=== PATIENT | female | born 1960 | race Caucasian/White ===

== ENCOUNTER 2024-01-05 14:04 | Emergency (ER) | payer MEDICARE, SELFPAY | END 2024-01-05 14:42 | disposition left against medical advice (07) | LOC: ER 14:24 | PROVIDERS: Emergency Provider Emergency Medicine | DX: Z53.21 Procedure and treatment not carried out due to patient leaving prior to being seen by health care provider (principal) ==

== ENCOUNTER 2025-01-01 08:44 | Emergency (ER) | payer OTHER, MEDICARE, SELFPAY ==
--- OUTSIDE RECORDS SUMMARY | 2024-10-29 05:29 | XMS_ITS | Continuity of Care Document ---
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 Name Role Phone Felicia Valladares PhD Unavailable Unavailab le Procedures Procedure Date PSYTX PT&/FAMILY 60 MINUTES PSYTX PT&/FAMILY 60 MINUTES PSYTX PT&/FAMILY 60 MINUTES PSYTX PT&/FAMILY 60 MINUTES PSYTX PT&/FAMILY 60 MINUTES PSYTX PT&/FAMILY 60 MINUTES PSYTX PT&/FAMILY 60 MINUTES PSYTX PT&/FAMILY 60 MINUTES PSYTX PT&/FAMILY 60 MINUTES PSYTX PT&/FAMILY 60 MINUTES PSYCH DIAGNOSTIC EVALUATION Advance Directives Directive Yes / No Effective Date File Name No Information Encounters Encounter Description Practice Location Reason(s) For Visit Diagnoses Date Provider Providers Copied on Encounter PSYTX PT&/FAMILY 60 MINUTES [facility], [place], [address] [place] [address], [id number], [place] tel:[phone] [facility] Adjustment disorder with mixed anxiety and depressed mood Blaine Duarte. [address] [place] [address], [id number], . tel:[phone] PSYTX PT&/FAMILY 60 MINUTES [facility], [place], [address] [place] [address], [id number], [place] tel:[phone] [facility] Adjustment disorder with mixed anxiety and depressed moodBody mass index [BMI]30.0-30.9, adult 5 Blaine Duarte. [address] [place], [address], . tel:[phone] PSYTX PT&/FAMILY 60 MINUTES [facility] [place], [address] [place], [place], [id number], [place] tel:[phone] [facility] Adjustment disorder with mixed anxiety and depressed moodBody mass index [BMI]30.0-30.9, adult 5 Blaine Duarte. [address] [place], [address], [place]. tel:[phone] PSYTX PT&/FAMILY 60 MINUTES [facility] [place], [address] [place], [place], [id number], [place] tel:[phone] [facility] Adjustment disorder with mixed anxiety and depressed moodBody mass index [BMI]30.0-30.9, adult 5 Blaine Duarte. [address] [place], [address], [place]. tel:[phone] PSYTX PT&/FAMILY 60 MINUTES [facility] [place] [place], [address] [place], [place], [id number], [place] tel:[phone] [facility] Adjustment disorder with mixed anxiety and depressed moodBody mass index [BMI]30.0-30.9, adult 5 Blaine Duarte. [address] [place], [address], [place]. tel:[phone] PSYTX PT&/FAMILY 60 MINUTES [facility] [place] [place], [address] [place], [place], [id number], [place] tel:[phone] [facility] Adjustment disorder with mixed anxiety and depressed moodBody mass index [BMI]30.0-30.9, adult 5 Blaine Duarte. [address] [place], [address], [place]. tel:[phone] PSYTX PT&/FAMILY 60 MINUTES [facility] [place] [place], [address] [place] [address], [id number], [place] tel:[phone] [facility] Adjustment disorder with mixed anxiety and depressed moodBody mass index [BMI]30.0-30.9, adult May-0 9-202 5 Blaine Duarte. [address] [place] [address], [address], [place]. tel:[phone] PSYTX PT&/FAMILY 60 MINUTES [facility] [place] [place], [address] [place] [address], [id number], [place] tel:[phone] [facility] Adjustment disorder with mixed anxiety and depressed moodBody mass index [BMI]30.0-30.9, adult May-0 2-202 5 Blaine Duarte. [address] [place] [address], [address], [place]. tel:[phone] PSYTX PT&/FAMILY 60 MINUTES [facility] [place] [place], [address] [place] [address], [id number], [place] tel:[phone] [facility] Adjustment disorder with mixed anxiety and depressed moodBody mass index [BMI]30.0-30.9, adult Apr-2 3-202 5 Blaine Duarte. [address] [place] [address], [address], [place]. tel:[phone] PSYTX PT&/FAMILY 60 MINUTES [facility] [place] [place], [address] [place] [address], [id number], [place] tel:[phone] [facility] Adjustment disorder with mixed anxiety and depressed moodBody mass index [BMI]30.0-30.9, adult Apr-1 6-202 5 Blaine Duarte. [address] [place] [address], [address], [place]. tel:[phone] PSYCH DIAGNOSTIC EVALUATION [facility] [place] [place], [address] [place] [address], [id number], [place] tel:[phone] [facility] Body mass index [BMI]30.0-30.9, adultAdjustment disorder with mixed anxiety and depressed mood Apr-0 3-202 5 Blaine Duarte. [address] [place] [address], [address], [place]. tel:[phone] Family History Family Member Type Diagnosis Age At Onset No Information Payers Payer name Insurance type Covered republican ID Ashley meléndez(sIngrid Mejia Medicare Adv MB [id number] Social History Type Description Quantity Date Captured Comments Sex Female Smoking Status No Information Chief Complaint And Reason For Visit No Information Reason For Referral Reason For Referral No Information Plan Of Treatment Date Type Action Status Goal FIT-DNA. Due on due Goal Colonoscopy. Due on due Goal Mammogram. Due on due Goal FIT. Due on due Goal PRAPARE ASSESSMENT. Due on A due Goal Influenza vaccine. Due on due Goal Tdap. Due on due Goal Unhealthy drug use screening . Due on due Goal FOBT. Due on due Goal Lipid panel. Due on due Goal Hepatitis C screening. Due o n due Goal Zoster vaccine (). Due on due Goal CT-Colonography. Due on due Goal Depression screening. Due on due Goal Tdap Vaccine. Due on 2024 due Goal FIT. Due on due Goal Influenza vaccine. Due on due Goal Lipid panel. Due on due Goal Tdap. Due on due Goal FIT-DNA. Due on due Goal Depression screening. Due on due Goal Hepatitis C screening. Due o n due Goal CT-Colonography. Due on due Goal Unhealthy drug use screening . Due on due Goal Colonoscopy. Due on due Goal Tdap Vaccine. Due on 2024 due Goal Mammogram. Due on due Goal FOBT. Due on due Goal Zoster vaccine (). Due on due Goal PRAPARE ASSESSMENT. Due on due Goal Hep A. Due on du e Goal Hepatitis C screening. Due o n due Goal Tdap. Due on due Goal FIT. Due on due Goal Tdap Vaccine. Due on 2024 due Goal FIT-DNA. Due on due Goal Zoster vaccine (). Due on due Goal FOBT. Due on due Goal Depression screening. Due on due Goal Influenza vaccine. Due on due Goal Mammogram. Due on due Goal Lipid panel. Due on due Goal Colonoscopy. Due on due Goal Unhealthy drug use screening . Due on due Goal CT-Colonography. Due on due Goal PRAPARE ASSESSMENT. Due on due Goal Influenza vaccine. Due on Ju due Goal Hepatitis C screening. Due o n due Goal Depression screening. Due on due Goal Lipid panel. Due on due Goal FIT-DNA. Due on due Goal PRAPARE ASSESSMENT. Due on due Goal Colonoscopy. Due on due Goal FIT. Due on due Goal Unhealthy drug use screening . Due on due Goal CT-Colonography. Due on due Goal Zoster vaccine (1st). Due on due Goal FOBT. Due on due Goal Tdap Vaccine. Due on 2024 due Goal Mammogram. Due on due Goal Tdap. Due on due Goal Tdap. Due on due Goal PRAPARE ASSESSMENT. Due on due Goal Depression screening. Due on due Goal FOBT. Due on due Goal Lipid panel. Due on due Goal Tdap Vaccine. Due on 2024 due Goal FIT. Due on due Goal Mammogram. Due on due Goal Zoster vaccine (1st). Due on due Goal Hepatitis C screening. Due o n due Goal CT-Colonography. Due on due Goal FIT-DNA. Due on due Goal Colonoscopy. Due on due Goal Influenza vaccine. Due on due Goal Unhealthy drug use screening . Due on due Goal FIT-DNA. Due on due Goal Lipid panel. Due on due Goal FOBT. Due on due Goal Unhealthy drug use screening . Due on due Goal Hepatitis C screening. Due o n due Goal CT-Colonography. Due on due Goal Colonoscopy. Due on due Goal Tdap Vaccine. Due on 2024 due Goal Depression screening. Due on due Goal FIT. Due on due Goal Influenza vaccine. Due on due Goal PRAPARE ASSESSMENT. Due on due Goal Mammogram. Due on due Goal Zoster vaccine (). Due on due Goal Tdap. Due on due Goal Zoster vaccine (). Due on due Goal Hep A. Due on du e Goal Tdap. Due on due Goal Lipid panel. Due on due Goal FIT. Due on due Goal Hepatitis C screening. Due o n due Goal Influenza vaccine. Due on Ma due Goal FOBT. Due on due Goal Tdap Vaccine. Due on 2024 due Goal Mammogram. Due on due Goal Colonoscopy. Due on due Goal PRAPARE ASSESSMENT. Due on due Goal Depression screening. Due on due Goal FIT-DNA. Due on due Goal Unhealthy drug use screening . Due on due Goal CT-Colonography. Due on due Goal Colonoscopy. Due on due Goal PRAPARE ASSESSMENT. Due on due Goal Zoster vaccine (). Due on due Goal FIT. Due on due Goal Hep A. Due on du e Goal Tdap. Due on due Goal CT-Colonography. Due on due Goal Tdap Vaccine. Due on 2024 due Goal Lipid panel. Due on due Goal Depression screening. Due on due Goal FOBT. Due on due Goal Influenza vaccine. Due on due Goal Unhealthy drug use screening . Due on due Goal Mammogram. Due on due Goal Hepatitis C screening. Due o n due Goal FIT-DNA. Due on due Goal Zoster vaccine (1st). Due on due Goal Hepatitis C screening. Due o n due Goal FIT-DNA. Due on due Goal Mammogram. Due on due Goal Hep A. Due on du e Goal FIT. Due on due Goal Colonoscopy. Due on due Goal CT-Colonography. Due on due Goal Unhealthy drug use screening . Due on due Goal FOBT. Due on due Goal PRAPARE ASSESSMENT. Due on A due Goal Lipid panel. Due on due Goal Tdap Vaccine. Due on 2024 due Goal Depression screening. Due on due Goal Influenza vaccine. Due on Ap due Goal Tdap. Due on due Goal Lipid panel. Due on due Goal Mammogram. Due on due Goal Hep A. Due on du e Goal Depression screening. Due on due Goal Colonoscopy. Due on due Goal Hepatitis C screening. Due o n due Goal FIT. Due on due Goal Tdap. Due on due Goal FIT-DNA. Due on due Goal Tdap Vaccine. Due on 2024 due Goal Influenza vaccine. Due on Ap due Goal Unhealthy drug use screening . Due on due Goal CT-Colonography. Due on due Goal FOBT. Due on due Goal PRAPARE ASSESSMENT. Due on A due Goal Zoster vaccine (). Due on due Goal Hepatitis C screening. Due o n due Goal Mammogram. Due on due Goal Depression screening. Due on due Goal Tdap Vaccine. Due on 2024 due Goal FIT. Due on due Goal PRAPARE ASSESSMENT. Due on A due Goal Hep A. Due on du e Goal CT-Colonography. Due on due Goal Tdap. Due on due Goal Unhealthy drug use screening . Due on due Goal Lipid panel. Due on due Goal Influenza vaccine. Due on Ap due Goal FIT-DNA. Due on due Goal FOBT. Due on due Goal Colonoscopy. Due on due Goal Zoster vaccine (1st). Due on due History Of Present Illness Encounter Date Complaint History Of Prese nt Illness No Information Functional Status Date Functional Assessmen t No Information Instructions Date Instruction Additional Infor neftali Food education, guid ance, and counseling Related to Body mass index [BMI] 30.0-30.9, adult Giving encouragement to exercise Related to Body mass index [BMI] 30.0-30.9, adult Assessments Type Assessment Date assessment Adjustment disorder with mixed a nxiety and depressed mood impression Rumination, low mood , interpersonal conflict, low communication of needs, and poor sleep hygiene after losing and father Patient Care Teams Name Effective Dates (start - stop) Status Members No Information
[2025-01-01 08:50] VITALS: BP 121/82; PULSE 84; TEMP 36.6; O2SAT 97; BMI 30.6
--- OUTSIDE RECORDS SUMMARY | 2025-01-01 09:08 | XMS_ITS | Clinical Summary ---
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 Name Role Phone Unavailable Primary Care Provider Unavailabl e Social History Tobacco UseTypesPacks/DayYears UsedDateSmoking Tobacco: Never Assessed CommentsUnknownSex and Gender InformationValueDate RecordedSex Assigned at Not on fileLegal BcaSqyosr62/15/2023 6:47 PM EDTGender IdentityNot on fileSexual OrientationNot on file Last Filed Vital Signs Vital SignReadingTime TakenCommentsBlood [id number]/8010 12:00 PM EDT Pulse--Temperature--Respiratory Rate--Oxygen Saturation--Inhaled Oxygen Concentration--Febzqb48.3 kg (210 lb)01/02/2022 12:00 PM JGABkyuch771.6 cm (5' 4 )01/02/2022 12:00 PM EDTBody Mass Index36.0501/02/2022 12:00 PM EDT Plan of Treatment Not on file Insurance * Guarantor: Bri Garcia AAccount TypeRelation to PatientDate of BirthPhone Billing AddressPersonal/[id number] [address] [place] [address]
--- OUTSIDE RECORDS SUMMARY | 2025-01-01 09:12 | XMS_ITS | CCD ---
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 Role Phone Jeremiah Lazo Unavailable Pranav Guadalupe Unavailable Mandeep Mcintosh Unavailable NONE, XXXX Primary Care Physician Unavailab MD Juan Diego Boland H Attending Provider Unavailable DO Jeremiah Lazo Primary Care Provider [phone] DO Jeremiah Lazo Referring Provider Self, Referral Attending Provider Unavailable DO Jeremiah Lazo Attending Provider [phone] DO Jeremiah Lazo Primary Care Provider DR JEREMIAH LAZO Primary Care Unavailable BRAXTON OSORIO Admitting Unavailable DR YOON HOYT V Consulting Unavailable BRAXTON OSORIO Attending Unavailable BRAXTON OSORIO Consulting Unavailable PATTIE HULL Attending Unavailable PATTIE HULL Consulting Unavailable PATTIE HULL Admitting Unavailable DR JEREMIAH LAZO Primary Care Unavailable YOON MUSTAFA Consulting Unavailable Jeremiah Lazo DO Primary Care Provider [phone] Merline Smith Unavailable MD Juan Diego Jalloh Attending Provider Unavailable DO Jeremiah Lazo Primary Care Provider DO Jeremiah Lazo Attending Provider MD Mandeep Mcintosh Attending Provider [phone] Jeremiah Lazo DO Primary Care Provider DO Jeremiah Lazo Primary Care Provider DO Jeremiah Lazo Referring Provider [phone] Self, Referral Attending Provider Unavailable Kuns DO, Jeremiah P Primary Care Provider [phone] Huongs, DO Jeremiah Primary Care Provider [phone] DO Jeremiah Lazo Attending Provider MD Pranav Guadalupe Attending Provider Yassine DO, Jeremiah P Primary Care Provider Juan Diego Jalloh MD Attending Provider Unavailable Yassine DOJeremiah Primary Care Provider [phone] Yassine HOROWITZ, Jeremiah Attending Provider [phone] Pranav Guadalupe MD Attending Provider Yassine HOROWITZ, Jeremiah Primary Care Provider Yassine HOROWITZ, Jeremiah Attending Provider Pranav Guadalupe MD Attending Provider Juan Diego Jalloh MD Attending Provider Unavailable Yassine HOROWITZ, Jeremiah Primary Care Provider [phone] Yassine HOROWITZ, Jeremiah Attending Provider Bijal Del Toro Attending Unavailable Bijal Del Toro Attending Unavailable Bijal Del Toro Attending Unavailable Diego Nance Admitting Unavaila ble HUONGS, JEREMIAH Primary Care Unavailable Diego Nance Attending Unavaila Marcell Chow Attending Unavailable Marcell Scott Admitting Unavailable KUNS, JEREMIAH Primary Care Unavailable Remy Rios Attending Unavailable Remy Rios Admitting Unavailable KUNS, JEREMIAH Primary Care Unavailable Rosie Enciso Y Attending Unavailable Rosie Enciso Admitting Unavailable KUNS, JEREMIAH Primary Care Unavailable MARCELL SCOTT II Referring Unavailabl e HUONGS, JEREMIAH P Primary Care Unavailable ALFRED GUERRERO Referring Unavailable HUONGS, JEREMIAH P Primary Care Unavailable MARCELL SCOTT II Admitting UnavailMARCELL Peterson II Attending Unavailabl e HUONGS, JEREMIAH P Primary Care Unavailable Blaine Wang, Felicia Unavailable Unavailab le Yassine DOJeremiah Primary Care Provider Jeremiah Lazo DO Attending Provider [phone] Gio Renee DO Attending Provider [phone] Kuns, Jeremiah Admitting Unavailable Kuns, Jeremiah Primary Care Unavailable Kuns, Jeremiah Attending Unavailable Kuns, Jeremiah Admitting Unavailable Kuns, Jeremiah Attending Unavailable Kuns, Jeremiah Primary Care Unavailable Kuns, Jeremiah Attending Unavailable Kuns, Jeremiah Admitting Unavailable Kuns, Jeremiah Primary Care Unavailable Olexa, Pranav Admitting Unavailable Olexa, Pranav Attending Unavailable Kuns, Jeremiah Primary Care Unavailable Kuns, Jeremiah Admitting Unavailable Kuns, Jeremiah Primary Care Unavailable Kuns, Jeremiah Attending Unavailable Kuns, Jeremiah Admitting Unavailable Kuns, Jeremiah Primary Care Unavailable Kuns, Jeremiah Attending Unavailable Kuns, Jeremiah Admitting Unavailable Kuns, Jeremiah Primary Care Unavailable Kuns, Jeremiah Attending Unavailable Olexa, Pranav Admitting Unavailable Olexa, Pranav Attending Unavailable Kuns, Jeremiah Primary Care Unavailable Kuns, Jeremiah Admitting Unavailable Kuns, Jeremiah Primary Care Unavailable Kuns, Jeremiah Attending Unavailable Kuns, Jeremiah Admitting Unavailable Kuns, Jeremiah Primary Care Unavailable Kuns, Jeremiah Attending Unavailable Blaine PhDFelicia Attending Unavailab le Kuns DO, Jeremiah P Primary Care Unavailable Felicia Valladares PhD Unavailable Unavailab le Kuns DO, Jeremiah Primary Care Provider Kuns DO, Jeremiah Attending Provider MARCELL SCOTT Referring Unavailable KUNS, JEREMIAH P Primary Care Unavailable MARCELL SCOTT Attending Unavailable KUNS, JEREMIAH P Primary Care Unavailable KUNS, JEREMIAH P Primary Care Unavailable MARCELL SCOTT Attending Unavailable MARCELL SCOTT Referring Unavailable BERENGER, ROX G Admitting Unavailable KUNS, JEREMIAH P Primary Care Unavailable BERENGER, ROX G Referring Unavailable BERENGER, ROX G Attending Unavailable KUNS, JEREMIAH P Primary Care Unavailable ALFRED GUERRERO Attending Unavailable MARCELL SCOTT Attending Unavailable KUNS, JEREMIAH P Primary Care Unavailable MARCELL SCOTT Referring Unavailable KUNS, JEREMIAH P Primary Care Unavailable CAIT CHEN Referring Unavailable MARCELL SCOTT Referring Unavailable KUNS, JEREMIAH P Primary Care Unavailable ABRAHAM SAINI Attending Unavailable KUNS, JEREMIAH P Primary Care Unavailable PATIENCE ANGELES Attending Unavailable SELF Referring Unavailable KUNS, JEREMIAH P Primary Care Unavailable KOLCZUN, MARCELL C Attending Unavailable KOLLEVIUN, MARCELL C Referring Unavailable KUNS, JEREMIAH P Primary Care Unavailable KOLCZUN, MARCELL C Referring Unavailable KOLCZUN, MARCELL C Attending Unavailable KOLCZUN, MARCELL C Referring Unavailable KUNS, JEREMIAH P Primary Care Unavailable KUNS, JEREMIAH P Primary Care Unavailable BERENGERROX G Attending Unavailable KUNS, JEREMIAH P Primary Care Unavailable BERENGER, ROX G Referring Unavailable KUNS, JEREMIAH P Primary Care Unavailable BERENGER, ROX G Referring Unavailable KUNS, JEREMIAH P Primary Care Unavailable KOLCZUN, MARCELL C Referring Unavailable KOLCZUN, MARCELL C Referring Unavailable KUNS, JEREMIAH P Primary Care Unavailable KOLCZUN, MARCELL C Referring Unavailable KUNS, JEREMIAH P Primary Care Unavailable JEANETTE COURTNEY Attending Unavailable SELF Referring Unavailable KUNS, JEREMIAH P Primary Care Unavailable KUNS, JEREMIAH P Primary Care Unavailable KOLCZUN, MARCELL C Referring Unavailable KOLCZUN, MARCELL C Attending Unavailable KUNS, JEREMIAH P Primary Care Unavailable KOLCZUN, MARCELL C Attending Unavailable Allergies Allergy ClassificationReported Allergen(s)Allergy TypeDate of OnsetReaction(s) Facility (20 sources)cefdinirDrug Qusvkga42-24-2432fqwujwkl ( c-diff)[facility] (20 sources)Ciprofloxacin; Translations: [ciprofloxacin]Drug Nxzugnj95-36-4711 [facility] (20 sources)Sulfacetamide / SulfurDrug AllergyBritninowwayne, deyaniraingNort Dealentra Other (20 sources)Cephalosporins (Antibiotic); Translations: [Cephalosporins] Propensity to adverse csgegtyxr94-24-9612[facility] ([facility] sources)Sulfonamides (Antibiotic); Translations: [SULFA (SULFONAMIDE ANTIBIOTICS)]Allergy to -76-6754WsuswflGxxollbeaMarietta [facility] (1 source)CiprofloxacinDrug AllergyThe [facility] (1 source)Sulfonamides (Antibiotic)Drug allergy (disorder)67-20-7766Drn [facility] Repository (2 sources)SulfacetamideDrug Ihewxps27-38-0711covxmihXkrfuvsozJ.W. [facility] (2 sources)SulfurDrug Tilkahm06-59-8936rzvglumCpkmujimsJ.W. [facility] (1 source)Sulfonamides (Antibiotic); Translations: [sulfa drugs]Propensity to adverse reactions (disorder)[facility] (1 source)sulfa drug; Translations: [sulfa drug]Propensity to adverse reactions to drug (disorder)[facility] Repository (1 source)cefdinirDrug Olojuzl89-95-5192MljvzigsxHolzer Hospital Repository (1 source)CiprofloxacinDrug Qglovbg88-53-2198DwkdhpieiHolzer Hospital Repository Medications Current Medications MedicationDrug Class(es)DatesSig (Normalized)Sig (Original)0.25 MG, 0.5 MG Dose 3 ML semaglutide 0.68 MG/ML Pen Injector [Ozempic] (20 sources)Start: 59-22-4754vyxciu 0.5 mg by subcutaneous injection every week Ozempic (0.25 or 0.5 MG/DOSE) 2 MG/3ML 0.5 mg Subcutaneous weekly Mar, ActiveStart: 55-32-8223oispet 0.5 mg by subcutaneous injection every weekOzempic (0.25 or 0.5 MG/DOSE) 2 MG/3ML 0.5 mg Subcutaneous weekly for 90 days Mar, ActiveStart: 70-59-4490Yxpypxn (0.25 or 0.5 MG/DOSE) 2 MG/3ML 0.25mg Subcutaneous weekly 1 pen Mar, Activeacetaminophen 500 mg oral tablet (20 sources)Start: 77-88-7676rxgt 2 tablets by mouth every eight hours as needed acetaminophen (TYLENOL EXTRA STRENGTH) 500 mg tablet Take 2 tablets by mouth every 8 hours as needed for pain. 04/29/2024 ActiveStart: 05-16-2017 End: 47-07-7177yksv 2 tablets by mouth every four to six hours as needed for painAcetaminophen (Tylenol) 325 mg Tablet Discontinued 650 MG PO EVERY 4-6 HOURS as needed for Pain May 16, 2017 12:00am May 19, 2018 1:04pm cholecalciferol 0.05 mg oral capsule (20 sources)Vitamin DStart: 65-02-3346hvbk 1 capsule by mouth once daily in the eveningCholecalciferol (Vitamin D3) (Vitamin D3) 2,000 unit Capsule Active 2000 UNITS PO Every evening May 16, 2017 12:00am Complies with drug therapytake 1 tablet by mouth once dailycholecalciferol (VITAMIN D3) 50 mcg (2,000 unit) tablet Take 2,000 Units by mouth once daily. Activetake 1 tablet by mouth every twenty-four hoursVitamin D3 125 MCG (5000 UT) 1 capsule Orally Once a day Active Comment on above:Take 2,000 Units by mouth once daily.docusate sodium 100 mg oral capsule (20 sources)take 2 capsules by mouth once daily at bedtimedocusate sodium (COLACE) 100 mg capsule Take 200 mg by mouth daily at bedtime. ActiveComment on above:Take 200 mg by mouth daily at bedtime.esomeprazole 40 mg delayed release oral capsule (20 sources)Proton Pump InhibitorStart: 05-03-2023 End: 01-21-9604xiur 1 capsule by mouth once dailyEsomeprazole Magnesium (Nexium) 40 mg capsule,delayed release(DR/EC) Active 40 MG PO Daily 2024 2:37pm 1 capsule Orally Once a day Complies with drug therapyStart: 04-09-2023 End: 27-98-4911umwe 1 capsule by mouth once dailyesomeprazole (NEXIUM) 20 mg capsule Take 1 capsule by mouth once daily. 04/09/2023 04/29/2024 Discontinued (Duplicate Entry)Comment on above:Take 1 capsule by mouth once daily.ferrous sulfate 325 mg oral tablet (20 sources)Start: 03-14-2490dhoy 1 tablet by mouth once dailyFerrous Sulfate 325 mg (65 mg iron) tablet Active 1 TAB PO Daily May 03, 2023 1:00am FreeTextSi tablet Orally Once a day; Note: Source Status: Taking; Provider: Lucie Minart: 72-62-9488qsnz 1 tablet by mouth once dailyFerrous Sulfate 325 mg (65 mg iron) tablet Active 1 TAB PO Daily May 03, 2023 12:00am FreeTextSi tablet Orally Once a day; Note: Source Status: Taking; Provider: Lucie Minart: 70-53-0229cecg 1 tablet by mouth once dailyFerrous Sulfate Active 1 TAB PO Daily May 03, 2023 1:00am FreeTextSi tablet Orally Once a day; Note: Source Status: Taking; Provider: Lucie Minart: 09-08-2019 End: 96-28-3695zfck 1 tablet by mouth once dailyFerrous Sulfate 325 mg (65 mg iron) tablet Active 1 TAB PO Daily May 03, 2023 1:00am FreeTextSi tablet Orally Once a day; Note: Source Status: Taking; Provider: Lucie Pope Complies with drugtherapyStart: 14-09-1458gkhv 1 tablet by mouth every twenty-four hours Ferrous Sulfate 325 (65 Fe) MG 1 tablet Orally Once a day Sep, Active Start: 91-99-5439znej 1 tablet by mouth once dailyStart: 56-76-0736opal 1 tablet by mouth once dailyFerrous Sulfate 325 (65 Fe) MG 1 tablet Orally Once a day Sep, ActiveComment on above:Take 1 tablet by mouth daily with breakfast.12 hr guaiFENesin 600 mg extended release oral tablet (6 sources)Start: 06-09-2024 End: 54-27-0414cxou 2 tablets by mouth twice daily as neededguaiFENesin (MUCINEX) 600 mg 12 hr tablet Take 2 tablets by mouth two times a day as needed for cold/allergy symptoms. 120 tablet 2 06/09/2024 09/07/2024 ActiveoxyCODONE hydrochloride 5 mg oral tablet (2 sources)Opioid AgonistStart: 05-20-2024 End: 24-17-7652mwuh 1 tablet by mouth every four to six hours as neededoxyCODONE IR (ROXICODONE) 5 mg immediate release tablet Indications: Acute post-operative pain Take1-2 tablets by mouth every 4-6 hours as needed for post-operative pain. 42 tablet 05/20/2024 11:49 AM EDT 05/20/2024 05/27/2024 Activeozempic (0.25 or 0.5 mg/dose) 2 mg/3ml solution pen-injector (3 sources)Start: 15-53-0023byiuhb 0.5 mg by subcutaneous injection every week Ozempic (0.25 or 0.5 MG/DOSE) 2 MG/3ML 0.5 mg Subcutaneous weekly Mar, Activerivaroxaban 10 mg oral tablet (20 sources)Factor Xa InhibitorStart: 05-05-2024 End: 43-21-1405idko 1 tablet by mouth once dailyrivaroxaban (XARELTO) 10 mg tablet Take 1 tablet by mouth once daily for 21 days. 21 tablet 05/20/2024 06/10/2024 ActiveStart: 04-29-2023 End: 17-82-7137caoc 1 tablet by mouth once dailyRivaroxaban (Xarelto) 10 mg tablet Discontinued 10 MG PO Daily May 07, 2023 1:00am October 14, 2023 12:57pmComment on above:Take 1 tablet by mouth once daily for 28 days. Semaglutide (20 sources)Start: 92-81-2275Lybcrjsgkqc (Ozempic) 0.25 mg or 0.5 mg (2 mg/3 mL) pen injector Active 0.5 MG SUBCUT every week July 30, 2024 1:33pm Complies with drug therapyStart: 02-12-1133Ypeai: 69-25-7010Atozmtqlcds (Ozempic) 0.25 mg or 0.5 mg (2 mg/3 mL) pen injector Active 0.5 MG SUBCUT every week July 30, 2024 1:33pmStart: 10-14-2023 End: 19-49-7180Xutspklbpaj (Ozempic) 0.25 mg or 0.5 mg (2 mg/3 mL) pen injector Discontinued 1 MG SUBCUT every week October 14, 2023 12:57pm July 30, 2024 1:33pmStart: 25-03-9682Tgzeesahrdo (Ozempic) 0.25 mg or 0.5 mg (2 mg/3 mL) pen injector Active 1 MG SUBCUT every week October 14, 2023 11:57amStart: 01-89-6331Tybcdctobjn (Ozempic) 0.25 mg or 0.5 mg (2 mg/3 mL) pen injector Active 1 MG SUBCUT every week October 14, 2023 12:57pmStart: 05-03-2023 End: 81-42-0305vrwqzz 0.5 mg by subcutaneous injection every weekSemaglutide (Ozempic) 0.25 mg or 0.5 mg (2 mg/3 mL) pen injector Discontinued 0.5 MG SUBCUT every week May 03, 2023 12:00am October 14, 2023 11:59am FreeTextSi.5 mg Subcutaneous weekly; Note:Source Status: Continue; Provider: Yassine Daniels PStart: 05-03-2023 End: 28-16-1651adbkyk 0.5 mg by subcutaneous injection every weekSemaglutide (Ozempic) 0.25 mg or 0.5 mg (2 mg/3 mL) pen injector Discontinued 0.5 MG SUBCUT every week May 03, 2023 1:00am October 14, 2023 12:59pm FreeTextSi.5 mg Subcutaneous weekly; Note: Source Status: Continue; Provider: Yassine Daniels PStart: 36-42-2831jxfgpp 0.5 mg by subcutaneous injection every weekSemaglutide (Ozempic) 0.25 mg or 0.5 mg (2 mg/3 mL) pen injector Active 0.5 MG SUBCUT every week May 03, 2023 1:00am FreeTextSi.5 mg Subcutaneous weekly; Note: Source Status: Continue; Provider: Yassine Daniels Psemaglutide (OZEMPIC) 0.25 mg or 0.5 mg (2 mg/3 mL) pen (20 sources)Start: 63-94-5256agqhrc 0.5 mg by subcutaneous injection every week semaglutide (OZEMPIC) 0.25 mg or 0.5 mg (2 mg/3 mL) pen Inject 0.5 mg subcutaneously one time a week. On mondays04/29/2024 ActiveStart: 12-24-2022 End: 47-17-8433qwxrzw 0.5 mg by subcutaneous injection every weeksemaglutide (OZEMPIC) 0.25 mg or 0.5 mg (2 mg/3 mL) pen Inject 0.5 mg subcutaneously one time a week. 12/24/2022 04/29/2024 Discontinued (Adjust Sig - Block E-Cancel) Start: 14-45-5551zkybzp 0.5 mg by subcutaneous injection every weeksemaglutide (OZEMPIC) 0.25 mg or 0.5 mg (2 mg/3 mL) pen Inject 0.5 mg subcutaneously one time a week. 12/24/2022 ActiveStart: 36-72-1425twymsi 0.5 mg by subcutaneous injection every weeksemaglutide (OZEMPIC) 0.25 mg or 0.5 mg (2 mg/3 mL) pen Inject 0.5 mg subcutaneously one time a week. 0 12/24/2022 ActiveComment on above:Inject 0.5 mg subcutaneously one time a week.tiZANidine 4 mg oral tablet (20 sources)Central alpha-2 Adrenergic AgonistStart: 51-30-8402uhdy 1 tablet by mouth every eight hours as neededtiZANidine (ZANAFLEX) 4 mg tablet Take 1 tablet by mouth every 8 hours as needed. 04/29/2024 ActiveStart: 05-03-2023 End: 80-18-6077ppjt 1 tablet by mouth three times daily as neededTizanidine (Zanaflex) 4 mg tablet Discontinued 4 MG PO Three times daily October 14, 2023 1:42pm October 29, 2023 2:02pm FreeTextSi tablet as needed Orally Three times a day; Note: Source Status: Taking; Refills: 1; Qty: 90 Tablet; Provider: Yassine Jacobs 1 tablet by mouth every eight hoursZanaflex 4 MG 1 tablet as needed Orally Three times a day for 30 days ActiveVitamin D3 (12 sources)Vitamin D3 ActiveVitamin D3 125 MCG (5000 UT) (20 sources)take 1 capsule by mouth once dailyVitamin D3 125 MCG (5000 UT) 1 capsule Orally Once a day Active Completed/Discontinued Medications MedicationDrug Class(es)DatesSig (Normalized)Sig (Original)acetaminophen 300 mg / butalbital 50 mg / caffeine 40 mg oral capsule (18 sources)Barbiturate, Central Nervous System Stimulant, MethylxanthineStart: 01-15-2024 End: 36-10-3128wjhk 1 capsule by mouth three times daily as needed for pain Ljorothjfc-Vkedqimmunocn-Jasm (Fioricet) 50-300-40 mg capsule Discontinued 1 CAP PO Three times daily as needed for pain 31 12January 15, 2024 12:14pm July 30, 2024 12:53pmacetaminophen 325 mg / oxyCODONE hydrochloride 5 mg oral tablet (12 sources)Opioid AgonistStart: 12-09-2023 End: 89-94-4527trwc 1 tablet by mouth every six hours as needed for pain Oxycodone-Acetaminophen (Percocet) 5-325 mg tablet Discontinued 1 TAB PO Every 6 hours as needed for pain December 09, 2023 July 30, 2024 12:54pm amoxicillin 875 mg oral tablet (20 sources)Penicillin-class AntibacterialStart: 05-07-2023 End: 51-81-1845omew 1 tablet by mouth every twelve hoursAmoxicillin 875 mg tablet Discontinued 875 MG PO Every 12 hours May 07, 2023 1:00am October 14, 2023 12:54pmamoxicillin 875 mg / clavulanate 125 mg oral tablet (10 sources)Penicillin-class AntibacterialStart: 10-22-2024 End: 94-98-3820txlz 1 tablet by mouth twice dailyAmoxicillin-Pot Clavulanate 875-125 mg tablet Discontinued 1 TAB PO .Twice a day 14 October 22, 2024 12:00am December 01, 2024 12:19pmStart: 06-01-2024 End: 73-35-5991mvdj 1 tablet by mouth twice dailyAmoxicillin-Pot Clavulanate 875-125 mg tablet Discontinued 1 TAB PO Twice daily 20 June 01, 2024 12:00am July 30, 2024 12:52pmStart: 05-01-2023 End: 47-48-0042gihg 1 tablet by mouth twice dailyamoxicillin-clavulanate potassium (AUGMENTIN) 875-125 mg per tablet Take 1 tablet by mouth two times a day for 14 days. 28 tablet 0 05/01/2023 05/15/2023 ActiveComment on above:Take 1 tablet by mouth two times a day for 14 days.atorvastatin 40 mg oral tablet (20 sources)HMG-CoA Reductase InhibitorStart: 01-01-2008 End: 56-03-7913iuwk 1 tablet by mouth once daily at bedtimeAtorvastatin 40 mg tablet Discontinued 40 MG PO Daily at bedtime May 16, 2017 12:00am October 02, 2023 8:09amComment on above:Take one(1) tablet daily.azithromycin 250 mg oral tablet (20 sources)Macrolide AntimicrobialStart: 10-15-2024 End: 05-71-5920Oueneyalidsz (Zithromax Z-Ravindra) 250 mg tablet Discontinued 0 PO .COMPLEX October 15, 2024 12:00amS2024 12:19pm For 250 mg dose pack: take 500 mg today (day 1), then 250 mg for 4 days (days 2-5) POStart: 03-06-2024 End: 82-73-2287Klukmnfympje (Zithromax Z-Ravindra) 250 mg tablet Discontinued 0 PO .COMPLEX March 06, 2024 1:00am March 30, 2024 9:42am For 250 mg dose pack: take 500 mg today (day 1), then 250 mg for 4 days (days 2-5) POStart: 06-07-2023 End: 22-66-5584Ngjzletkejij (Zithromax Z-Ravindra) 250 mg tablet Discontinued 0 PO .COMPLEX July 01, 2023 12:00am October 14, 2023 12:54pm For 250 mg dose pack: take 500 mg today (day 1), then 250 mg for 4 days (days 2-5) POStart: 96-58-7979Cpghawdml Z-Ravindra 250 MG as directed Orally as directed Mar, ActiveStart: 54-43-1868Xuejsecrn Z-Ravindra 250 MG as directed Orally Nov, ActiveStart: 52-51-1211Zprmxtqtz Z-Ravindra 250 MG 2 tablets on the first day, then 1 tablet daily for 4 days Orally Once a dayfor 5 day(s) Aug, ActiveStart: 92-69-9815Rjgfxozmn Z-Ravindra 250 MG as directed Orally May, ActiveStart: 22-96-6439Geyhmodyg Z-Ravindra 250 MG as directed Orally Oct, ActiveStart: 00-36-5253Mebfr: 25-89-2857Gawkckguu Z-Ravindra 250 MG 2 tablet on the first day, then 1 tablet daily for 4 days Orally Once a day for 5 day(s) Dec, Activebenzonatate 200 mg oral capsule (8 sources)Non-narcotic AntitussiveStart: 10-22-2024 End: 94-44-7353tzhv 1 capsule by mouth three times daily as needed for cough Benzonatate 200 mg capsule Discontinued 200 MG PO Three times daily as needed for cough 30 October 22, 2024 12:00am December 01, 2024 12:19pmStart: 53-29-6996lqux 1 capsule by mouth every eight hoursBenzonatate 200 MG 1 capsule Orally Three times a day for 30 day(s) May, Activebumetanide 1 mg oral tablet (20 sources)Loop DiureticStart: 04-21-2002 End: 81-49-0008vbal 1 tablet by mouth once daily as needed for edemaBumetanide 1 mg tablet Discontinued 1 MG PO Daily as needed for Edema October 22, 2023 5:43pm June 12, 2024 2:39pmComment on above:one po prnTake 1 mg by mouth once daily as needed.12 hr buPROPion hydrochloride 150 mg extended release oral tablet (20 sources)AminoketoneStart: 10-29-2023 End: 65-11-0933Pilntpoap Hcl 150 mg tablet sustained-release 12 hr Discontinued 0 PO Twice daily December 12:10pm June 12, 2024 2:39pm 300mg in am, 150 in pm orally twice daily;Start: 11-08-2010 End: 16-54-3972sjxs 1 tablet by mouth twice dailyBupropion Hcl 150 mg Tablet Extended Release 12 Hr Discontinued 150 MG PO Twice daily May 16, 2017 12:00am October 29, 2023 2:02pmStart: 11-08-2010 End: 49-78-2964ijxx 1 tablet by mouth twice dailybuPROPion SR (WELLBUTRIN SR) 150 mg ORAL 12 hr tablet Indications: Multiple sclerosis (HCC) , Systemic lupus erythematosus (HCC) , Abnormality of gait , Depression , Fatigue Take 1 tablet by mouth twice daily. 180 tablet 3 11/08/2010 05/01/2023 DiscontinuedbuPROPion SR (WELLBUTRIN SR) 150 mg 12 hr tablet Take by mouth. Take 300mg every morning, and 150mgevery evening Activetake 2 tablets by mouth in the morning, then take 1 tablet by mouth twice daily in the eveningbuPROPion HCl ER (SR) 150 MG 2 TABLETS IN AM, 1TABLET IN PM Orally TWICE A DAY for 90 days Activetake 2 tablets by mouth in the morning, then take 1 tablet by mouth in the eveningbuPROPion HCl ER (SR) 150 MG 2 TABLETS IN AM, 1TABLET IN PM Orally as directed for 90 day(s) ActiveComment on above:Take 1 tablet by mouth twice daily.Take by mouth. Take 300mg every morning, and 150mg every eveningcyclobenzaprine hydrochloride 5 mg oral tablet (20 sources)Muscle RelaxantStart: 02-14-2019 End: 56-98-1672wekk 1 tablet by mouth three times daily as needed for muscle spasmsCyclobenzaprine 5 mg tablet Discontinued 5 MG PO Three times daily as needed for muscle spasm February 14, 2019 1:00am February 14, 2019 4:40pm dexlansoprazole 60 mg delayed release oral capsule (20 sources)Proton Pump InhibitorStart: 05-16-2017 End: 79-65-3424taax 1 capsule by mouth once dailyDexlansoprazole 60 mg capsule,biphase delayed releas Discontinued 60 MG PO Daily May 16, 2017 12 :00am December 29, 2019 9:37amescitalopram 10 mg oral tablet (20 sources)Serotonin Reuptake InhibitorStart: 11-11-2017 End: 74-85-3559iqev 1 tablet by mouth once dailyEscitalopram Oxalate 10 mg tablet Discontinued 10 MG PO Daily May 03, 2023 1:00am July 01, 2023 1:06pm FreeTextSi tablet Orally Once a day; Note: Source Status: Taking; Refills: 1; Qty: 90 Tablet; Provider: Yassine Daniels PStart: 05-16-2017 End: 36-09-8043Ekxlbiaqnsfc Oxalate 20 mg tablet Discontinued 30 MG PO Daily May 16, 2017 12:00am October 12:54pmStart: 05-16-2017 End: 15-21-1100fbyr 30 mg by mouth once dailyEscitalopram Oxalate Discontinued 30 MG PO Daily May 16, 2017 12:00am October 14, 2023 12:54pmStart: 04-05-2017 End: 11-73-4704ngqk 1 tablet by mouth every twenty-four hoursLexapro 20 MG 1 tablet Orally Once a day Nov, ActiveComment on above:Take 10 mg by mouth once daily.Take 1 tablet by mouth once daily.fluticasone propionate 0.05 mg/actuat metered dose nasal spray (20 sources)CorticosteroidStart: 05-03-2023 End: 21-32-0271srze 1 spray(s) nasal route once dailyFluticasone Propionate 50 mcg/actuation spray,suspension Discontinued 1 SPRAY INTRANASAL Daily May 03, 2023 1:00am October 14, 2023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 sources)Postmenopausal state; Translations: [Asymptomatic menopausal state] 82-14-9194NlslzyvtEvpcfozu codes; unclassified (3 sources)Pain; Translations: [Pain, unspecified]52-86-1448GnrhtpasRooupggzi and history of mental health and substance abuse codes (1 source)Personal history of nicotine dependence; Translations: [PERSONAL HISTORY OF NICOTINE DEPEND]Onset: 09-99-3969TmnxaqmtHjurkrojjsc; intervertebral disc disorders; other back problems (17 sources)Lumbar spondylosis; Translations: [Spondylosis without myelopathy or radiculopathy, lumbar region]Onset: 117187-06-6665SgdnhxgHhvhpkagjrr; intervertebral disc disorders; other back problems (20 sources)Neck pain; Translations: [Cervicalgia]Onset: 008085-96-3557 EpisodicSystemic lupus erythematosus and connective tissue disorders (20 sources)SLE glomerulonephritis syndrome; Translations: [Glomerular disease in systemic lupus erythematosus]Onset: 03-04-1989 Resolved: 49-15-2402VhuiomuJppevpl disorders (20 sources)Hypothyroidism; Translations: [Hypothyroidism, unspecified]Onset: 06-83-3311IxmncstKzvyfygsaatt (20 sources)Total Knee Replacement Care CompanionOnset: Unclassified (1 source)Cough, unspecified; Translations: [Cough, unspecified]Onset: 11-21-7834Niakymlsikan (1 source)Adjacent segment disease of lumbar spine with history of fusion procedure; Translations: [Adjacent segment disease of lumbar spine with history of fusion procedure]Onset: 15-30-5387Uiwsffxoyezm (1 source)Established PatientOnset: 59-73-6273Ihrcckr tract infections (20 sources)Urinary tract infectious disease; Translations: [Urinary tract infection, site not specified]Onset: 586410-97-3807SrqybfihJknfh infection (20 sources)Herpes simplex; Translations: [Herpesviral infection, unspecified] 91-18-2821Svrndlnu Past or Other Problems Problem ClassificationProblemDateDocumented DateEpisodic/ChronicAbdominal hernia (20 sources)Hiatal hernia; Translations: [Diaphragmatic hernia without obstruction or gangrene]Onset: 718630-36-5029OxjltacnLfmwpzwgj infection; unspecified site (2 sources)Methicillin resistant Staphylococcus aureus infection; Translations: [Methicillin resistant Staphylococcus aureus infection, unspecified site]Onset: 077581-31-2468KpzuhdwoAzebdjiawlpdy symptoms and ill-defined conditions (20 sources)Dysuria; Translations: [Dysuria]Onset: 48-89-8448ScixouvpFyvps acquired deformities (20 sources)Other specified acquired deformities of unspecified lower leg; Translations: [Other acquired deformities of ankle and foot]Onset: 04-11-2009 65-34-3606TvkxqtlkRwclo acquired deformities (20 sources)Deformity of lower limb; Translations: [Other specified acquired deformities of unspecified lower leg]Onset: 410923-49-4242BkfwedeuRkjji connective tissue disease (20 sources)Pain in left foot; Translations: [Pain in left foot]Onset: 034773-72-3858EofoqfokUmbxl connective tissue disease (20 sources)Mass of soft tissue; Translations: [Other specified soft tissue disorders]Onset: 981853-52-9670MyrjvbguNttvg connective tissue disease (20 sources)Plantar fasciitis of left foot; Translations: [Plantar fascial fibromatosis]Onset: 940513-43-6606OmqadjcuVrphv connective tissue disease (20 sources)Calcaneal spur; Translations: [Calcaneal spur, unspecified foot] Onset: 837979-19-7761UzaeiqmeBrtqg nervous system disorders (20 sources)Abnormal gait; Translations: [Unspecified abnormalities of gait and mobility]Onset: 068423-17-2293LurlcincXvptw nervous system disorders (1 source)Other acute postprocedural pain; Translations: [Acute post-operative pain]Onset: 45-85-1038DadyepdjQlksf non-traumatic joint disorders (1 source)Pain in unspecified wrist; Translations: [Wrist pain M25.539]Onset: 12-19-2020 Resolved: 80-81-4379JppuoxzeQfvdg non-traumatic joint disorders (1 source)Pain in left knee; Translations: [Pain in left knee M25.562]Onset: 12-29-2020 Resolved: 01-27-4014OecogedvGgnflgqki; thrombophlebitis and thromboembolism (20 sources)Personal history of other venous thrombosis and embolism; Translations: [H/O: Deep vein thrombosis]Onset: 626761-84-6340Jtkcblzv Pulmonary heart disease (20 sources)H/O: pulmonary embolus; Translations: [Personal history of pulmonary embolism]Onset: 079156-77-1621ZqbkzzxiEjccezwt codes; unclassified (13 sources)Asymptomatic menopausal state; Translations: [Asymptomatic postmenopausal status (age-related) (natural)]Onset: EpisodicResidual codes; unclassified (2 sources)Pain, unspecified; Translations: [Pain]Onset: 52-94-0084Ykhtpoan Unclassified (1 source)Lumbar pain M54.50Unclassified (1 source)Cough R05.9Viral infection (20 sources)COVID-19; Translations: [COVID-19] Results Test NameValueInterpretationReference RangeFacilityCNPNon [id number] Telephone (PAINLN) NEGRO GARCIA ([id number]) 1960 F Date Time Provider Department 12/29/24 ROX JOYCE During your visit today, we recorded the following information about you: Jimena Lozano LPN 12/29/2024 11:40 AM Signed DATE OF SERVICE: 12/25/24 PATIENT'S PHONE NUMBERS: [phone] (home) PROVIDER: Dr. Joyce PROCEDURE: Elective Pain Management Procedure Right L3-L4 Transforaminal Epidural Steroid injection Spoke directly with patient/caregiver Patient states that they are 80% better. Current pain is 2/10 Patient stated she is able to stand for longer periods, walk longer distances, and getting up from a sitting position is easier. Follow up appt scheduled. Allergies As of Date: 12/29/2024 Noted Allergy Reaction CEPHALOSPORINS 04/06/2016 8 - GI Upset Comments: c-diff when taking CIPROFLOXACIN 04/05/2017 4 - Hives SULFA (SULFONAMIDE ANTIBIOTICS) 2006 9 - Itching Date Reviewed: 12/25/2024 Reviewed by: Sally Foley RN - Fully Assessed Reason for Visit: Pain Procedure Response AND follow up [Other] Cmt: Right L3-L4 Transforaminal Epidural Steroid injection Prescriptions as of 12/29/2024 - ferrous sulfate 325 mg (65 mg iron) tablet Take 1 tablet by mouth daily at bedtime. - acetaminophen (TYLENOL EXTRA STRENGTH) 500 mg tablet Take 2 tablets by mouth every 8 hours as needed for pain. - semaglutide (OZEMPIC) 0.25 mg or 0.5 mg (2 mg/3 mL) pen Inject 0.5 mg subcutaneously one time a week. On mondays - tiZANidine (ZANAFLEX) 4 mg tablet Take 1 tablet by mouth every 8 hours as needed. - esomeprazole (NEXIUM) 40 mg capsule Take 40 mg by mouth once daily. - buPROPion SR (WELLBUTRIN SR) 150 mg 12 hr tablet Take by mouth. Take 300mg every morning, and 150mg every evening - bumetanide (BUMEX) 1 mg tablet Take 1 mg by mouth once daily as needed. - docusate sodium (COLACE) 100 mg capsule Take 200 mg by mouth daily at bedtime. - LORazepam (ATIVAN) 0.5 mg Take 0.5 mg by mouth every 6 hours as needed (anxiety). - levothyroxine (SYNTHROID) 50 mcg tablet Take 50 mcg by mouth once daily. Take On an Empty Stomach - oxybutynin (DITROPAN) 5 mg tablet Take 5 mg by mouth once daily. - escitalopram oxalate (LEXAPRO) 10 mg tablet Take 10 mg by mouth once daily. - cholecalciferol (VITAMIN D3) 50 mcg (2,000 unit) tablet Take 2,000 Units by mouth once daily. - atorvastatin calcium(LIPITOR 40 MG TAB) Take one(1) tablet daily. Problem List As Of Date 12/29/2024 Noted Resolved Multiple sclerosis (HCC) [G35.D] 03/04/1988 Class: Chronic Systemic lupus erythematosus (HCC) [M32.9] 03/04/1989 Class: Chronic Abnormality of Gait [R26.9] 04/11/2009 Other Acquired Deformity of Ankle and Foot [M21*04/11/2009 Pain in left foot [M79.672] 05/10/2016 Gastrocnemius equinus [M62.469] 05/10/2016 Acquired hallux valgus of left foot [M20.12] 05/10/2016 Soft tissue mass [M79.89] 05/10/2016 Plantar fasciitis of left foot [M72.2] 05/10/2016 Heel spur [M77.30] 05/10/2016 Mixed hyperlipidemia [E78.2] 07/10/2016 Gastroesophageal reflux disease without esophag*07/10/2016 Depression [F32.A] 07/10/2016 Class 1 obesity with serious comorbidity and [place]*12/25/2022 History of pulmonary embolus (PE) [Z86.711] 04/09/2023 Clotting disorder (HCC) [D68.9] 04/09/2023 Hypertension [I10] 04/09/2023 Hiatal hernia [K44.9] 04/09/2023 OAB (overactive bladder) [N32.81] 04/09/2023 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] 04/30/2023 History of DVT (deep vein thrombosis) [Z86.718] 05/22/2023 Hypothyroidism [E03.9] 04/29/2024 Primary osteoarthritis of right knee [M17.11] 04/29/2024 Anxiety [F41.9] 05/19/2024 Right lumbar radiculopathy [M54.16] 12/22/2024 Spinal stenosis of lumbar region with neurogeni*12/25/2024 Radicular pain of right lower extremity [M54.10]12/25/2024 History of lumbar fusion [Z98.1] 12/25/2024 Adjacent segment disease of lumbar spine with h*12/25/2024 Postlaminectomy syndrome, not elsewhere classif*12/25/2024 Encounter Status:Closed by JIMENA LOZANO on 12/29/24NoSelect [facility] PHYSICALon [id number] PHYSICALHNO ID: [id number] Author: KIERAN LEON DO Service: Pain Management Author Type: Fellow Type: H&P Filed: 12/25/2024 10:15 Note Text: UPDATED HISTORY AND PHYSICAL EXAMINATION SERVICE DATE: 12/25/2024 SERVICE TIME: 1015 AM PHYSICAL EXAM MUST BE COMPLETED ON ADMISSION The History and Physical (completed in the past 30 days) has been reviewed and the patient has been examined. The contents accurately reflect the patient's condition with the following additions or revisions since the HANDP was completed. Examination indicates no changes. The conditions listed in the H and P are all present on admission and the plan of care will be determined post operatively. This HANDP can be found in the attached. SIGNATURE: Kieran Leon DO PATIENT NAME: Negro Garcia DATE: December 25, 2024 TIME: 10:15 AMNormalACMC Healthcare [facility] PHYSICALHNO ID: [id number] Author: NELA COLE APRN.FOUNTAIN VENDING MECHANIC Service: Family Practice Author Type: Nurse Practitioner Type: H&P Filed: 12/25/2024 09:27 Note Text: PROCEDURAL SEDATION HISTORY AND PHYSICAL EXAM SERVICE DATE: 12/25/2024 SERVICE TIME: 9:26 AM Subjective HPI: This is a 64 year old female who presents with back pain PAST ANESTHESIA HISTORY: No history of adverse event PAST MEDICAL HISTORY Diagnosis Date Carpal tunnel syndrome Depression DVT (deep venous thrombosis) (HCC) After surgeries Hiatal hernia Hypertension Multiple sclerosis (HCC) Primary open-angle glaucoma, bilateral, mild stage Pulmonary embolism (HCC) 1989 PAST SURGICAL HISTORY Procedure Laterality Date ARTHROSCOPY KNEE DIAGNOSTIC W/WO SYNOVIAL BX SPX Right Arthroscopy, knee BACK SURGERY HX x2 BUNIONECTOMY, LAPIDUS-TYPE CARPAL TUNNEL Left PAST SURGICAL HISTORY OF Vein stripping PAST SURGICAL HISTORY OF Heel Spurs TONSILLECTOMY PRIMARY/SECONDARY Tonsillectomy Prior to Admission medications as of 11/12/24 0929 Medication Sig Last Dose Taking ferrous sulfate 325 mg (65 mg iron) tablet Take 1 tablet by mouth daily at bedtime. acetaminophen (TYLENOL EXTRA STRENGTH) 500 mg tablet Take 2 tablets by mouth every 8 hours as needed for pain. semaglutide (OZEMPIC) 0.25 mg or 0.5 mg (2 mg/3 mL) pen Inject 0.5 mg subcutaneously one time a week. On mondays tiZANidine (ZANAFLEX) 4 mg tablet Take 1 tablet by mouth every 8 hours as needed. esomeprazole (NEXIUM) 40 mg capsule Take 40 mg by mouth once daily. buPROPion SR (WELLBUTRIN SR) 150 mg 12 hr tablet Take by mouth. Take 300mg every morning, and 150mg every evening bumetanide (BUMEX) 1 mg tablet Take 1 mg by mouth once daily as needed. docusate sodium (COLACE) 100 mg capsule Take 200 mg by mouth daily at bedtime. LORazepam (ATIVAN) 0.5 mg Take 0.5 mg by mouth every 6 hours as needed (anxiety). levothyroxine (SYNTHROID) 50 mcg tablet Take 50 mcg by mouth once daily. Take On an Empty Stomach oxybutynin (DITROPAN) 5 mg tablet Take 5 mg by mouth once daily. escitalopram oxalate (LEXAPRO) 10 mg tablet Take 10 mg by mouth once daily. cholecalciferol (VITAMIN D3) 50 mcg (2,000 unit) tablet Take 2,000 Units by mouth once daily. atorvastatin calcium(LIPITOR 40 MG TAB) Take one(1) tablet daily. ALLERGIES Allergen Reactions Cephalosporins GI Upset c-diff when taking Ciprofloxacin Hives Sulfa (Sulfonamide * Itching Objective PHYSICAL EXAM: The remainder of the physical exam is noncontributory. GENERAL: Alert, no distress, cooperative AIRWAY: Mouth opening greater than 3 fingerbreadths: Yes Neck Full Range of Motion: Yes LUNGS: Lungs clear to auscultation CARDIAC: Regular rhythm,Regular rate ASA Class: ASA Class: Patient with severe systemic disease Assessment AND Plan Spinal stenosis of lumbar region with neurogenic claudication Present on Admission: Status not on file Assessment: LUMBAR TRANSFORAMINAL (TFESI OR TFLESI) (RIGHT) L 3-4 Radicular pain of right lower extremity Present on Admission: Status not on file Assessment: LUMBAR TRANSFORAMINAL (TFESI OR TFLESI) (RIGHT) L 3-4 History of lumbar fusion Present on Admission: Status not on file Assessment: LUMBAR TRANSFORAMINAL (TFESI OR TFLESI) (RIGHT) L 3-4 Adjacent segment disease of lumbar spine with history of fusion procedure Present on Admission: Status not on file Assessment: LUMBAR TRANSFORAMINAL (TFESI OR TFLESI) (RIGHT) L 3-4 Postlaminectomy syndrome, not elsewhere classified Present on Admission: Status not on file Assessment: LUMBAR TRANSFORAMINAL (TFESI OR TFLESI) (RIGHT) L 3-4 Exogenous Class 1 Obesity Medication and Non-Pharmacologic VTE Prophylaxis/Anticoagulants VTE Prophylaxis: NA Provisional Diagnosis/Treatment Plan: LUMBAR TRANSFORAMINAL (TFESI OR TFLESI) (RIGHT) L 3-4 SIGNATURE: Nela Cole APRN.CNP PATIENT NAME: Negro Garcia DATE: December 25, 2024 TIME: 9:26 AMNormalLima Memorial HospitalOPERATIVE NOon [id number] NOHNO ID: [id number] Author: ROX JOYCE MD Service: Pain Management Author Type: Physician Type: Operative Report Filed: 12/25/2024 10:53 Note Text: Patient Name Medical Record # Negro Garcia [id number] Date of : 1960 Admit Date: December 25, 2024 Sex / Age: female/64 year old Discharge Date: December 25, 2024 Attending Physician: Rox Joyce MD Date: December 25, 2024 Service: OPERATIVE REPORT LOG ID: [id number] Surgery/Procedure Date: 12/25/2024 Incision/Procedure Start Time: 10:28 AM Incision Close/Procedure End Time: 10:50 AM Surgeon(s)/Proceduralist(s) and Pipe Crew Foreman(s): Surgeons and Role: * Rox Joyce MD - Primary * Kieran Leon DO - Fellow No Additional Staff PREOPERATIVE DIAGNOSIS: Right Lumbosacral Radiculopathy and Spinal Stenosis - Lumbar with Neurogenic Claudication POSTOPERATIVE DIAGNOSIS: Same MRI 2024: T12 -- L1: Patent canal and foramina. L1 -- 2: Disc bulge. Patent canal and foramina. L2 -- 3: Satisfactory decompression. Patent canal. Foramina encroachment without narrowing. L3 -- 4: Right eccentric disc bulge and central annular tear and small protrusion. Facet and ligamentum flavum hypertrophy. Moderate canal narrowing. Severe right and moderate left foramina narrowing. L4 -- 5: Disc/joint degeneration. Patent canal. Mild to moderate right and moderate to severe left foramina narrowing. L5 -- S1: Satisfactory decompression with patent canal. Moderate left greater than right foramina narrowing. NAME OF OPERATION: Right L3-L4 Transforaminal Epidural Steroid injection # 1 under fluoroscopic guidance. SURGEON: Rox Joyce MD PEST MANAGEMENT SUPERVISOR: Bret Leon MD ANESTHESIA: Moderate sedation and local anesthesia using: Versed 1 mg IV Normal airway, chest excursion and heart rate. Airway reassessed immediately prior to medication administration, and IV sedation was administered incrementally to allow the patient to remain comfortable and conversant throughout the procedure. SEDATION START TIME: 10:27 AM SEDATION END TIME: 10:52 AM INFORMED CONSENT: Risks, benefits and alternatives were discussed with the patient in detail. She verbalized understanding and agreed to proceed. PROCEDURE: The patient was brought to fluoroscopy OR suite. Intravenous access was obtained prior to the procedure. The patient positioned prone on the fluoroscopy table. Continuous hemodynamic monitoring was initiated including blood pressure, EKG and pulse oximetry. Intravenous sedation was administered incrementally to allow the patient to remain comfortable and conversant throughout the procedure. The area of the lumbar spine was prepped well with povidone-iodine x 3 and draped into a sterile field. Skin anesthesia was achieved using total of 3 cc of lidocaine 1 % over receptive injection site. An oblique fluoroscopic view was obtained, with the superior articular process of the inferior vertebral body aligned with the pedicle on the right side. The tip of a 22 gauge 5 inches Quinke needle was or needles were advanced toward the 6 o?clock position of theright L3-L4 pedicle under intermittent fluoroscopic guidance (osteophytes prevented adequate access to NF - reposition entering along SAP of L4). Confirmation of proper needle position was made with AP and Oblique fluoroscopic views. Negative aspiration for blood or CSF was confirmed on the right side. 2 mL of Omnipaque contrast was injected to confirm spread on the right side. Fluoroscopic imaging revealed a clear outline of the spinal nerve with proximal spread of agent with poor uptake through the neural foramen into the anterior epidural space and there was absence of vascular uptake on the right side. A total of 2 cc of lidocaine 1% mixed with 10 mg of Dexamethasone was injected at this level, for a total of 10 mg of Dexamethasone. needle was then removed and bleeding was nil. Sterile dressing was applied and the patient was brought to the Recovery Room in stable condition. Complications: None. Estimated Blood Loss: None. Drains: None. Implantable Device: None. Specimen: None. I, Rox Joyce MD was present during the entire procedure, assisted as needed, patient tolerated well and no apparent complications, plan as outlined. ASSESSMENT AND PLAN: Negro Garcia is status post right L3-L4 Transforaminal epidural steroid injection. She did very well without any apparent complications. She is to return to clinic in 8 weeks for follow up. Postoperative instructions were given. She voiced understanding. She was taken to the recovery room in stable condition. Rox Joyce MD Pain Management December 25, 2024NoSelect [facility] [id number] HEALTHHNO ID: [id number] Author: JOSHUA HORAN RT(R) Service: Radiology Author Type: Technologist Type: Allied Health Filed: 12/10/2024 15:22 Note Text: Radiology Service Progress Note PATIENT NAME: Negro Garcia DATE OF SERVICE: December 10, 2024 TIME: 3:22 PM PATIENT IDENTITY VERIFICATION COMPLETED USING TWO (2) IDENTIFIERS: Name and Date of confirmed by patient verbally and Name and Date of confirmed by identification band. FALL SCREENING: Has the patient had 2 falls in the last year or 1 fall with injury or currently using an Ambulatory Assistive Device (Walker, Cane, Wheelchair, Crutches, etc.)? No PATIENT GENDER DATA: Assigned female at . status: : No status: NO. PATIENT RELEVANT IMPLANT DATA REVIEWED: Yes PATIENT PRESENTS WITH AN IMPLANTABLE OR ATTACHED LIEUTENANT FIRE FIGHTER: No RADIOLOGY DEPARTMENT: MR; Exam(s) Completed: Spine: Lumbar spine. Anesthesia: No. Aromatherapy Administered: No PERIPHERAL IV DATA: Not applicable SIGNED BY: RT Karma(R) December 10, 2024 3:22 PMNormalMercy Health Perrysburg HospitalI LUMBAR SPINE WO IVCON on [id number] LUMBAR SPINE WO IVCON* * *Final Report* * * DATE OF EXAM: Dec 10 2024 3:33PM LNM 0303 - MRI LUMBAR SPINE WO IVCON / PROCEDURE REASON: multiple diagnoses * * * * Physician Interpretation * * * * COMPARISON: None. 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 TECHNIQUE: MRI of lumbar spine without contrast. MQ: [id number] RESULT: MRI OF LUMBAR SPINE: Acute abnormality: None. Mild levoscoliosis without vertebral anomalies. Osteopenic patchy marrow signal. Exaggeration of normal lumbar lordosis with grade 1 degenerative retrolisthesis of L1 on L2 and L2 on L3 and L3 on L4 and L4 on L5 and minimal anterior listhesis of L5 on S1. Surgical decompression of L5 and L2 with hardware stabilization through pedicles screws of L2-L3 and L5-S1. Hardware cannot be evaluated on MRI and plain radiograph or CT would be of value if clinically indicated. Osteopenic patchy marrow signal. Decreased disc height/signal with posterior bulges and joint degeneration indicating spondylosis. Canal and foraminal disease is detailed level by level below. Normal alignment, vertebral height, soft tissues, central canal, thecal sac, spinal cord signal/caliber and cauda equina region. No fracture/dislocation. T12 -- L1: Patent canal and foramina. L1 -- 2: Disc bulge. Patent canal and foramina. L2 -- 3: Satisfactory decompression. Patent canal. Foramina encroachment without narrowing. L3 -- 4: Right eccentric disc bulge and central annular tear and small protrusion. Facet and ligamentum flavum hypertrophy. Moderate canal narrowing. Severe right and moderate left foramina narrowing. L4 -- 5: Disc/joint degeneration. Patent canal. Mild to moderate right and moderate to severe left foramina narrowing. L5 -- S1: Satisfactory decompression with patent canal. Moderate left greater than right foramina narrowing. IMPRESSION: 1. Uncomplicated decompression and hardware stabilization changes. 2. Spondylotic moderate canal narrowing at L3-4. 3. L3 through S1 foraminal disease detailed level by level. COUNTING REFERENCE: Inferior lumbar disc taken as L5-S1. Structural anomalies: None. Automatic Grinding Machine Operator: [facility] Transcribe Date/Time: Dec 10 2024 3:39P Dictated by : KIMMY GUERRA MD This examination was interpreted and the report reviewed and electronically signed by: KIMMY GUERRA MD on Dec 10 2024 3:42PM EST [id number] Medical Center [id number] Office Visit (PAINLN) RADHANEGRO Metcalf ([id number]) 1960 F Date Time Provider Department 11/12/24 9:00 AM ROX JOYCE PAINLN During your visit today, we recorded the following information about you: Pulse Weight Height 74/minute 83 kg 1.626 m Rox Joyce MD 11/17/2024 3:34 PM Signed SUBJECTIVE: Mrs. Garcia a 64 year old female referred by Dr. Scott, Marcell Li MD presents with the complaint of lower lumbar pain. The patient is a 64-year-old female with MS and prior lumbar spinal fusions, presenting for evaluation of progressive low back pain radiating to the left buttock and leg, exacerbated by standing and walking. Patient reports the date of onset of symptoms as several years and describes the location of the pain as lower lumbar . The pain is chronic, aching, shooting, throbbing, and radaiting, and rated as 4 on a scale of 1-10, with radiation. PAIN RATIO: (back:leg): Back > Leg Patient reports that LBP is increased by ADL's and relieved by Unknown. Ambulation distance (before needing to sit): 1 block Standing time (before needing to sit): 1/2 hour OTHER BACK PAIN SYMPTOMS: NIGHT PAIN: No PARESTHESIA: No POOR SLEEP: No BOWEL/BLADDER INCONTINENCE OR RETENTION: No ACTIVITY LIMITATIONS: ADLs HPI: Chronic Low Back Pain: - Onset approximately 5 years ago. - Pain localized to the lower back, with intermittent radiation to the buttocks and leg. - Aggravated by standing and walking; worsens with prolonged ambulation. - Pain can begin immediately upon standing and persists even when sitting. - Ileana reports relief when leaning forward or holding onto something, such as a shopping cart. - Describes having poor posture and a hunch when walking. - Denies known trauma or injury. - Ileana has not pursued physical therapy for back pain. - Recent hip x-rays by Dr. Palmer reportedly normal. Spinal Surgeries: - Two spinal fusions performed at [facility]. - First fusion in 2000, second fusion performed after 2000. - Post-surgical improvement noted, but Ileana believes she may have exacerbated the condition by overexertion. - Wore a brace after each surgery. MS: - Diagnosed approximately 36 years ago. - Managed at [facility]; reports stability over the past few years. - Chronic issues with left leg, including foot drop, since diagnosis. - No brace worn for foot drop. - Recent MRI of the neck in 2022. - Multiple MRIs of the brain for MS management. Surgical History: - Bladder stimulator placed in 2002. - Throat surgery in [address] Alfred Arias for removal of an enlarging mass. Social History: - Former smoker, quit years ago. - Denies history of diabetes or cancer. - Weight reported as stable. PREVIOUS TREATMENTS LASTING SIX WEEKS IN THE LAST SIX MONTHS Active conservative therapy lasting 6 weeks in the last six months (see below) 1. Physical therapy: No 2. Home exercise program after PT: No 3. Occupational therapy: No 4. A physician supervised home exercise program (HEP): No 5. Neonatal Critical Care Nurse: No Passive conservative therapy lasting 6 weeks in the last six months (see below) 1. Medical devises: No 2. Acupuncture: No 3. Tens unit: No 4. Prescription pain medication: NO 5. 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, [employer] HISTORY OF TRAUMA/OVERUSE OF AREA: No REVIEW OF SYSTEMS: GENERAL: Negative for malaise, significant weight loss and fever HEENT: Negative for frequent or significant headaches NECK: Negative for lumps, goiter, pain and significant neck swelling RESPIRATORY: Negative for cough, hemoptysis, wheezing, COPD, dyspnea or shortness of breath CARDIOVASCULAR: Negative for chest pain, leg swelling, hypertension, CHF or palpitations GI: No nausea, vomiting, or diarrhea : No history of dysuria, frequency or incontinence NISSAN SALES CONSULTANT: Negative for abnormal vaginal bleeding, abnormal vaginal discharge. . MUSCULOSKELETAL: See HPI SKIN: Negative for lesions, rash, and itching PSYCH: Negative for sleep disturbance, mood disorder and recent psychosocial stressors. HEMATOLOGY/LYMPHOLOGY Negative for prolonged bleeding, bruising easily or swollen nodes ENDOCRINE: Negative for cold or heat intolerance, polyuria, polydipsia and goiter PAST MEDICAL HISTORY Diagnosis Date Carpal tunnel syndrome Depression DVT (deep venous thrombosis) (HCC) After surgeries Hiatal hernia Hypertension Multiple sclerosis (HCC) Primary open-angle glaucoma, bilateral, mild stage Pulmonary embolism (HCC) 1989 PAST MEDICAL HISTORY Diagnosis Date Carpal tunnel syndrome Depression DVT (deep venous thrombosis) (HCC) After surgeries Hiatal hernia Hypertension Multiple sclerosis (HCC) Primary open-angle glaucoma, bilateral, mild stage Pulmonary embolism (HCC) 1989 PAST SURGICAL HISTORY Procedure Laterality Da (more content not included)...NormalLima [facility] HospitalXR LUMBAR 3V AP/LAT/L5-S1on [id number] LUMBAR 3V AP/LAT/L5-S1* * *Final Report* * * DATE OF EXAM: Nov 12 2024 9:29AM LNX 5228 - XR LUMBAR 3V AP/LAT/L5-S1 / PROCEDURE REASON: Spondylosis of lumbar region without myelopathy or radiculopathy * * * * Physician Interpretation * * * * Lumbar spine radiographs HISTORY: Spondylosis. Low back pain TECHNIQUE: 3 views of the lumbar spine COMPARISON: None available FINDINGS: Mild curvature of the thoracolumbar spine convex towards the left. No acute fracture. Posterior fusion surgery at L5-S1 with pedicle screws and fixation rods and disc spacer. Moderate L4-5 disc space narrowing posteriorly and mild endplate osteophytes. Facet arthrosis. Moderate L3-4 disc space narrowing with mild endplate osteophytes and retrolisthesis. Facet arthrosis. Fusion surgery at L2-3 with bilateral SCREWS and fixation rods. Posterior elements effusion. Moderate disc space narrowing and partial bone fusion and slight retrolisthesis. Moderate T12-L1 and L1-2 disc space narrowing and endplate osteophytes. Mild L1-2 retrolisthesis. IMPRESSION: 1. Fusion surgery at L2-3 and L5-S1 2. Disc degeneration with mild lumbar spondylosis, facet arthrosis and retrolisthesis at L3-4 3. Disc degeneration and lumbar spondylosis with mild retrolisthesis at L1-2 Automatic Grinding Machine Operator: ARELIS Transcribe Date/Time: Nov 12 2024 11:46A Dictated by : NOAM RIOS MD This examination was interpreted and the report reviewed and electronically signed by: NOAM RIOS MD on Nov 12 2024 11:48AM EST [id number] TriPoint Medical Center Lumbar spine 3 Viewson [id number]: 1. Fusion surgery at L2-3 and L5-S1 2. Disc degeneration with mild lumbar spondylosis, facet arthrosis and retrolisthesis at L3-4 3. Disc degeneration and lumbar spondylosis with mild retrolisthesis at L1-2 Automatic Grinding Machine Operator: ARELIS Transcribe Date/Time: Nov 12 2024 11:46A Dictated by : NOAM RIOS MD This examination was interpreted and the report reviewed and electronically signed by: NOAM RIOS MD on Nov 12 2024 11:48AM EST DIVISION OF RADIOLOGY* * *Final Report* * * DATE OF EXAM: Nov 12 2024 9:29AM LNX 5228 - XR LUMBAR 3V AP/LAT/L5-S1 / PROCEDURE REASON: Spondylosis of lumbar region without myelopathy or radiculopathy * * * * Physician Interpretation * * * * Lumbar spine radiographs HISTORY: Spondylosis. Low back pain TECHNIQUE: 3 views of the lumbar spine COMPARISON: None available FINDINGS: Mild curvature of the thoracolumbar spine convex towards the left. No acute fracture. Posterior fusion surgery at L5-S1 with pedicle screws and fixation rods and disc spacer. Moderate L4-5 disc space narrowing posteriorly and mild endplate osteophytes. Facet arthrosis. Moderate L3-4 disc space narrowing with mild endplate osteophytes and retrolisthesis. Facet arthrosis. Fusion surgery at L2-3 with bilateral SCREWS and fixation rods. Posterior elements effusion. Moderate disc space narrowing and partial bone fusion and slight retrolisthesis. Moderate T12-L1 and L1-2 disc space narrowing and endplate osteophytes. Mild L1-2 retrolisthesis. DIVISION OF RADIOLOGYProvider, [facility] [place] - 11/12/2024 * * *Final Report* * * DATE OF EXAM: Nov 12 2024 9:29AM LNX 5228 - XR LUMBAR 3V AP/LAT/L5-S1 / PROCEDURE REASON: Spondylosis of lumbar region without myelopathy or radiculopathy * * * * Physician Interpretation * * * * Lumbar spine radiographs HISTORY: Spondylosis. Low back pain TECHNIQUE: 3 views of the lumbar spine COMPARISON: None available FINDINGS: Mild curvature of the thoracolumbar spine convex towards the left. No acute fracture. Posterior fusion surgery at L5-S1 with pedicle screws and fixation rods and disc spacer. Moderate L4-5 disc space narrowing posteriorly and mild endplate osteophytes. Facet arthrosis. Moderate L3-4 disc space narrowing with mild endplate osteophytes and retrolisthesis. Facet arthrosis. Fusion surgery at L2-3 with bilateral SCREWS and fixation rods. Posterior elements effusion. Moderate disc space narrowing and partial bone fusion and slight retrolisthesis. Moderate T12-L1 and L1-2 disc space narrowing and endplate osteophytes. Mild L1-2 retrolisthesis. IMPRESSION IMPRESSION: 1. Fusion surgery at L2-3 and L5-S1 2. Disc degeneration with mild lumbar spondylosis, facet arthrosis and retrolisthesis at L3-4 3. Disc degeneration and lumbar spondylosis with mild retrolisthesis at L1-2 Automatic Grinding Machine Operator: ARELIS Transcribe Date/Time: Nov 12 2024 11:46A Dictated by : NOAM RIOS MD This examination was interpreted and the report reviewed and electronically signed by: NOAM RIOS MD on Nov 12 2024 11:48AM EST [facility] WestRadiology Study observation (narrative)[facility] WestXR Lumbar spine 3 ViewsOrdered By: Ccf Provider on [id number] ClinicInfluenza virus B Ag [Presence] in Upper respiratory specimen by Rapid immunoassayOrdered By: Gio Renee on [id number] Ag IA.rapid Ql (Nph)NegativeHolzer HospitalNo Panel InformationOrdered By: Gio Renee on 72-53-0173Rwnxtrruy Type A (Rapid)NegativeHolzer HospitalPOC SARS CoV-2 AntigenNegativeHolzer HospitalRSV (POC)Holzer HospitalX-ray reportOrdered By: Refugio Cevallos on [id number] reportKETTERING [facility] Main [place] [address] [place] [address] XRay Report Signed Patient: Negro Garcia MR#: [id number] : 1960 Acct:[id number] Age/Sex: 64 / F ADM Date: 5 Loc: XDSHC Room: Type: [facility] Attending Dr: Jeremiah Lazo DO Copies to: Jeremiah Lazo DO~ Ordering Provider: Jeremiah Lazo DO Date of Service: 10/22/24 XR/XR chest 2V*: R05.9 - Cough, unspecified PA AND LATERAL CHEST: CLINICAL HISTORY: Cough, chest discomfort COMPARISON: 04/20/2014 FINDINGS: Unremarkable cardiac mediastinal. Lungs clear. No effusion or pneumothorax. Hiatal hernia identified. Postsurgical changes lumbar spine partially visualized. XR/XR chest 2V* IMPRESSION: NO ACUTE CARDIOPULMONARY ABNORMALITY. Impression dictated by: Refugio Cevallos M.D. 10/22/2024 1:55 PM Dictation Location: [place] [address] Transcribed By: CIRO 10/22/24 [facility] Dictated By: Refugio Cevallos MD 10/22/24 135 Signed By: 10/22/24 [facility]5 [facility] Work Phone: XR chest 2V*on [id number] chest 2V*[facility] Main [place] [address] [place] [address] XRay Report Signed Patient: Negro Garcia MR#: [id number] : 1960 Acct:[id number] Age/Sex: 64 / F ADM Date: 10/22/24 Loc: [facility] Room: Type: [facility] Attending Dr: Jeremiah Lazo DO Copies to: Jeremiah Lazo DO Ordering Provider: Jeremiah Lazo DO Date of Service: 10/22/24 XR/XR chest 2V*: R05.9 - Cough, unspecified PA AND LATERAL CHEST: CLINICAL HISTORY: Cough, chest discomfort COMPARISON: 04/20/2014 FINDINGS: Unremarkable cardiac mediastinal. Lungs clear. No effusion or pneumothorax. Hiatal hernia identified. Postsurgical changes lumbar spine partially visualized. XR/XR chest 2V* IMPRESSION: NO ACUTE CARDIOPULMONARY ABNORMALITY. Impression dictated by: Refugio Cevallos M.D. 10/22/2024 1:55 PM Dictation Location: [place] [address] Transcribed By: [facility] 10/22/24 135 Dictated By: Refugio Cevallos MD 10/22/24 1355 Signed By: 10/22/[address] [place] [address] Physician GroupCNOVon [id number] Visit (MELANY) NEGRO GARCIA ([id number]) 1960 F Date Time Provider Department 09/22/24 10:30 AM MARCELL SCOTT During your visit today, we recorded the following information about you: Marcell Scott MD 09/22/2024 11:35 AM Signed see dictated note Marcell Scott II, MD Allergies As of Date: 09/22/2024 Noted Allergy Reaction CEPHALOSPORINS 04/06/2016 8 - GI Upset Comments: c-diff when taking CIPROFLOXACIN 04/05/2017 4 - Hives SULFA (SULFONAMIDE ANTIBIOTICS) 2006 9 - Itching Date Reviewed: 09/22/2024 Reviewed by: Monika Hansen MA - Fully Assessed Reason for Visit: Established Patient [175] Follow Up [171] Primary Visit Diagnosis:Status post total right knee replacement [Z96.651] Other Visit Diagnosis:Chronic bilateral low back pain with right-sided sciatica [G89.29, M54.41] Prescriptions as of 09/22/2024 - ferrous sulfate 325 mg (65 mg iron) tablet Take 1 tablet by mouth daily at bedtime. - acetaminophen (TYLENOL EXTRA STRENGTH) 500 mg tablet Take 2 tablets by mouth every 8 hours as needed for pain. - semaglutide (OZEMPIC) 0.25 mg or 0.5 mg (2 mg/3 mL) pen Inject 0.5 mg subcutaneously one time a week. On mondays - tiZANidine (ZANAFLEX) 4 mg tablet Take 1 tablet by mouth every 8 hours as needed. - esomeprazole (NEXIUM) 40 mg capsule Take 40 mg by mouth once daily. - buPROPion SR (WELLBUTRIN SR) 150 mg 12 hr tablet Take by mouth. Take 300mg every morning, and 150mg every evening - bumetanide (BUMEX) 1 mg tablet Take 1 mg by mouth once daily as needed. - docusate sodium (COLACE) 100 mg capsule Take 200 mg by mouth daily at bedtime. - LORazepam (ATIVAN) 0.5 mg Take 0.5 mg by mouth every 6 hours as needed (anxiety). - levothyroxine (SYNTHROID) 50 mcg tablet Take 50 mcg by mouth once daily. Take On an Empty Stomach - oxybutynin (DITROPAN) 5 mg tablet Take 5 mg by mouth once daily. - escitalopram oxalate (LEXAPRO) 10 mg tablet Take 10 mg by mouth once daily. - cholecalciferol (VITAMIN D3) 50 mcg (2,000 unit) tablet Take 2,000 Units by mouth once daily. - atorvastatin calcium(LIPITOR 40 MG TAB) Take one(1) tablet daily. Problem List As Of Date 09/22/2024 Noted Resolved Multiple sclerosis (HCC) [G35] 03/04/1988 Class: Chronic Systemic lupus erythematosus (HCC) [M32.9] 03/04/1989 Class: Chronic Abnormality of Gait [R26.9] 04/11/2009 Other Acquired Deformity of Ankle and Foot [M21*04/11/2009 Pain in left foot [M79.672] 05/10/2016 Gastrocnemius equinus [M62.469] 05/10/2016 Acquired hallux valgus of left foot [M20.12] 05/10/2016 Soft tissue mass [M79.89] 05/10/2016 Plantar fasciitis of left foot [M72.2] 05/10/2016 Heel spur [M77.30] 05/10/2016 Mixed hyperlipidemia [E78.2] 07/10/2016 Gastroesophageal reflux disease without esophag*07/10/2016 Depression [F32.A] 07/10/2016 Class 1 obesity with serious comorbidity and [place]*12/25/2022 History of pulmonary embolus (PE) [Z86.711] 04/09/2023 Clotting disorder (HCC) [D68.9] 04/09/2023 Hypertension [I10] 04/09/2023 Hiatal hernia [K44.9] 04/09/2023 OAB (overactive bladder) [N32.81] 04/09/2023 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 CLINICAL INFORMATION: Dysphagia. The patient had surgery and since then she feels like things get stuck. Patient also has hiatal hernia and is significant reflux. COMPARISON: None available at the time of dictation. TECHNIQUE: A biphasic examination of the esophagus was performed utilizing effervescent granules (E-Z-Gas II - 4 grams), high density barium (120cc Maxibar 210% w/v), and low density barium (355cc E-Z-Paque, 60% w/v). A 700 mg barium sulfate tablet (E-Z-Disk) was administered. RESULT: There is a large hiatal hernia with herniation of stomach fundus into the lower chest. No mass, ring, stricture, or esophagitis. Gastroesophageal reflux was elicited with patient motion, Valsalva, and water siphon. Esophageal motility was normal. The 13 mm barium tablet passed easily through the esophagus without causing symptoms. Total Fluoroscopy Time = 1.10 minutes IMPRESSION: LARGE HIATAL HERNIA WITH HERNIATION OF STOMACH FUNDUS INTO THE LOWER CHEST AND GASTROESOPHAGEAL REFLUX. Automatic Grinding Machine Operator: ARELIS Transcribe Date/Time: Sep 14 2024 6:46A Dictated by : MADELIN FARFAN MD This examination was interpreted and the report reviewed and electronically signed by: MADELIN FARFAN MD on Sep 14 2024 6:51AM EST [id number] Specialty HospitalXR HIP 3V PELV+ AP/LAT RTon 09-10-2024 XR HIP 3V PELV+ AP/LAT RT* * *Final Report* * * DATE OF EXAM: Sep 10 2024 9:20AM VHX 5352 - XR HIP 3V PELV+ AP/LAT RT / PROCEDURE REASON: Pain * * * * Physician Interpretation * * * * EXAMINATION / TECHNIQUE: XR HIP 3V PELV+ AP/LAT RT PATIENT/TECHNOLOGIST PROVIDED HISTORY: chronic pain that goes down her leg CLINICAL INFORMATION ( PROVIDED BY ORDERING CLINICIAN) : Pain COMPARISON: None RESULT: No acute fractures or dislocations. Osteophytes on the greater trochanter. Mild osteoarthritic changes of the right hip. Left hip is unremarkable. Postsurgical changes in the visualized lumbosacral spine. IMPRESSION: Mild osteoarthritis right hip. Automatic Grinding Machine Operator: ARELIS Transcribe Date/Time: Sep 10 2024 10:51A Dictated by : SABINA ANGELES MD This examination was interpreted and the report reviewed and electronically signed by: FABIO LEWIS MD on Sep 10 2024 12:22PM EST [id number] Specialty HospitalXR Pelvis and Hip - right AP and Lateral [facility] [id number]: Mild osteoarthritis right hip. Automatic Grinding Machine Operator: ARELIS Transcribe Date/Time: Sep 10 2024 10:51A Dictated by : SABINA ANGELES MD This examination was interpreted and the report reviewed and electronically signed by: FABIO LEWIS MD on Sep 10 2024 12:22PM EST [facility]* * *Final Report* * * DATE OF EXAM: Sep 10 2024 9:20AM VHX 5352 - XR HIP 3V PELV+ AP/LAT RT / PROCEDURE REASON: Pain * * * * Physician Interpretation * * * * EXAMINATION / TECHNIQUE: XR HIP 3V PELV+ AP/LAT RT PATIENT/TECHNOLOGIST PROVIDED HISTORY: chronic pain that goes down her leg CLINICAL INFORMATION ( PROVIDED BY ORDERING CLINICIAN) : Pain COMPARISON: None RESULT: No acute fractures or dislocations. Osteophytes on the greater trochanter. Mild osteoarthritic changes of the right hip. Left hip is unremarkable. Postsurgical changes in the visualized lumbosacral spine. [place] RADIOLOGYProvider, [facility] [place] - 09/10/2024 * * *Final Report* * * DATE OF EXAM: Sep 10 2024 9:20AM VHX 5352 - XR HIP 3V PELV+ AP/LAT RT / PROCEDURE REASON: Pain * * * * Physician Interpretation * * * * EXAMINATION / TECHNIQUE: XR HIP 3V PELV+ AP/LAT RT PATIENT/TECHNOLOGIST PROVIDED HISTORY: chronic pain that goes down her leg CLINICAL INFORMATION ( PROVIDED BY ORDERING CLINICIAN) : Pain COMPARISON: None RESULT: No acute fractures or dislocations. Osteophytes on the greater trochanter. Mild osteoarthritic changes of the right hip. Left hip is unremarkable. Postsurgical changes in the visualized lumbosacral spine. IMPRESSION IMPRESSION: Mild osteoarthritis right hip. Automatic Grinding Machine Operator: ARELIS Transcribe Date/Time: Sep 10 2024 10:51A Dictated by : SABINA ANGELES MD This examination was interpreted and the report reviewed and electronically signed by: FABIO LEWIS MD on Sep 10 2024 12:22PM [facility] HospitalRadiology Study observation (narrative)[facility]XR Pelvis and Hip - right AP and Lateral frogOrdered By: Ccf Provider on 09-10-2024 [facility] - WestCNOVon [id number] Visit (LOORRM) NEGRO GARCIA ([id number]) 1960 F Date Time Provider Department 09/08/24 10:45 AM MARCELL SCOTT During your visit today, we recorded the following information about you: Marcell Scott MD 09/08/2024 12:23 PM Signed see dictated note Marcell Scott II, MD Referring Provider: MARCELL SCOTT [[id number]] Allergies As of Date: 09/08/2024 Noted Allergy Reaction CEPHALOSPORINS 04/06/2016 8 - GI Upset Comments: c-diff when taking CIPROFLOXACIN 04/05/2017 4 - Hives SULFA (SULFONAMIDE ANTIBIOTICS) 2006 9 - Itching Date Reviewed: 07/01/2024 Reviewed by: Vonnie Chavez OA - Fully Assessed Reason for Visit: Established Patient [175] Follow Up [171] Primary Visit Diagnosis:Status post total right knee replacement [Z96.651] Prescriptions as of 09/08/2024 - ferrous sulfate 325 mg (65 mg iron) tablet Take 1 tablet by mouth daily at bedtime. - acetaminophen (TYLENOL EXTRA STRENGTH) 500 mg tablet Take 2 tablets by mouth every 8 hours as needed for pain. - semaglutide (OZEMPIC) 0.25 mg or 0.5 mg (2 mg/3 mL) pen Inject 0.5 mg subcutaneously one time a week. On mondays - tiZANidine (ZANAFLEX) 4 mg tablet Take 1 tablet by mouth every 8 hours as needed. - esomeprazole (NEXIUM) 40 mg capsule Take 40 mg by mouth once daily. - buPROPion SR (WELLBUTRIN SR) 150 mg 12 hr tablet Take by mouth. Take 300mg every morning, and 150mg every evening - bumetanide (BUMEX) 1 mg tablet Take 1 mg by mouth once daily as needed. - docusate sodium (COLACE) 100 mg capsule Take 200 mg by mouth daily at bedtime. - LORazepam (ATIVAN) 0.5 mg Take 0.5 mg by mouth every 6 hours as needed (anxiety). - levothyroxine (SYNTHROID) 50 mcg tablet Take 50 mcg by mouth once daily. Take On an Empty Stomach - oxybutynin (DITROPAN) 5 mg tablet Take 5 mg by mouth once daily. - escitalopram oxalate (LEXAPRO) 10 mg tablet Take 10 mg by mouth once daily. - cholecalciferol (VITAMIN D3) 50 mcg (2,000 unit) tablet Take 2,000 Units by mouth once daily. - atorvastatin calcium(LIPITOR 40 MG TAB) Take one(1) tablet daily. Problem List As Of Date 09/08/2024 Noted Resolved Multiple sclerosis (HCC) [G35] 03/04/1988 Class: Chronic Systemic lupus erythematosus (HCC) [M32.9] 03/04/1989 Class: Chronic Abnormality of Gait [R26.9] 04/11/2009 Other Acquired Deformity of Ankle and Foot [M21*04/11/2009 Pain in left foot [M79.672] 05/10/2016 Gastrocnemius equinus [M62.469] 05/10/2016 Acquired hallux valgus of left foot [M20.12] 05/10/2016 Soft tissue mass [M79.89] 05/10/2016 Plantar fasciitis of left foot [M72.2] 05/10/2016 Heel spur [M77.30] 05/10/2016 Mixed hyperlipidemia [E78.2] 07/10/2016 Gastroesophageal reflux disease without esophag*07/10/2016 Depression [F32.A] 07/10/2016 Class 1 obesity with serious comorbidity and [place]*12/25/2022 History of pulmonary embolus (PE) [Z86.711] 04/09/2023 Clotting disorder (HCC) [D68.9] 04/09/2023 Hypertension [I10] 04/09/2023 Hiatal hernia [K44.9] 04/09/2023 OAB (overactive bladder) [N32.81] 04/09/2023 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 Encounter Status:Closed by MARCELL SCOTT II on 09/08/24[facility] Medical CenterThyrotropin [Units/volume] in Serum or PlasmaOrdered By: Jeremiah Lazo on 86-76-8852JLC QnThyrotropin [Units/volume] in Serum or Plasma0.45-5.33[facility] HospitalTS Qn1.48 m[IU]/LNormal0.45-5.33[facility] HospitalComment on above:Result Comment: PERFORMED BY: [place] [address] PATHOLOGIST SYNCHRONIZER KATHRYN MCKEE M.D.Performed By: #### T4F, TSH3 #### [place] [address] USAThyroxine (T4) free [Mass/volume] in Serum or Plasma Ordered By: Jeremiah Lazo on 44-14-1446Sxcp T4 [Mass/Vol]Thyroxine (T4) free [Mass/volume] in Serum or Plasma0.61-1.12[facility] HospitalFree T4 [Mass/Vol]0.83 ng/dLNormal0.61-1.12[facility] HospitalComment on above:Performed By: #### T4F, TSH3 #### [place] [id number] USAPhysical Therapy Noteon 94-33-4315[place] Therapy Note [id number]#1.00[facility] 86-28-7631OLOFJodhul Visit (LOORRM) NEGRO GARCIA ([id number]) 1960 F Date Time Provider Department 07/01/24 11:00 AM MARCELL SCOTT During your visit today, we recorded the following information about you: Weight Height 83.5 kg 1.626 m Marcell Scott MD 07/01/2024 3:53 PM Signed see dictated note Marcell Scott II, MD Referring Provider: MARCELL SCOTT [[id number]] Allergies As of Date: 07/01/2024 Noted Allergy Reaction CEPHALOSPORINS 04/06/2016 8 - GI Upset Comments: c-diff when taking CIPROFLOXACIN 04/05/2017 4 - Hives SULFA (SULFONAMIDE ANTIBIOTICS) 2006 9 - Itching Date Reviewed: 07/01/2024 Reviewed by: Vonnie Chavez, ABHIJIT - Fully Assessed Reason for Visit: Established Patient [175] Follow Up [171] Post Op [174] Knee Replacement [363] Primary Visit Diagnosis:Status post total right knee replacement [Z96.651] Prescriptions as of 07/01/2024 - guaiFENesin (MUCINEX) 600 mg 12 hr tablet Take 2 tablets by mouth two times a day as needed for cold/allergy symptoms. - ferrous sulfate 325 mg (65 mg iron) tablet Take 1 tablet by mouth daily at bedtime. - acetaminophen (TYLENOL EXTRA STRENGTH) 500 mg tablet Take 2 tablets by mouth every 8 hours as needed for pain. - semaglutide (OZEMPIC) 0.25 mg or 0.5 mg (2 mg/3 mL) pen Inject 0.5 mg subcutaneously one time a week. On mondays - tiZANidine (ZANAFLEX) 4 mg tablet Take 1 tablet by mouth every 8 hours as needed. - esomeprazole (NEXIUM) 40 mg capsule Take 40 mg by mouth once daily. - buPROPion SR (WELLBUTRIN SR) 150 mg 12 hr tablet Take by mouth. Take 300mg every morning, and 150mg every evening - bumetanide (BUMEX) 1 mg tablet Take 1 mg by mouth once daily as needed. - docusate sodium (COLACE) 100 mg capsule Take 200 mg by mouth daily at bedtime. - LORazepam (ATIVAN) 0.5 mg Take 0.5 mg by mouth every 6 hours as needed (anxiety). - losartan (COZAAR) 50 mg tablet Take 1 tablet by mouth once daily. - levothyroxine (SYNTHROID) 50 mcg tablet Take 50 mcg by mouth once daily. Take On an Empty Stomach - oxybutynin (DITROPAN) 5 mg tablet Take 5 mg by mouth once daily. - escitalopram oxalate (LEXAPRO) 10 mg tablet Take 10 mg by mouth once daily. - cholecalciferol (VITAMIN D3) 50 mcg (2,000 unit) tablet Take 2,000 Units by mouth once daily. - atorvastatin calcium(LIPITOR 40 MG TAB) Take one(1) tablet daily. Problem List As Of Date 07/01/2024 Noted Resolved Multiple sclerosis (HCC) [G35] 03/04/1988 Class: Chronic Systemic lupus erythematosus (HCC) [M32.9] 03/04/1989 Class: Chronic Abnormality of Gait [R26.9] 04/11/2009 Other Acquired Deformity of Ankle and Foot [M21*04/11/2009 Pain in left foot [M79.672] 05/10/2016 Gastrocnemius equinus [M62.469] 05/10/2016 Acquired hallux valgus of left foot [M20.12] 05/10/2016 Soft tissue mass [M79.89] 05/10/2016 Plantar fasciitis of left foot [M72.2] 05/10/2016 Heel spur [M77.30] 05/10/2016 Mixed hyperlipidemia [E78.2] 07/10/2016 Gastroesophageal reflux disease without esophag*07/10/2016 Depression [F32.A] 07/10/2016 Class 1 obesity with serious comorbidity and juan diego*12/25/2022 History of pulmonary embolus (PE) [Z86.711] 04/09/2023 Clotting disorder (HCC) [D68.9] 04/09/2023 Hypertension [I10] 04/09/2023 Hiatal hernia [K44.9] 04/09/2023 OAB (overactive bladder) [N32.81] 04/09/2023 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] 04/30/2023 History of DVT (deep vein thrombosis) [Z86.718] 05/22/2023 Hypothyroidism [E03.9] 04/29/2024 Primary osteoarthritis of right knee [M17.11] 04/29/2024 Anxiety [F41.9] 05/19/2024 Encounter Status:Closed by MARCELL SCOTT II on 07/01/24NormalCGlenbeigh HospitalBasophils Auto (Bld) [#/Vol]on 87-05-5771Ohtwoqudb (Bld) [#/Vol] Automated basophil count<0.11Holzer HospitalBasophils/100 WBC Auto (Bld)on 69-70-7792Qqzxgnwxc/100 WBC (Bld)Automated basophil %Holzer HospitalBlood manual differential comment interpretation narrativeon 49-59-4740Aapwme differential comment Elliot (Bld) [Interp]Blood manual differential comment interpretation narrativeHolzer Hospital CBC W Auto Differential panel (Bld)on 44-59-4931Zfqdplkco (Bld) [#/Vol]0.05 10*3/uLNormal<0.11CThe [facility] on above:Order Comment: Specimen Type: BLOOD SPECIMENOrdering Facility: [facility] Address:[address] [place], [place] [address]Performed By: #### 26953-1 ####[facility] LABCLIA [id number] [facility] [id number] [place] [address] [place] OF AMERICABasophils/100 WBC (Bld)0.7 % NormalSelect [facility] Specialty Hospital [facility] on above:Order Comment: Specimen Type: BLOOD SPECIMENOrdering Facility: [facility] Address:[address] [place], [place] [address]Performed By: #### 95710-2 ####[facility] LABCLIA [id number] [place] [address] [place] OF AMERICADifferential cell count method Nom (Bld)AutoNormalCThe [facility] on above:Order Comment: Specimen Type: BLOOD SPECIMENOrdering Facility: [facility] Address:[address] [place], [place] [address]Performed By: #### 77842-7 ####[facility] LABCLIA [id number] [place] [address] [place] AMERICAEosinophils (Bld) [#/Vol]0.16 10*3/uLNormal<0.46[facility] on above:Order Comment: Specimen Type: BLOOD SPECIMENOrdering Facility: [facility] Address:[address] [place], [place] [address]Performed By: #### 18457-8 ####[facility] LABCLIA [id number] [place] [address] [place] Eosinophils/100 WBC (Bld)2.3 %NormalSelect Medical Specialty Hospital - [place] on above: Order Comment: Specimen Type: BLOOD SPECIMENOrdering Facility: [facility] Address:[address] [place], [place] [address]Performed By: #### 34276- 8 ####[facility] LABCLIA [id number] [place] [address] [place] OF AMERICAErythrocyte distribution width (RBC) [Ratio]14.2 %Zpcokn64.5-15.0[facility] on above: Order Comment: Specimen Type: BLOOD SPECIMENOrdering Facility: [facility] Address:[address] [place], [place] [address]Performed By: #### 22659- 8 ####[facility] LABCLIA [id number] [place] [address] [place] AMERICAHematocrit (Bld) [Volume fraction]36.6 %Mfwbjh81.0-46.0[facility] on above:Order Comment: Specimen Type: BLOOD SPECIMENOrdering Facility: [facility] Address:[address] [place], [place] [address]Performed By: #### 31502- 8 ####[facility] LABIA [id number] [place] [address] [place] AMERICAHemoglobin (Bld) [Mass/Vol]11.3 g/dLLow11.5-15.5CThe [facility] on above:Order Comment: Specimen Type: BLOOD SPECIMENOrdering Facility: [facility] Address:[address] [place], [place] [address]Performed By: #### 59179-4 ####[facility]OSPITALIA [id number] [place] [address] [place] AMERICAImmature granulocytes (Bld) [#/Vol]10*3/uLNormal<0.10[facility] on above:Order Comment: Specimen Type: BLOOD SPECIMENOrdering Facility: [facility] Address:[address] [place], [place] [address]Performed By: #### 40887- 8 ####[facility] HOSPITALIA [id number] [place] [address] [place] AMERICAImmature granulocytes/100 WBC (Bld)0.3 %NormalSelect Medical Specialty Hospital - [place] on above:Order Comment: Specimen Type: BLOOD SPECIMENOrdering Facility: [facility] Address:[address] [place], [place] [address]Performed By: #### 07875-0 ####[facility] LABIA [id number] [place] [address] [place] AMERICALymphocytes (Bld) [#/Vol]1.64 10*3/uLNormal1.00-4.00[facility] on above:Order Comment: Specimen Type: BLOOD SPECIMENOrdering Facility: [facility] Address:[address] [place], [place] [address]Performed By: #### 10285-7 ####[facility] LABIA [id number] [place] [address] [place] AMERICALymphocytes/100 WBC (Bld)23.5 % NormalSelect Medical Specialty [facility] [place] on above:Order Comment: Specimen Type: BLOOD SPECIMENOrdering Facility: [facility] Address:[address] [place], [place] [address]Performed By: #### 18111-7 ####[facility] LABIA [id number] [place] [address] [place] AMERICAMCH (RBC) [Entitic mass]29.3 qhRsfqpe92.0-34.0[facility] on above:Order Comment: Specimen Type: BLOOD SPECIMENOrdering Facility: [facility] Address:[address] [place], [place] [address]Performed By: #### 30718-6 ####[facility] [id number] [place] [address] [place] MCHC (RBC) [Mass/Vol]30.9 g/lGWdmuuo94.5-36.0[facility] on above:Order Comment: Specimen Type: BLOOD SPECIMENOrdering Facility: [facility] Address:[address] [place] [address] Performed By: #### 75046-5 ####[facility] LABIA [id number] [place] [address] [place] MCV (RBC) [Entitic vol]94.8 mZLyixay76.0-100.0[facility] on above:Order Comment: Specimen Type: BLOOD SPECIMENOrdering Facility: [facility] Address:[address] [place] [address] Performed By: #### 51142-3 ####[facility] LABIA [id number] [place] [address] [place] Monocytes (Bld) [#/Vol]0.40 10*3/uLNormal<0.87[facility] on above:Order Comment: Specimen Type: BLOOD SPECIMENOrdering Facility: [facility] Address:[address] [place] [address] Performed By: #### 80361-1 ####[facility] LABCLIA [id number] [address] [address] [place] Monocytes/100 WBC (Bld)5.7 %NormalSelect Medical Specialty Hospital - [place] on above: Order Comment: Specimen Type: BLOOD SPECIMENOrdering Facility: [facility] Address:[address] [place], [place] [address]Performed By: #### 18684- 8 ####[facility] LABIA [id number] [place] [address] [place] AMERICANeutrophils (Bld) [#/Vol]4.71 10*3/uLNormal1.45-7.50[facility] on above:Order Comment: Specimen Type: BLOOD SPECIMENOrdering Facility: [facility] Address:[address] [place], [place] [address]Performed By: #### 49327-6 ####[facility] LABCLIA [id number] [place] [id number] [place] AMERICANeutrophils/100 WBC (Bld)67.5 % NormalSelect Medical Specialty Hospital - [place] on above:Order Comment: Specimen Type: BLOOD SPECIMENOrdering Facility: [facility] Address:[address] [place], [place] [address]Performed By: #### 47062-5 ####[facility] LABCLIA [id number] [place] [address] [place] AMERICANucleated RBC (Bld) [#/Vol]10*3/uLNormal<0.01[facility] on above:Order Comment: Specimen Type: BLOOD SPECIMENOrdering Facility: [facility] Address:[address] [place], [place] [address]Performed By: #### 06652-9 ####[facility] LABCLIA [id number] [place] [address] [place] Nucleated RBC/100 WBC (Bld) [Ratio]0.0 /100 WBCNormalCGlenbeigh Hospital Comment on above:Order Comment: Specimen Type: BLOOD SPECIMENOrdering Facility: [facility] Address:[address] [place] [address] Performed By: #### 37426-6 ####[facility] LABIA [id number] [place] [address] [place] Platelet mean volume (Bld) [Entitic vol]9.9 fLNormal9.0-12.7ClevelFirstHealth Moore Regional Hospital - HokeComment on above:Order Comment: Specimen Type: BLOOD SPECIMENOrdering Facility: [facility] Address:[address] [place], [place] [address]Performed By: #### 52058-1 ####[facility] LABIA [id number] [place] [address] [place] Platelets (Bld) [#/Vol]377 10*3/lQEktydp926-235JdjkkhkdpLima Memorial HospitalComment on above:Order Comment: Specimen Type: BLOOD SPECIMENOrdering Facility: [facility] Address:[address] [place] [address] Performed By: #### 05044-1 ####[facility] LABIA [id number] [place] [address] [place] RBC (Bld) [#/Vol]3.86 10*6/uLLow3.90-5.20[facility] on above:Order Comment: Specimen Type: BLOOD SPECIMENOrdering Facility: [facility] Address:[address] [place], [place] [address]Performed By: #### 71441-5 ####[facility] LABIA [id number] [place] [address] [place] AMERICAWBC (Bld) [#/Vol]6.98 10*3/uLNormal3.70-11.00Lima Memorial HospitalCombeaumont hospital on above:Order Comment: Specimen Type: BLOOD SPECIMENOrdering Facility: [facility] Address:[address] [place], [place] [address]Performed By: #### 51358-9 ####[facility] LABCLIA [id number] [facility]ENTERDESK [id number] [place], [place] [address]CNOVon [id number] Visit (LOORRM) NEGRO GARCIA ([id number]) 1960 F Date Time Provider Department 06/10/24 11:30 AM MARCELL SCOTT LOORRM During your visit today, we recorded the following information about you: Marcell Scott MD 06/10/2024 1:15 PM Signed see dictated note Marcell Scott II, MD Referring Provider: MARCELL SCOTT [[id number]] Allergies As of Date: 06/10/2024 Noted Allergy Reaction CEPHALOSPORINS 04/06/2016 8 - GI Upset Comments: c-diff when taking CIPROFLOXACIN 04/05/2017 4 - Hives SULFA (SULFONAMIDE ANTIBIOTICS) 2006 9 - Itching Date Reviewed: 06/09/2024 Reviewed by: Junie Meneses MA - Fully Assessed Reason for Visit: Established Patient [175] Follow Up [171] Post Op [174] Knee Replacement [363] Primary Visit Diagnosis:Status post total right knee replacement [Z96.651] Order(s):XR KNEE POST OP 3V AP/LAT/MERCHANT RIGHT [[id number]] Order #: [id number] FUTURE Prescriptions as of 06/10/2024 - guaiFENesin (MUCINEX) 600 mg 12 hr tablet Take 2 tablets by mouth two times a day as needed for cold/allergy symptoms. - rivaroxaban (XARELTO) 10 mg tablet Take 1 tablet by mouth once daily for 21 days. - ferrous sulfate 325 mg (65 mg iron) tablet Take 1 tablet by mouth daily at bedtime. - acetaminophen (TYLENOL EXTRA STRENGTH) 500 mg tablet Take 2 tablets by mouth every 8 hours as needed for pain. - semaglutide (OZEMPIC) 0.25 mg or 0.5 mg (2 mg/3 mL) pen Inject 0.5 mg subcutaneously one time a week. On mondays - tiZANidine (ZANAFLEX) 4 mg tablet Take 1 tablet by mouth every 8 hours as needed. - esomeprazole (NEXIUM) 40 mg capsule Take 40 mg by mouth once daily. - buPROPion SR (WELLBUTRIN SR) 150 mg 12 hr tablet Take by mouth. Take 300mg every morning, and 150mg every evening - bumetanide (BUMEX) 1 mg tablet Take 1 mg by mouth once daily as needed. - docusate sodium (COLACE) 100 mg capsule Take 200 mg by mouth daily at bedtime. - LORazepam (ATIVAN) 0.5 mg Take 0.5 mg by mouth every 6 hours as needed (anxiety). - losartan (COZAAR) 50 mg tablet Take 1 tablet by mouth once daily. - levothyroxine (SYNTHROID) 50 mcg tablet Take 50 mcg by mouth once daily. Take On an Empty Stomach - oxybutynin (DITROPAN) 5 mg tablet Take 5 mg by mouth once daily. - escitalopram oxalate (LEXAPRO) 10 mg tablet Take 10 mg by mouth once daily. - cholecalciferol (VITAMIN D3) 50 mcg (2,000 unit) tablet Take 2,000 Units by mouth once daily. - atorvastatin calcium(LIPITOR 40 MG TAB) Take one(1) tablet daily. Problem List As Of Date 06/10/2024 Noted Resolved Multiple sclerosis (HCC) [G35] 03/04/1988 Class: Chronic Systemic lupus erythematosus (HCC) [M32.9] 03/04/1989 Class: Chronic Abnormality of Gait [R26.9] 04/11/2009 Other Acquired Deformity of Ankle and Foot [M21*04/11/2009 Pain in left foot [M79.672] 05/10/2016 Gastrocnemius equinus [M62.469] 05/10/2016 Acquired hallux valgus of left foot [M20.12] 05/10/2016 Soft tissue mass [M79.89] 05/10/2016 Plantar fasciitis of left foot [M72.2] 05/10/2016 Heel spur [M77.30] 05/10/2016 Mixed hyperlipidemia [E78.2] 07/10/2016 Gastroesophageal reflux disease without esophag*07/10/2016 Depression [F32.A] 07/10/2016 Class 1 obesity with serious comorbidity and juan [place]go*12/25/2022 History of pulmonary embolus (PE) [Z86.711] 04/09/2023 Clotting disorder (HCC) [D68.9] 04/09/2023 Hypertension [I10] 04/09/2023 Hiatal hernia [K44.9] 04/09/2023 OAB (overactive bladder) [N32.81] 04/09/2023 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] 04/30/2023 History of DVT (deep vein thrombosis) [Z86.718] 05/22/2023 Hypothyroidism [E03.9] 04/29/2024 Primary osteoarthritis of right knee [M17.11] 04/29/2024 Anxiety [F41.9] 05/19/2024 Encounter Status:Closed by MARCELL SCOTT II on 06/10/24NoOhioHealth Marion General HospitalEosinophils/100 WBC Auto (Bld)on 36-84-8997Spyrilycwjc/100 WBC (Bld) Automated eosinophil %Holzer HospitalErythrocyte distribution width Auto (RBC) [Ratio]on 03-55-6617Jydskvnumhz distribution width (RBC) [Ratio]Erythrocyte distribution width [Ratio] by Automated count11.5-15.0 [facility] HospitalHematocrit Auto (Bld) [Volume fraction]on 71-82-1697Qfhhguhuzr (Bld) [Volume fraction]Hematocrit [Volume Fraction] of Blood by Automated count36.0-46.0Hol[facility] HospitalHemoglobin [Mass/volume] in Bloodon 32-26-8235Tibihjpmtk (Bld) [Mass/Vol]Hemoglobin [Mass/volume] in FrbxeZrk40.5-15.5FSamaritan HospitalLaboratory - Hematology and Cell countson 66-39-5797Mtfmbmnboye (Bld) [#/Vol]0.16 10*3/uL <0.46Hol[facility] HospitalImmature granulocytes/100 WBC (Bld)0.3 % [facility] HospitalLeukocytes [#/volume] corrected for nucleated erythrocytes in Blood by Automated counon 92-68-1794RIH corrected for nucl RBC Auto (Bld) [#/Vol]Leukocytes [#/volume] corrected for nucleated erythrocytes in Blood by Automated coun3.70-11.00[facility] HospitalLymphocytes Auto (Bld) [#/Vol]on 11-44-1751Wpnixpasond (Bld) [#/Vol]Lymphocytes [#/volume] in Blood by Automated count1.00-4.00[facility] Lymphocytes/100 WBC Auto (Bld)on 47-27-1806Cmafnaizmnp/100 WBC (Bld) Lymphocytes/100 leukocytes in Blood by Automated countKing's Daughters Medical Center OhioH Auto (RBC) [Entitic mass]on 10-93-9841FDV (RBC) [Entitic mass]MCH [Entitic mass] by Automated count26.0-34.0[facility] HospitalMCHC Auto (RBC) [Mass/Vol]on 54-84-2620WJGX (RBC) [Mass/Vol]MCHC [Mass/volume] by Automated count30.5-36.0[facility] HospitalMCV Auto (RBC) [Entitic vol]on 19-92-3177JAJ (RBC) [Entitic vol]MCV [Entitic volume] by Automated count 80.0-100.0[facility] HospitalMonocytes Auto (Bld) [#/Vol]on 68-21-3531Udjofspqn (Bld) [#/Vol]Automated blood monocyte count<0.87[facility] HospitalMonocytes/100 WBC Auto (Bld)on 02-27-7315Adrnrqmhk/100 WBC (Bld)Automated monocyte %[facility] HospitalNeutrophils Auto (Bld) [#/Vol]on 92-93-0666Twysifpkfig (Bld) [#/Vol]Neutrophils [#/volume] in Blood by Automated count1.45-7.50[facility] Neutrophils/100 WBC Auto (Bld)on 12-57-1723Efrxxugzgem/100 WBC (Bld)Automated neutrophil %[facility] HospitalNo Panel Informationon 06-10-2024 Immature Granulocyte # (Auto)<0.03 k/uL<0.10[facility] Nucleated RBC Auto (Bld) [#/Vol]on 45-68-8953Spkaasbop RBC (Bld) [#/Vol] Nucleated erythrocytes [#/volume] in Blood by Automated count<0.01Hol[facility] HospitalNucleated erythrocytes [Presence] in Blood by Automated counton 13-53-7341Tudwbzhpw RBC Auto Ql (Bld)Nucleated erythrocytes [Presence] in Blood by Automated countHolzer HospitalPlatelet mean volume Auto (Bld) [Entitic vol]on 82-38-3833Iolnglmm mean volume (Bld) [Entitic vol] Platelet mean volume [Entitic volume] in Blood by Automated count9.0-12.7 [facility] HospitalPlatelets Auto (Bld) [#/Vol]on 06-10-2024 Platelets (Bld) [#/Vol]Platelets [#/volume] in Blood by Automated xrogc793-540 [facility] HospitalProvider Orderson 77-75-3284Okujtaaz Orders [id number]#1.00OTGTSelect Medical Specialty Hospital - YoungstownRBC Auto (Bld) [#/Vol]on 77-47-0723CBJ (Bld) [#/Vol]Erythrocytes [#/volume] in Blood by Automated countLow3.90-5.20Hol[facility] HospitalXR KNEE 3V AP/LAT/MERCHANT RTon 93-02-9559AM KNEE 3V AP/LAT/MERCHANT RT* * *Final Report* * * DATE OF EXAM: Jun 10 2024 10:38AM LZX 5209 - XR KNEE 3V AP/LAT/MERCHANT RT / PROCEDURE REASON: Status post total right knee replacement * * * * Physician Interpretation * * * * Examination: Right knee History: rt knee post op Status post total right knee replacement Technique: XR KNEE 3V AP/LAT/MERCHANT RT --RIGHT KNEE: Five views including AP standing and merchant views of both knees (2 views of each knee) and a lateral view of the right knee Comparison: Early postoperative 05/19/2024 FINDING/ RESULT: On the RIGHT, the total knee arthroplasty with patellar button appears unchanged in position when compared to prior. Moderate anterior soft tissue swelling and large joint effusion. Postoperative soft tissue gas has completely resorbed. Images of the left knee show small osteophytes in all compartments. IMPRESSION: Right total knee arthroplasty with moderate postoperative swelling. Automatic Grinding Machine Operator: ROBERTS CHAPELMare Transcribe Date/Time: Jun 10 2024 1:23P Dictated by : BALAJI KEEN MD This examination was interpreted and the report reviewed and electronically signed by: BALAJI KEEN MD on Jun 10 2024 1:24PM EST [id number] Memorial HospitalXR Knee AP and Lateral and Merchantson 12-18-1581NSIDCQIBIF: Right total knee arthroplasty with moderate postoperative swelling. Automatic Grinding Machine Operator: [facility] Transcribe Date/Time: Jun 10 2024 1:23P Dictated by : BALAJI KEEN MD This examination was interpreted and the report reviewed and electronically signed by: BALAJI KEEN MD on Jun 10 2024 1:24PM EST DIVISION OF RADIOLOGY* * *Final Report* * * DATE OF EXAM: Jun 10 2024 10:38AM LZX 5209 - XR KNEE 3V AP/LAT/MERCHANT RT / PROCEDURE REASON: Status post total right knee replacement * * * * Physician Interpretation * * * * Examination: Right knee History: rt knee post op Status post total right knee replacement Technique: XR KNEE 3V AP/LAT/MERCHANT RT --RIGHT KNEE: Five views including AP standing and merchant views of both knees (2 views of each knee) and a lateral view of the right knee Comparison: Early postoperative 05/19/2024 FINDING/ RESULT: On the RIGHT, the total knee arthroplasty with patellar button appears unchanged in position when compared to prior. Moderate anterior soft tissue swelling and large joint effusion. Postoperative soft tissue gas has completely resorbed. Images of the left knee show small osteophytes in all compartments. DIVISION OF RADIOLOGYProvider, [facility] [place] - 06/10/2024 * * *Final Report* * * DATE OF EXAM: Jun 10 2024 10:38AM LZX 5209 - XR KNEE 3V AP/LAT/MERCHANT RT / PROCEDURE REASON: Status post total right knee replacement * * * * Physician Interpretation * * * * Examination: Right knee History: rt knee post op Status post total right knee replacement Technique: XR KNEE 3V AP/LAT/MERCHANT RT --RIGHT KNEE: Five views including AP standing and merchant views of both knees (2 views of each knee) and a lateral view of the right knee Comparison: Early postoperative 05/19/2024 FINDING/ RESULT: On the RIGHT, the total knee arthroplasty with patellar button appears unchanged in position when compared to prior. Moderate anterior soft tissue swelling and large joint effusion. Postoperative soft tissue gas has completely resorbed. Images of the left knee show small osteophytes in all compartments. IMPRESSION IMPRESSION: Right total knee arthroplasty with moderate postoperative swelling. Automatic Grinding Machine Operator: ARELIS Transcribe Date/Time: Jun 10 2024 1:23P Dictated by : BALAJI KEEN MD This examination was interpreted and the report reviewed and electronically signed by: BALAJI KEEN MD on Jun 10 2024 1:24PM [facility] HospitalRadiology Study observation (narrative)[facility]XR Knee AP and Lateral and MerchantsOrdered By: [facility] Provider on 23-38-2509Ywcsimddz ClinicCNOV [phone] Visit (OTOLCR) NEGRO GARCIA ([id number]) 1960 F Date Time Provider Department 06/09/24 10:15 AM ALFRED GUERRERO OTOLCR During your visit today, we recorded the following information about you: Alfred Guerrero MD 06/09/2024 10:17 PM Signed LARYNGOLOGY RETURN PATIENT NOTE Assessment and Plan: 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 is a 64 year old female with the above diagnoses. Reviewed survey testing from today Videostroboscopy performed today shows full healing of all sites. Stroboscopy reveals normal laryngeal biomechanics with minimal muscle tension. Notable absence of large laryngocele Patient has continued to have some swallowing difficulty which he thinks may be worse. 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 I suspect that the hiatal hernia may be causing her symptoms and recommended a repeat x-ray esophagram to reevaluate. The patient has thick mucus for which I recommend Mucinex and increasing hydration from very little to 64 to 96 ounces per day Continue Xarelto per hematology Follow-up annually for observation HPI: Negro Garcia is a 64 year old female who presents with right laryngocele Few years of food getting stuck in her throat, liquid wash not helpful, hard to catch her breath Thick phlegm, throat clearing to clear it up. This sometimes results in whitish thick secretions. Throat clearing during the day unproductive Sore throat points to cricoid area, consistently throughout the day Rare hoarseness, talks a lot socially Never had MBSS Swallowing difficulty doesn't change sore throat She is a previous smoker but quit about 20 years ago. INTERVAL HPI 04/01/23: Doing well since we last met. Scheduled a virtual follow-up to go over the results of testing and additional questions. The patient and her family have multiple questions regarding the possibility of tracheostomy, dysphagia, dysphonia following surgery. INTERVAL HPI 05/06/23: Doing well postop but has had malaise since surgery. She was okay for the first day but then has been feeling very low energy. No specific symptoms just generally fatigued. No asndqa-spirfl-nmmue sweats. Has been able to eat anything she wishes. Has followed our recommended diet of pureed and softer. Continues to take Xarelto per hematology and Augmentin from our team. No changes in voice or difficulty breathing. INTERVAL HPI 06/11/23: Doing well since last seen. Has had complete resolution of generalized malaise and flulike symptoms. She feels back to her usual self. Her diet has gone back to normal. She has no residual neck pain. Lab testing was normal. She is grateful for care. She feels her voice is back to normal. INTERVAL HPI 06/09/24: 1 year follow-up. Patient has been doing well but continues to have some difficulty swallowing. She also complains of thick mucus in the back of her throat at all times she usually drinks almost no water daily but has been drinking more recently because she had a urinary tract infection possibly related to dehydration. She had a knee replacement and had some dizziness afterward and is noted that her blood pressure has been low rather than high and has ceased blood pressure treatment. No voice changes or throat pain ALLERGIES Allergen Reactions Cephalosporins GI Upset c-diff when taking Ciprofloxacin Hives Sulfa (Sulfonamide * Itching Current Outpatient Medications Medication Sig guaiFENesin (MUCINEX) 600 mg 12 hr tablet Take 2 tablets by mouth two times a day as needed for cold/allergy symptoms. rivaroxaban (XARELTO) 10 mg tablet Take 1 tablet by mouth once daily for 21 days. ferrous sulfate 325 mg (65 mg iron) tablet Take 1 tablet by mouth daily at bedtime. acetaminophen (TYLENOL EXTRA STRENGTH) 500 mg tablet Take 2 tablets by mouth every 8 hours as needed for pain. semaglutide (OZEMPIC) 0.25 mg or 0.5 mg (2 mg/3 mL) pen Inject 0.5 mg subcutaneously one time a week. On mondays tiZANidine (ZANAFLEX) 4 mg tablet Take 1 tablet by mouth every 8 hours as needed. esomeprazole (NEXIUM) 40 mg capsule Take 40 mg by mouth once daily. buPROPion SR (WELLBUTRIN SR) 150 mg 12 hr tablet Take by mouth. Take 300mg every morning, and 150mg every evening bumetanide (BUMEX) 1 mg tablet Take 1 mg by mouth once daily as needed. docusate sodium (COLACE) 100 mg capsule Take 200 mg by mouth daily at bedtime. LORazepam (ATIVAN) 0.5 mg Take 0.5 mg by mouth every 6 hours as needed (anxiety). losartan (COZAAR) 50 mg tablet Take 1 tablet by mouth once daily. levothyroxine (SYNTHROID) 50 mcg tablet Take 50 mcg by mouth once daily. Take On an Empty Stoma (more content not included)...[facility] - Chemistry and Chemistry - challengeon [id number] Ql (U) NegativeHolzer HospitalGlucose (U) [Mass/Vol]NegativeHolzer HospitalKetones Ql (U)NegativeHolzer Hospital pH (U)6.0 [pH][facility] Hospitalpecific gravity (U) [Rel density]1.015Holzer HospitalUrobilinogen (U) [Mass/Vol]0.2 mg/dLHolzer HospitalLaboratory - Urinalysison 06-01-2024 Leukocyte esterase Test strip Ql (U)largeHolzer Hospital Nitrite Ql (U)PositiveHolzer HospitalProtein Ql (U)Negative Holzer HospitalNo Panel Informationon [id number] Occult BloodsmallHolzer HospitalUrine Cultureon [id number] identified Cx Nom (U)ORGANISM: Enterobacter cloacae complex (O:ENTCLOCPLX) [place] Count >100,000 Aerobic YUMI Charge (NMIC56) SUSCEPTIBILITY ORGANISM: O:ENTCLOCPLX ANTIBIOTIC INTERPRETATION YUMI Amikacin S <16 Aztreonam IB <4 Cefepime S <2 Ceftazidime IB <1 Ceftriaxone IB <1 Cefuroxime R >16 Ciprofloxacin I 0.5 Ertapenem S <0.5 Gentamicin S <2 Levofloxacin S <0.5 Meropenem S <1 Meropenem/Vaborbactam S <2 Nitrofurantoin R >64 Piperacillin/Tazobactam IB <8 Tetracycline I 8 Tigecycline S <2 Tobramycin S <2 Trimethoprim/Sulfamethoxazole S 01/20 S = SUSCEPTIBLE I = INTERMEDIATE R = RESISTANT BLANK = DATA NOT AVAILABLE, OR DRUG NOT ADVISABLE OR TESTED R* = RESISTANCE DUE TO EXTENDED SPECTRUM BETA-LACTAMASES ESBL = EXTENDED SPECTRUM BETA-LACTAMASE TFG = THYMIDINE-DEPENDENT STRAIN ARNAUD = BETA-LACTAMASE POSITIVE IB = INDUCIBLE BETA-LACTAMASE. APPEARS IN PLACE OF 'S' WITH SPECIES KNOWN TO POSSESS INDUCIBLE BETA-LACTAMASES. POTENTIALLY THEY MAY BECOME RESISTANT TO ALL B-LACTAM DRUGS. PERFORMED BY: [facility] [address] [id number] PATHOLOGIST SYNCHRONIZER TRUONG HUNTER M.D.NormalThe [facility] Physician GroupComment on above: Performed By: #### CUU #### [facility] [address] [place], [place] [id number] USAUrine cultureOrdered By: Jeremiah Lazo on [id number] identified Cx Nom (U)AbnormalHolzer HospitalUrology Office/Clinic Noteon [id number] Office/Clinic NoteUrology Office/Clinic Note Chief Complaint new pt HPI Staff 64 year old female new patient. Pt had surgery for right total knee replacement 05/19/24 and unable to urinate following the procedure cath was placed. Pt was dx before with OAB, is taking oxybutynin 5 mg qd (doesn't take this regularly) BMP 05/20/24: BUN-17, Creatinine: 0.78 Pt would like a UA done from cath because she has noticed cloudy urine and some visible blood in cath bag a few days ago. Pt states she is prone to UTI's History of Present Illness Tests reviewed: UA & Referral Notes I have reviewed the previous health record information and history for this patient from external provider. I have reviewed and verified the staff HPI to be accurate for this encounter. Review of Systems PHQ Score Initial Depression Screen Score: 0 SCORE no fever, chills, malaise, myalgia. no rash/lesions. no chest pain, palpitations, or SOB. no abdominal pain, nausea, vomiting. no unilateral calf swelling, redness, pain Physical Exam Vitals & Measurements HR: 94(Peripheral) BP: 90/57 HT: 64 in HT: 162 cm WT: 179.015 lb WT: 81.2 kg BMI: 30.94 General Appearance: alert, no distress, well nourished, well developed female. Assessment/Plan Negro 64 year old female new patient presents here today for urinary retention. Pt recently had surgery for right total knee replacement on 05/19/24. BMP 05/20/24: BUN-17, Creatinine: 0.78 hx of MS and SLE 1. Urinary retention (R33.9: Retention of urine, unspecified) No UA provided IO today, pt has Figueroa placed. Patient shares she recently she had right total knee replacement on 05/19/24 at [facility] [place] Patient reports the reason she had the Figueroa placed was due to having the urge to void but just could not do so. shares she had about ~1,000-2000cc before Figueroa was placed, could not find documentation of this. Denies attempted TOV while inpatient. Has never had UR in the past. Does reports some constipation, shares this has been an ongoing problem since before her surgery. Reports her daughter buying her some Miralax, and that has worked in keeping her more regular. Stressed the importance of having bowel movement daily, informed patient this could be a contributing factor to her urinary sxs. We discussed removing the Figueroa IO today and doing a fill and pull at this time. Informed the patient that if she could not void on her own that the Figueroa would be replaced vs CIC teaching, patient verbalized her understanding. Catheter removed today without issues. Bladder filled w/ approx 340 cc, voided about 100 cc. Discussed poss of retention recurrence. Advised on voiding maneuvers. Pt prefers to keep cath out at this time. If retention recurs, rec cysto/UDS to assess for obstruction, bladder function. Increase fluid intake, avoid bladder irritants ER for fever, NV, severe flank pain, inability to urinate -voiding maneuvers -f/u Saturday for PVR - if PVR >300, replace cath vs CIC teaching -f/u 2 weeks in office w/ me w/ PVR 2. OAB (overactive bladder) (N32.81: Overactive bladder) Currently taking Oxybutynin 5mg qd prescribed by external provider. No bothersome SEs. States she has been on this for a long time, is not entirely sure if she needs it or if it offers her any improvement of sxs. Advised to stop medication at this time as it may contribute to UR. She verbalized understanding. Will reassess urinary sxs at f/u. If no recurrence of retention, can consider beta 3 agonist vs SNMworkup. 3. 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 Former smoker (Z87.891: Personal history of nicotine dependence) Increased risk for urothelial cancer. Smoking cessation education attached. Follow-up With When Contact Information ADAIR Del Toro APRN, [place], [place], URL Additional Instructions: Patient Education Acute Urinary Retention, Female I, Diane Lopez, personally scribed for ADAIR Urban APRN on 05/28/2024 10:29:47. . Documentation recorded by the mil Lopez accurately reflects the services(s) I performed and decisions made by me. Authenticated by Bijal Del Toro APRN, FNP-C on 05/28/2024 19:35:35. Problem List/Past Medical History Ongoing Anemia Anticoagulated Arthritis Carpal tunnel syndrome Depression Former smoker GERD without esophagitis Headache Hiatal hernia Hypertension Hypothyroidism Mixed hyperlipidemia MS (multiple sclerosis) OAB (overactive bladder) Pulmonary embolism Urinary retention Historical No qualifying data Procedure/Surgical History Knee replacement (05/19/2024), Back, Carpal tunnel, Colonoscopy, Female, Kidney biopsy, Tonsillectomy. Medications atorvastatin 40 mg Tab BuPROPion (Eqv-Wellbutrin SR) 150 mg/12 hours oral tablet, extended release escitalopram 10 mg Tab levothyroxine 50 mcg (0.05 mg) Tab losartan 50 mg Tab (more content not included)...[facility] Medical Specialty Hospital - CantonComment on above:Result Comment: Electronically Signed By: ADAIR Del Toro APRN, [place] X\.br\Date and Time Signed: 05/28/24 19:36 EDT\.br\Electronically Co-Signed By: Diane Lopez\.br\Date and Time Co-Signed: 05/28/24 10:30 EDT Coding Summaryon [id number] SummaryHTMLBase 64 GmukgtoaIKs1jLw+PGhlYWQ+UK0NDQEoK56gsQChiQ7rH9HWMZpLKkedQYDKHRmAHgRbbkFpER0ugSUk ZXJu [file] J2J (more content not included)...NormalCrystal Clinic Orthopedic CenterBas Metab 2000 Pnl SerPlon [id number] [Mass/Vol]8.7 mg/dLNormal8.5-10.2FSamaritan HospitalComment on above:Order Comment: Specimen Type: BLOOD SPECIMENOrdering Facility: [facility] Address:[address] [place], [place] [address]Performed By: #### 64589-9 ####[facility] LABORATORYCLIA [id number] [place] [address] [place] Chloride [Moles/Vol]100 mmol/KCwnggr60-059PorklbtosHolzer Hospital Comment on above:Order Comment: Specimen Type: BLOOD SPECIMENOrdering Facility: [facility] Address:[address] [place] [address] Performed By: #### 52202-4 ####[facility]PITALIA [id number] [place] [address] [place] AMERICACO2 [Moles/Vol]25 mmol/VQgpaka04-47DnrnbfohlHolzer HospitalComment on above:Order Comment: Specimen Type: BLOOD SPECIMENOrdering Facility: [facility] Address:[address] [place], [place] [address]Performed By: #### 44223- 2 ####[facility]OSPITALIA [id number] [place] [address] [place] AMERICACreatinine [Mass/Vol]0.78 mg/dLNormal0.58-0.96 Holzer HospitalComment on above:Order Comment: Specimen Type: BLOOD SPECIMENOrdering Facility: [facility] Address:[address] [place], [place] [address]Performed By: #### 61811-8 ####[facility]OSPITALIA [id number] [place] [address] [place] AMERICAGlucose [Mass/Vol]134 mg/bSAqwk19-04WudjfpllzHolzer HospitalComment on above:The [place] Diabetes Association (ADA) provides guidance for cutoff values for fasting glucose andrandom glucose. The ADA defines fasting as no caloric intake for at least 8 hours. Fasting plasma glucose results between 100 to 125 mg/dL indicate increased risk for diabetes (prediabetes).Fasting plasma glucose results greater than or equal to 126 mg/dL meet the criteria for diagnosis of diabetes. In the absence of unequivocal hyperglycemia, results should be confirmed by repeat testing. In a patient with classic symptoms of hyperglycemia or hyperglycemic crisis, random plasma glucose resultsgreater than or equal to 200 mg/dL meet the criteria for diagnosis of diabetes.Reference: Standardsof Medical Care in Diabetes 2016, [place] Diabetes Association. Diabetes Care. 2016.39(Suppl 1).Order Comment: Specimen Type: BLOOD SPECIMENOrdering Facility: [facility] Address:[address] [place], [place] [address]Atzcwm Comment: The [place] Diabetes Association (ADA) provides guidance for cutoff values for fasting glucose and random glucose. The ADA defines fasting as no caloric intake for at least 8 hours. Fasting plasma glucose results between 100 to 125 mg/dL indicate increased risk for diabetes (prediabetes). Fasting plasma glucose results greater than or equal to 126 mg/dL meet the criteria for diagnosis of diabetes. In the absence of unequivocal hyperglycemia, results should be confirmed by repeat testing. In a patient with classic symptoms of hyperglycemia or hyperglycemic crisis, random plasma glucose results greater than or equal to 200 mg/dL meet the criteria for diagnosis of diabetes. Reference: Standards of Medical Care in Diabetes 2016, [place] Diabetes Association. Diabetes Care. 2016.39(Suppl 1).Performed By: #### 30946-2 ####[facility] LABORATORYCLIA [id number] [place] [address] [place] AMERICAPotassium [Moles/Vol]4.4 mmol/LNormal3.7-5.1FSamaritan HospitalComment on above:Order Comment: Specimen Type: BLOOD SPECIMENOrdering Facility: [facility] Address:[address] [place], [place] [address]Cbabmpkcd By: #### 39198-1 ####[facility] LABORATORYCLIA [id number] [place] [address] [place] Sodium [Moles/Vol]134 mmol/NMis221-560GnjcpvpzbHolzer HospitalComment on above:Order Comment: Specimen Type: BLOOD SPECIMENOrdering Facility: [facility] Address:[address] [place] [address] Performed By: #### 81022-1 ####[facility] LABORATORYIA [id number] [facility] [place] [address] [place] AMERICAUrea nitrogen [Mass/Vol]17 mg/dLNormal7-Holzer HospitalComment on above: Order Comment: Specimen Type: BLOOD SPECIMENOrdering Facility: [facility] Address:[address] [place], [place] [address]Performed By: #### 50594- 2 ####[facility]OSPITALIA [id number] [place] [address] [place] AMERICABasic metabolic 2000 panelon 72-18-8085Otmgl gap [Moles/Vol]9 mmol/LNormal8-15[facility] HospitalComment on above:Order Comment: Specimen Type: BLOOD SPECIMENOrdering Facility: [facility] Address:[address] [place], [place] [address]Performed By: #### 45156-3 ####[facility]PITALIA [id number] [place] [address] [place]ICACreatinine and Glomerular filtration rate.predicted panel (S/P/Bld)84 mL/min/1.73m???Normal>=60Av HospitalComment on above:Order Comment: Specimen Type: BLOOD SPECIMENOrdering Facility: [facility] Address:[address] [place], [place] [address]Result Comment: Estimated Glomerular Filtration Rate (eGFR) is calculated using the 2020 CKD-EPI cre atinine equation. This equation utilizes serum creatinine, sex, and age as parameters. The creatinine assay has traceable calibration to isotope dilution- mass spectrometry. Refer to KDIGO guidelines for clinical interpretation. In patients with unstable renal function, e.g. those with acute kidney injury, the eGFR may not accurately reflect actual GFR.Performed By: #### 36780-0 ####[facility] LABORATORYCLIA [id number] [place] [address] [facility]ICAL CENTERCBC panel Auto (Bld)on 33-77-3159Szctyrtmwfs distribution width (RBC) [Ratio]12.0 %Jjejaj98.5-15.0Av HospitalComment on above:Order Comment: Specimen Type: BLOOD SPECIMENOrdering Facility: [facility] Address:[address] [place], [place] [address]Performed By: #### 88229-4 ####[facility] LABORATORYIA [id number] [place] [address] [facility] CENTERHematocrit (Bld) [Volume fraction] 29.7 %Low36.0-46.0Av HospitalComment on above:Order Comment: Specimen Type: BLOOD SPECIMENOrdering Facility: [facility] Address:[address] [place], [place] [address]Performed By: #### 21115-8 ####[facility]OSPITALIA [id number] [place] [address] [facility] MEDICAL CENTERHemoglobin (Bld) [Mass/Vol]10.4 g/dLLow11.5-15.5Aast[facility] Comment on above:Order Comment: Specimen Type: BLOOD SPECIMENOrdering Facility: [facility] Address:[address] [place] [address] Performed By: #### 21033-9 ####[facility] LABORATORYIA [id number] [place] [address] [facility] (RBC) [Entitic mass]30.1 ioTnmidi52.0-34.0Av HospitalComment on above:Order Comment: Specimen Type: BLOOD SPECIMENOrdering Facility: [facility] Address:[address] [place], [place] [address]Performed By: #### 46925-2 ####[facility] LABORATORYIA [id number] [place] [address] [facility] (RBC) [Mass/Vol]35.0 g/mGTtrlqc64.5-36.0Av Hospital Comment on above:Order Comment: Specimen Type: BLOOD SPECIMENOrdering Facility: [facility] Address:[address] [place] [address] Performed By: #### 65196-1 ####[facility]ITALIA [id number] [place] [address] [place] AMERICAMCV (RBC) [Entitic vol]86.1 pMPshcvl38.0-100.0Av HospitalComment on above:Order Comment: Specimen Type: BLOOD SPECIMENOrdering Facility: [facility] Address:[address] [place], [place] [address]Performed By: #### 05241-5 ####[facility] LABORATORYIA [id number] [place] [address] [place] AMERICANucleated RBC (Bld) [#/Vol]10*3/uLNormal<0.01[facility] Comment on above:Order Comment: Specimen Type: BLOOD SPECIMENOrdering Facility: [facility] Address:[address] [place] [address] Performed By: #### 44315-4 ####[facility]PITALIA [id number] [place] [address] [place]ICAPlatelet mean volume (Bld) [Entitic vol]10.2 fLNormal9.0-12.7Avon HospitalComment on above: Order Comment: Specimen Type: BLOOD SPECIMENOrdering Facility: [facility] Address:[address] [place], [place] [address]Performed By: #### 59023- 2 ####[facility]PITALIA [id number] [place] [address] [place]APlatelets (Bld) [#/Vol]188 10*3/iAOdajrp488-281 [facility] HospitalComment on above:Order Comment: Specimen Type: BLOOD SPECIMENOrdering Facility: [facility] Address:[address] [place], [place] [address]Performed By: #### 81912-9 ####[facility] LABORATORYCLIA [id number] [facility] [place] [address] [facility] CENTERRB (Bld) [#/Vol]3.45 10*6/uLLow3.90-5.20[facility] HospitalComment on above:Order Comment: Specimen Type: BLOOD SPECIMENOrdering Facility: [facility] Address:[address] [place], [place] [address]Performed By: #### 59496- 2 ####[facility] LABORATORYIA [id number] [place] [address] [facility] CENTERW (Bld) [#/Vol]12.84 10*3/uLHigh3.70-11.00 [facility] HospitalComment on above:Order Comment: Specimen Type: BLOOD SPECIMENOrdering Facility: [facility] Address:[address] [place] [id number] By: #### 84050-4 ####[facility] LABORATORYIA [id number] [place] [id number] [facility] CNDSon [id number] ID: [id number] Author: MARCELL SCOTT MD Service: Orthopaedic Surgery Author Type: Physician Pipe Crew Foreman Type: Discharge Summary Filed: 05/20/2024 13:13 Note Text: Attestation signed by Marcell Scott MD at 05/20/2024 1:13 PM I have personally performed face to face diagnostic evaluation on this patient. I have examined the patient and reviewed radiographic studies and agree with plan as outlined above. Marcell Scott II, MD May 20, 2024 1:13 PM Marcell Scott II, MD DISCHARGE SUMMARY Patient Name: Negro Garcia : 1960 ADMISSION DATE: 05/19/2024 DISCHARGE DATE: 05/20/2024 Attending Physician: Marcell Scott MD Primary Diagnosis: Primary osteoarthritis of right knee [M17.11] Operations During Hospitalization: Procedure(s) (LRB): ARTHROPLASTY REPLACE JOINT TOTAL KNEE (Right) Hospital Course: Negro is a 64 year old female complaining of right Knee pain not responsive to a comprehensive course of conservative treatment. Right knee total arthroplasty was proposed and the patient wishes to proceed and was medically cleared prior to the procedure. Patient underwent a Right knee total arthroplasty and was transferred to the PACU in stable condition, She was then admitted to the hospital. Post operatively She did well. Post-operative HgB was stable and within acceptable range and remained there throughout the hospital stay not requiring transfusion. Wound was without sign of infection. She was able to actively participate in a physical and occupational therapy program for gait training and mobilization. Due to the operative findings and procedure performed which is consistent with a major orthopedic procedure, the postoperative analgesia will exceed the allowable morphine equivalent dose. PHYSICAL EXAM: Please see progress note from today regarding physical exam. Patient Condition at Discharge: Stable Discharge Disposition: Home with Self Care DISCHARGE MEDICATION: Medication List START taking these medications oxyCODONE IR 5 mg immediate release tablet Commonly known as: ROXICODONE Take 1-2 tablets every 4-6 hours as needed for post-operative pain. CONTINUE taking these medications acetaminophen 500 mg tablet Commonly known as: TYLENOL EXTRA STRENGTH Take 2 tablets by mouth every 8 hours as needed for pain. bumetanide 1 mg tablet Commonly known as: BUMEX buPROPion SR 150 mg 12 hr tablet Commonly known as: WELLBUTRIN SR cholecalciferol 50 mcg (2,000 unit) tablet Commonly known as: VITAMIN D3 docusate sodium 100 mg capsule Commonly known as: COLACE escitalopram oxalate 10 mg tablet Commonly known as: LEXAPRO esomeprazole 40 mg capsule Commonly known as: NexIUM ferrous sulfate 325 mg (65 mg iron) tablet Take 1 tablet by mouth daily at bedtime. levothyroxine 50 mcg tablet Commonly known as: SYNTHROID LIPITOR 40 mg tablet Generic drug: atorvastatin LORazepam 0.5 mg Commonly known as: ATIVAN losartan 50 mg tablet Commonly known as: COZAAR Take 1 tablet by mouth once daily. oxybutynin 5 mg tablet Commonly known as: DITROPAN rivaroxaban 10 mg tablet Commonly known as: XARELTO Take 1 tablet by mouth once daily for 21 days. semaglutide 0.25 mg or 0.5 mg (2 mg/3 mL) pen Commonly known as: OZEMPIC Inject 0.5 mg subcutaneously one time a week. On mondays tiZANidine 4 mg tablet Commonly known as: ZANAFLEX Take 1 tablet by mouth every 8 hours as needed. STOP taking these medications ibuprofen 800 mg tablet Commonly known as: MOTRIN Where to Get Your Medications These medications were sent to [facility] [id number] [facility] [id number] Hours: Saturday- 8am-8pm, Saturday 8am-6pm, Saturday 9am-1pm oxyCODONE IR 5 mg immediate release tablet rivaroxaban 10 mg tablet Future Appointments: Appointments for Next 60 Days Date Time Provider Location Dept Phone 06/09/2024 10:15 AM ALFRED GUERRERO [place] [phone] 06/10/2024 11:30 AM PATIENCE ANGELSE [phone] 06/16/2024 4:30 PM LAB [facility] DIPAK Quesada [facility] [phone] 07/01/2024 11:00 AM MARCELL SCOTT [phone] 07/01/2024 2:00 PM ABRAHAM SAINI [facility] [phone] SIGNATURE: Jennifer Dorantes PA-C PATIENT NAME: Negro Garcia DATE: 05/20/24 TIME: 9:46 [facility]ryth[facility] distribution width Auto (RBC) [Ratio]on 26-49-5051Dmxxzzyozxx distribution width (RBC) [Ratio]Erythrocyte distribution width [Ratio] by Automated count11.5-15.0[facility] HospitalHematocrit Auto (Bld) [Volume fraction]on 69-87-2723Dapafrydkj (Bld) [Volume fraction]Hematocrit [Volume Fraction] of Blood by Automated countLow 36.0-46.0[facility] HospitalHemoglobin [Mass/volume] in Bloodon 86-43-9641Dslmamrxfd (Bld) [Mass/Vol]Hemoglobin [Mass/volume] in BloodLow 11.5-15.5FSamaritan HospitalLeukocytes [#/volume] corrected for nucleated erythrocytes in Blood by Automated counon 29-69-7631ZLD corrected for nucl RBC Auto (Bld) [#/Vol]Leukocytes [#/volume] corrected for nucleated erythrocytes in Blood by Automated counHigh3.70-11.00[facility] HospitalMCH Auto (RBC) [Entitic mass]on 37-78-8515EHI (RBC) [Entitic mass]MCH [Entitic mass] by Automated count26.0-34.0[facility] HospitalMCHC Auto (RBC) [Mass/Vol]on 70-38-7211QYEZ (RBC) [Mass/Vol]MCHC [Mass/volume] by Automated count30.5-36.0[facility] HospitalMCV Auto (RBC) [Entitic vol]on 90-35-4864FTV (RBC) [Entitic vol]MCV [Entitic volume] by Automated count 80.0-100.0[facility] HospitalNo Panel Informationon 05-20-2024 Estimated GFR (CKD-EPI)84 mL/min/1.73m???>=60[facility] Comment on above:Estimated Glomerular Filtration Rate (eGFR) is calculated using the 2020 CKD-EPI creatinine equation. This equation utilizes serum creatinine, sex, and age as parameters. The creatinine assay has traceable calibration to isotope dilution-mass spectrometry. Refer to KDIGO guidelines for clinical inte rpretation. In patients with unstable renal function, e.g. those with acute kidney injury, the eGFRmay not accurately reflect actual GFR.Nucleated RBC Auto (Bld) [#/Vol]on 40-45-4757Zggldijsc RBC (Bld) [#/Vol]Nucleated erythrocytes [#/volume] in Blood by Automated count<0.01[facility] Platelet mean volume Auto (Bld) [Entitic vol]on 87-94-5955Lqdaobma mean volume (Bld) [Entitic vol]Platelet mean volume [Entitic volume] in Blood by Automated count9.0-12.7FSamaritan HospitalPlatelets Auto (Bld) [#/Vol]on 02-99-1518Rxqgbtqpb (Bld) [#/Vol]Platelets [#/volume] in Blood by Automated eiyoj389-608VjmcidfwaHolzer HospitalRBC Auto (Bld) [#/Vol]on 05-20-2024 RBC (Bld) [#/Vol]Erythrocytes [#/volume] in Blood by Automated countLow3.90-5.20 [facility] Hospitalerum or plasma anion gap determinationon 07-75-6797Cuxfx gap [Moles/Vol]Serum or plasma anion gap determination8-15 [facility] HospitalTHERAPY NTon 51-61-6014GSSYWED NTHNO ID: [id number] Author: OBDULIA WILBURN, OTR/L, OTD Service: Occupational Therapy Author Type: Occupational Therapist Type: Therapy (PT/OT/Speech/Resp) Filed: 05/20/2024 10:01 Note Text: Occupational Therapy Evaluation Summary SERVICE DATE: 05/20/2024 SERVICE TIME: 0847 to 0916 ROOM: [address] 6 Clicks Score: 23 Total Joint Replacement Discharge Readiness: Cleared from Occupational Therapy DISCHARGE RECOMMENDATIONS Home Anticipated Discharge Needs: Physical Assist at Home Physical Assist at Home for: Cleaning, Laundry, Shopping, Transportation Recommended Discharge Equipment: No equipment needs anticipated ASSESSMENT Response to Therapy Interventions: Good Participation in Activities PRECAUTIONS Total Knee Replacement, Weight Bearing Restrictions, Fall Risk, Bed/Chair Alarm Right Lower Extremity Weight Bearing Status: WBAT CURRENT HOSPITAL COURSE s/p R TKA 05/19 (Justo) Relevant Past Medical History: DVT/PE, depression, haital hernia, multiple sclerosis, and HTN HOME LIVING Patient Lives With: Self/Alone Assistance Available: 24-Hour (dtr and niece can stay) Entry To Home: Stairs, Without Rail Number Of Stairs Into Home: 2 (2 small steps + 1 curb step) Number Of Stairs To Bed/Bath: 1st floor bed and bath Tub/Shower Type: tub/shower (has suction bar),chair Laundry: family will assist Equipment Owned: Walker- Standard, Cane, Shower Chair PRIOR FUNCTIONAL LEVEL Within Functional Limits IND ADLs and amb without AD. + drive, negwork. Baseline Cognition: Oriented to self, Oriented to place, Oriented to time, Oriented to situation SUBJECTIVE I am feeling so much better than I thought I would. COGNITION Responsiveness: Alert, Awake Follows Commands: 3-step Commands Confusion Assessment Method (CAM - ICU Score): Negative (05/19/24) THERAPY DIAGNOSIS Reduced mobility-other, Decreased activities of daily living (ADL), General symptoms and signs-other TREATMENT INTERVENTIONS Evaluation, Self Longterm Management (54361) Timed Code Treatment (minutes): 14 Skilled Treatment Time (minutes): 29 TRAINING AND EDUCATION PROVIDED Activity Adaptation/Compensatory Strategies, Assistive Device Use, Benefits of In-Hospital Mobility, Command Following, Discharge Planning, Expected Functional Level, Functional Mobility Involving ADLs, Home Set-up/Modifications, IADLs/Home Management, Grooming Tasks, Lower Extremity Dressing, Lower Extremity Bathing, Identification of Systems of Support, Positioning, Precautions/Restrictions, Role of Occupational Therapy, Safety/Judgment, Standing Balance to Improve Goodell with ADLs/Self-Care, Transfer - Sit to Stand, Transfer - Car, Treatment Protocol, Upper Extremity Dressing THERAPEUTIC SKILLS USED Activity Dosing, Bilateral UE Integration, Cues for Sequencing/Proper Technique for Activity, Cuing Verbal, Cuing Visual, Facilitation of Joint Range of Motion, Movement Facilitation, Physical Assist, Teach-Back for Education, Therapeutic Use of Self FUNCTIONAL STATUS Activities of Daily Living Assist Level Additional Information Feeding Set Up Grooming Set Up Bathing Upper Body Supervision Bathing Lower Body Supervision Dressing Upper Body Set Up Dressing Lower Body Minimal Assistance, Additional Information Pt able to doff and don socks and don pants IND. Min A provided to don compression stockings. Toileting Supervision Mobility Assist Level Additional Information Bed Mobility Sit to Stand Stand By Assistance Stand to Sit Stand By Assistance Bed to Chair Toilet/Commode Shower Functional Mobility Stand By Assistance, Additional Information Functional Mobility Device: Wheeled Walker ~250 ft GOALS Patient will demonstrate progress with self-care, cognitive and/or coping needs identified to allow safe discharge to home with available support and/or physical assistance. Progress Toward Goals: Progressing as expected Rehab Potential: Good PLAN OT Frequency: Discontinue Therapy Services Reasons Therapy Services Discontinued: Goals met SIGNATURE: Justa Barrow S/OT PATIENT NAME: Negro Garcia DATE: May 20, 2024 TIME: 9:57 AM Supervising therapist was present and guided the care of the patient for the entire session on this date. All documentation was reviewed and agreed upon. Obdulia Wilburn OTR/L, [facility] NTHNO ID: [id number] Author: CONNIE KIM, PT, DPT Service: Physical Therapy Author Type: Physical Therapist Type: Therapy (PT/OT/Speech/Resp) Filed: 05/20/2024 08:54 Note Text: Physical Therapy Evaluation Summary SERVICE DATE: 05/20/2024 SERVICE TIME: 0720 to 0800 ROOM: [place] [address] PT 6 Clicks Score: 24 Total Joint Replacement Discharge Readiness: Cleared from Physical Therapy DISCHARGE RECOMMENDATIONS Outpatient PT Recommended Discharge Disposition Comments: Pt has appt 05/22 Recommended Discharge Equipment: No equipment needs anticipated ASSESSMENT Response to Therapy Interventions: Good Participation in Activities Pt unsafe with use of SW (not coordinated to use it appropriately) and did MUCH better with the RW. Instructed pt on TKA HEP and stair/curb step training with dtr present. Pt is cleared for DC. PRECAUTIONS Total Knee Replacement, Weight Bearing Restrictions Right Lower Extremity Weight Bearing Status: WBAT CURRENT HOSPITAL COURSE s/p R TKA 05/19 (Justo) Relevant Past Medical History: DVT/PE, depression, haital hernia, multiple sclerosis, and HTN HOME LIVING Patient Lives With: Self/Alone Assistance Available: 24-Hour (dtr and niece can stay) Entry To Home: Stairs, Without Rail Number Of Stairs Into Home: 2 (2 small steps + 1 curb step) Number Of Stairs To Bed/Bath: 1st floor bed and bath Tub/Shower Type: tub/shower (has suction bar),chair Equipment Owned: Walker- Standard, Cane, Shower Chair PRIOR FUNCTIONAL LEVEL Within Functional Limits IND ADLs and amb without AD. + drive, neg drive SUBJECTIVE Pt in bed I haven't been able to pee yet THERAPY DIAGNOSIS Reduced mobility-other TREATMENT INTERVENTIONS Therapeutic Exercise (37218), Evaluation, Gait Training (85563) Timed Code Treatment (minutes): 25 Skilled Treatment Time (minutes): 40 TRAINING AND EDUCATION PROVIDED Assistive Device Use, Bed Mobility, Benefits of In-Hospital Mobility, Discharge Planning, Equipment, Exercise Program, Expected Functional Level, Gait Pattern, Reduction of Deviations, Handout Issued, Precautions/Restrictions, Role of Physical Therapy, Transfers, Curb Step Navigation, Stair Navigation THERAPEUTIC SKILLS USED Activity Dosing, Family Training, Facilitation of Joint Range of Motion, Repetitive Task Learning, Task Analysis Learning FUNCTIONAL STATUS Bed Mobility Supine To Sit: Independent Transfers Sit To Stand: Supervision (VC not to pull up on the walker) Stand To Sit: Supervision Bed to Chair Gait Stand By Assistance, Additional Information Pt initially using SW and was having difficulty following the correct step-to sequence, was taking a step before setting it completely on the floor (practically carrying it at times while walking). Instructed on RW for safety and pt able to demo reciprocal gait with improved balance and safety Gait Device: Standard Walker, Wheeled Walker General Deviations/Observations: Improper distancing from assistive device Gait Distance (feet): 10x1, 30x1, 225x1 Stairs Contact Guard Assistance Stairs Device: Cane, Hand Held Assist Number of Stairs: 2 Curb Step: Contact Guard Assistance Device: Walker GOALS Patient will demonstrate progress with functional mobility to allow safe discharge to home with available support and/or physical assistance. Rehab Potential: Good PLAN PT Frequency: Discontinue Therapy Services Reasons Therapy Services Discontinued: Goals met Treatment Interventions: Education, Joint Mobility, Strengthening, Functional Mobility Training SIGNATURE: Connie Kim, PT, DPT PATIENT NAME: Negro Garcia DATE: May 20, 2024 TIME: 8:54 [facility] POSTPROC EVALon [id number] POSTPROC EVALHNO ID: [id number] Author: LUIS THOMAS MD Service: Anesthesiology Author Type: Physician Type: Anesthesia Postprocedure Evaluation Filed: 05/19/2024 17:25 Note Text: POST ANESTHESIA EVALUATION NOTE : 1960 Procedure Summary Date: 05/19/24 Room / Location: AV OR04 / AV OR Anesthesia Start: 1239 Anesthesia Stop: 1528 Procedure: ARTHROPLASTY REPLACE JOINT TOTAL KNEE (Right: Knee) Diagnosis: Primary osteoarthritis of right knee (Primary osteoarthritis of right knee [M17.11]) Surgeons: Marcell Scott MD Responsible Provider: Luis Thomas MD Anesthesia Type: regional, general ASA Status: 3 Anesthesia Type: regional, general Airway Type: LMA Last Vitals Vitals Value Taken Time BP 111/72 05/19/24 1716 Temp 36.1 ?C (97 ?F) 05/19/24 1530 HR SpO2 82 05/19/24 1714 Resp 18 05/19/24 1712 SpO2 100 % 05/19/24 1714 Vitals shown include unfiled device data. Post Anesthesia Patient Status Patient Evaluation: PACU. PACU/ICU Patient Condition: stable. Anticipated Disposition: inpatient floor planned admission. Neurological Status: aware and responsive. Pulmonary Status: breathing comfortably on room air Airway Control: returned to baseline unsupported. Cardiovascular Status: stable. Pain Management: satisfactory to patient Postoperative Hydration: acceptable. Intraoperative Events: no significant anesthesia events Recommendation: continue current plan of care. Anesthesia Observations No Documentation SIGNATURE: Luis Thomas MD PATIENT NAME: Negro Garcia DATE: May 19, 2024 TIME: 5:25 PM CSN: [id number] [facility] PRE-OPon [id number] PRE-OPHNO ID: [id number] Author: LUIS THOMAS MD Service: Anesthesiology Author Type: Physician Type: Anesthesia Preprocedure Evaluation Filed: 05/19/2024 12:20 Note Text: ANESTHESIOLOGY DAY OF SURGERY NOTE : 1960 Procedure Information Date/Time: 05/19/24 1205 Procedure: ARTHROPLASTY REPLACE JOINT TOTAL KNEE (Right: Knee) Location: AV OR04 / AV OR Surgeons: Marcell Scott MD Estimated body mass index is 31.79 kg/m? as calculated from the following: Height as of 04/29/24: 162.6 cm (5' 4 ). Weight as of 04/29/24: 84 kg (185 lb 3 oz). Most recent hematocrit and potassium results: Hematocrit 42.2 04/29/2024 Potassium 5.0 04/29/2024 Relevant Problems CARDIO (+) Hypertension ENDO (+) Hypothyroidism GI (+) Gastroesophageal reflux disease without esophagitis (+) Hiatal hernia NEURO-PSYCH (+) History of DVT (deep vein thrombosis) (+) History of pulmonary embolus (PE) Neurology (+) Multiple sclerosis (HCC) Rheumatology (+) Systemic lupus erythematosus (HCC) Other (+) Primary osteoarthritis of right knee I - PHYSICAL EVALUATION AIRWAY Patient intubated: No. Tracheostomy tube not present Mallampati: II. TM distance: >3 FB. Neck ROM: full ROM without neurological symptoms. Mouth opening: adequate. Short neck: no. Thick neck: no DENTAL Normal dental observations. Dental findings: teeth intact. II - ANESTHESIA PLAN ASA Score: 3 Anesthetic Plan: spinal and regional NPO Status: adequate Anesthetic plan additional comments: Adductor canal nerve block; Remote history of lower back surgery, patient unsure of how much hardware or what she has implanted. Patient agrees that it is reasonable to attempt once for spinal placement, if unsuccessful, will proceed with general anesthesia.. Beta Michelle Monitoring Plan Monitoring plan: Standard ASA. Post Procedure Analgesic Plan Postoperative analgesic plan: parenteral or oral opioids and peripheral nerve block. Informed Consent Anesthetic risks, benefits, alternatives, personnel and consent discussed: yes. Patient / Responsible Constitution Party agrees to proceed: yes Patient / Surrogate agrees to blood products: blood products not planned Significant changes in the patient condition since the History and Physical, not otherwise documented in primary service progress note: no. Potential Anesthesia issues that may suggest increased risk of complications or contraindication to planned procedure: none. Vitals Value Taken Time BP 126/88 05/19/24 1035 Pulse 76 05/19/24 1035 Resp 18 05/19/24 1035 Temp 36.9 ?C (98.5 ?F) 05/19/24 1035 SpO2 100 % 05/19/24 1035 Facility-Administered Medications as of 05/19/2024 Medication Dose Route Frequency acetaminophen 1,000 mg tab(s) (TYLENOL) 1,000 mg ORAL Pre-Op Once meloxicam 7.5 mg tab(s) (MOBIC) 7.5 mg ORAL Pre-Op Once lidocaine (PF) 10 mg/mL (1 %) 1-2 mg injection (XYLOCAINE) 0.1-0.2 mL INTRADERMAL PRN lactated ringers iv infusion 5-30 mL/hr INTRAVENOUS CONTINUOUS NaCl 0.9% iv flush bag 20 mL INTRAVENOUS PRN tranexamic acid (CYKLOKAPRON) in NaCl 0.7% 1,000 mg 100 mL 1,000 mg INTRAVENOUS Pre-Op Once tranexamic acid (CYKLOKAPRON) in NaCl 0.7% 1,000 mg 100 mL 1,000 mg INTRAVENOUS ONCE dexAMETHasone sodium phosphate 8 mg injection (DECADRON) 8 mg INTRAVENOUS Pre-Op Once vancomycin iv piggyback 1.5 g in D5W 300 mL (VANCOCIN) 1.5 g INTRAVENOUS Pre-Op Once clindamycin iv piggyback 600 mg in D5W 50 mL (CLEOCIN) 600 mg INTRAVENOUS Pre-Op Once Outpatient Medications as of 05/19/2024 Medication Sig esomeprazole (NEXIUM) 40 mg capsule Take 40 mg by mouth once daily. buPROPion SR (WELLBUTRIN SR) 150 mg 12 hr tablet Take by mouth. Take 300mg every morning, and 150mg every evening bumetanide (BUMEX) 1 mg tablet Take 1 mg by mouth once daily as needed. docusate sodium (COLACE) 100 mg capsule Take 200 mg by mouth daily at bedtime. losartan (COZAAR) 50 mg tablet Take 1 tablet by mouth once daily. levothyroxine (SYNTHROID) 50 mcg tablet Take 50 mcg by mouth once daily. Take On an Empty Stomach oxybutynin (DITROPAN) 5 mg tablet Take 5 mg by mouth once daily. escitalopram oxalate (LEXAPRO) 10 mg tablet Take 10 mg by mouth once daily. cholecalciferol (VITAMIN D3) 50 mcg (2,000 unit) tablet Take 2,000 Units by mouth once daily. atorvastatin calcium(LIPITOR 40 MG TAB) Take one(1) tablet daily. ibuprofen (MOTRIN) 800 mg tablet TAKE 1 TABLET BY MOUTH THREE TIMES DAILY NEEDED FOR PAIN FOR FEVER LORazepam (ATIVAN) 0.5 mg Take 0.5 mg by mouth every 6 hours as needed (anxiety). I have interviewed and examined the patient. I have reviewed the medical record and/or the pre-anesthesia evaluation, pertinent labs, and test results. This contains updated information obtained within 48 hours of Surgery/Procedure. SIGNATURE: Luis Thomas MD PATIENT NAME: Negro Garcia DATE: May 19, 2024 TIME: 10:50 AM CSN: [id number] Health - Mary and Elizabeth HospitalSULT [id number]: [id number] Author: ROSEANN MCKEON MD Service: Hospital Medicine Author Type: Physician Type: Consults Filed: 05/19/2024 19:02 Note Text: DEPARTMENT OF HOSPITAL MEDICINE INITIAL CONSULT SERVICE DATE: 05/19/2024 SERVICE TIME: 5:37 PM Primary Care Physician: Jeremiah Lazo, DO NIGHT AND WEEKEND COVERAGE: BILLIE COVERAGE: Days: , please contact via [employer] and Chew Nights: - floor: please page Hospitalist night cover [phone] - 4W: please page Hospitalist night cover #[phone] - 5th floor: please page Hospitalist night cover #[phone] - SDU (17:00 - 19:00): Please page #[phone] - SDU (19:00 - 07:00): Please call [facility] at [phone] REASON FOR CONSULT: Medical Management. REQUESTING PHYSICIAN: Dr. Marcell Scott Subjective CHIEF COMPLAINT: right knee replacement, HPI: Patient is a 64 year old female with a past medical history of DVT/PE, depression, haital hernia, multiple sclerosis, and HTN. Orthopedic team has completed a Right - ARTHROPLASTY REPLACE JOINT TOTAL KNEE. They have consulted Hospital Medicine for ongoing medical management while the patient remains admitted. PAST MEDICAL HISTORY Diagnosis Date Carpal tunnel syndrome Depression DVT (deep venous thrombosis) (HCC) After surgeries Hiatal hernia Hypertension Multiple sclerosis (HCC) Primary open-angle glaucoma, bilateral, mild stage Pulmonary embolism (HCC) 1989 PAST SURGICAL HISTORY Procedure Laterality Date ARTHROSCOPY KNEE DIAGNOSTIC W/WO SYNOVIAL BX SPX Right Arthroscopy, knee BACK SURGERY HX x2 BUNIONECTOMY, LAPIDUS-TYPE CARPAL TUNNEL Left PAST SURGICAL HISTORY OF Vein stripping PAST SURGICAL HISTORY OF Heel Spurs TONSILLECTOMY PRIMARY/SECONDARY Tonsillectomy FAMILY HISTORY Problem Relation Age of Onset Heart Father Diabetes Father Cataract Mother Cataract Brother Difficulty with anesthesia No Family History Glaucoma No Family History Detached Retina No Family History Macular Degen No Family History Blindness No Family History Amblyopia No Family History Strabismus No Family History Cancer No Family History Hypertension No Family History Social History Tobacco Use Smoking status: Former Current packs/day: 0.00 Average packs/day: 1 pack/day for 20.0 years (20.0 ttl pk-yrs) Types: Cigarettes Start date: 08/05/1986 Quit date: 08/05/2006 Years since quittin.8 Passive exposure: Past Smokeless tobacco: Never Vaping Use Vaping status: Never Used Substance Use Topics Alcohol use: No Drug use: No MEDICATIONS: Reviewed rivaroxaban (XARELTO) 10 mg tablet, Take 1 tablet by mouth once daily for 21 days., Disp: 21 tablet, Rfl: 0, Unknown ferrous sulfate 325 mg (65 mg iron) tablet, Take 1 tablet by mouth daily at bedtime., Disp: , Rfl: , Past Week acetaminophen (TYLENOL EXTRA STRENGTH) 500 mg tablet, Take 2 tablets by mouth every 8 hours as needed for pain., Disp: , Rfl: , Past Week esomeprazole (NEXIUM) 40 mg capsule, Take 40 mg by mouth once daily., Disp: , Rfl: , 05/19/2024 Morning buPROPion SR (WELLBUTRIN SR) 150 mg 12 hr tablet, Take by mouth. Take 300mg every morning, and 150mg every evening, Disp: , Rfl: , 05/18/2024 Evening bumetanide (BUMEX) 1 mg tablet, Take 1 mg by mouth once daily as needed., Disp: , Rfl: , Past Week docusate sodium (COLACE) 100 mg capsule, Take 200 mg by mouth daily at bedtime., Disp: , Rfl: , 05/18/2024 Evening losartan (COZAAR) 50 mg tablet, Take 1 tablet by mouth once daily., Disp: , Rfl: , 05/18/2024 Morning levothyroxine (SYNTHROID) 50 mcg tablet, Take 50 mcg by mouth once daily. Take On an Empty Stomach, Disp: , Rfl: , 05/18/2024 Morning oxybutynin (DITROPAN) 5 mg tablet, Take 5 mg by mouth once daily., Disp: , Rfl: , 05/18/2024 Morning escitalopram oxalate (LEXAPRO) 10 mg tablet, Take 10 mg by mouth once daily., Disp: , Rfl: , 05/18/2024 Morning cholecalciferol (VITAMIN D3) 50 mcg (2,000 unit) tablet, Take 2,000 Units by mouth once daily., Disp: , Rfl: , Past Week atorvastatin calcium(LIPITOR 40 MG TAB), Take one(1) tablet daily., Disp: 0, Rfl: 0, 05/18/2024 Evening semaglutide (OZEMPIC) 0.25 mg or 0.5 mg (2 mg/3 mL) pen, Inject 0.5 mg subcutaneously one time a week. On mondays, Disp: , Rfl: , 05/12/2024 tiZANidine (ZANAFLEX) 4 mg tablet, Take 1 tablet by mouth every 8 hours as needed., Disp: , Rfl: , Unknown ibuprofen (MOTRIN) 800 mg tablet, TAKE 1 TABLET BY MOUTH THREE TIMES DAILY NEEDED FOR PAIN FOR FEVER, Disp: , Rfl: , 05/12/2024 LORazepam (ATIVAN) 0.5 mg, Take 0.5 mg by mouth every 6 hours as needed (anxiety)., Disp: , Rfl: , 05/13/2024 Morning Current Facility-Administered Medications Medication Dose Route Frequency [START ON 05/20/2024] rivaroxaban 10 mg tab(s) (XARELTO) 10 mg ORAL DAILY atorvastatin 40 mg tab(s) (LIPITOR) 40 mg ORAL DAILY bumetanide 1 mg tab(s) (BUMEX) 1 mg ORAL DAILY PRN losartan 50 mg tab(s) (COZAAR) 50 mg ORAL DAILY [STA (more content not included)...[facility] ID: [id number] Author: ROB GUZMAN RN Service: ? Author Type: Registered Nurse Type: Nursing Progress Note Filed: 05/19/2024 10:57 Note Text: Pt c/o burning and itching with wipes last night. Had to shower afterwards. No rash noted, but unable to use wipes in AM.[facility] CenterOPERATIVE NOon [id number] NOHNO ID: [id number] Author: MARCELL SCOTT MD Service: Orthopaedic Surgery Author Type: Physician Type: Operative Report Filed: 05/19/2024 15:13 Note Text: [facility] OPERATIVE REPORT PATIENT NAME: Negro Garcia AGE: [age] year old LOG ID: [id number] Surgery Date: 05/19/2024 SURGEON: Marcell Scott MD PEST MANAGEMENT SUPERVISOR: Patience Angeles PA-C, SA, her assistance consisted of assistance with retraction, positioning and closing of the wound No resident physicians were available to participate in the case. PROCEDURE:PRESS-FIT RIGHT TOTAL KNEE REPLACEMENT- Anesthesia: General Preop Diagnosis: Pre-Op Diagnosis Codes: * Primary osteoarthritis of right knee [M17.11] Postop Diagnosis: Same as Pre-Op Diagnosis Codes: * Primary osteoarthritis of right knee [M17.11] BMI: Estimated body mass index is 31.79 kg/m? as calculated from the following: Height as of 04/29/24: 162.6 cm (5' 4 ). Weight as of 04/29/24: 84 kg (185 lb 3 oz). INDICATIONS: This is a 64 year old year old female with osteoarthritis of the right knee.She was having severe pain globally in the right knee. Nonoperative management with anti-inflammatory and analgesic medication, cortisone and lubricant injections, activity modification, use of ambulatory aides and physical therapy has been exhausted. The pain has started to interfere with activities of daily living. The decision was made to proceed with a total knee arthroplasty. Risks, benefits, and alternatives were discussed. She expressed understanding and consented to the procedure as outlined above. The patient was seen by [facility] for pre-operative optimization. Alondra-operative blood management and the potential for blood transfusion were discussed with risks and options clearly outlined. The patient has consented to the use of banked allogenic blood if medically necessary. IMPLANTS: [employer] [employer] Total Knee System SIZE TYPE Posterior Stabilized Femur 4 standard / narrow [place] Tibia 4 [place] Patella 36 mm Thea Polyethylene 9 CS Thea OPERATIVE FINDINGS: There was complete loss of cartilaginous surface from the patellofemoral, medial and lateral compartments of the right knee. OPERATIVE PROCEDURE: The patient was identified and brought into the Operating Room by the anesthesia and nursing team. Anesthesia was successfully performed. The patient was then positioned supine on the operating room table. Intravenous antibiotic prophylaxis dosing was confirmed. The right lower extremity was then prepped and draped in the usual sterile fashion with Chloraprep scrub. Tranexamic acid was given prior to incision and again at the time of closure for blood conservation. A surgical time-out was performed immediately preceding the incision with all personnel in the operating room; the patient identity was again confirmed, the surgical site and extremity were identified and confirmed, X-rays were reviewed, and availability of the appropriate surgical equipment was established. The knee was approached through a 5 inch midline incision. Dissection was carried down. The extensor mechanism was opened in modified median parapatellar fashion. The kneecap was identified and everted. We debrided circumferentially about the kneecap removing the synovium and releasing laterally. We then osteotomized the undersurface of the patella and utilized a 36 mm patellar button, which was medialized for better patellar tracking. A partial lateral facetectomy was also accomplished. Attention was then turned to the knee and a total synovectomy was accomplished. We then removed osteophytes circumferentially about the medial and lateral femoral condyle. The knee was flexed to 90 degrees and an intramedullary guide was inserted, which allowed us then to cut the distal femur at 4-5 degrees from the long axis of the femur. We then brought the knee into extension and osteotomized the proximal tibia parallel to the distal femoral cut. With this accomplished, we then debrided the area and removed the remains of the medial meniscus and the posterior horn of the medial meniscus and remains of the cruciate ligaments and the lateral meniscus. We then [facility], which showed that the extension gap was in neutral valgus-varus position. We flexed the knee to 90 degrees and inserted the tensionmeter. We measured the femur prosthetic size as a 4 thea. We marked our 2 drill holes for the chamfer cuts. We then put a size [address] allowing us to osteotomize anteriorly, posteriorly, and anterior and posterior chamfer cuts. We then brought the tibia forward and we prepared the tibia for a size 4 cementless tibia and this was tapped into place. The tibial insert size 9mm was inserted and we had excellent flexion and extension gap equalization, which was verified with the Tensionmeter ligament (more content not included)...[facility]/LAT RTon [id number] KNEE 2V AP/LAT RT* * *Final Report* * * DATE OF EXAM: May 19 2024 4:03PM VHX 5207 - XR KNEE 2V AP/LAT RT / PROCEDURE REASON: Post-operative / post-procedure assessment, asymptomatic * * * * Physician Interpretation * * * * RIGHT KNEE X-RAY SERIES HISTORY: Post-operative / post-procedure assessment, asymptomatic TECHNIQUE: AP and lateral COMPARISON: 03/18/2024 RESULT: Postsurgical changes are noted status post right total knee arthroplasty. The surgical hardware appears intact. No evidence of acute fracture or dislocation. There is air in the soft tissues as well as in the suprapatellar bursa region consistent with recent surgery. IMPRESSION: Postsurgical changes. Automatic Grinding Machine Operator: ARELIS Transcribe Date/Time: May 19 2024 4:27P Dictated by : YOON RED MD This examination was interpreted and the report reviewed and electronically signed by: YOON RED MD on May 19 2024 4:29PM EST [id number] Hospital [id number] (INTMAL) NEGRO GARCIA ([id number]) 1960 F Date Time Provider Department 05/13/24 MARCELL SCOTT During your visit today, we recorded the following information about you: Po Caballero 05/13/2024 11:40 AM Signed Ileana is calling Marcell Scott II, MD today with concern regarding Joint Class. Patient stated she was advised to take this class to review her stay for her upcoming surgery. Please call patient to advise. Patient has been identified by name and birthdate. Duration of symptoms: N/A Person calling: self Call patient at: at home [phone] (home) [phone] (cell) Was an appointment scheduled: No Closing statement: Results or non-symptom based questions: Thank you for calling [facility], your call will be returned within the next business day. Thank you, Po Caballero Allergies As of Date: 05/13/2024 Noted Allergy Reaction CEPHALOSPORINS 04/06/2016 8 - GI Upset Comments: c-diff when taking CIPROFLOXACIN 04/05/2017 4 - Hives SULFA (SULFONAMIDE ANTIBIOTICS) 2006 9 - Itching Date Reviewed: 04/29/2024 Reviewed by: Cait Chen APRN.FOUNTAIN VENDING MECHANIC - Fully Assessed Prescriptions as of 05/22/2024 - oxyCODONE IR (ROXICODONE) 5 mg immediate release tablet Take 1-2 tablets by mouth every 4-6 hours as needed for post-operative pain. - rivaroxaban (XARELTO) 10 mg tablet Take 1 tablet by mouth once daily for 21 days. - ferrous sulfate 325 mg (65 mg iron) tablet Take 1 tablet by mouth daily at bedtime. - acetaminophen (TYLENOL EXTRA STRENGTH) 500 mg tablet Take 2 tablets by mouth every 8 hours as needed for pain. - semaglutide (OZEMPIC) 0.25 mg or 0.5 mg (2 mg/3 mL) pen Inject 0.5 mg subcutaneously one time a week. On mondays - tiZANidine (ZANAFLEX) 4 mg tablet Take 1 tablet by mouth every 8 hours as needed. - esomeprazole (NEXIUM) 40 mg capsule Take 40 mg by mouth once daily. - buPROPion SR (WELLBUTRIN SR) 150 mg 12 hr tablet Take by mouth. Take 300mg every morning, and 150mg every evening - bumetanide (BUMEX) 1 mg tablet Take 1 mg by mouth once daily as needed. - docusate sodium (COLACE) 100 mg capsule Take 200 mg by mouth daily at bedtime. - LORazepam (ATIVAN) 0.5 mg Take 0.5 mg by mouth every 6 hours as needed (anxiety). - losartan (COZAAR) 50 mg tablet Take 1 tablet by mouth once daily. - levothyroxine (SYNTHROID) 50 mcg tablet Take 50 mcg by mouth once daily. Take On an Empty Stomach - oxybutynin (DITROPAN) 5 mg tablet Take 5 mg by mouth once daily. - escitalopram oxalate (LEXAPRO) 10 mg tablet Take 10 mg by mouth once daily. - cholecalciferol (VITAMIN D3) 50 mcg (2,000 unit) tablet Take 2,000 Units by mouth once daily. - atorvastatin calcium(LIPITOR 40 MG TAB) Take one(1) tablet daily. Problem List As Of Date 05/13/2024 Noted Resolved Multiple sclerosis (HCC) [G35] 03/04/1988 Class: Chronic SYSTEMIC LUPUS ERYTHEMATOSUS [M32.9] 03/04/1989 Class: Chronic Abnormality of Gait [R26.9] 04/11/2009 Other Acquired Deformity of Ankle and Foot [M21*04/11/2009 Pain in left foot [M79.672] 05/10/2016 Gastrocnemius equinus [M62.469] 05/10/2016 Acquired hallux valgus of left foot [M20.12] 05/10/2016 Soft tissue mass [M79.89] 05/10/2016 Plantar fasciitis of left foot [M72.2] 05/10/2016 Heel spur [M77.30] 05/10/2016 Mixed hyperlipidemia [E78.2] 07/10/2016 Gastroesophageal reflux disease without esophag*07/10/2016 Depression [F32.A] 07/10/2016 Class 1 obesity with serious comorbidity and juan diego*12/25/2022 History of pulmonary embolus (PE) [Z86.711] 04/09/2023 Clotting disorder (HCC) [D68.9] 04/09/2023 Hypertension [I10] 04/09/2023 Hiatal hernia [K44.9] 04/09/2023 OAB (overactive bladder) [N32.81] 04/09/2023 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] 04/30/2023 History of DVT (deep vein thrombosis) [Z86.718] 05/22/2023 Hypothyroidism [E03.9] 04/29/2024 Primary osteoarthritis of right knee [M17.11] 04/29/2024 Encounter Status:Closed by PO CABALLERO on 05/22/24[facility] Summaryon [id number] SummaryMLBase 64 CbiejoobZJm3vCy+PGhlYWQ+NA4OYPCmI89bqEWpkR7iD2XYWBwGJmfeQVPATWnIKmLfbtBzPV8mrTZa ZXJu [file] bGF (more content not included)...[facility] HospitalCoding Summaryon 88-43-9126Yksjvp SummaryHTMLBase 64 IcrttfmaDQx8zUm+PGhlYWQ+SO5RXWAnQ92ezHMohL6tW6PLGWxFNuquPNNGUQvTKnHeneXaQE9uuFQy ZXJu [file] Y29 (more content not included)...[facility] Urineon 05-05-2024 UrineUrine Culture ordered as a result of parameters set on specific urine dip and urine microsopic results. <10,000 cfu/mlNKeenan Private HospitalComment on above:Performed By: #### [id number], [id number], [id number] ####[facility] (DEFAULT)[address], [place] [address]KMUJpz [id number] (LOORRM) NEGRO GARCIA ([id number]) 1960 F Date Time Provider Department 05/05/24 MARCELL SCOTT During your visit today, we recorded the following information about you: Venkata Saeed 05/05/2024 10:52 AM Signed Ileana is calling Marcell Sctot II, MD today to report that she started on an antibiotic on Saturday while in the ER for UTI. Ileana states she was started on antibiotic via IV while in the ER, then given pills to take at home starting Saturday and is to take amox-clav 875-125 mg twice a day for 7 days. Ileana states she was reading her pre-op instructions and it was noted that if she started any new meds to report them to the surgeon. Please contact patient with questions Patient has been identified by name and birthdate. Duration of symptoms: N/A Person calling: self Call patient at: on cell [phone] (home) [phone] (cell) Was an appointment scheduled: No Closing statement: Results or non-symptom based questions: Thank you for calling [facility], your call will be returned within the next business day. Monika Veloz MA 05/06/2024 4:16 PM Signed Called patient to check on her jyoti Angeles PA-C and she is feeling better and Patience stated she should be fine as long as o symptoms. She is going to check in with us next week and hopefully will be fine for surgery Monika Hansen MA Allergies As of Date: 05/05/2024 Noted Allergy Reaction CEPHALOSPORINS 04/06/2016 8 - GI Upset Comments: c-diff when taking CIPROFLOXACIN 04/05/2017 4 - Hives SULFA (SULFONAMIDE ANTIBIOTICS) 2006 9 - Itching Date Reviewed: 04/29/2024 Reviewed by: Cait Chen APRN.FOUNTAIN VENDING MECHANIC - Fully Assessed Reason for Visit: Patient Update [1234] Prescriptions as of 05/06/2024 - rivaroxaban (XARELTO) 10 mg tablet Take 1 tablet by mouth once daily for 21 days. - ferrous sulfate 325 mg (65 mg iron) tablet Take 1 tablet by mouth daily at bedtime. - acetaminophen (TYLENOL EXTRA STRENGTH) 500 mg tablet Take 2 tablets by mouth every 8 hours as needed for pain. - semaglutide (OZEMPIC) 0.25 mg or 0.5 mg (2 mg/3 mL) pen Inject 0.5 mg subcutaneously one time a week. On mondays - tiZANidine (ZANAFLEX) 4 mg tablet Take 1 tablet by mouth every 8 hours as needed. - ibuprofen (MOTRIN) 800 mg tablet TAKE 1 TABLET BY MOUTH THREE TIMES DAILY NEEDED FOR PAIN FOR FEVER - esomeprazole (NEXIUM) 40 mg capsule Take 40 mg by mouth once daily. - buPROPion SR (WELLBUTRIN SR) 150 mg 12 hr tablet Take by mouth. Take 300mg every morning, and 150mg every evening - bumetanide (BUMEX) 1 mg tablet Take 1 mg by mouth once daily as needed. - docusate sodium (COLACE) 100 mg capsule Take 200 mg by mouth daily at bedtime. - LORazepam (ATIVAN) 0.5 mg Take 0.5 mg by mouth every 6 hours as needed (anxiety). - losartan (COZAAR) 50 mg tablet Take 1 tablet by mouth once daily. - levothyroxine (SYNTHROID) 50 mcg tablet Take 50 mcg by mouth once daily. Take On an Empty Stomach - oxybutynin (DITROPAN) 5 mg tablet Take 5 mg by mouth once daily. - escitalopram oxalate (LEXAPRO) 10 mg tablet Take 10 mg by mouth once daily. - cholecalciferol (VITAMIN D3) 50 mcg (2,000 unit) tablet Take 2,000 Units by mouth once daily. - atorvastatin calcium(LIPITOR 40 MG TAB) Take one(1) tablet daily. Problem List As Of Date 05/05/2024 Noted Resolved Multiple sclerosis (HCC) [G35] 03/04/1988 Class: Chronic SYSTEMIC LUPUS ERYTHEMATOSUS [M32.9] 03/04/1989 Class: Chronic Abnormality of Gait [R26.9] 04/11/2009 Other Acquired Deformity of Ankle and Foot [M21*04/11/2009 Pain in left foot [M79.672] 05/10/2016 Gastrocnemius equinus [M62.469] 05/10/2016 Acquired hallux valgus of left foot [M20.12] 05/10/2016 Soft tissue mass [M79.89] 05/10/2016 Plantar fasciitis of left foot [M72.2] 05/10/2016 Heel spur [M77.30] 05/10/2016 Mixed hyperlipidemia [E78.2] 07/10/2016 Gastroesophageal reflux disease without esophag*07/10/2016 Depression [F32.A] 07/10/2016 Class 1 obesity with serious comorbidity and juan diego*12/25/2022 History of pulmonary embolus (PE) [Z86.711] 04/09/2023 Clotting disorder (HCC) [D68.9] 04/09/2023 Hypertension [I10] 04/09/2023 Hiatal hernia [K44.9] 04/09/2023 OAB (overactive bladder) [N32.81] 04/09/2023 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] 04/30/2023 History of DVT (deep vein thrombosis) [Z86.718] 05/22/2023 Hypothyroidism [E03.9] 04/29/2024 Primary osteoarthritis of right knee [M17.11] 04/29/2024 Encounter Status:Closed by MONIKA HANSEN on 05/06/24NoOhio[facility].Auto Diff 1on 80-74-0218Ftrb [place] %8 %Normal[address] [place] [address] Comment on above:Performed By: #### [id number], [id number], [id number], [id number], [id number] ####[facility] (DEFAULT)[address] [place] [address] 21964Kpjy Abs#0.0 z59Yafszu9.0-0.2Magruder HospitalComment on above:Performed By: #### [id number], 7585697, [id number], [id number], [id number] ####[facility] (DEFAULT)[address] [place] [address] 79510Axydadrdq/100 WBC (Bld) 0.5 %Normal0.2-2.0[facility]uder HospitalComment on above:Performed By: #### [id number], 6287568, [id number], [id number], [id number] ####[facility] (DEFAULT)[address] [place] [address] 94257Ewh Abs#0.1 y55Xpjofl9.0-0.4[facility] Comment on above:Performed By: #### 69115780, 2186964, [id number], , [id number] ####[facility] (DEFAULT)[address] [place] [address] 46348Atdnmvfxdhh/100 WBC (Bld)1.1 %Normal0.9-4.0[facility]uder HospitalComment on above:Performed By: #### [id number], 5223992, [id number], [id number], [id number] ####[facility] (DEFAULT)[address] [place] [address] 77623Gumbf Abs# 0.9 n44Owe1.3-2.9[facility]uder HospitalComment on above:Performed By: #### 15007587, 4252836, 5841817464, 3590393815, [id number] ####[facility] (DEFAULT)[address] [place] [address] 74769Duhxxqwoyar/100 WBC (Bld)10 %Mtn89-53Civjaalu HospitalComment on above:Performed By: #### [id number], 0351110, 2136471456, 8139909888, [id number] ####[facility] (DEFAULT)[address] [place] [address] 32075Ffoj Abs#0.7 o60Zagecd7.0-0.8[facility] HospitalComment on above: Performed By: #### [id number], 2795996, 5767969774, 5689123703, [id number] ####[facility] (DEFAULT)[address] [place] [address] 99080Qcet Abs# 6.9 c39Svobhp7.5-9.2Magrbellevue hospital HospitalComment on above:Performed By: #### 17748651, 8033727, 2758500979, 3268343271, [id number] ####[facility] (DEFAULT)[address] [place] [address] 00266Tewyzcqwgry/100 WBC (Bld)80 % Vzhyic46-62Onvxbcvr HospitalComment on above:Performed By: #### 81347366, 5382671, 7885823873, 8658607764, [id number] ####[facility] (DEFAULT)[address] [place] [address] 06804DTD Standardon 48-23-4172uDXK Non AA>60 Invalid Interpretation [facility] CincinnatiComment on above:Performed By: #### [id number], 5453422, 0620204053, [id number], [id number] ####[facility] (DEFAULT)[address] [place] [address] 65181hEXH AA>60Invalid Interpretation [facility] HospitalComment on above:Performed By: #### [id number], 4136893, 4593621761, 0857627917, [id number] ####[facility] (DEFAULT)[address] [place] [address] 31068Uemyr gap [Moles/Vol]10.0 mmol/LNormal5.0-19.0 [facility] HospitalComment on above:Performed By: #### 68057577, 4671609, 9965659600, 3457245393, 8352843295 ####[facility] (DEFAULT)[address] [place] [address] 65421Buyacxb [Mass/Vol]9.1 mg/dLNormal8.9-10.3[facility] HospitalComment on above:Performed By: #### 84771257, 5269786, 9223852996, 3496748779, [id number] ####[facility] (DEFAULT)[address] [place] [address] 40310Edjaseqr [Moles/Vol]108 mmol/QAgajxk611-246Avflcsji Hospital Comment on above:Performed By: #### 26966445, 2272886, 5355891428, 8568748227, 7941456053 ####[facility] (DEFAULT)[address] [place] [address] 13229KN0 [Moles/Vol]23 mmol/FZjmtrr15-95Kxlyemyh HospitalComment on above: Performed By: #### 78152832, 3258883, 6546827457, 0969585844, [id number] ####[facility] (DEFAULT)[address] [place] [address] 20188Rrmevjqnyi [Mass/Vol]0.85 mg/dLNormal0.60-1.30[facility] Orthopedic CenterComment on above:Performed By: #### 76088963, 5584574, 2474983891, 3376396185, [id number] ####[facility] (DEFAULT)[address] [place] [address] 44132Cgsdyjd [Mass/Vol]93.0 mg/kYQoofel62.0-118.0[facility] Orthopedic CenterComment on above:Performed By: #### 54922462, 2114340, 4636780664, 2961549140, 6778824095 ####[facility] (DEFAULT)[address] [place] [address] 34585Xaplqtokui212 mOsm/LInvalid Interpretation CodeFayette County Memorial Hospital HospitalComment on above:Performed By: #### 11631339, 4062310, 3812199165, 4374064513, 6455471104 ####[facility] (DEFAULT)[address] [place] [address] 34434Xwmqeuiei [Moles/Vol]4.0 mmol/L Normal3.6-5.1[facility] HospitalComment on above:Performed By: #### 82031385, 1524501, 5816860270, 6830989682, 7737645175 ####[facility] (DEFAULT)[address] [place] [address] 00800Jxawhu [Moles/Vol]137.0 mmol/LNormal 136.0-144.0[facility] HospitalComment on above:Performed By: #### 07709688, 3024519, 7361491539, 3528074910, 1648710604 ####[facility] (DEFAULT)[address] [place] [address] 96025Vcgp nitrogen [Mass/Vol]15 mg/dLNormal8-26 [facility] HospitalComment on above:Performed By: #### 25404180, 8549829, 5107880212, 1386181070, 5813067593 ####[facility] (DEFAULT)[address] [place] [address] 85121Arod nitrogen/Creatinine [Mass ratio]17.6 mg/mgHigh 4.6-16.2[facility] HospitalComment on above:Performed By: #### 47076931, 7994038, 8276086533, 6238043542, 6397603905 ####[facility] (DEFAULT)[address] [place] [address] 08667ZZT w/ Auto Diffon 94-36-6456Jcfqwvpkbpz distribution width (RBC) [Ratio]12.7 %Rgygeh03.5-15.0[facility] HospitalComment on above:Performed By: #### [id number], 8993756, 4273417330, 8399676022, 1240661827 ####[facility] (DEFAULT)[address] [place] [address] 55666Xubgrlguuu (Bld) [Volume fraction]40.0 %Wgqcze44.7-40.4[facility] HospitalComment on above: Performed By: #### 64906990, 0678931, 9553455361, 4382801740, 3569639142 ####[facility] (DEFAULT)[address] [place] [address] 96359Yseefhoiwp (Bld) [Mass/Vol]13.8 g/fWFgleri37.3-15.9[facility] HospitalComment on above: Performed By: #### 95504648, 0919779, 9338246482, 2369440356, 8068937374 ####[facility] (DEFAULT)[address] [place] [address] 96240Aqa Diff? AutoInvalid Interpretation CodeFayette County Memorial Hospital HospitalComment on above:Performed By: #### [id number], 8140709, 9581361324, 5493400193, [id number] ####[facility] (DEFAULT)[address] [place] [address] 89889RII (RBC) [Entitic mass]30 pg Sehpbg59-52Hfgazbdw HospitalComment on above:Performed By: #### 39005228, 3006298, 8440357960, 8299731724, 2702515145 ####[facility] (DEFAULT)[address] [place] [address] 13725OQVD (RBC) [Mass/Vol]34 g/gPDxuhes05-92 [facility]opedic CenterComment on above:Performed By: #### 31327155, 6771712, 2214286197, 1683632640, 9355152519 ####[facility] (DEFAULT)[address] [place] [address] 65323JOI (RBC) [Entitic vol]88 aTGkbozk65-050Syrqoqpp HospitalComment on above:Performed By: #### 42552156, 5593544, 3498713400, 8748261960, 6476298348 ####[facility] (DEFAULT)[address] [place] [address] 07903Pxparjuc266 d37Nqoilf890-229Fhyhtagn HospitalComment on above: Performed By: #### 87518881, 8451935, 1429962906, 0533121586, 0471185844 ####[facility] (DEFAULT)[address] [place] [address] 94359Rwuoovau mean volume (Bld) [Entitic vol]7.9 fLNormal6.3-10.2[facility] HospitalComment on above:Performed By: #### 92915004, 8940575, 5742936219, 8974685034, 0220997815 ####[facility] (DEFAULT)[address] [place] [address] 37019SEA4.56 s83Tjaesu3.70-5.30[facility] HospitalComment on above:Performed By: #### 70236403, 6528418, 8549383299, 2821995333, 5550609057 ####[facility] (DEFAULT)[address] [place] [address] 02064KUL2.5 x70Ptzzdq6.5-10.5[facility] Hospital Comment on above:Performed By: #### 14593985, 6975478, 3236892922, 5566942275, [id number] ####[facility] (DEFAULT)[address] [place] [address] 51028Cwpaw Blueon 68-23-5912Omud CollectedYesInvalid Interpretation CodeCrystal Clinic Orthopedic CenterComment on above:Performed By: #### [id number], 2120595, 9943329674, 9199095431, 5922221842 ####[facility] (DEFAULT)[address] [place] [address] 85738OR Rplcv9sm 53-39-7203EW Amorph.FewNoMercy Health [facility] Mills Hospital Comment on above:Order Comment: Urinalysis Microscopic order added on by [employer] Expert Rules system.Performed By: #### [id number], 35807816, [id number] ####[facility] (DEFAULT)[address] [place] [address] 53034QR Bacteria1+NormalCrystal Clinic Orthopedic CenterComment on above:Order Comment: Urinalysis Microscopic order added on by [employer] Expert Rules system.Performed By: #### [id number], 85026662, [id number] ####[facility] (DEFAULT)[address] [place] [address] 29680UV RBC5-10NormalMagruder HospitalComment on above: Order Comment: Urinalysis Microscopic order added on by Discern Expert Rules system.Performed By: #### 7279568, 51688225, [id number] ####[facility] (DEFAULT)[address] [place] [address] 89034CH Squam EpiFewNoMercy Health Kings Mills HospitalComment on above:Order Comment: Urinalysis Microscopic order added on by Discern Expert Rules system.Performed By: #### 6149616, 10426575, [id number] ####[facility] (DEFAULT)[address] [place] [address] 74068AA WBC>100 [facility] HospitalComment on above:Order Comment: Urinalysis Microscopic order added on by [employer] Expert Rules system.Performed By: #### [id number], 86361359, [id number] ####[facility] (DEFAULT)[address] [place] [address] 38701VS w Culture if Ind Standardon 49-19-5389Jrvuhxkhlp UA [facility] HospitalComment on above:Performed By: #### [id number], 10450243, [id number] ####[facility] (DEFAULT)[address] [place] [address] 93606Zzasd (U)YellowBarnesville HospitalComment on above:Performed By: #### 2542285, 25855972, [id number] ####[facility] (DEFAULT)[address] [place] [address] 37317Ivvvhwj?IndicatedInvalid Interpretation [facility] CincinnatiComment on above:Result Comment: Result created by rule GL_MAGR_ADD_UA_CULT Result created by rule GL_MAGR_ADD_UA_CULT Result created by rule GL_MAGR_ADD_UA_CULT1 Result created by rule GL_MAGR_ADD_UA_CULTPerformed By: #### [id number], [id number], [id number] ####[facility] (DEFAULT)[address] [place] [address] 08629Ptimdlw (U) [Mass/Vol]NegativeNoMercy Health Tiffin Hospital HospitalComment on above:Performed By: #### [id number], [id number], [id number] ####[facility] (DEFAULT)[address] [place] [address] 96605Cfsetxw Ql (U)NegativeNormalMatuscarawas hospital HospitalComment on above:Performed By: #### [id number], [id number], [id number] ####[facility] (DEFAULT)[address] [place] [address] 97011Gtrzl?IndicatedNormalMatuscarawas hospital HospitalComment on above:Result Comment: Result created by rule GL_MAGR_ADD_UA_MICROPerformed By: #### [id number], [id number], [id number] ####[facility] (DEFAULT)[address] [place] [address] 20331AL BilirubinNegativeNormalFayette County Memorial Hospital HospitalComment on above: Performed By: #### [id number], [id number], [id number] ####[facility] (DEFAULT)[address] [place] [address] 14081UP BloodMODERATEAbnormalNEGATIVE [facility] HospitalComment on above:Performed By: #### [id number], [id number], [id number] ####[facility] (DEFAULT)[address] [place] [address] 22504RP ClarityCLOUDYAbnormalCLEARFayette County Memorial Hospital HospitalComment on above:Performed By: #### [id number], [id number], [id number] ####[facility] (DEFAULT)[address] [place] [address] 83978IA Leuk EstLARGEAbnormalNEGSelect Medical Specialty [facility] Comment on above:Performed By: #### [id number], [id number], [id number] ####[facility] (DEFAULT)[address] [place] [address] 45334VU NitritePositive AbnormalNEGATIVEFayette County Memorial Hospital HospitalComment on above:Performed By: #### [id number], [id number], [id number] ####[facility] (DEFAULT)[address] [place] [address] 23198JY pH6.5Fmbyov4-4Kepgshtc HospitalComment on above:Performed By: #### 5234089, [id number], [id number] ####[facility] (DEFAULT)[address] [place] [address] 14936AO Zubvxqz39YbuihxipJQGVNZAKTlhiyroz Hospital Comment on above:Performed By: #### [id number], [id number], [id number] ####[facility] (DEFAULT)[address] [place] [address] 85746BN Spec Grav1.010Normal 1.001-1.035[facility] Clinic Orthopedic CenterComment on above:Performed By: #### [id number], [id number], [id number] ####[facility] (DEFAULT)[address] [place] [address] 52451KB Urobilinogen0.2 mg/dLNormal0.2-1.0[facility] Orthopedic CenterComment on above:Performed By: #### [id number], [id number], [id number] ####[facility] (DEFAULT)[address] [place] [address] 96637Zzuzh SourceClean CatchNormal [facility] Orthopedic CenterComment on above:Performed By: #### 8209425, [id number], [id number] ####[facility] (DEFAULT)[address] [place] [address] 83289Aurzgerg Ur Culton 46-08-4112Uwvbasay identified Cx Nom (U)ORGANISM ID: 1 <10,000 CFU/ml Normal urogenital floraNormalCGlenbeigh HospitalComment on above:Performed By: #### 630-4 ####[facility] LABCLIA [id number] [place] [address] [place] Basic metabolic 2000 panelon 67-36-7574Xwrsr gap [Moles/Vol]4 mmol/LLow8-15 [facility] HospitalComment on above:Order Comment: Specimen Type: BLOOD SPECIMENOrdering Facility: [facility] Address:[address] [place], [place] [address]Performed By: #### 00660-3 ####[facility] LABCLIA [id number] [place] [address] [place] AMERICACalcium [Mass/Vol]9.8 mg/dLNormal8.5-10.2CThe [facility] on above: Order Comment: Specimen Type: BLOOD SPECIMENOrdering Facility: [facility] Address:[address] [place], [place] [address]Performed By: #### 63625- 2 ####[facility] LABIA [id number] [place] [address] [place] AMERICAChloride [Moles/Vol]105 mmol/HQwfzbl81-698ZanzyzqqpSelect Medical Specialty Hospital - [facility] on above:Order Comment: Specimen Type: BLOOD SPECIMENOrdering Facility: [facility] Address:[address] [place], [place] [address]Performed By: #### 89504-6 ####[facility] LABIA [id number] [place] [address] [place] AMERICACO2 [Moles/Vol]29 mmol/GLqvwia27-88 [facility] on above:Order Comment: Specimen Type: BLOOD SPECIMENOrdering Facility: [facility] Address:[address] [place], [place] [address]Performed By: #### 11209-9 ####[facility] LABIA [id number] [place] [address] [place] AMERICACreatinine [Mass/Vol]0.82 mg/dLNormal0.58-0.96[facility] on above: Order Comment: Specimen Type: BLOOD SPECIMENOrdering Facility: [facility] Address:[address] [place], [place] [address]Performed By: #### 86290- 2 ####[facility] LABIA [id number] [place] [address] [place] AMERICACreatinine and Glomerular filtration rate.predicted panel (S/P/Bld)79 mL/min/1.73m???Normal>=60[facility] on above: Order Comment: Specimen Type: BLOOD SPECIMENOrdering Facility: [facility] Address:[address] [place] [id number] Comment: Estimated Glomerular Filtration Rate (eGFR) is calculated using the 2020 CKD-EPI cre atinine equation. This equation utilizes serum creatinine, sex, and age as parameters. The creatinine assay has traceable calibration to isotope dilution- mass spectrometry. Refer to KDIGO guidelines for clinical interpretation. In patients with unstable renal function, e.g. those with acute kidney injury, the eGFR may not accurately reflect actual GFR.Performed By: #### 51289-8 ####[facility] LABCLIA [id number] [place] [address] [place] AMERICAGlucose [Mass/Vol]91 mg/yFNbdktg38-63XhazpemeeLima Memorial Hospital Comment on above:Order Comment: Specimen Type: BLOOD SPECIMENOrdering Facility: [facility] Address:[address] [place], [place] [address]Result Comment: The [place] Diabetes Association (ADA) provides guidance for cutoff values for fasting glucose and random glucose. The ADA defines fasting as no caloric intake for at least 8 hours. Fasting plasma glucose results between 100 to 125 mg/dL indicate increased risk for diabetes (prediabetes). Fasting plasma glucose results greater than or equal to 126 mg/dL meet the criteria for diagnosis of diabetes. In the absence of unequivocal hyperglycemia, results should be confirmed by repeat testing. In a patient with classic symptoms of hyperglycemia or hyperglycemic crisis, random plasma glucose results greater than or equal to 200 mg/dL meet the criteria for diagnosis of diabetes. Reference: Standards of Medical Care in Diabetes 2016, [place] [employer] Association. Diabetes Care. 2016.39(Suppl 1).Performed By: #### 13285-3 ####[facility] LABCLIA [id number] [place] [address] [place] AMERICAPotassium [Moles/Vol]5.0 mmol/LNormal3.7-5.1CThe [facility] on above:Order Comment: Specimen Type: BLOOD SPECIMENOrdering Facility: [facility] Address:[address] [place] [id number] By: #### 61602-0 ####[facility] LABCLIA [id number] [place] [address] [place] [facility]ARE SYSTEMSodium [Moles/Vol]138 mmol/LNormal 136-144[facility] on above:Order Comment: Specimen Type: BLOOD SPECIMENOrdering Facility: [facility] Address:[address] [place], [place] [address]Performed By: #### 82455-4 ####[facility] MEDICAL CENTERErin [facility] LABIA [id number] [place] [address] [place] AMERICAUrea nitrogen [Mass/Vol]14 mg/dLNormal7-21[facility] on above: Order Comment: Specimen Type: BLOOD SPECIMENOrdering Facility: [facility] Address:[address] [place], [place] [address]Performed By: #### 78082- 2 ####[facility] LABIA [id number] [place] [address] [place] AMERICACBC panel Auto (Bld)on 97-09-3658Mmsxbbhzrwe distribution width (RBC) [Ratio]12 %11.5 - 15.0 %[facility] - WestHematocrit (Bld) [Volume fraction]42.2 %36.0 - 46.0 %[facility] - WestHemoglobin (Bld) [Mass/Vol]13.5 g/dL 11.5 - 15.5 g/dLLake County Memorial Hospital - WestInterpretation and review of laboratory results NormalVeterans Health AdministrationH (RBC) [Entitic mass]29 pg26.0 - 34.0 pgCUniversity Hospitals Elyria Medical CenterHC (RBC) [Mass/Vol]32 g/dL30.5 - 36.0 g/dLVeterans Health AdministrationV (RBC) [Entitic vol]90.8 fL80.0 - 100.0 fLClevelformerly nash [facility], later [facility] health care ClinicNucleated RBC (Bld) [#/Vol] NINFClevelformerly [facility], later [facility] health care ClinicPlatelet mean volume (Bld) [Entitic vol]10.3 fL9.0 - 12.7 fL [facility] - WestPlatelets (Bld) [#/Vol]225 10*3/uLLake County Memorial Hospital - WestRBC (Bld) [#/Vol]4.65 10*6/uL3.90 - 5.20 m/uLLake County Memorial Hospital - WestWBC (Bld) [#/Vol]5.98 10*3/uL [facility] Community HospitalErythrocyte distribution width (RBC) [Ratio]12.0 %Sqzfbn06.5-15.0[facility] on above:Order Comment: Specimen Type: BLOOD SPECIMENOrdering Facility: [facility] Address:[address] [place], [place] [address]Performed By: #### 27949-0 ####[facility] [id number] [address]OPER STREETHematocrit (Bld) [Volume fraction]42.2 %Citdmf51.0-46.0[facility] on above:Order Comment: Specimen Type: BLOOD SPECIMENOrdering Facility: [facility] Address:[address] [place], [place] [address]Performed By: #### 25846- 2 ####[facility] [id number] [address] AMERICAHemoglobin (Bld) [Mass/Vol]13.5 g/oQDdnvgn27.5-15.5CThe [facility] on above:Order Comment: Specimen Type: BLOOD SPECIMENOrdering Facility: [facility] Address:[address] [place], [place] [address]Performed By: #### 92070-4 ####[facility] LABIA [id number] [place] [address] [place] AMERICAMCH (RBC) [Entitic mass]29.0 pg Dogzjr91.0-34.0[facility] on above:Order Comment: Specimen Type: BLOOD SPECIMENOrdering Facility: [facility] Address:[address] [place], [place] [address]Performed By: #### 25347-0 ####[facility] [id number]ETMCHC (RBC) [Mass/Vol]32.0 g/dL Bbuvqs56.5-36.0[facility] on above:Order Comment: Specimen Type: BLOOD SPECIMENOrdering Facility: [facility] Address:[address] [place], [place] [address]Performed By: #### 44197-1 ####[facility] LABIA [id number] [address] STREETMCV (RBC) [Entitic vol]90.8 fL Vnkegg93.0-100.0[facility] on above:Order Comment: Specimen Type: BLOOD SPECIMENOrdering Facility: [facility] Address:[address] [place], [place] [address]Performed By: #### 18429-0 ####[facility] LABIA [id number] [address]ucleated RBC (Bld) [#/Vol] 10*3/uLNormal<0.01[facility] on above:Order Comment: Specimen Type: BLOOD SPECIMENOrdering Facility: [facility] Address:[address] [place], [place] [address]Performed By: #### 47333-7 ####[facility] LABIA [id number] [address] OF AMERICAPlatelet mean volume (Bld) [Entitic vol]10.3 fLNormal9.0-12.7CThe [facility] on above: Order Comment: Specimen Type: BLOOD SPECIMENOrdering Facility: [facility] Address:[address] [place], [place] [address]Performed By: #### 12659- 2 ####[facility] LABCLIA [id number] [place] [address] [facility] OF AMERICAPlatelets (Bld) [#/Vol]225 10*3/bJBpdlpf405-069YepnlbvejSelect Medical Specialty Hospital [facility] [place] on above:Order Comment: Specimen Type: BLOOD SPECIMENOrdering Facility: [facility] Address:[address] [place], [place] [address]Performed By: #### 27947-6 ####[facility] LABCLIA [id number] [address]REETRBC (Bld) [#/Vol]4.65 10*6/uL Normal3.90-5.20[facility] on above:Order Comment: Specimen Type: BLOOD SPECIMENOrdering Facility: [facility] Address:[address] [place], [place] [address]Performed By: #### 73114-2 ####[facility] LABIA [id number] [address] ST[address]ETWBC (Bld) [#/Vol]5.98 10*3/uL Normal3.70-11.00[facility] on above:Order Comment: Specimen Type: BLOOD SPECIMENOrdering Facility: [facility] Address:[address] [place], [place] [address]Performed By: #### 86380-4 ####[facility] HOSPITALIA [id number] [address]ETCNOV 20-00-1252HAHAOqrjtq Visit (LOORRM) NEGRO GARCIA ([id number]) 1960 F Date Time Provider Department 04/29/24 9:00 AM PATIENCE ANGELES During your visit today, we recorded the following information about you: Patience Angeles PA-C 04/29/2024 11:29 AM Signed CONSULT ORTHOPAEDIC: KNEE PRIMARY CARE PHYSICIAN: Jeremiah Lazo DO REFERRING PROVIDER: SELF ASSESSMENT AND PLAN Impression: Right Knee Severe Degenerative Osteoarthritis, Primary Diagnoses: severe degenerative arthritis of the right knee Based upon the evaluation today and after discussions with Negro Von Garcia, Negro Garcia has significant, worsening pain at the knee. This pain is increased with activity and weight bearing, and interferes with activities of daily living. These symptoms have continued despite a number of non-surgical measures, including a trial of oral pain medication and attempted physical therapy/ structured exercise program and/or use of an assistive device/ bracing (for at least 12 weeks unless the patient was unable to tolerate these measures as discussed above). At this point, the patient will not benefit from further PT due to the severity of their condition. The patient's physical examination is consistent with limitations in range of motion, pain with passive range of motion, crepitus, and effusion/ synovitis. These examination findings are corroborated by imaging findings of joint space narrowing, periarticular osteophyte formation, and subchondral sclerosis. The patient has been treated by the practice and all reasonable treatments have failed to control the disease, which causes significant pain and limits activities of daily living. The patient has failed conservative treatment and joint replacement surgery was discussed and agreed upon by both provider and patient. We will proceed with surgical management to improve function and relieve pain refractory to non-surgical measures. Right Primary Total Knee Arthroplasty as evidenced by progressive symptoms. Progressive Symptoms Include: Pain worsened by weight bearing Pain limiting ability to stay fit and healthy Unable to ambulate 2 blocks without significant pain and dysfunction . Surgery Details Date and Location: [place] on May 19, 2024 . Implants: Thea Robotic: No Predicted LOS: 1 day (Outpatient candidate) Informed consent obtained in the office today. The risks and benefits of surgery were discussed at length including but not limited to the risks of infection, bleeding, nerve or blood vessel injury, deep venous thrombosis, pulmonary embolism, arthrofibrosis, reflex sympathetic dystrophy, , paralysis, knee or patellar dislocation, extensor mechanism injury, bone fracture, component loosening or failure requiring re-operation or amputation. Informed consent was obtained and the patient was scheduled for surgery. We also discussed fixation strategies including cement and cementless fixation and advantages and disadvantages of each. We discussed the details of the surgery as well as rehabilitation. All questions were answered, and the patient wishes to proceed with surgery.. The patient has been ordered: Office Visit on 04/29/24 TYPE + SCREEN ferrous sulfate 325 mg (65 mg iron) tablet acetaminophen (TYLENOL EXTRA STRENGTH) 500 mg tablet semaglutide (OZEMPIC) 0.25 mg or 0.5 mg (2 mg/3 mL) pen tiZANidine (ZANAFLEX) 4 mg tablet No orders placed today. CONSULTS: Patient does not require consults for optimization at this time. Total Joint Arthroplasty: Risk Calculator Negro Garcia has a 3.94% chance of NOT returning home at discharge for a Primary total Knee replacement. Negro's estimated Length of Stay is 1 day (Outpatient candidate). Negro's 30 day chance of readmission is 1.17%. Readmission Probability 1.17 % (within 30 days following surgery) Estimated LOS 1 day Discharge Disposition Probability D/C to Home 96.06 % D/C to SNF 3.94 % These calculations are based on the following factors: - 64 years of age - sex is not male - BMI of 32.87 kg/m2 - NarxCare score of 0 - 1 hospitalizations in the last 12 months - no history of heart disease - no history of diabetes - no history of COPD - no history of anemia - preoperative ambulation: independent community distances - 2 step(s) to enter home - bed location is on the first floor - bath location is on the first floor - caregiver is consistent - home is not more than 150 miles away - PROMIS-10 Mental Health T score 41-49 - Marital status: Risk Factors for Total Knee Arthroplasty (TKA) Major Risk Factors Obesity Moderate Risk High: BMI > 40 Moderate: BMI 30-40 Normal: BMI < 30 Diabetes normal High: A1C > 8 Moderate: A1C 7-8 Normal: A1C < 7 Hx of DVT / PE High Risk High: dx of DVT / PE Normal: no dx of DVT / PE Smoking normal High: Current (more content not included)...NormalSycamore Medical CenterSuyapa 69-29-9192TMYOZgwgogaaf ([place]) RADHANEGRO SWENSON ([id number]) 1960 F Date Time Provider Department 04/29/24 CAIT CHEN During your visit today, we recorded the following information about you: Cait Chen APRN.CNP 04/29/2024 12:23 PM Signed I saw patient for Pre-anesthesia appointment today. She is having a knee replacement on 05/19/[address] Scott. 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 Per your note Hypercoagulation testing was negative, but in light of her clinical history I would still recommend 2 weeks of post-op prophylaxis with Xarelto or could consider Lovenox. Would you be able to provide recommendation for her upcoming procedure? Thank you, Cait Chen APRN.[employer] Charlie Linn MD 05/01/2024 1:07 PM Addendum Luis Felipe Dsouza - looks like all of her clots were provoked. So I would prophylax with either Lovenox 40 mg sq daily for 2-3 weeks after or with Xarelto 10 mg daily for same period of time. I can see her after her surgery just before she is supposed to stop anticoagulation. Would you like us to send an Rx? Cait Chen APRN.CNP 05/03/2024 6:16 PM Signed That would be great! Thank you so much for your help. Charlie Linn MD 05/05/2024 11:03 AM Addendum Jacquelyn - can you please see where she's like me to send medicine? I'd prefer to send xarelto 10 mg daily. For 3 weeks following her surgery. Jacquelyn Pisano RN 05/05/2024 12:14 PM Signed César: Pended RX to preferred pharmacy: please review and sign, if agreeable VANCE Shah Holly, APRN.YUDI 05/05/2024 4:15 PM Signed The following approved medication requests have been transmitted electronically. Requested Prescriptions Signed Prescriptions Disp Refills rivaroxaban (XARELTO) 10 mg tablet 21 tablet 0 Sig: Take 1 tablet by mouth once daily for 21 days. Authorizing Provider: VENKATA ISLAS APRN.[employer] Jacquelyn Pisano RN 05/05/2024 4:18 PM Signed Pt aware RX sent. Verified to be taken FOLLOWING surgery for 21 days. Pt denies any questions, needs or concerns at this time. Jacquelyn Pisano RN Allergies As of Date: 04/29/2024 Noted Allergy Reaction CEPHALOSPORINS 04/06/2016 8 - GI Upset Comments: c-diff when taking CIPROFLOXACIN 04/05/2017 4 - Hives SULFA (SULFONAMIDE ANTIBIOTICS) 2006 9 - Itching Date Reviewed: 04/29/2024 Reviewed by: Cait Chen APRN.[employer]IC - Fully Assessed Reason for Visit: Anesthesia Consult [0094] Order(s):rivaroxaban (XARELTO) 10 mg tabletTake 1 tablet by mouth once daily for 21 days.Disp: 21 tabletRfl: 0 Prescriptions as of 05/05/2024 - rivaroxaban (XARELTO) 10 mg tablet Take 1 tablet by mouth once daily for 21 days. - ferrous sulfate 325 mg (65 mg iron) tablet Take 1 tablet by mouth daily at bedtime. - acetaminophen (TYLENOL EXTRA STRENGTH) 500 mg tablet Take 2 tablets by mouth every 8 hours as needed for pain. - semaglutide (OZEMPIC) 0.25 mg or 0.5 mg (2 mg/3 mL) pen Inject 0.5 mg subcutaneously one time a week. On mondays - tiZANidine (ZANAFLEX) 4 mg tablet Take 1 tablet by mouth every 8 hours as needed. - ibuprofen (MOTRIN) 800 mg tablet TAKE 1 TABLET BY MOUTH THREE TIMES DAILY NEEDED FOR PAIN FOR FEVER - esomeprazole (NEXIUM) 40 mg capsule Take 40 mg by mouth once daily. - buPROPion SR (WELLBUTRIN SR) 150 mg 12 hr tablet Take by mouth. Take 300mg every morning, and 150mg every evening - bumetanide (BUMEX) 1 mg tablet Take 1 mg by mouth once daily as needed. - docusate sodium (COLACE) 100 mg capsule Take 200 mg by mouth daily at bedtime. - LORazepam (ATIVAN) 0.5 mg Take 0.5 mg by mouth every 6 hours as needed (anxiety). - losartan (COZAAR) 50 mg tablet Take 1 tablet by mouth once daily. - levothyroxine (SYNTHROID) 50 mcg tablet Take 50 mcg by mouth once daily. Take On an Empty Stomach - oxybutynin (DITROPAN) 5 mg tablet Take 5 mg by mouth once daily. - escitalopram oxalate (LEXAPRO) 10 mg tablet Take 10 mg by mouth once daily. - cholecalciferol (VITAMIN D3) 50 mcg (2,000 unit) tablet Take 2,000 Units by mouth once daily. - atorvastatin calcium(LIPITOR 40 MG TAB) Take one(1) tablet daily. Problem List As Of Date 04/29/2024 Noted Resolved Multiple sclerosis (HCC) [G35] 03/04/1988 Class: Chronic SYSTEMIC LUPUS ERYTHEMATOSUS [M32.9] 03/04/1989 Class: Chronic Abnormality of Gait [R26.9] 04/11/2009 Other Acquired Deformity of Ankle and Foot [M21*04/11/2009 Pain in left foot [M79.672] 05/10/2016 Gastrocnemius equinus [M62.469] 05/10/2016 Acquired hallux valgus of left foot [M20.12] 05/10/2016 Soft tissue mass [M79.89] 05/10/2016 Plantar fasciitis of left foot [M72.2] 05/10/2016 Heel spur [M77.30] 05/10/2016 Mixed hyperlipidemia [E78.2] 07/10/2016 Gastroesophageal reflux disease without esophag*07/10/2016 Depression [F32.A] (more content not included)...NormalLima Memorial HospitalECG01on 03-13-4860HIJ61Yilcwgcdwqu Rate : 73 BPM Atrial Rate : 73 BPM P-R Interval : 144 ms QRS Duration : 82 ms Q-T Interval : 382 ms QTC Calculation(Bazett) : 420 ms Calculated P Bovey : 20 degrees Calculated R Bovey : -5 degrees Calculated T Bovey : 13 degrees NORMAL SINUS RHYTHM NORMAL ECG Confirmed by KEIRA DUTTON M.D. ([id number]) on 06/18/2024 3:03:50 PM NAME : NEGRO GARCIA PID : [id number] : 1960 Gender : Female Race : ORD : Procedure Date : Apr 29 2024 11:08:12 Edit Date : Jun 18 2024 15:03:51 Diagnosis: NORMAL SINUS RHYTHM NORMAL ECG Confirmed by KEIRA DUTTON M.D. ([id number]) on 06/18/2024 3:03:50 PM Test Reason : Location : 145 : [place]ARD Overread By : KEIRA DUTTON M.D. Edited By : KEIRA DUTTON M.D. Referred By : MARCELL SCOTT Acquired by : VS,NormalLima Memorial HospitalErythrocyte distribution width Auto (RBC) [Ratio]on 41-51-9389Qbfznjbfsbx distribution width (RBC) [Ratio] Erythrocyte distribution width [Ratio] by Automated count11.5-15.0Holzer HospitalGlucose mean value [Mass/volume] in Blood Estimated from glycated hemoglobinon 35-31-8375Cpfycmr glucose Estimated from glycated hemoglobin (Bld) [Mass/Vol]Glucose mean value [Mass/volume] in Blood Estimated from glycated hemoglobinHolzer HospitalComment on above:eAG: (Estimated average glucose) is a calculated value from HgbA1c and is national account representative of the average blood glucose level in the last 2-3 month period. HISTORY PHYSICALon 96-77-4715OTWGLMJ PHYSICALHNO ID: [id number] Author: CAIT CHEN APRN.[employer] Service: ? Author Type: Nurse Practitioner Type: H&P Filed: 05/06/2024 09:51 Note Text: HISTORY AND PHYSICAL EXAMINATION SERVICE DATE: 04/29/2024 SERVICE TIME: 10:54 AM PRIMARY CARE PHYSICIAN: Jeremiah Lazo DO REASON FOR VISIT: Negro Garcia is a 64 year old female who is scheduled for Right - ARTHROPLASTY REPLACE JOINT TOTAL KNEE at the request of Dr. Marcell Scott for consultation. My final recommendation will be communicated back to the requesting physician by way of shared medical record or letter. Assessment Patient has the following medical conditions which may affect alondra-operative course: Mixed hyperlipidemia Assessment: On Statin Follows with PCP Gastroesophageal reflux disease without esophagitis Assessment: Controlled with PPI History of pulmonary embolus (PE) Assessment: Hx of PE and DVT S/p venous repair in her leg in the early 1989 S/p knee surgery around 2005 Not on any anticoagulants Multiple sclerosis (HCC) Assessment: Stable In remission Not currently on medications No new neurological symptoms Follows with [facility] Hypertension Assessment: Stable on medication 112/70 in office today Follows with PCP Laryngocele Assessment: S/p surgical intervention 2023 Follows with ENT Hypothyroidism Assessment: Stable on levothyroxine TSH Date Value Ref Range Status 05/06/2023 1.130 0.270 - 4.200 mIU/L Final SYSTEMIC LUPUS ERYTHEMATOSUS Assessment: In remission Not on medication Follows with [facility] Depression Assessment: Controlled Medication Management History of DVT (deep vein thrombosis) Assessment: Multiple all post-op Follows with hematology Last Sx he recommended: Hypercoagulation testing was negative, but in light of her clinical history I would still recommend 2 weeks of post-op prophylaxis with Xarelto or could consider Lovenox. Will reach out regarding this surgery ANESTHESIA FINDINGS: Intubation History: No history of difficult intubation Significant Anesthesia Considerations: none Airway History: No history of difficult airway Del Real Activity Status Index: METS: Walk indoors, such as around the house (1.75 METs) Do light work around the house, such as dusting or washing dishes (2.70 METs) Take care of self; that is eating, dressing, bathing, using the toilet (2.75 METs) Walk a block or two on level ground (2.75 METs) Do moderate work around the house, such as vacuuming, sweeping floors, or carrying in groceries (3.50 METs) Climb a flight of stairs or walk up a hill (5.50 METs) DASI Score: 18.95 Patient denies any chest pain or undue shortness of breath with the above physical activity. STOP-Bang Score: Has or is being treated for high blood pressure Patient over 50 years old Denies snoring loudly Denies feeling tired, fatigued, or sleepy during the daytime Has not been observed to stop breathing or choking/gasping during sleep BMI less than or equal to 35 kg/m2 Does not have a large neck Non-male patient STOP-Bang Score: 2 [id number] Score: Age: 65-74 Sex: female CHF history: No Hypertension history: Yes Stroke/TIA/thromboembolism history: Yes Vascular disease history: No Diabetes history: No [id number]-OGDl Score: 5 ARISCAT Score: Age: 51-80 Preoperative SpO2: >=96% Respiratory infection in the last month: No Preoperative anemia: No Surgical incision: peripheral Duration of surgery: >3 hrs Emergency procedure: No ARISCAT Score: 26 I - PHYSICAL EVALUATION AIRWAY Patient intubated: No. Tracheostomy tube not present Mallampati: I. TM distance: >3 FB. Neck ROM: full ROM without neurological symptoms. Mouth opening: adequate. Short neck: no. Thick neck: no Martinez present: no Lip Bite Test: I Microretrognathia/Micronagthia/Recessed Chin: No DENTAL Dental findings: teeth intact. II - ANESTHESIA PLAN Beta Michelle Monitoring Plan Post Procedure Analgesic Plan Prepared for surgery: This patient is optimally prepared for surgery pending. Need recommendations regarding post-op anti-coag- Tele enc sent to Hematology Addendum: Hematology to send RX for post-op prophylaxis Charlie Linn MD Hi Kaitlin - looks like all of her clots were provoked. So I would prophylax with either Lovenox 40 mg sq daily for 2-3 weeks after or with Xarelto 10 mg daily for same period of time. I can see her after her surgery just before she is supposed to stop anticoagulation. Would you like us to send an Rx? RX sent and patient aware per phone encounter CONSULTS: Patient does not require consults for optimization at this time. The Following Tests/Procedures Have Been Initiated: Orders Placed This Encounter Complete Blood Count Standing Status: Future Number of Occurrences: 1 Expected Date: 04/29/2024 Expiration Date: 07/29/2024 mupirocin (BACTROBAN) 2 % ointment (more content not included)...NormalLima Memorial HospitalHbA1c (Bld)on 85-94-3009Vgdmubj glucose Estimated from glycated hemoglobin (Bld) [Mass/Vol]105 mg/dLNormalCThe [facility] on above:Order Comment: Specimen Type: BLOOD SPECIMENOrdering Facility: [facility] Address:[address] [place], [place] [address]Result Comment: eAG: (Estimated average glucose) is a calculated value from HgbA1c and is national account representative of the average blood glucose level in the last 2-3 month period.Performed By: #### 80105-4 ####[facility] LABCLIA [id number] [place] [address] [place] RBAVIJEAqI1q (Bld) [Mass fraction]5.3 %Normal4.3-5.6CGlenbeigh HospitalCombeaumont hospital on above:Order Comment: Specimen Type: BLOOD SPECIMENOrdering Facility: [facility] Address:[address], [place], [place] [address]Nkglsb Comment: [place] Diabetes Association guidelines indicate that patients with HgbA1c in the range 5.7-6.4% are at increased risk for development of diabetes, and intervention by lifestyle modification may be beneficial. HgbA1c greater or equal to 6.5% is considered diagnostic of diabetes.Performed By: #### 29706-1 ####[facility] LABCLIA [id number] [place] [address] [place] AMERICAHematocrit Auto (Bld) [Volume fraction]on 94-93-8481Jdrryprubs (Bld) [Volume fraction]Hematocrit [Volume Fraction] of Blood by Automated count36.0-46.0Holzer HospitalHemoglobin A1c percentageon 46-48-4872JnG8f (Bld) [Mass fraction]Hemoglobin A1c percentage 4.3-5.6FSamaritan HospitalComment on above:[place] Diabetes Association guidelines indicate that patients with HgbA1c in the range 5.7-6.4% are at increased risk for development of diabetes, and intervention by lifestyle modification may be beneficial. HgbA1c greater or equal to 6.5% is considered diagnostic of diabetes.Hemoglobin [Mass/volume] in Bloodon 97-14-8378Lnxbrxqujf (Bld) [Mass/Vol]Hemoglobin [Mass/volume] in Blood11.5-15.5FSamaritan HospitalLaboratory - Chemistry and Chemistry - challengeon 04-29-2024 Bilirubin Ql (U)NegativeNegativeHolzer HospitalGlucose (U) [Mass/Vol]NegativeNegativeHolzer HospitalKetones Ql (U) NegativeNegativeHolzer HospitalpH (U)6.5 [pH]<8.5FGalion Community Hospitalpecific gravity (U) [Rel density]1.0161.005-1.030 Holzer HospitalCalcium [Mass/Vol]9.8 mg/dL8.5-10.2FSamaritan HospitalChloride [Moles/Vol]105 mmol/L99-459ZirzkcomsHolzer HospitalCO2 [Moles/Vol]29 mmol/C00-40PttuguucsHolzer Hospital Creatinine [Mass/Vol]0.82 mg/dL0.58-0.96Holzer HospitalGlucose [Mass/Vol]91 mg/jK27-18JwxpejnwlHolzer HospitalComment on above:The [place] Diabetes Association (ADA) provides guidance for cutoff values for fasting glucose andrandom glucose. The ADA defines fasting as no caloric intake for at least 8 hours. Fasting plasma glucose results between 100 to 125 mg/dL indicate increased risk for diabetes (prediabetes).Fasting plasma glucose results greater than or equal to 126 mg/dL meet the criteria for diagnosis of diabetes. In the absence of unequivocal hyperglycemia, results should be confirmed by repeat testing. In a patient with classic symptoms of hyperglycemia or hyperglycemic crisis, random plasma glucose resultsgreater than or equal to 200 mg/dL meet the criteria for diagnosis of diabetes.Reference: [employer] in Diabetes 2016, [place] Diabetes Association. Diabetes Care. 2016.39(Suppl 1).Potassium [Moles/Vol]5.0 mmol/L3.7-5.1FGalion Community Hospitalodium [Moles/Vol]138 mmol/X655-721NctxtxfnrHolzer HospitalUrea nitrogen [Mass/Vol]14 mg/dL7-21[facility] Laboratory - Specimen informationon 40-84-9773Hpshbnxreh (U)ClearClearFSamaritan HospitalColor (U)YellowYellowHolzer Hospital Laboratory - Urinalysison 44-93-4639Sygoywzv LM.HPF (Urine sed) [#/Area]Negative NegativeHolzer HospitalHyaline casts LM Ql (Urine sed)0 /LPF0 /LPFFSamaritan HospitalLeukocyte esterase Test strip Ql (U) NegativeNegativeHolzer HospitalNitrite Ql (U)NegativeNegative Holzer HospitalProtein Ql (U)NegativeNegativeHolzer HospitalLeukocytes [#/volume] corrected for nucleated erythrocytes in Blood by Automated counon 86-55-2487ZMD corrected for nucl RBC Auto (Bld) [#/Vol]Leukocytes [#/volume] corrected for nucleated erythrocytes in Blood by Automated coun3.70-11.00[facility]H Auto (RBC) [Entitic mass]on 73-36-5467YOX (RBC) [Entitic mass]MCH [Entitic mass] by Automated count26.0-34.0[facility] OhioHC Auto (RBC) [Mass/Vol]on 61-69-2208EHOP (RBC) [Mass/Vol]MCHC [Mass/volume] by Automated count30.5-36.0Holzer HospitalMCV Auto (RBC) [Entitic vol]on 23-19-3413BGC (RBC) [Entitic vol]MCV [Entitic volume] by Automated count 80.0-100.0Holzer HospitalNo Panel Informationon 04-29-2024 Urine Occult BloodNegativeNegativeHolzer HospitalUrine RBC0-2 /HPF0-2 /HPFHolzer HospitalUrine Squamous Epithelial CellsNone Seen [HPF]Holzer HospitalUrine Urobilinogen0.2 EU/dL0.2-1.0 EU/dLHolzer HospitalUrine WBC0-5 /HPF0-5 /HPFHolzer HospitalEstimated GFR (CKD-EPI)79 mL/min/1.73m???>=60Holzer HospitalComment on above:Estimated Glomerular Filtration Rate (eGFR) is calculated using the 2020 CKD-EPI creatinine equation. This equation utilizes serum creatinine, sex, and age as parameters. The creatinine assay has traceable calibration to isotope dilution-mass spectrometry. Refer to KDIGO guidelines for clinical interpretation. In patients with unstable renal function, e.g. those with acute kidney injury, the eGFRmay not accurately reflect actual GFR.Staphylococcus aureus (PCR)(LAB)Methicillin-SUSCEPTIBLE Staphylococcus aureus DetectedAbnormalNot DetectedHolzer HospitalNucleated RBC Auto (Bld) [#/Vol]on 36-20-8990Ndalspcen RBC (Bld) [#/Vol] Nucleated erythrocytes [#/volume] in Blood by Automated count<0.01Holzer HospitalPlatelet mean volume Auto (Bld) [Entitic vol]on 43-42-6744Ddxyrtwl mean volume (Bld) [Entitic vol]Platelet mean volume [Entitic volume] in Blood by Automated count9.0-12.7FSamaritan Hospital Platelets Auto (Bld) [#/Vol]on 18-01-3375Eltwopnke (Bld) [#/Vol]Platelets [#/volume] in Blood by Automated -609OjdyzelaaHolzer Hospital RBC Auto (Bld) [#/Vol]on 19-00-8041SSD (Bld) [#/Vol]Erythrocytes [#/volume] in Blood by Automated count3.90-5.20[facility] HospitalTAPHYLOCOCCUS AUREUS AND MRSA SCREEN, PCR, NASALon 04-29-2024S. aureus and MRSA panel ROBERT+probe (Nose)Methicillin-SUSCEPTIBLE Staphylococcus aureus DetectedAbnormal Not DetectedSelect Medical Specialty Hospital - [facility] on above:Order Comment: Specimen Type: SWABOrdering Facility: [facility] Address: [address] [place], [place] [address]Performed By: #### SAPCR ####[facility] LABCLIA [id number] [place] [address] [place] AMERICASerum or plasma anion gap determinationon 43-89-8170Nibzz gap [Moles/Vol]Serum or plasma anion gap determinationLow8-15Holzer HospitalTYPE + SCREENon 33-78-5962TCOBVbwjgkNqcbsftza [facility] Comment on above:Order Comment: Specimen Type: BLOOD SPECIMENOrdering Facility: [facility] Address:[address] [place] [address] Performed By: #### TSCR ####[facility] BLOOD BANKCLIA [id number] [place] [address] [place] AMERICARh Nom (Bld)Positive NormalSelect Medical Specialty Hospital - [place] on above:Order Comment: Specimen Type: BLOOD SPECIMENOrdering Facility: [facility] Address:[address] [place], [place] [address]Performed By: #### TSCR ####[facility] MAIN BLOOD BANKCLIA [id number] [place] [address] [place] AMERICATYPE AND SCREEN KSHOTTFHRW50/01/2025 23:59NormalCThe [facility] on above:Order Comment: Specimen Type: BLOOD SPECIMENOrdering Facility: [facility] Address:[address] [place], [place] [address]Performed By: #### TSCR ####[facility] BLOOD BANKCLIA [id number] [place] [id number] [place] AMERICAUrinalysis complete panel (U)on 26-81-2130Ljgqpsin LM.HPF (Urine sed) [#/Area]NegativeNormalNegative [facility] on above:Order Comment: Specimen Type: URINE SPECIMENOrdering Facility: [facility] Address:[address] [place], [place] [address]Performed By: #### 35431-9 ####[facility] LABCLIA [id number] [place] [address] [place] AMERICABilirubin Ql (U)NegativeNormalNegativeSelect Medical Specialty [facility] on above:Order Comment: Specimen Type: URINE SPECIMENOrdering Facility: [facility] Address:[address] [place] [address] Performed By: #### 60839-2 ####[facility] LABCLIA [id number] [place] [address] [place] Clarity (Unsp spec)ClearNormalClearSelect Medical Specialty [facility] on above: Order Comment: Specimen Type: URINE SPECIMENOrdering Facility: [facility] Address:[address] [place], [place] [address]Performed By: #### 40114- 8 ####[facility] LABCLIA [id number] [place] [id number] [place] AMERICAColor (U)YellowNormalYellow [facility] on above:Order Comment: Specimen Type: URINE SPECIMENOrdering Facility: [facility] Address:[address] [place], [place] [address]Performed By: #### 04417-5 ####[facility] LABCLIA [id number] [address] [place] [address] [place] AMERICAEpithelial cells LM.HPF (Urine sed) [#/Area]None SeenNormalCThe [facility] System on above:Order Comment: Specimen Type: URINE SPECIMENOrdering Facility: [facility] Address:[address] [place], [place] [address]Performed By: #### 71217-3 ####[facility] LABCLIA [id number] [place] [address] [place] AMERICAGlucose Test strip (U) [Mass/Vol]NegativeNormalNegativeSelect Medical Specialty [facility] [place] on above:Order Comment: Specimen Type: URINE SPECIMENOrdering Facility: [facility] Address:[address] [place], [place] [address]Performed By: #### 37229-9 ####[facility] LABCLIA [id number] [place] [address] [place] Hemoglobin Ql (U)NegativeNormalNegativeSelect Medical Specialty [facility] [place] on above:Order Comment: Specimen Type: URINE SPECIMENOrdering Facility: [facility] Address:[address] [place], [place] [address]Performed By: #### 37705-9 ####[facility] LABCLIA [id number] [place] [address] [place] AMERICAHyaline casts (Urine sed) [#/Area]0 /[LPF]Normal0 /LPFCThe MetroHealth System on above: Order Comment: Specimen Type: URINE SPECIMENOrdering Facility: [facility] Address:[address] [place], [place] [address]Performed By: #### 18653- 8 ####[facility] LABCLIA [id number] [place] [address] [place] AMERICAKetones Ql (U)NegativeNormal NegativeSelect Medical Specialty Hospital [facility] [place] on above:Order Comment: Specimen Type: URINE SPECIMENOrdering Facility: [facility] Address:[address] [place], [place] [address]Performed By: #### 10812-7 ####[facility] LABCLIA [id number] [place] [id number] [place] AMERICALeukocyte esterase Test strip Ql (U)NegativeNormal NegativeSelect Medical Specialty Hospital [facility] [place] on above:Order Comment: Specimen Type: URINE SPECIMENOrdering Facility: [facility] Address:[address] [place], [place] [address]Performed By: #### 18629-1 ####[facility] LABCLIA [id number] [place] [id number] [place] TOMEANitrite Ql (U)NegativeNormalNegativeSelect Medical Specialty [facility] [place] on above:Order Comment: Specimen Type: URINE SPECIMENOrdering Facility: [facility] Address:[address] [place], [place] [address]Performed By: #### 95389-6 ####[facility] LABIA [id number] [place] [id number] [place] pH (U)6.5 [pH]Normal<8.5CThe [facility]Health System on above:Order Comment: Specimen Type: URINE SPECIMENOrdering Facility: [facility] Address:[address] [place], [place] [address]Performed By: #### 43393- 8 ####[facility] LABIA [id number] [place] [id number] [place] AMERICAProtein (U) [Mass/Vol]Negative NormalNegativeSelect Medical Specialty Hospital [facility] [place] on above:Order Comment: Specimen Type: URINE SPECIMENOrdering Facility: [facility] Address:[address] [place], [place] [address]Performed By: #### 84280-6 ####[facility] LABIA [id number] [address] [address] [place] AMERICARBC LM.HPF (Urine sed) [#/Area]0-2 /HPFNormal0-2 /HPF [facility] on above:Order Comment: Specimen Type: URINE SPECIMENOrdering Facility: [facility] Address:[address] [place], [place] [address]Performed By: #### 54330-4 ####[facility] [id number] [place] [address] [place] AMERICASpecific gravity (U) [Rel density]1.309Pcesee2.005-1.030Lima Memorial HospitalComment on above:Order Comment: Specimen Type: URINE SPECIMENOrdering Facility: [facility] Address:[address] [place], [place] [address]Performed By: #### 59008-0 ####[facility] [id number] [address] [place] Urobilinogen Ql (U)0.2 EU/dLNormal0.2-1.0 EU/dLSelect Medical Specialty Hospital [facility] [place] on above:Order Comment: Specimen Type: URINE SPECIMENOrdering Facility: [facility] Address:[address] [place] [address] Performed By: #### 73454-5 ####[facility] [id number] [address] [place] WBC LM.HPF (Urine sed) [#/Area]0-5 /HPFNormal0-5 /HPFLima Memorial Hospital Comment on above:Order Comment: Specimen Type: URINE SPECIMENOrdering Facility: [facility] Address:[address] [place] [address] Performed By: #### 69913-1 ####[facility] [id number] [address] [place] Radha [id number] ([facility] NEGRO GARCIA ([id number]) 1960 F Date Time Provider Department 04/27/24 MONIKA KAN [facility] During your visit today, we recorded the following information about you: Monika Kan, RN 04/27/2024 10:32 AM Signed Care Management Total Joint Pre Surgery Call Spoke with patient regarding upcoming joint surgery to assess for discharge readiness. Do you have a HCPOA and Living Will?No. Please bring a copy in so we can have it on file for you. What is your current living arrangement? Home, Home alone Who is able to assist you at home once you discharge for a minimum of 24 hours? daughter Do you have a walker? yes - std walker AND cane Is the plan for Outpatient PT or Home PT? outpatient If outpatient PT, where and when is scheduled appointment? May 22, 2024 at [facility] of choice and financial disclosure provided for home care? 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 Allergies As of Date: 04/27/2024 Noted Allergy Reaction CEPHALOSPORINS 04/06/2016 8 - GI Upset Comments: c-diff when taking CIPROFLOXACIN 04/05/2017 4 - Hives SULFA (SULFONAMIDE ANTIBIOTICS) 2006 9 - Itching Date Reviewed: 03/12/2024 Reviewed by: Sara Vaca COA - Fully Assessed Reason for Visit: CM ortho pre-op [Other] Prescriptions as of 04/27/2024 - ibuprofen (MOTRIN) 800 mg tablet TAKE 1 TABLET BY MOUTH THREE TIMES DAILY NEEDED FOR PAIN FOR FEVER - esomeprazole (NEXIUM) 40 mg capsule Take 40 mg by mouth once daily. - buPROPion SR (WELLBUTRIN SR) 150 mg 12 hr tablet Take by mouth. Take 300mg every morning, and 150mg every evening - bumetanide (BUMEX) 1 mg tablet Take 1 mg by mouth once daily as needed. - docusate sodium (COLACE) 100 mg capsule Take 200 mg by mouth daily at bedtime. - LORazepam (ATIVAN) 0.5 mg Take 0.5 mg by mouth every 6 hours as needed (anxiety). - losartan (COZAAR) 50 mg tablet Take 1 tablet by mouth once daily. - esomeprazole (NEXIUM) 20 mg capsule Take 1 capsule by mouth once daily. - semaglutide (OZEMPIC) 0.25 mg or 0.5 mg (2 mg/3 mL) pen Inject 0.5 mg subcutaneously one time a week. - levothyroxine (SYNTHROID) 50 mcg tablet Take 50 mcg by mouth once daily. Take On an Empty Stomach - oxybutynin (DITROPAN) 5 mg tablet Take 5 mg by mouth once daily. - ferrous sulfate 325 mg (65 mg iron) tablet Take 1 tablet by mouth daily with breakfast. - escitalopram oxalate (LEXAPRO) 10 mg tablet Take 10 mg by mouth once daily. - cholecalciferol (VITAMIN D3) 50 mcg (2,000 unit) tablet Take 2,000 Units by mouth once daily. - atorvastatin calcium(LIPITOR 40 MG TAB) Take one(1) tablet daily. Problem List As Of Date 04/27/2024 Noted Resolved Multiple sclerosis (HCC) [G35] 03/04/1988 Class: Chronic SYSTEMIC LUPUS ERYTHEMATOSUS [M32.9] 03/04/1989 Class: Chronic Abnormality of Gait [R26.9] 04/11/2009 Other Acquired Deformity of Ankle and Foot [M21*04/11/2009 Pain in left foot [M79.672] 05/10/2016 Gastrocnemius equinus [M62.469] 05/10/2016 Acquired hallux valgus of left foot [M20.12] 05/10/2016 Soft tissue mass [M79.89] 05/10/2016 Plantar fasciitis of left foot [M72.2] 05/10/2016 Heel spur [M77.30] 05/10/2016 Mixed hyperlipidemia [E78.2] 07/10/2016 Gastroesophageal reflux disease without esophag*07/10/2016 Depression [F32.A] 07/10/2016 Class 1 obesity with serious comorbidity and juan [place]go*12/25/2022 History of pulmonary embolus (PE) [Z86.711] 04/09/2023 Clotting disorder (HCC) [D68.9] 04/09/2023 Hypertension [I10] 04/09/2023 Hiatal hernia [K44.9] 04/09/2023 OAB (overactive bladder) [N32.81] 04/09/2023 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 Please advise. Patient has been identified by name and birthdate. Duration of symptoms: N/A Person calling: self Call patient at: on cell [phone] (home) [phone] (cell) Was an appointment scheduled: No Closing statement: Results or non-symptom based questions: Thank you for calling [facility], your call will be returned within the next business day. Monika De Anda MA 04/01/2024 7:58 AM Signed changed appt to 11 am will notify not in on Saturday is in on Monika Hansen MA Allergies As of Date: 03/31/2024 Noted Allergy Reaction CEPHALOSPORINS 04/06/2016 8 - GI Upset Comments: c-diff when taking CIPROFLOXACIN 04/05/2017 4 - Hives SULFA (SULFONAMIDE ANTIBIOTICS) 2006 9 - Itching Date Reviewed: 03/12/2024 Reviewed by: Sara Vaca COA - Fully Assessed Reason for Visit: Appointment [186] Prescriptions as of 07/31/2024 - guaiFENesin (MUCINEX) 600 mg 12 hr tablet Take 2 tablets by mouth two times a day as needed for cold/allergy symptoms. - ferrous sulfate 325 mg (65 mg iron) tablet Take 1 tablet by mouth daily at bedtime. - acetaminophen (TYLENOL EXTRA STRENGTH) 500 mg tablet Take 2 tablets by mouth every 8 hours as needed for pain. - semaglutide (OZEMPIC) 0.25 mg or 0.5 mg (2 mg/3 mL) pen Inject 0.5 mg subcutaneously one time a week. On mondays - tiZANidine (ZANAFLEX) 4 mg tablet Take 1 tablet by mouth every 8 hours as needed. - esomeprazole (NEXIUM) 40 mg capsule Take 40 mg by mouth once daily. - buPROPion SR (WELLBUTRIN SR) 150 mg 12 hr tablet Take by mouth. Take 300mg every morning, and 150mg every evening - bumetanide (BUMEX) 1 mg tablet Take 1 mg by mouth once daily as needed. - docusate sodium (COLACE) 100 mg capsule Take 200 mg by mouth daily at bedtime. - LORazepam (ATIVAN) 0.5 mg Take 0.5 mg by mouth every 6 hours as needed (anxiety). - losartan (COZAAR) 50 mg tablet Take 1 tablet by mouth once daily. - levothyroxine (SYNTHROID) 50 mcg tablet Take 50 mcg by mouth once daily. Take On an Empty Stomach - oxybutynin (DITROPAN) 5 mg tablet Take 5 mg by mouth once daily. - escitalopram oxalate (LEXAPRO) 10 mg tablet Take 10 mg by mouth once daily. - cholecalciferol (VITAMIN D3) 50 mcg (2,000 unit) tablet Take 2,000 Units by mouth once daily. - atorvastatin calcium(LIPITOR 40 MG TAB) Take one(1) tablet daily. Problem List As Of Date 03/31/2024 Noted Resolved Multiple sclerosis (HCC) [G35] 03/04/1988 Class: Chronic SYSTEMIC LUPUS ERYTHEMATOSUS [M32.9] 03/04/1989 Class: Chronic Abnormality of Gait [R26.9] 04/11/2009 Other Acquired Deformity of Ankle and Foot [M21*04/11/2009 Pain in left foot [M79.672] 05/10/2016 Gastrocnemius equinus [M62.469] 05/10/2016 Acquired hallux valgus of left foot [M20.12] 05/10/2016 Soft tissue mass [M79.89] 05/10/2016 Plantar fasciitis of left foot [M72.2] 05/10/2016 Heel spur [M77.30] 05/10/2016 Mixed hyperlipidemia [E78.2] 07/10/2016 Gastroesophageal reflux disease without esophag*07/10/2016 Depression [F32.A] 07/10/2016 Class 1 obesity with serious comorbidity and juan diego*12/25/2022 History of pulmonary embolus (PE) [Z86.711] 04/09/2023 Clotting disorder (HCC) [D68.9] 04/09/2023 Hypertension [I10] 04/09/2023 Hiatal hernia [K44.9] 04/09/2023 OAB (overactive bladder) [N32.81] 04/09/2023 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 CenterProvider Orderson [id number] Orders [id number]#1.00OTGTSelect Medical Specialty Hospital - [facility] Provider OrdersBarnesville HospitalCNOVon 50-04-7635VJKZOhgpgl Visit (LOORRM) NEGRO GARCIA ([id number]) 1960 F Date Time Provider Department 03/18/24 10:00 AM MARCELL SCOTT During your visit today, we recorded the following information about you: Marcell Scott MD 03/18/2024 12:03 PM Signed see dictated note Marcell Scott II, MD Allergies As of Date: 03/18/2024 Noted Allergy Reaction CEPHALOSPORINS 04/06/2016 8 - GI Upset Comments: c-diff when taking CIPROFLOXACIN 04/05/2017 4 - Hives SULFA (SULFONAMIDE ANTIBIOTICS) 2006 9 - Itching Date Reviewed: 03/12/2024 Reviewed by: Sara Vaca COA - Fully Assessed Primary Visit Diagnosis:Primary osteoarthritis of both knees [M17.0] Other Visit Diagnoses:Primary osteoarthritis of right knee [M17.11] Pre-op testing [Z01.818] MRSA (methicillin resistant Staphylococcus aureus) [A49.02] Frequent urination [R35.0] Order(s):XR KNEE GENERAL 4V AP BOTH/PA BOTH/LAT/MERC BILATERAL [2045833] Order #: [id number] FUTURE XR KNEE SPECIFY 1V LEFT [3227223] Order #: [id number] FUTURE XR KNEE SPECIFY 1V RIGHT [5125138] Order #: [id number] FUTURE CONSULT TO(TCI)PRE-OP CLEAR [2465374] Order #: [id number]: 1 HEMOGLOBIN A1C [GDXHZ9C] Order #: [id number] FUTURE STAPHYLOCOCCUS AUREUS AND MRSA SCREEN, PCR, NASAL [SQSAPCR] Order #: [id number] FUTURE BASIC METABOLIC PANEL [SQBMP] Order #: [id number] FUTURE COMPLETE BLOOD COUNT AND DIFFERENTIAL [SQCBCDIF] Order #: [id number] FUTURE URINALYSIS, WITH MICROSCOPIC [SQUAWMIC] Order #: [id number] FUTURE BACTERIAL CULTURE, URINE [SQURCUL] Order #: [id number] FUTURE SURGICAL REQUEST - ELECTIVE (10/2019) [0912666] Order #: [id number]: 1 PATIENT PLACED ON MARIE TKA CARE PATH [7198440] Order #: [id number]: 1 CONSULT TO PHYSICAL THERAPY [9032] Order #: [id number]: 1 FUTURE Prescriptions as of 03/18/2024 - ibuprofen (MOTRIN) 800 mg tablet TAKE 1 TABLET BY MOUTH THREE TIMES DAILY NEEDED FOR PAIN FOR FEVER - esomeprazole (NEXIUM) 40 mg capsule Take 40 mg by mouth once daily. - buPROPion SR (WELLBUTRIN SR) 150 mg 12 hr tablet Take by mouth. Take 300mg every morning, and 150mg every evening - bumetanide (BUMEX) 1 mg tablet Take 1 mg by mouth once daily as needed. - docusate sodium (COLACE) 100 mg capsule Take 200 mg by mouth daily at bedtime. - LORazepam (ATIVAN) 0.5 mg Take 0.5 mg by mouth every 6 hours as needed (anxiety). - losartan (COZAAR) 50 mg tablet Take 1 tablet by mouth once daily. - esomeprazole (NEXIUM) 20 mg capsule Take 1 capsule by mouth once daily. - semaglutide (OZEMPIC) 0.25 mg or 0.5 mg (2 mg/3 mL) pen Inject 0.5 mg subcutaneously one time a week. - levothyroxine (SYNTHROID) 50 mcg tablet Take 50 mcg by mouth once daily. Take On an Empty Stomach - oxybutynin (DITROPAN) 5 mg tablet Take 5 mg by mouth once daily. - ferrous sulfate 325 mg (65 mg iron) tablet Take 1 tablet by mouth daily with breakfast. - escitalopram oxalate (LEXAPRO) 10 mg tablet Take 10 mg by mouth once daily. - cholecalciferol (VITAMIN D3) 50 mcg (2,000 unit) tablet Take 2,000 Units by mouth once daily. - atorvastatin calcium(LIPITOR 40 MG TAB) Take one(1) tablet daily. Problem List As Of Date 03/18/2024 Noted Resolved Multiple sclerosis (HCC) [G35] 03/04/1988 Class: Chronic SYSTEMIC LUPUS ERYTHEMATOSUS [M32.9] 03/04/1989 Class: Chronic Abnormality of Gait [R26.9] 04/11/2009 Other Acquired Deformity of Ankle and Foot [M21*04/11/2009 Pain in left foot [M79.672] 05/10/2016 Gastrocnemius equinus [M62.469] 05/10/2016 Acquired hallux valgus of left foot [M20.12] 05/10/2016 Soft tissue mass [M79.89] 05/10/2016 Plantar fasciitis of left foot [M72.2] 05/10/2016 Heel spur [M77.30] 05/10/2016 Mixed hyperlipidemia [E78.2] 07/10/2016 Gastroesophageal reflux disease without esophag*07/10/2016 Depression [F32.A] 07/10/2016 Class 1 obesity with serious comorbidity and juan diego*12/25/2022 History of pulmonary embolus (PE) [Z86.711] 04/09/2023 Clotting disorder (HCC) [D68.9] 04/09/2023 Hypertension [I10] 04/09/2023 Hiatal hernia [K44.9] 04/09/2023 OAB (overactive bladder) [N32.81] 04/09/2023 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 Please give a call back to discuss. Patient has been identified by name and birthdate. Duration of symptoms: N/A Person calling: self Call patient at: at home [phone] (home) [phone] (cell) Was an appointment scheduled: No Closing statement: Results or non-symptom based questions: Thank you for calling [facility], your call will be returned within the next business day. Monika Morales MA 03/23/2024 1:33 PM Signed called patient and rescheduled for 05/19/24 billie Hansen MA Allergies As of Date: 03/18/2024 Noted Allergy Reaction CEPHALOSPORINS 04/06/2016 8 - GI Upset Comments: c-diff when taking CIPROFLOXACIN 04/05/2017 4 - Hives SULFA (SULFONAMIDE ANTIBIOTICS) 2006 9 - Itching Date Reviewed: 03/12/2024 Reviewed by: Sara Vaca COA - Fully Assessed Reason for Visit: Schedule Surgery [1330] Prescriptions as of 03/23/2024 - ibuprofen (MOTRIN) 800 mg tablet TAKE 1 TABLET BY MOUTH THREE TIMES DAILY NEEDED FOR PAIN FOR FEVER - esomeprazole (NEXIUM) 40 mg capsule Take 40 mg by mouth once daily. - buPROPion SR (WELLBUTRIN SR) 150 mg 12 hr tablet Take by mouth. Take 300mg every morning, and 150mg every evening - bumetanide (BUMEX) 1 mg tablet Take 1 mg by mouth once daily as needed. - docusate sodium (COLACE) 100 mg capsule Take 200 mg by mouth daily at bedtime. - LORazepam (ATIVAN) 0.5 mg Take 0.5 mg by mouth every 6 hours as needed (anxiety). - losartan (COZAAR) 50 mg tablet Take 1 tablet by mouth once daily. - esomeprazole (NEXIUM) 20 mg capsule Take 1 capsule by mouth once daily. - semaglutide (OZEMPIC) 0.25 mg or 0.5 mg (2 mg/3 mL) pen Inject 0.5 mg subcutaneously one time a week. - levothyroxine (SYNTHROID) 50 mcg tablet Take 50 mcg by mouth once daily. Take On an Empty Stomach - oxybutynin (DITROPAN) 5 mg tablet Take 5 mg by mouth once daily. - ferrous sulfate 325 mg (65 mg iron) tablet Take 1 tablet by mouth daily with breakfast. - escitalopram oxalate (LEXAPRO) 10 mg tablet Take 10 mg by mouth once daily. - cholecalciferol (VITAMIN D3) 50 mcg (2,000 unit) tablet Take 2,000 Units by mouth once daily. - atorvastatin calcium(LIPITOR 40 MG TAB) Take one(1) tablet daily. Problem List As Of Date 03/18/2024 Noted Resolved Multiple sclerosis (HCC) [G35] 03/04/1988 Class: Chronic SYSTEMIC LUPUS ERYTHEMATOSUS [M32.9] 03/04/1989 Class: Chronic Abnormality of Gait [R26.9] 04/11/2009 Other Acquired Deformity of Ankle and Foot [M21*04/11/2009 Pain in left foot [M79.672] 05/10/2016 Gastrocnemius equinus [M62.469] 05/10/2016 Acquired hallux valgus of left foot [M20.12] 05/10/2016 Soft tissue mass [M79.89] 05/10/2016 Plantar fasciitis of left foot [M72.2] 05/10/2016 Heel spur [M77.30] 05/10/2016 Mixed hyperlipidemia [E78.2] 07/10/2016 Gastroesophageal reflux disease without esophag*07/10/2016 Depression [F32.A] 07/10/2016 Class 1 obesity with serious comorbidity and juan diego*12/25/2022 History of pulmonary embolus (PE) [Z86.711] 04/09/2023 Clotting disorder (HCC) [D68.9] 04/09/2023 Hypertension [I10] 04/09/2023 Hiatal hernia [K44.9] 04/09/2023 OAB (overactive bladder) [N32.81] 04/09/2023 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 TECHNIQUE: XR KNEE 4V AP/PA BOTH+LAT/MAC RT Laterality: RIGHT Number of different views (projections): 4 COMPARISON: None available. RESULT: There is no acute fracture or dislocation. Lateral compartment predominant marked osteoarthritis. Small joint effusion. No soft tissue swelling. Limited evaluation of the contralateral knee with no acute findings. No other significant abnormality. IMPRESSION: Osteoarthritis. Small joint effusion. Automatic Grinding Machine Operator: [facility] Transcribe Date/Time: Mar 18 2024 9:25A Dictated by : SOMMER MONTOYA MD This examination was interpreted and the report reviewed and electronically signed by: SOMMER MONTOYA MD on Mar 18 2024 9:26AM EST [id number] TriPoint Medical Center Knee - right 4 Viewson [id number]: Osteoarthritis. Small joint effusion. Automatic Grinding Machine Operator: [facility] Transcribe Date/Time: Mar 18 2024 9:25A Dictated by : SOMMER MONTOYA MD This examination was interpreted and the report reviewed and electronically signed by: SOMMER MONTOYA MD on Mar 18 2024 9:26AM EST DIVISION OF RADIOLOGY* * *Final Report* * * DATE OF EXAM: Mar 18 2024 8:46AM LZX 5203 - XR KNEE 4V AP/PA BOTH+LAT/MAC RT / PROCEDURE REASON: Pain * * * * Physician Interpretation * * * * HISTORY: Pain . TECHNIQUE: XR KNEE 4V AP/PA BOTH+LAT/MAC RT Laterality: RIGHT Number of different views (projections): 4 COMPARISON: None available. RESULT: There is no acute fracture or dislocation. Lateral compartment predominant marked osteoarthritis. Small joint effusion. No soft tissue swelling. Limited evaluation of the contralateral knee with no acute findings. No other significant abnormality. [facility] [place] - 03/18/2024 * * *Final Report* * * DATE OF EXAM: Mar 18 2024 8:46AM LZX 5203 - XR KNEE 4V AP/PA BOTH+LAT/MAC RT / PROCEDURE REASON: Pain * * * * Physician Interpretation * * * * HISTORY: Pain . TECHNIQUE: XR KNEE 4V AP/PA BOTH+LAT/MAC RT Laterality: RIGHT Number of different views (projections): 4 COMPARISON: None available. RESULT: There is no acute fracture or dislocation. Lateral compartment predominant marked osteoarthritis. Small joint effusion. No soft tissue swelling. Limited evaluation of the contralateral knee with no acute findings. No other significant abnormality. IMPRESSION IMPRESSION: Osteoarthritis. Small joint effusion. Automatic Grinding Machine Operator: [facility] Transcribe Date/Time: Mar 18 2024 9:25A Dictated by : SOMMER MONTOYA MD This examination was interpreted and the report reviewed and electronically signed by: SOMMER MONTOYA MD on Mar 18 2024 9:26AM EST [facility] observation (narrative)[facility]XR Knee - right 4 ViewsOrdered By: Ccf Provider on [id number] ClinicFUNDUS PHOTOS OU (BOTH EYES)on 15-49-9420Pnvdftbma ClinicRadiology Study observation (narrative)[facility] WestOCT OPTIC NERVE CIRRUS OU (BOTH EYES)on 03-12-2024 [facility] West[facility] Study observation (narrative)[facility] PACHYMETRY OU (BOTH EYES)on 91-98-3447Qbqxhalpb ClinicRadiology Study observation (narrative)[facility] WestVISUAL FIELD 24-2 OU (BOTH EYES)on 43-68-4782Hyxrjjnex ClinicRadiology Study observation (narrative)[facility] WestMM screening mammo BI w/CADon 80-92-9910UV screening mammo BI w/CAD [facility] [place] [address] Mammography Report Signed Patient: Negro Garcia MR#: [id number] [id number] : 1960 Acct:[id number] Age/Sex: 64 / F ADM Date: 02/21/24 Loc: [place] Room: Type[facility] Attending Dr: Jeremiah Kuns DO Copies to: Jeremiah Lazo DO Ordering Provider: Jeremiah Lazo DO Date of Service: 02/21/24 MM/MM screening mammo BI w/CAD: Z12.39 - Encounter for other screening for malignant neop... BILATERAL Screening Full Field digital mammogram with 3-D imaging. Full field digital CC and MLO imaging performed. CAD utilized. COMPARISON: 02/19/2023 HISTORY: Annual screening BREAST COMPOSITION: Scattered fibroglandular densities of the breast parenchyma identified BREAST CALCIFICATIONS: Benign calcifications present. VASCULAR CALCIFICATIONS: None ARCHITECTURAL DISTORTION: None BREAST NODULE: None AXILLARY LYMPH NODES: Normal POSTSURGICAL CHANGES: None MM/MM screening mammo BI w/CAD IMPRESSION: No mammographic evidence of malignancy. Routine follow-up recommended in one year. RESULT CODE: 2 Benign Findings(s) DENSITY CODE: 2 (approximately 25-50% glandular) FOLLOW UP: 1YR THE FALSE-NEGATIVE RATE OF MAMMOGRAPHY IS APPROXIMATELY 10%. IMAGING OF A PALPABLE ABNORMALITY MUST BE BASED ON CLINICAL GROUNDS. PATIENT WAS ENTERED INTO A REMINDER SYSTEM WITH A TARGET DUE DATE FOR THE NEXT MAMMOGRAM. Impression dictated by: Shai Doran M.D.02/21/2024 9:33 AM Dictation Location: [facility] Transcribed By: [facility] 02/21/24932 Dictated By: Shai Doran DO 02/21/24929 Signed By: 02/21/24 0933[facility] Physician GroupXR wrist RT 2Von 33-21-4723IS wrist RT 2VK[facility] [address] [place] [address] XRay Report Signed Patient: Negro Garcia MR#: [id number] : 1960 Acct:[id number] Age/Sex: 63 / F ADM Date: 01/28/24 [place] [facility] [place]: Type: [facility] Attending Dr: Pranav Guadalupe MD Copies to: Pranav Guadalupe MD Ordering Provider: Pranav Guadalupe MD Date of Service: 01/28/24 XR/XR wrist RT 2V: S52.514A - Nondisplaced fracture of right radial styloid ... RIGHT WRIST - 2 views COMPARISON: 01/12/2024 CLINICAL DATA: Follow-up radial styloid fracture AP and lateral views were obtained. No acute fractures or dislocation are identified. There is no significant hypertrophy. No soft tissue swelling is identified. XR/XR wrist RT 2V IMPRESSION: NO ACUTE FINDINGS. Impression dictated by: Radha Navarrete M.D.01/28/2024 10:04 AM Dictation Location: [place] [address] Transcribed By: [facility] 01/28/24 1004 Dictated By: Radha Navarrete MD 01/28/24 0958 Signed By: 01/28/24 [facility] Physician GroupCoding Summaryon 01-25-2024 Coding SummaryMLBase 64 AjcxkcptGLj9iOf+PGhlYWQ+EH9NQYWeL83xkPPwhP6tB9FIPWuKYegbNRUDAQdVMdOoteRmDH9peQRh ZXJu [file] Y29 (more content not included)...NormalCrystal Clinic Orthopedic CenterLaboratory - Chemistry and Chemistry - challengeon 42-66-5994Ipymawwis Ql (U)NegativeHolzer HospitalGlucose (U) [Mass/Vol]NegativeHolzer Hospital Ketones Ql (U)NegativeHolzer HospitalpH (U)7.0 [pH][facility] Hospitalpecific gravity (U) [Rel density]1.020Holzer HospitalUrobilinogen (U) [Mass/Vol]0.2 mg/dLHolzer HospitalLaboratory - Urinalysison 61-40-7663Frxhbfxzx esterase Test strip Ql (U) largeHolzer HospitalNitrite Ql (U)PositiveHolzer HospitalProtein Ql (U)30Holzer HospitalNo Panel Informationon 74-04-2904Frnbv Occult BloodtraceHolzer Hospital Urine Cultureon 76-58-0367Idlgemio identified Cx Nom (U)>100,000 colonies/ml mixed bacterial skin contaminants 2 Days PERFORMED BY: [facility] [address] [place] [address] PATHOLOGIST SYNCHRONIZER TRUONG HUNTER M.D.[facility] Physician GroupComment on above: Performed By: #### CUU #### [facility] [address] [place] [id number] USAUrine cultureOrdered By: Jeremiah Lazo on 61-95-8687Jpdmrone identified Cx Nom (U)Urine cultureUC Medical Center Clinical Summaryon [id number] Clinical SummaryCrystal Clinic Orthopedic Center ? Urgent Care [address] [place], [place] [id number] Clinical Summary PERSON INFORMATION Name: NEGRO GARCIA Age: 63 Years Sex: FEMALE : 1960 MRN: Acct#: Visit Reason: Wrist pain-swelling; FALLEN/ RIGHT WRIST SWOLLEN Arrival: 01/12/2024 18:40:56 Discharge: 01/12/2024 19:20:00 LOS: 000 00:40 Check In: 01/12/2024 18:40:56 Checkout: 01/12/2024 19:20:00 Address: [address] [place] [address] PCP: JEREMIAH LAZO PROVIDER INFORMATION Provider Role Assigned Unassigned Diego Nance ED PA 01/12/2024 18:44:30 Robin RN, Po Craig ED Nurse 01/12/2024 18:45:00 VITALS INFORMATION Vital Sign Triage Latest Temperature Tympanic Temperature Temporal Artery Pulse Rate O2 Sat 97 % 97 % Respiratory Rate Blood Pressure /83 mmHg /83 mmHg MEDICAL INFORMATION Medications Given: Allergy Information: sulfa drug PHYSICIAN DOCUMENTATION DISCHARGE INFORMATION: Discharge Disposition: Home Discharge Location: Home PATIENT EDUCATION INFORMATION Instructions: Wrist Sprain, Adult; How to Use Cold Therapy Follow-Up: With: Address: When: Pranav Guadalupe MD [address] [place] [address] Within 1 to 2 days Comments: Diagnosis is sprain of the right wrist. We obtained an x-ray, which shows an area of concern as we discussed. The x-ray has not been read at this time, but read later tonight. Any positive findings they will contact you. We are providing you with a wrist splint, to help with comfort and protect thearea. To help decrease swelling elevate above heart level, provided information on cold therapy. You may take Tylenol or ibuprofen for pain relief. May take both of those medications together for maximal pain relief with food. Follow-up with the listed orthopedic surgeon next 1-2 days for reevaluation. Return for worsening symptoms or concerns. DIAGNOSIS: 1:Right wrist sprain Patient Understands: Yes - Patient/family/caregiver verbalizes understanding of instructions given Comment:Barn[facility]ville HospitalED Patient Summaryon [id number] Patient Summary [facility] ? Urgent Care [address] [place] [address] PATIENT DISCHARGE INSTRUCTIONS Patient Information Name: NEGRO GARCIA Age: 63 Years Date of : 1960 Reason For Visit: Wrist pain-swelling; FALLEN/ RIGHT WRIST SWOLLEN Arrival Time: 01/12/2024 18:40:56 Primary Care Physician: JEREMIAH LAZO Attending Physician: Diego Nance Comment: Patient Education With: Address: When: Pranav Guadalupe MD [address] [place] [address] Within 1 to 2 days Comments: Diagnosis is sprain of the right wrist. We obtained an x-ray, which shows an area of concern as we discussed. The x-ray has not been read at this time, but read later tonight. Any positive findings they will contact you. We are providing you with a wrist splint, to help with comfort and protect thearea. To help decrease swelling elevate above heart level, provided information on cold therapy. You may take Tylenol or ibuprofen for pain relief. May take both of those medications together for maximal pain relief with food. Follow-up with the listed orthopedic surgeon next 1-2 days for reevaluation. Return for worsening symptoms or concerns. Wrist Sprain, Adult A wrist sprain is a stretch or tear in the strong tissues that connect the wrist bones to each other. These strong tissues are called ligaments. There are three types of wrist sprains: ? Grade 1. The ligament is stretched more than normal. There may be a minor amount of wrist pain. ? Grade 2. The ligament is partially torn. You may be able to move your wrist, but not very much. There may be a moderate amount of wrist pain. ? Grade 3. The ligament or ligaments are completely torn. You may find it difficult to move your wrist even a little. There may be a significant amount of wrist pain. What are the causes? This condition may be caused by using the wrist too much during sports, exercise, or work. It can also happen due to a fall or during an accident. What increases the risk? You are more likely to develop this condition if: ? You had a previous wrist or arm injury. ? You have poor wrist strength and flexibility. ? You play contact sports, such as football or soccer. ? You participate in sports that may result in a fall, such as skateboarding, biking, skiing, or snowboarding. ? You do not exercise regularly. ? You use exercise equipment that does not fit well. What are the signs or symptoms? Symptoms of this condition include: ? Pain in the wrist, arm, or hand. ? Swelling or bruised skin near the wrist, hand, or arm. The skin may look yellow or blue. ? Stiffness or trouble moving the hand. ? Hearing a noise, like a pop or a snap, at the time of injury, or feeling a tear at the time of the injury. ? A warm feeling in the skin around the wrist. How is this diagnosed? This condition is diagnosed with a physical exam. Sometimes an X-ray is taken to make sure a bone did not break. You may also have an MRI of your wrist to check for torn ligaments. How is this treated? This condition is treated by resting and applying ice to your wrist. Additional treatment may include: ? Taking medicine for pain and inflammation. ? Wearing a splint, brace, or cast for a short period of time to keep your wrist from moving (immobilized). ? Doing exercises to strengthen and stretch your wrist. ? Having surgery. This may be done if the ligament is completely torn. Follow these instructions at home: If you have a splint or brace: ? Wear the splint or brace as told by your health care provider. Remove it only as told by your health care provider. ? Loosen it if your fingers tingle, become numb, or turn cold and blue. ? Keep it clean. ? If the splint or brace is not waterproof: ? Do not let it get wet. ? Cover it with a watertight covering when you take a bath or a shower. If you have a cast: ? Do not put pressure on any part of the cast until it is fully hardened. This may take several hours. ? Do not stick anything inside the cast to scratch your skin. Doing that increases your risk of infection. ? Check the skin around the cast every day. Tell your health care provider about any concerns. ? You may put lotion on dry skin around the edges of the cast. Do not put lotion on the skin underneath the cast. ? Keep it clean. ? If the cast is not waterproof: ? Do not let it get wet. ? Cover it with a watertight covering when you take a bath or shower. Managing pain, stiffness, and swelling ? If directed, put ice on the injured area. To do this: ? If you have a removable splint or brace, remove it as told by your health care provider. ? Put ice in a plastic bag. ? Place a towel between your skin and the bag or between the splint or cast and the bag. ? Leave the ice on for 20 minutes, 2?3 times a day. ? Remove the ice if your skin turns b (more content not included)...[facility] [place] [id number] ? Urgent Care [address] [place] [address] PATIENT DISCHARGE INSTRUCTIONS Patient Information Name: NEGRO GARCIA Age: 63 Years Date of : 1960 Reason For Visit: Wrist pain-swelling; FALLEN/ RIGHT WRIST SWOLLEN Arrival Time: 01/12/2024 18:40:56 Primary Care Physician: JEREMIAH LAZO Attending Physician: Digeo Nance Comment: Visit Diagnosis: Diagnoses This Visit Right wrist sprain (S63.501A) Wrist pain-swelling ([id number]) If you received any narcotics, sedation, or any other medication that causes drowsiness for the next 24 hours, unless otherwise directed: ? Do not drive a car. ? Do not operate machinery such as power tools, lawn mowers, drills, sewing machines, or stoves ? Avoid alcoholic beverages and drugs for allergies, nerves, or sleep ? Do not make important personal or business decisions or sign any legal documents With: Address: When: Pranav Guadalupe MD [address] [place] [address] Within 1 to 2 days Comments: Diagnosis is sprain of the right wrist. We obtained an x-ray, which shows an area of concern as we discussed. The x-ray has not been read at this time, but read later tonight. Any positive findings they will contact you. We are providing you with a wrist splint, to help with comfort and protect thearea. To help decrease swelling elevate above heart level, provided information on cold therapy. You may take Tylenol or ibuprofen for pain relief. May take both of those medications together for maximal pain relief with food. Follow-up with the listed orthopedic surgeon next 1-2 days for reevaluation. Return for worsening symptoms or concerns. Medication Information: The exam and treatment you received today in the [facility] were for an urgent problem and are not intended as complete care. It is important for you to follow up with a doctor, nurse practitioner, or physician?s assistant brand manager for ongoing care. If your symptoms become worse or you do not improve as expected and you are unable to reach your usual health care provider, you should return to the Emergency Department, we are available 24 hours a day. For those patients who have received Radiology results, the interpretation of your X-ray as given to you by our Urgent Care physician is only a preliminary report. The Radiologist will review your films and if there is a change in the diagnosis you will be notified by phone. Please make sure you have provided a working phone number so we can reach you if necessary. In the event that you had a lab culture while you were a patient in the Urgent Care, you will be notified by phone if there is a need to change your antibiotic. Please make sure you have provided a working phone number so we can reach you if necessary. [facility] has provided you with a complete list of medications post discharge. Please inform your clinical outcomes manager/provider of your visit and for further instruction on these medications. Any specific questions regarding your chronic medications and dosages should be discussed with your primary care physician(s) and/or pharmacist. Additional medications on your home medication list not specifically addressed. Please contact the ordering physician if you have questions about these medications. buPROPion (BuPROPion (Eqv-Wellbutrin SR) 150 mg/12 hours oral tablet, extended release) 1 tab(s) Oral BID. escitalopram (escitalopram 10 mg oral tablet) 1 tab(s) Oral (given by mouth) every day. TAKE 1 TABLET BY MOUTH ONCE DAILY. esomeprazole (esomeprazole 40 mg oral delayed release capsule) 1 cap(s) Oral (given by mouth) everyday. TAKE 1 CAPSULE BY MOUTH ONCE DAILY. levothyroxine (levothyroxine 50 mcg (0.05 mg) oral tablet) 1 tab(s) Oral (given by mouth) every day. TAKE 1 TABLET BY MOUTH ONCE DAILY. losartan (losartan 50 mg oral tablet) 1 tab(s) Oral (given by mouth) every day. TAKE 1 TABLET BY MOUTH ONCE DAILY. oxyBUTYnin (oxyBUTYnin 5 mg oral tablet) 1 tab(s) Oral (given by mouth) every day. TAKE 1 TABLET BYMOUTH ONCE DAILY. Visit Information Allergies: Substance Reaction Symptoms Type Comments sulfa drug Drug Vital Signs: Vitals and Measurements this Visit (last charted value for your 01/12/2024 visit) Vital Signs This Visit Temperature Oral: 36.6 DegC Peripheral Pulse Rate: 93 bpm Respiratory Rate: 18 br/min Systolic Blood Pressure: 131 mmHg Diastolic Blood Pressure: 83 mmHg SpO2: 97 % Oxygen Therapy: Room air Blood Pressure Method: Automatic Measurements This Visit Height/Length Measured: 162.56 cm Weight Measured: 127.01 kg Weight Dosin.010 kg Body Mass Index: 48.06 kg/m2 BSA Measured: 2.39 m2 Problems List: Problem Onset Comments No Problems found Patient Education Wrist Sprain, Adult A wrist sprain is a stretch or tear in the strong tissues that connect the wris (more content not included)...[facility] Righton [id number] Wrist Complete RightEXAM: XR Wrist Complete Right 01/12/2024 HISTORY: Fall COMPARISON: None. TECHNIQUE: AP lateral and oblique FINDINGS: No acute fracture or dislocation is evident. Joint spacing is preserved. There is a smooth ossification near the pisiform which probably is from old trauma. IMPRESSION: No acute osseous abnormality of the right wrist is evident Final Dictated by: Evans Khan Dictated DT/TM: 01/12/24 7:55 Signed (Electronic Signature): Evans Khan 01/12/24 7:56 pm Technologist: [facility] lumbar spine wo/w conon [id number] lumbar spine wo/w [facility] Main [place] [address] [place] [address] MRI Report Signed Patient: Negro Garcia MR#: [id number] 966 : 1960 Acct:[id number] Age/Sex: 63 / F ADM Date: 01/04/24 Loc: MR Room: Type: [facility] Attending Dr: Jeremiah Lazo DO Copies to: Jeremiah Lazo DO Ordering Provider: Jeremiah Laoz DO Date of Service: 01/04/24 MR/MR lumbar spine wo/w con: M54.16 - Radiculopathy, lumbar region MRI lumbar spine with and without IV contrast. Reason for exam: History of lumbar fusion. Right-sided radiculopathy. COMPARISON: Lumbar spine series 12/06/2023. TECHNIQUE: Multisequence, multiplanar imaging of the lumbar spine was obtained before and after the use of IV contrast. FINDINGS: Posterior hardware fixation is seen at levels of L2-L3 and L5-S1 with associated blooming artifact limiting evaluation on today's study. Vertebral body heights appear maintained. No bone marrow edema. Spinal cord terminates in normal position without abnormal cord signal or enhancement. No paraspinal mass. Visualized retroperitoneum demonstrates no acute findings. L1-L2: 4 mm retrolisthesis is present. Broad-based disc bulge is present with ligamentum flavum hypertrophy and facet joint degenerative changes causing mild canal and bilateral neural foraminal stenosis. L2-L3: Postoperative changes. No significant canal stenosis. No significant neural foraminal stenosis. L3-L4: 3 mm retrolisthesis. Diffuse broad-based disc bulge is present with ligamentum flavum hypertrophy and facet joint degenerative changes causing moderate canal and left-sided neural foraminal stenosis. Severe right-sided neural foraminal stenosis. L4-L5: Diffuse broad-based disc bulge is present with ligamentum flavum hypertrophy and facet joint degenerative changes causing mild canal and moderate bilateral neural foraminal stenosis. L5-S1: Postoperative change. No significant canal stenosis. Moderate bilateral neural foraminal stenosis. MR/MR lumbar spine wo/w con Impression: Degenerative disc disease as described above, worst at L3-L4 and L4-L5. Impression dictated by: Rob Pires Jr., D.OSb01/04/2024 10:51 AM Dictation Location: [place] [address] Transcribed By: [facility] 01/04/24 1051 Dictated By: Rob Pires Jr, DO 01/04/24 1046 Signed By: 01/04/24 1051[facility] Physician GroupThyrotropin [Units/volume] in Serum or PlasmaOrdered By: Jeremiah Lazo on 22-63-1984BCY Qn1.75 m[IU]/LNormal 0.45-5.33Holzer HospitalComment on above:Result Comment: PERFORMED BY: [place] [address] PATHOLOGIST SYNCHRONIZER KIANA FIORE M.D.Performed By: #### TSH3, T4F #### [place] [id number] USATSH QnThyrotropin [Units/volume] in Serum or Plasma 0.45-5.33Holzer HospitalThyroxine (T4) free [Mass/volume] in Serum or PlasmaOrdered By: Jeremiah Lazo on 69-77-9624Tvll T4 [Mass/Vol]1.02 ng/dL Normal0.61-1.12Holzer HospitalComment on above:Performed By: #### TSH3, T4F #### [facility] [address] [place], [place] [id number] USAFree T4 [Mass/Vol]Thyroxine (T4) free [Mass/volume] in Serum or Plasma0.61-1.12Holzer HospitalXR hip RT min 2V(w/wo pelvis)*on 72-52-6185ZI hip RT min 2V(w/wo pelvis)*[facility] Main [address] [address] XRay Report Signed Patient: Negro Garcia MR#: [id number] 966 : 1960 Acct:[id number] Age/Sex: 63 / F ADM Date: 12/06/23 Loc: XD Room: Type: REG CLI Attending Dr: Jeremiah Lazo DO Copies to: Jeremiah Lazo DO Ordering Provider: Jeremiah Lazo DO Date of Service: 12/06/23 XR/XR hip RT min 2V(w/wo pelvis)*: M54.31 - Sciatica, right side ([id number]) XR/XR sacrum coccyx min 2V: M54.31 - Sciatica, right side SACRUM AND COCCYX - - 3 views, right hip 2 views CLINICAL HISTORY: Low back pain radiating to right hip and down right thigh COMPARISON: None FINDINGS: Sacrum/coccyx demonstrate degenerative changes involving the SI joints. Sacral foramina appear grossly intact. Coccyx appears grossly intact. Right hip demonstrates mild degenerative changes without acute bony process. XR/XR sacrum coccyx min 2V IMPRESSION: DEGENERATIVE CHANGES INVOLVING THE SI JOINTS AND RIGHT HIP WITHOUT ACUTE BONY PROCESS. Impression dictated by: Rob Pires Jr., D.OSb12/06/2023 3:51 PM Dictation Location: [place] [address] Transcribed By: [facility] 12/06/23 1551 Dictated By: Rob Pires Jr, DO 12/06/23 1550 Signed By: 12/06/[address] [place] [address] Physician GroupXR lumbar spine min 4V*on 42-83-6985PC lumbar spine min 4V*[facility] Main [address] [address] XRay Report Signed Patient: Negro Garcia MR#: [id number] 966 : 1960 Acct:[id number] Age/Sex: 63 / F ADM Date: 12/06/23 Loc: XD Room: Type: REG CLI Attending Dr: Jeremiah Lazo DO Copies to: Jeremiah Lazo DO Ordering Provider: Jeremiah Lazo DO Date of Service: 12/06/23 XR/XR lumbar spine min 4V*: M54.31 - Sciatica, right side LUMBAR SPINE - 6 views CLINICAL HISTORY: Low back pain radiates into right hip and down to right thigh. COMPARISON: None FINDINGS: Hardware fixation L3-L3 and L5-S1 without radiographic complication. Vertebral body heights appear maintained. Scattered endplate and facet joint degenerative changes with moderate disc space narrowing throughout the visualized thoracolumbar spine with relative sparing of L4-L5. 4 mm retrolisthesis of L3 on L4. XR/XR lumbar spine min 4V* IMPRESSION: NO HARDWARE COMPLICATION. DIFFUSE MODERATE DEGENERATIVE DISC DISEASE. Impression dictated by: Rob Pires Jr., D.O.12/06/2023 3:50 PM Dictation Location: [place] [address] Transcribed By: [facility] 12/06/23 1550 Dictated By: Rob Pires Jr, DO 12/06/23 1549 Signed By: 12/06/23 [facility] Physician GroupXR knee RT 2Von 61-12-5929TP knee RT 2V[facility] [address] [place] [address] XRay Report Signed Patient: Negro Garcia MR#: [id number] 966 : 1960 Acct:[id number] Age/Sex: 63 / F ADM Date: 11/19/23 [place]: [facility] [place]: Type: [facility] Attending Dr: Pranav Guadalupe MD Copies to: Pranav Guadalupe MD Ordering Provider: Pranav Guadalupe MD Date of Service: 11/19/23 XR/XR knee RT 2V: M25.561 - Pain in right knee 2 views right knee plain film COMPARISON: 10/26/2021 HISTORY: Left knee pain for months ACUTE FINDINGS: No acute findings DEGENERATIVE CHANGE: Progressive extensive patellofemoral and lateral compartment degeneration. SOFT TISSUE FINDINGS: Unremarkable JOINT EFFUSION: Small joint effusion POSTOP CHANGES: None BONE MINERALIZATION: Adequate XR/XR knee RT 2V IMPRESSION: Extensive progressive right knee degeneration. Impression dictated by: Shai Doran M.D.11/19/2023 12:07 PM Dictation Location: [place] [address] Transcribed By: [facility] 11/19/23 120 Dictated By: Shai Doran DO 11/19/23 1204 Signed By: 11/19/23 1207[facility] Physician GroupAlanine aminotransferase [Enzymatic activity/volume] in Serum or PlasmaOrdered By: Jeremiah Lazo on 86-54-7612CEL [Catalytic activity/Vol]20 U/L7-52Holzer HospitalAlbumin [Mass/volume] in Serum or Plasma by Bromocresol green (BCG) dye binding methoOrdered By: Jeremiah Lazo on 79-85-6660Ckwoctb BCG dye [Mass/Vol]4.0 g/dL3.5-5.7FSamaritan HospitalAlkaline phosphatase [Enzymatic activity/volume] in Serum or PlasmaOrdered By: Jeremiah Lazo on 47-06-2990GGJ [Catalytic activity/Vol]65 U/Q54-883KgiuceqkeHolzer HospitalAspartate aminotransferase [Enzymatic activity/volume] in Serum or PlasmaOrdered By: Jeremiah Lazo on 74-25-1860YOY [Catalytic activity/Vol]22 U/C49-94NfirxbabkHolzer HospitalBasophils Auto (Bld) [#/Vol]Ordered By: Jeremiah Lazo on 10-10-2023 Basophils (Bld) [#/Vol]0.0 10*3/uL0.0-0.2FSamaritan Hospital Basophils/100 WBC Auto (Bld)Ordered By: Jeremiah Lazo on 34-58-6493Bhktdffov/100 WBC (Bld)0.7 %.Holzer HospitalBilirubin.total [Mass/volume] in Serum or PlasmaOrdered By: Jeremiah Lazo on 22-93-8796Qvimoasit [Mass/Vol]0.5 mg/dL0.3-1.0Holzer HospitalCalcium [Mass/volume] in Serum or PlasmaOrdered By: Jeremiah Lazo on 10-02-1645Fzxxale [Mass/Vol]9.3 mg/dL8.6-10.3 [facility] CenterCarbon dioxide, total [Moles/volume] in Serum or PlasmaOrdered By: Jeremiah Lazo on 28-09-4828YL2 [Moles/Vol]31.2 mmol/LHigh 21.0-31.0Holzer HospitalChloride [Moles/volume] in Serum or PlasmaOrdered By: Jeremiah Lazo on 94-42-9538Pdzhgfqc [Moles/Vol]105 mmol/L98-107 [facility] HospitalCholesterol [Mass/volume] in Serum or Plasma Ordered By: Jeremiah Lazo on 99-86-4544Unzkdeifsxd [Mass/Vol]152 mg/nI127-648 Holzer HospitalComment on above:Chol less than 200 mg/dl low riskChol 201-239 mg/dl borderline riskChol 240 mg/dl and greater high risk Cholesterol in LDL Calc [Mass/Vol]Ordered By: Jeremiah Lazo on 10-10-2023 Cholesterol in LDL [Mass/Vol]73 mg/dL0-100[facility] Comment on above:LDL ATP III CLASSIFICATIONLDL less than 100 mg/dL OptimalLDL 100-129 mg/dL Near or above qduvshlXUQ443-054 mg/dL Borderline highLDL 160-189 mg/dL HighLDL greater than 189 mg/dL Very highCholesterol in VLDL Calc [Mass/Vol]Ordered By: Jeremiah Lazo on 26-21-5078Snkiayjevpm in VLDL [Mass/Vol]21 mg/dLHolzer HospitalCreatinine [Mass/volume] in Serum or PlasmaOrdered By: Jeremiah Lazo on 29-02-1386Pxtrzyjasg [Mass/Vol]0.84 mg/dL 0.60-1.20Holzer HospitalEosinophils Auto (Bld) [#/Vol]Ordered By: Jeremiah Lazo on 06-25-3687Triwbqjvzzb (Bld) [#/Vol]0.2 10*3/uL0.0-0.45 Holzer HospitalEosinophils/100 WBC Auto (Bld)Ordered By: Jeremiah Lazo on 43-26-9179Wjzwwskcagg/100 WBC (Bld)3.6 %.Holzer HospitalErythrocyte distribution width Auto (RBC) [Ratio]Ordered By: Jreemiah Lazo on 50-93-2947Uemhflochaf distribution width (RBC) [Ratio]13.1 %11.9-15.3FSamaritan HospitalGlobulin Calc (S) [Mass/Vol]Ordered By: Jeremiah Lazo on 26-62-0748Ocdtpqbl (S) [Mass/Vol]2.2 g/dLHolzer Hospital Glucose [Mass/volume] in Serum or PlasmaOrdered By: Jeremiah Lazo on 10-10-2023 Glucose [Mass/Vol]89 mg/oZ42-098LvhulqwkhHolzer HospitalComment on above:ADA recommended reference rangeRandom Glucose Reference Range is dependent on time and content of last meal. Glucose of more than 200 mg/dL in a nonstressed, ambulatory subject supports the diagnosisof Diabetes Mellitus. Glucose mean value [Mass/volume] in Blood Estimated from glycated hemoglobin Ordered By: Jeremiah Lazo on 41-24-7414Umpnzyi glucose Estimated from glycated hemoglobin (Bld) [Mass/Vol]105 mg/dLHolzer HospitalHematocrit Auto (Bld) [Volume fraction]Ordered By: Jeremiah Lazo on 10-29-5265Ctlxtxitlv (Bld) [Volume fraction]40.2 %34.0-46.4FSamaritan HospitalHemoglobin A1c percentageOrdered By: Jeremiah Lazo on 94-83-5823SqH9t (Bld) [Mass fraction]5.3 % 4.3-5.6FSamaritan HospitalComment on above:Increased risk for diabetes: 5.7 - 6.4diabetes: >6.4glycemic control for adults with diabetes: &l t;7.0Hemoglobin [Mass/volume] in BloodOrdered By: Jeremiah Lazo on 10-10-2023 Hemoglobin (Bld) [Mass/Vol]13.5 g/dL11.8-15.4FSamaritan Hospital Leukocytes [#/volume] corrected for nucleated erythrocytes in Blood by Automated counOrdered By: Jeremiah Lazo on 05-09-1215IBL corrected for nucl RBC Auto (Bld) [#/Vol]5.1 10*3/uL3.8-11.6FSamaritan HospitalLymphocytes Auto (Bld) [#/Vol]Ordered By: Jeremiah Lazo on 96-85-8847Nfsycrzypvb (Bld) [#/Vol]1.6 10*3/uL1.00-4.8Holzer HospitalLymphocytes/100 WBC Auto (Bld) Ordered By: Jeremiah Lazo on 08-11-5601Pygadtyzkzv/100 WBC (Bld)31.3 %.[facility] OhioH Auto (RBC) [Entitic mass]Ordered By: Jeremiah Lazo on 55-78-3467MFB (RBC) [Entitic mass]29.7 pg24.7-34.3FSamaritan HospitalMCHC Auto (RBC) [Mass/Vol]Ordered By: Jeremiah Lazo on 15-93-9680GPJR (RBC) [Mass/Vol]33.6 g/dL32.0-35.0Holzer HospitalMCV Auto (RBC) [Entitic vol]Ordered By: Jeremiah Lazo on 08-16-4087NGX (RBC) [Entitic vol]88.6 fL 80-100Holzer HospitalMonocytes Auto (Bld) [#/Vol]Ordered By: Jeremiah Lazo on 71-22-4452Yiswjhohy (Bld) [#/Vol]0.4 10*3/uL0.0-0.8Holzer HospitalMonocytes/100 WBC Auto (Bld)Ordered By: Jeremiah Lazo on 19-35-6339Dhjhiysnl/100 WBC (Bld)7.8 %.[facility] Neutrophils Auto (Bld) [#/Vol]Ordered By: Jeremiah Lazo on 82-26-2367Xxlcvgerpnj (Bld) [#/Vol]2.9 10*3/uL1.8-7.7FSamaritan HospitalNeutrophils/100 WBC Auto (Bld)Ordered By: Jeremiah Lazo on 06-65-6368Ghxiwenhumq/100 WBC (Bld)56.6 %.Holzer HospitalNo Panel InformationOrdered By: Jeremiah Lazo on 04-43-7068Gffeedsnh GFR (CKD-EPI)> 60.0 mL/MinHolzer Hospital Pharmacy Creatinine Clearance (ChemN/AFSamaritan HospitalNucleated erythrocytes [Presence] in Blood by Automated countOrdered By: Jeremiah Lazo on 29-67-2906Nbetfftwj RBC Auto Ql (Bld)0.1 /100{WBC}0-0.5FSamaritan HospitalPlatelet mean volume Auto (Bld) [Entitic vol]Ordered By: Jeremiah Lazo on 30-66-9383Lgdokhir mean volume (Bld) [Entitic vol]9.0 fL6.3-10.7 Holzer HospitalPlatelets Auto (Bld) [#/Vol]Ordered By: Jeremiah Lazo on 53-99-3695Cwrfwrasj (Bld) [#/Vol]210 10*3/cC182-169XhzdegiubHolzer HospitalPotassium [Moles/volume] in Serum or PlasmaOrdered By: Jeremiah Lazo on 54-78-2227Kigehdbos [Moles/Vol]4.4 mmol/L3.5-5.1FSamaritan HospitalProtein [Mass/volume] in Serum or PlasmaOrdered By: Jeremiah Lazo on 01-47-5292Qwqkvno [Mass/Vol]6.2 g/dLLow6.4-8.9[facility] RBC Auto (Bld) [#/Vol]Ordered By: Jeremiah Lazo on 98-62-7921UZK (Bld) [#/Vol]4.53 10*6/uL3.60-5.00[facility] Hospitalerum or plasma albumin/globulin mass ratioOrdered By: Jermeiah Lazo on 89-26-6770Sbadzkg/Globulin [Mass ratio]1.8 {ratio}[facility] Hospitalerum or plasma anion gap determinationOrdered By: Jeremiah Lazo on 21-84-9719Sbpwu gap [Moles/Vol]6.2 mmol/L6.0-15.0[facility] Hospitalerum or plasma high density lipoprotein (HDL) cholesterol measurementOrdered By: Jeremiah Lazo on 10-10-2023 Cholesterol in HDL [Mass/Vol]57 mg/lI66-73SkvtdomjoHolzer Hospital Comment on above:HDL CHOL ATP-III CLASSIFICATION Cardiovascular RiskHDL > or equal to 60 mg/dL LOWHDL < 40 mg/dL HIGHSerum or plasma total cholesterol/high density lipoprotein (HDL) cholesterol mass ratOrdered By: Jeremiah Lazo on 94-92-9230Udixxkxfahi.total/Cholesterol in HDL [Mass ratio]2.7 {ratio}<5.0 [facility] Hospitalodium [Moles/volume] in Serum or PlasmaOrdered By: Jeremiah Lazo on 92-08-3593Phiymb [Moles/Vol]138 mmol/I050-074LzatwthzhHolzer HospitalThyrotropin [Units/volume] in Serum or PlasmaOrdered By: Jeremiah Lazo on 32-07-7144EDX Qn6.81 m[IU]/LHigh0.45-5.33Holzer HospitalTriglyceride [Mass/volume] in Serum or PlasmaOrdered By: Jeremiah Lazo on 05-08-9987Qsnngntnykad [Mass/Vol]108 mg/dL0-149Holzer HospitalComment on above:TRIG ATP III CLASSIFICATIONTRIG less than 150 mg/dL NormalTRIG 150-199 mg/dL Borderline highTRIG 200-500 mg/dL High TRIG greater than 500 mg/dL Very highStandard traceable to the Center for Disease Co nrtrol and Prevention (CDC) test method.Urea nitrogen [Mass/volume] in Serum or PlasmaOrdered By: Jeremiah Lazo on 19-02-8367Idgv nitrogen [Mass/Vol]16 mg/dL7-25 Holzer HospitalWBC Auto (Bld) [#/Vol]Ordered By: Jeremiah Lazo on 76-68-9779MIM (Bld) [#/Vol]5.1 10*3/uL3.8-11.6FSamaritan Hospital Laboratory - Chemistry and Chemistry - challengeon 47-64-0906Lrcupulnr Ql (U) NegativeHolzer HospitalGlucose (U) [Mass/Vol]NegativeHolzer HospitalKetones Ql (U)NegativeHolzer Hospital pH (U)7.0 [pH][facility] Hospitalpecific gravity (U) [Rel density]1.015Holzer HospitalUrobilinogen (U) [Mass/Vol]0.2 mg/dLHolzer HospitalLaboratory - Specimen informationon 08-32-2864Ydzyzyhpep (U)clearHolzer HospitalColor (U) lightyellowHolzer HospitalLaboratory - Urinalysison 05-07-2023 Leukocyte esterase Test strip Ql (U)NegativeHolzer Hospital Nitrite Ql (U)NegativeHolzer HospitalProtein Ql (U)Negative Holzer HospitalNo Panel Informationon 26-23-2311Mfwui Occult BloodNegativeHolzer HospitalBasic metabolic 2000 panelon 02-05-8568Oylqg gap [Moles/Vol]9 mmol/L9 - 18 mmol/LCleveland ClinicCalcium [Mass/Vol]9.0 mg/dL8.5 - 10.2 mg/dLRudyard ClinicChloride [Moles/Vol]105 mmol/L97 - 105 mmol/LCleveland ClinicCO2 [Moles/Vol]27 mmol/L22 - 30 mmol/L [facility] WestCreatinine [Mass/Vol]0.90 mg/dL0.58 - 0.96 mg/dLLake County Memorial Hospital - West Estimated Glomerular Filtration Rate71 mL/min/1.73m>=60 mL/min/1.73mCleveland ClinicGlucose [Mass/Vol]91 mg/dL74 - 99 mg/dLLake County Memorial Hospital - WestPotassium [Moles/Vol]4.8 mmol/L3.7 - 5.1 mmol/LCleveland ClinicSodium [Moles/Vol]141 mmol/L136 - 144 mmol/LCleveland ClinicUrea nitrogen [Mass/Vol]12 mg/dL7 - 21 mg/dLLake County Memorial Hospital - WestBasophils Auto (Bld) [#/Vol]on 00-48-6142Ndfedixby (Bld) [#/Vol]0.03 10*3/uL<0.11Holzer HospitalBasophils/100 WBC Auto (Bld)on 35-03-4809Tzsgjyggq/100 WBC (Bld)0.4 %[facility] Blood manual differential comment interpretation narrativeon 43-84-9918Dbynrt differential comment Elliot (Bld) [Interp]AutoHolzer HospitalCBC W Auto Differential panel (Bld)on 19-58-3150Kqbydnlcb (Bld) [#/Vol]0.03 10*3/uL <0.11 k/uLLake County Memorial Hospital - WestBasophils/100 WBC (Bld)0.4 %[facility] Differential cell count method Nom (Bld)AutoCleveland ClinicEosinophils (Bld) [#/Vol]0.24 10*3/uL<0.46 k/uLLake County Memorial Hospital - WestEosinophils/100 WBC (Bld)3.5 % [facility] WestErythrocyte distribution width (RBC) [Ratio]12.4 %11.5 - 15.0 % [facility] WestHematocrit (Bld) [Volume fraction]40.7 %36.0 - 46.0 %[facility] WestHemoglobin (Bld) [Mass/Vol]13.2 g/dL11.5 - 15.5 g/dLLake County [facility] Immature granulocytes (Bld) [#/Vol]0.03 10*3/uL<0.10 k/uLLake [facility] Immature granulocytes/100 WBC (Bld)0.4 %[facility] WestLymphocytes (Bld) [#/Vol]1.98 10*3/uL1.00 - 4.00 k/uLLake County Memorial Hospital - WestLymphocytes/100 WBC (Bld)28.9 %[facility] WestMCH (RBC) [Entitic mass]29.5 pg26.0 - 34.0 pgClevelThe Surgical Hospital at Southwoods MCHC (RBC) [Mass/Vol]32.4 g/dL30.5 - 36.0 g/dLLake County Memorial Hospital - WestMCV (RBC) [Entitic vol]90.8 fL80.0 - 100.0 fLCleveland Red Wing Hospital And ClinicMonocytes (Bld) [#/Vol]0.41 10*3/uL <0.87 k/uLLake County Memorial Hospital - WestMonocytes/100 WBC (Bld)6.0 %[facility] Neutrophils (Bld) [#/Vol]4.15 10*3/uL1.45 - 7.50 k/uLLake [facility] Neutrophils/100 WBC (Bld)60.8 %[facility] WestNucleated RBC (Bld) [#/Vol]<0.01 k/uLLake County Memorial Hospital - WestNucleated RBC/100 WBC (Bld) [Ratio]0.0 /100 WBCLake County Memorial Hospital - WestPlatelet mean volume (Bld) [Entitic vol]10.0 fL9.0 - 12.7 fLCselect medical clevel[facility] clinic [facility], edwin shaw ClinicPlatelets (Bld) [#/Vol]235 10*3/uL150 - 400 k/[facility] ClinicRBC (Bld) [#/Vol]4.48 10*6/uL3.90 - 5.20 m/[facility] ClinicWBC (Bld) [#/Vol]6.84 10*3/uL 3.70 - 11.00 k/[facility] CampusEosinophils/100 WBC Auto (Bld)on 05-06-2023 Eosinophils/100 WBC (Bld)3.5 %Holzer HospitalErythrocyte distribution width Auto (RBC) [Ratio]on 81-01-6667Geafzaaeilu distribution width (RBC) [Ratio]12.4 %11.5-15.0Holzer HospitalHematocrit Auto (Bld) [Volume fraction]on 86-04-8568Fsuqjuzomp (Bld) [Volume fraction]40.7 % 36.0-46.0Holzer HospitalHemoglobin [Mass/volume] in Bloodon 07-89-5405Zuynvbfbeg (Bld) [Mass/Vol]13.2 g/dL11.5-15.5FSamaritan HospitalLaboratory - Chemistry and Chemistry - challengeon 05-06-2023 Calcium [Mass/Vol]9.0 mg/dL8.5-10.2FSamaritan HospitalChloride [Moles/Vol]105 mmol/Q81-216QjeuzqbxgHolzer HospitalCO2 [Moles/Vol]27 mmol/U33-92NabtnzkceHolzer HospitalCreatinine [Mass/Vol]0.90 mg/dL 0.58-0.96Hol[facility] HospitalGlucose [Mass/Vol]91 mg/dL74-99 Holzer HospitalComment on above:The [place] Diabetes Association (ADA) provides guidance for cutoff values for fasting glucose and random glucose. The ADA defines fasting as no caloric intake for at least 8 hours. Fasting plasma glucose results between 100 to 125 mg/dL indicate increased risk for diabetes (prediabetes).Fasting plasma glucose results greater than or equal to 126 mg/dL meet the criteria for diagnosis of diabetes. In the absence of unequivocal hyperglycemia, results should be confirmed by repeat testing. In a patient with classic symptoms of hyperglycemia or hyperglycemic crisis, random plasma glucose resultsgreater than or equal to 200 mg/dL meet the criteria for diagnosis of diabetes.Reference: [employer] in Diabetes 2016, [place] [employer]. Diabetes Care. 2016.39(Suppl 1). Potassium [Moles/Vol]4.8 mmol/L3.7-5.1FGalion Community Hospitalodium [Moles/Vol]141 mmol/D812-987QpyeajlkbHolzer HospitalTSH Qn1.130 m[IU]/L 0.270-4.200Holzer HospitalUrea nitrogen [Mass/Vol]12 mg/dL7-21 [facility] HospitalLaboratory - Hematology and Cell countson 89-82-6349Sldnwtzfwnn (Bld) [#/Vol]0.24 10*3/uL<0.46Holzer HospitalImmature granulocytes (Bld) [#/Vol]0.03 10*3/uL<0.10Holzer HospitalImndture granulocytes/100 WBC (Bld)0.4 %[facility] HospitalLeukocytes [#/volume] corrected for nucleated erythrocytes in Blood by Automated counon 96-74-7681TKZ corrected for nucl RBC Auto (Bld) [#/Vol]6.84 k/uL3.70-11.00Holzer HospitalLymphocytes Auto (Bld) [#/Vol]on 62-33-5203Aikacqqfgis (Bld) [#/Vol]1.98 10*3/uL1.00-4.00Holzer HospitalLymphocytes/100 WBC Auto (Bld)on 13-59-7013Rknxvmrsdci/100 WBC (Bld)28.9 %[facility] OhioH Auto (RBC) [Entitic mass]on 56-94-9759NRO (RBC) [Entitic mass]29.5 pg26.0-34.0Holzer HospitalMCHC Auto (RBC) [Mass/Vol]on 18-81-9754HKIY (RBC) [Mass/Vol]32.4 g/dL 30.5-36.0[facility] OhioV Auto (RBC) [Entitic vol]on 25-07-8553KPX (RBC) [Entitic vol]90.8 fL80.0-100.0Hol[facility] HospitalMonocytes Auto (Bld) [#/Vol]on 54-90-0507Yrwyddibt (Bld) [#/Vol]0.41 10*3/uL<0.87Hol[facility] HospitalMonocytes/100 WBC Auto (Bld)on 59-54-9746Trlxhibza/100 WBC (Bld)6.0 %[facility] Neutrophils Auto (Bld) [#/Vol]on 38-28-3888Eryvugiwdxi (Bld) [#/Vol]4.15 10*3/uL 1.45-7.50Holzer HospitalNeutrophils/100 WBC Auto (Bld)on 00-63-6345Lsroewmrpww/100 WBC (Bld)60.8 %[facility] HospitalNo Panel Informationon 42-91-7632Yvwdavypy GFR (CKD-EPI)71 mL/min/1.73m???>=60 Hol[facility] HospitalComment on above:Estimated Glomerular Filtration Rate (eGFR) is calculated using the 2020 CKD-EPI creatinine equation. This equation utilizes serum creatinine, sex, and age as parameters. The creatinine assay has traceable calibration to isotope dilution-mass spectrometry. Refer to KDIGO guidelines for clinical interpretation. In patients with unstable renal function, e.g. those with acute kidney injury, the eGFRmay not accurately reflect actual GFR.Nucleated RBC Auto (Bld) [#/Vol]on 05-06-2023 Nucleated RBC (Bld) [#/Vol]10*3/uL<0.01[facility] Nucleated erythrocytes [Presence] in Blood by Automated counton 05-06-2023 Nucleated RBC Auto Ql (Bld)0.0 /100{WBC}[facility] Platelet mean volume Auto (Bld) [Entitic vol]on 09-37-2215Snucistp mean volume (Bld) [Entitic vol]10.0 fL9.0-12.7FSamaritan HospitalPlatelets Auto (Bld) [#/Vol]on 71-21-7446Clbvejnqj (Bld) [#/Vol]235 10*3/lV103-571 [facility] HospitalRBC Auto (Bld) [#/Vol]on 31-57-8483ZVP (Bld) [#/Vol]4.48 10*6/uL3.90-5.20Ohio[facility]field Hospitalerum or plasma anion gap determinationon 42-43-6536Qelcr gap [Moles/Vol]9 mmol/L9-18FSamaritan HospitalTSH BLDon 92-24-4115NZO Qn1.130 m[IU]/L0.270 - 4.200 mIU/LCleveland ClinicErythrocyte distribution width Auto (RBC) [Ratio]on 01-44-5121Arntdxdwrse distribution width (RBC) [Ratio]12.2 %11.5-15.0Hol[facility] HospitalHematocrit Auto (Bld) [Volume fraction]on 05-01-2023 Hematocrit (Bld) [Volume fraction]37.0 %36.0-46.0Hol[facility] HospitalHemoglobin [Mass/volume] in Bloodon 33-27-8208Eaktwauidw (Bld) [Mass/Vol] 12.4 g/dL11.5-15.5FSamaritan HospitalLaboratory - Chemistry and Chemistry - challengeon 85-55-7252Mciqbnl [Mass/Vol]8.8 mg/dL8.5-10.2FSamaritan HospitalComment on above:Result rechecked.Chloride [Moles/Vol]107 mmol/W28-206RybaezbvmHolzer HospitalCO2 [Moles/Vol]25 mmol/L22-30 [facility] HospitalCreatinine [Mass/Vol]0.72 mg/dL0.58-0.96 [facility] HospitalGlucose [Mass/Vol]176 mg/iH93-63CibvjogunHolzer HospitalComment on above:The [place] Diabetes Association (ADA) provides guidance for cutoff values for fasting glucose andrandom glucose. The ADA defines fasting as no caloric intake for at least 8 hours. Fasting plasma gl ucose results between 100 to 125 mg/dL indicate increased risk for diabetes (prediabetes).Fasting plasma glucose results greater than or equal to 126 mg/dL meet the criteria for diagnosis of diabetes. In the absence of unequivocal hyperglycemia, results should be confirmed by repeat testing. In a patient with classic symptoms of hyperglycemia or hyperglycemic crisis, random plasma glucose resultsgreater than or equal to 200 mg/dL meet the criteria for diagnosis of diabetes.Reference: Standard[employer] Care in Diabetes 2016, [place] [employer]. Diabetes Care. 2016.39(Suppl 1).Potassium [Moles/Vol]4.4 mmol/L 3.7-5.1FGalion Community Hospitalodium [Moles/Vol]141 mmol/W952-546 [facility] HospitalUrea nitrogen [Mass/Vol]13 mg/dL7-21Hol[facility] HospitalLeukocytes [#/volume] corrected for nucleated erythrocytes in Blood by Automated counon 15-37-9023WLR corrected for nucl RBC Auto (Bld) [#/Vol]7.35 k/uL3.70-11.00[facility] OhioH Auto (RBC) [Entitic mass]on 82-77-8690MGZ (RBC) [Entitic mass]30.8 pg26.0-34.0 [facility] HospitalMCHC Auto (RBC) [Mass/Vol]on 68-68-4701ZACP (RBC) [Mass/Vol]33.5 g/dL30.5-36.0Hol[facility] HospitalMCV Auto (RBC) [Entitic vol]on 98-22-8282GUM (RBC) [Entitic vol]91.8 fL80.0-100.0 [facility] HospitalNo Panel Informationon 28-69-5471Rnzppqrkk GFR (CKD-EPI)93 mL/min/1.73m???>=60Hol[facility] HospitalComment on above:Estimated Glomerular Filtration Rate (eGFR) is calculated using the 2020 CKD-EPI creatinine equation. This equation utilizes serum creatinine, sex, and age as parameters. The creatinine assay has traceable calibration to isotope dilution-mass spectrometry. Refer to KDIGO guidelines for clinical inte rpretation. In patients with unstable renal function, e.g. those with acute kidney injury, the eGFRmay not accurately reflect actual GFR.Nucleated RBC Auto (Bld) [#/Vol]on 97-19-2732Dfyovgugl RBC (Bld) [#/Vol]10*3/uL<0.01Hol[facility] HospitalPlatelet mean volume Auto (Bld) [Entitic vol]on 24-48-8901Ttlnusnr mean volume (Bld) [Entitic vol]10.1 fL9.0-12.7FSamaritan HospitalPlatelets Auto (Bld) [#/Vol]on 76-39-9487Msflzbkgr (Bld) [#/Vol]208 10*3/vX915-838PanfxppaaHolzer HospitalRBC Auto (Bld) [#/Vol] on 09-09-8829HRT (Bld) [#/Vol]4.03 10*6/uL3.90-5.20Ohio[facility] Hospitalerum or plasma anion gap determinationon 28-94-6826Kkfim gap [Moles/Vol]9 mmol/L9-18FSamaritan HospitalAnaerobic cultureOrdered By: Jeremiah Lazo on 01-03-6036Gwciccpk identified Anaer cx Nom (Unsp spec)[facility] HospitalLaboratory - Microbiology and Antimicrobial susceptibilityOrdered By: Jeremiah Lazo on 62-40-2170Rixgwplq identified Cx Nom (Wound)[facility] HospitalCREATININE BLDOrdered By: Negro Echevarria on 01-08-2023 Creatinine [Mass/Vol]0.93 mg/dL0.58 - 0.96 mg/dLLake County Memorial Hospital - WestGFR/1.73 sq M.predicted among non-blacks MDRD (S/P/Bld) [Vol rate/Area]69 mL/min/{1.73_m2}- PINFCleveland ClinicComment on above:Estimated Glomerular Filtration Rate (eGFR) is calculated using the 2020 CKD-EPI creatinine equation. This equation utilizes serum creatinine, sex, and age as parameters. The creatinine assay has traceable calibration to isotope dilution-mass spectrometry. Refer to KDIGO guidelines for clinical interpretation. In patients with unstable renal function, e.g. those with acute kidney injury, the eGFRmay not accurately reflect actual GFR. Interpretation and review of laboratory resultsNormalCleveland [facility] contrast Nora 55-06-6074ZFBTXRIJIZ: IN CORRELATION WITH THE PRIOR MRI CERVICAL SPINE, RIGHT SUBMUCOSAL, SUPRAGLOTTIC LESION, FULLY DETAILED ABOVE, HAS IMAGING CHARACTERISTICS MOST COMPATIBLE WITH MIXED LARYNGOCELE. MILD DEGENERATIVE CHANGES INVOLVING THE CERVICAL SPINE. OTHERWISE, UNREMARKABLE CT NECK WITH CONTRAST. Transcribe Date/Time: Jan 08 2023 10:06A Dictated by: DAVID HOPE MD This examination was interpreted and the report reviewed and electronically signed by: DAVID HOPE MD on Jan 08 2023 10:18AM EST Thank you for allowing us to participate in the care of your patient. Should there be any questions regarding this interpretation, please call [phone]. If you are unable to reach us at the number above, please feel free to contact [facility] at [phone].DIVISION OF RADIOLOGY* * *Final Report* * * DATE OF EXAM: Jan 08 2023 9:40AM [facility] 0013 - CT NECK SOFT TISSUE W IVCON / PROCEDURE REASON: multiple diagnoses * * * * Physician Interpretation * * * * RESULT: CT of the neck with contrast. 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 TECHNIQUE: Multiple postcontrast axial CT images were obtained through the soft tissues of the neck. In addition, sagittal and coronal reformats were obtained. Contrast dose: 100 mL Omnipaque [address] Dose-Length Product (DLP): [address] Dose Reduction Employed: Automated exposure control (AEC) COMPARISON: MRI cervical spine dated 12/24/2022. RESULT: There is a well-circumscribed intermediate to low intensity submucosal lesion in the right supraglottic region which appears contiguous with the right laryngeal ventricle. Overall, this measures approximately 3.1 cm in maximal AP dimension, 1.5 cm in maximal transverse dimension, and 2.2 cm in maximal craniocaudad dimension. This demonstrates T2 hyperintensity on the previous MRI cervical spine dated 12/24/2022. This appears to extend laterally beyond the right thyrohyoid membrane. 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 No definite significantly enlarged lymph nodes are seen. No imaging abnormality involves the tongue base. Imaged portions of the intracranial contents are unremarkable. Parotid and submandibular glands demonstrate normal size and density characteristics. Thyroid gland is unremarkable. Major vascular structures demonstrate normal course. Imaged portions of the upper lungs are clear. Mild degenerative changes involve the cervical spine. Imaged portions of the paranasal sinuses are clear. Mastoids are well aerated. DIVISION OF RADIOLOGYProvider, [facility] [place] - 01/08/2023 * * *Final Report* * * DATE OF EXAM: Jan 08 2023 9:40AM [facility] 0013 - CT NECK SOFT TISSUE W IVCON / PROCEDURE REASON: multiple diagnoses * * * * Physician Interpretation * * * * RESULT: CT of the neck with contrast. 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 TECHNIQUE: Multiple postcontrast axial CT images were obtained through the soft tissues of the neck. In addition, sagittal and coronal reformats were obtained. Contrast dose: 100 mL Omnipaque [address] Dose-Length Product (DLP): [address] Dose Reduction Employed: Automated exposure control (AEC) COMPARISON: MRI cervical spine dated 12/24/2022. RESULT: There is a well-circumscribed intermediate to low intensity submucosal lesion in the right supraglottic region which appears contiguous with the right laryngeal ventricle. Overall, this measures approximately 3.1 cm in maximal AP dimension, 1.5 cm in maximal transverse dimension, and 2.2 cm in maximal craniocaudad dimension. This demonstrates T2 hyperintensity on the previous MRI cervical spine dated 12/24/2022. This appears to extend laterally beyond the right thyrohyoid membrane. 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 No definite significantly enlarged lymph nodes are seen. No imaging abnormality involves the tongue base. Imaged portions of the intracranial contents are unremarkable. Parotid and submandibular glands demonstrate normal size and density characteristics. Thyroid gland is unremarkable. Major vascular structures demonstrate normal course. Imaged portions of the upper lungs are clear. Mild degenerative changes involve the cervical spine. Imaged portions of the paranasal sinuses are clear. Mastoids are well aerated. 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 MILD DEGENERATIVE CHANGES INVOLVING THE CERVICAL SPINE. OTHERWISE, UNREMARKABLE CT NECK WITH CONTRAST. Transcribe Date/Time: Jan 08 2023 10:06A Dictated by: DAVID HOPE MD This examination was interpreted and the report reviewed and electronically signed by: DAVID HOPE MD on Jan 08 2023 10:18AM EST Thank you for allowing us to participate in the care of your patient. Should there be any questions regarding this interpretation, please call [phone]. If you are unable to reach us at the number above, please feel free to contact [facility] eRadiology at [phone]. [facility] WestRadiology Study observation (narrative)[facility]SCC[facility] LimaCT Ne[facility] W contrast IVOrdered By: Ccf Provider on 65-60-4252Ykxgzdlzi KqdzhtY9B HEMOGLOBIN on 61-12-7664DdD2i (Bld) [Mass fraction]5.1 %[employer] [facility] [employer] Other HbA1c (Bld) [Mass fraction]on 22-71-2862C3E HEMOGLOBIN [employer] Other Albumin [Mass/volume] in Serum or Plasma by Bromocresol green (BCG) dye binding methoOrdered By: Mandeep Mcintosh on 11-01-2022 Albumin BCG dye [Mass/Vol]4.0 g/dL3.5-5.7FSamaritan Hospital Automated erythrocytes count in urine sediment (number/area)Ordered By: Mandeep Mcintosh on 52-87-6551TGG Auto (Urine sed) [#/Area]1-2 [HPF]0-4FSamaritan HospitalAutomated leukocytes count in urine sediment (number/area)Ordered By: Mandeep Mcintosh on 15-19-4554NIS Auto (Urine sed) [#/Area]3-4 [HPF]0-4FSamaritan HospitalBilirubin Test strip Ql (U)Ordered By: Mandeep Mcintosh on 61-96-2646Hjvonyhqn Ql (U)NegativeNegativeHolzer Hospital Calcium [Mass/volume] in Serum or PlasmaOrdered By: Mandeep Mcintosh on 11-01-2022 Calcium [Mass/Vol]9.1 mg/dL8.6-10.3FSamaritan HospitalCarbon dioxide, total [Moles/volume] in Serum or PlasmaOrdered By: Mandeep Kellyr on 14-80-1240EZ3 [Moles/Vol]30.3 mmol/L21.0-31.0[facility] Chloride [Moles/volume] in Serum or PlasmaOrdered By: Mandeep Mcintosh on 11-01-2022 Chloride [Moles/Vol]108 mmol/P06-143DlocazscyHolzer HospitalColor Auto (U)Ordered By: Mandeep Arnaldo on 64-09-4950Vhpqn (U)YellowYellowHolzer HospitalCreatinine [Mass/volume] in Serum or PlasmaOrdered By: Mandeep Arnaldo on 38-26-0695Qaeogxaofx [Mass/Vol]0.75 mg/dL0.60-1.20Holzer HospitalCreatinine [Mass/volume] in UrineOrdered By: Mandeep Mcintosh on 11-01-2022 Creatinine (U) [Mass/Vol]124.0 mg/dL11.0-20.0[facility] Erythrocyte distribution width Auto (RBC) [Ratio]Ordered By: Mandeep Mcintosh on 33-72-4064Dkggcesypkv distribution width (RBC) [Ratio]13.5 %11.9-15.3FSamaritan HospitalGlucose [Mass/volume] in Serum or PlasmaOrdered By: Mandeep Mcintosh on 57-02-8764Oqyfhek [Mass/Vol]83 mg/xJ32-370QqalgyzjdHolzer HospitalComment on above:ADA recommended reference rangeRandom Glucose Reference Range is dependent on time and content of last meal. Glucose of more than 200 mg/dL in a nonstressed, ambulatory subject supports the diagnosisof Diabetes Mellitus.Hematocrit Auto (Bld) [Volume fraction]Ordered By: Mandeep Mcintosh on 78-07-6390Nkzoqpmxut (Bld) [Volume fraction]38.3 %34.0-46.4FSamaritan HospitalHemoglobin [Mass/volume] in BloodOrdered By: Mandeep Mcintosh on 23-34-2683Jnmccsectm (Bld) [Mass/Vol]12.8 g/dL11.8-15.4FSamaritan HospitalKetones Auto test strip (U) [Mass/Vol]Ordered By: Mandeep Mcintosh on 38-57-1088Drassak (U) [Mass/Vol]NegativeNegativeHolzer HospitalLaboratory - UrinalysisOrdered By: Mandeep Mcintosh on 88-68-0600Iatlkqp casts LM Ql (Urine sed)0-8 [LPF]0-8Holzer HospitalLeukocytes [#/volume] corrected for nucleated erythrocytes in Blood by Automated coun Ordered By: Mandeep Mcintosh on 76-04-4104UOS corrected for nucl RBC Auto (Bld) [#/Vol]6.8 10*3/uL3.8-11.6FPremier HealthH Auto (RBC) [Entitic mass]Ordered By: Mandeep Mcintosh on 58-10-8805CTQ (RBC) [Entitic mass]29.9 pg24.7-34.3FSamaritan HospitalMCHC Auto (RBC) [Mass/Vol]Ordered By: aMndeep Mcintosh on 58-21-2741VWDH (RBC) [Mass/Vol]33.4 g/dL32.0-35.0Holzer HospitalMCV Auto (RBC) [Entitic vol]Ordered By: Mandeep Mcintosh on 18-91-5632BVG (RBC) [Entitic vol]89.5 zT25-386WbsfhspezHolzer Hospital Magnesium [Mass/volume] in Serum or PlasmaOrdered By: Mandeep Mcintosh on 11-01-2022 Magnesium [Mass/Vol]2.0 mg/dL1.9-2.7FSamaritan HospitalNitrite Test strip Ql (U)Ordered By: Mandeep Mcintosh on 03-01-6131Gxrncfa Ql (U)Negative NegativeHolzer HospitalNo Panel InformationOrdered By: Mandeep Mcintosh on 10-90-2298Mntberzsd GFR (CKD-EPI)> 60.0 mL/MinHolzer HospitalPharmacy Creatinine Clearance (ChemN/AFSamaritan HospitalPhosphate [Mass/volume] in Serum or PlasmaOrdered By: Mandeep Mcintosh on 97-55-3151Zzctrrpxz [Mass/Vol]4.3 mg/dL3.7-7.2FSamaritan Hospital Platelet mean volume Auto (Bld) [Entitic vol]Ordered By: Mandeep Mcintosh on 98-35-6915Hsgsompi mean volume (Bld) [Entitic vol]8.7 fL6.3-10.7FSamaritan HospitalPlatelets Auto (Bld) [#/Vol]Ordered By: Mandeep Mcintosh on 46-38-4006Azkfamntl (Bld) [#/Vol]237 10*3/uT739-735EyewyeffyHolzer HospitalPotassium [Moles/volume] in Serum or PlasmaOrdered By: Mandeep Mcintosh on 62-45-1417Nyhdbnhft [Moles/Vol]4.6 mmol/L3.5-5.1FSamaritan HospitalProtein Auto test strip (U) [Mass/Vol]Ordered By: Mandeep Mcintsoh on 36-78-0561Macjeoc (U) [Mass/Vol]NegativeNegativeHolzer HospitalProtein [Mass/volume] in UrineOrdered By: Mandeep Mcintosh on 61-08-3048Ghxanow (U) [Mass/Vol]11 mg/dL0-9Holzer HospitalRBC Auto (Bld) [#/Vol]Ordered By: Mandeep Mcintosh on 43-91-2770DEH (Bld) [#/Vol]4.28 10*6/uL 3.60-5.00Ohio[facility]field Hospitalerum or plasma anion gap determinationOrdered By: Mandeep Mcintosh on 57-05-4492Zcebl gap [Moles/Vol]8.3 mmol/L6.0-15.0OhioHealth Mans[facility] Hospitalodium [Moles/volume] in Serum or PlasmaOrdered By: Mandeep Mcintosh on 16-58-3789Lrbrim [Moles/Vol]142 mmol/F816-714 [facility] Hospitalpecific gravity Auto test strip (U) [Rel density]Ordered By: Mandeep Mcintosh on 67-11-3327Xuakzohx gravity (U) [Rel density] 1.0201.001-1.030OhioHealth Mansfield Hospitalquamous epithelial cells detection in urine sediment by light microscopyOrdered By: Mandeep Mcintosh on 80-26-8192Lrxihdlmvf cells.squamous LM Ql (Urine sed)1-2 [HPF]0-2FSamaritan HospitalUrea nitrogen [Mass/volume] in Serum or PlasmaOrdered By: Mandeep Mcintosh on 69-62-4299Gosq nitrogen [Mass/Vol]14 mg/dL7-25Holzer HospitalUrine bacteria detection by automated methodOrdered By: Mandeep Mcintosh on 67-89-5634Blajqtyx Auto Ql (U)None seenNone SeenHolzer HospitalUrine clarity by refractometry automatedOrdered By: Mandeep Kellyr on 15-08-8016Fjgpfuw Refractometry automated (U)ClearCleUniversity Hospitals St. John Medical CenterUrine glucose measurement by automated test strip (mass/volume) Ordered By: Mandeep Arnaldo on 75-14-7285Xbectvt Auto test strip (U) [Mass/Vol] Normal mg/dLNoProtestant Deaconess HospitalUrine hemoglobin detection by automated test stripOrdered By: Mandeep Mcintosh on 73-76-6346Qbaaqnlztn Auto test strip Ql (U)NegativeNegativeHolzer HospitalUrine leukocyte esterase detection by automated test stripOrdered By: Mandeep Mcintosh on 11-01-2022 Leukocyte esterase Auto test strip Ql (U)3+NegativeHolzer HospitalUrine protein/creatinine ratioOrdered By: Mandeep Arnaldo on 11-01-2022 Protein/Creatinine (U) [Ratio]89 mg/g{Cre}0-200[facility] Urobilinogen Auto test strip (U) [Mass/Vol]Ordered By: Mandeep Mcintosh on 11-01-2022 Urobilinogen (U) [Mass/Vol]Normal mg/dLNoProtestant Deaconess Hospital Vitamin D+Metabolites [Mass/volume] in Serum or PlasmaOrdered By: Mandeep Mcintosh on 20-40-2686Pmgfohq D+Metabolites [Mass/Vol]65.8 ng/kA56-855VsqdmxkhaHolzer HospitalComment on above:VITAMIN D STATUS 25(OH)VITAMIN D RANGE (ng/mL) Deficient <20 Insufficient 20 to <83Bqkzypbbxq38 to 100Reference: Erasmo MF,Carlton NASH, Lana WORTHINGTON, et al. Evaluation,treatment, and prevention of vitamin D deficiency; an Endocrine Society clinical practice guideline. JCEM. 2010; 96(7):1911-30.pH Auto test strip (U)Ordered By: Mandeep Mcintosh on 84-82-9239kC (U)5.5 [pH]5.0-9.0[facility] HospitalAlanine aminotransferase [Enzymatic activity/volume] in Serum or PlasmaOrdered By: Jeremiah Lazo on 82-38-1964PLK [Catalytic activity/Vol]13 U/L7-52Hol[facility] HospitalAlbumin [Mass/volume] in Serum or Plasma by Bromocresol green (BCG) dye binding methoOrdered By: Jeremiah Lazo on 87-03-3351Uebtcwg BCG dye [Mass/Vol]4.0 g/dL3.5-5.7FSamaritan HospitalAlkaline phosphatase [Enzymatic activity/volume] in Serum or PlasmaOrdered By: Jeremiah Lazo on 07-90-5015YVO [Catalytic activity/Vol]60 U/G31-873VjrfcofdcHolzer HospitalAspartate aminotransferase [Enzymatic activity/volume] in Serum or Plasma Ordered By: Jeremiah Lazo on 33-18-0287FJF [Catalytic activity/Vol]14 U/L13-39 [facility] HospitalBasophils Auto (Bld) [#/Vol]Ordered By: Jeremiah Lazo on 79-76-6313Clgnazmxg (Bld) [#/Vol]0.0 10*3/uL0.0-0.2FSamaritan HospitalBasophils/100 WBC Auto (Bld)Ordered By: Jeremiah Lazo on 09-20-2022 Basophils/100 WBC (Bld)0.8 %.[facility]zer HospitalBilirubin.total [Mass/volume] in Serum or PlasmaOrdered By: Jeremiah Lazo on 41-52-1489Rokelqhgb [Mass/Vol]0.6 mg/dL0.3-1.0[facility] HospitalCalcium [Mass/volume] in Serum or PlasmaOrdered By: Jeremiah Lazo on 33-74-8022Zjcsoaz [Mass/Vol]9.3 mg/dL8.6-10.3FSamaritan HospitalCarbon dioxide, total [Moles/volume] in Serum or PlasmaOrdered By: Jeremiah Lazo on 53-22-6292MC2 [Moles/Vol]29.0 mmol/L21.0-31.0[facility] HospitalChloride [Moles/volume] in Serum or PlasmaOrdered By: Jeremiah Lazo on 74-67-0031Rgpjasrt [Moles/Vol]107 mmol/D24-753UaiwtyltqHolzer HospitalCholesterol [Mass/volume] in Serum or PlasmaOrdered By: Jeremiah Lazo on 16-59-7562Sjcyywaevnt [Mass/Vol]167 mg/pO426-022KvclpluydHolzer HospitalComment on above:Chol less than 200 mg/dl low riskChol 201-239 mg/dl borderline riskChol 240 mg/dl and greater high riskCholesterol in LDL Calc [Mass/Vol]Ordered By: Jeremiah Lazo on 80-48-0135Mvgesfpboje in LDL [Mass/Vol]91 mg/dL0-100Hol[facility] HospitalComment on above:LDL ATP III CLASSIFICATIONLDL less than 100 mg/dL OptimalLDL 100-129 mg/dL Near or above kvfekecAAG136-144 mg/dL Borderline highLDL 160-189 mg/dL HighLDL greater than 189 mg/dL Very highCholesterol in VLDL Calc [Mass/Vol]Ordered By: Jeremiah Lazo on 96-75-0464Mvipsdwfeni in VLDL [Mass/Vol]23 mg/dLHolzer HospitalCreatinine [Mass/volume] in Serum or PlasmaOrdered By: Jeremiah Lazo on 64-06-1896Nyigcekzox [Mass/Vol]0.93 mg/dL0.60-1.20[facility] HospitalEosinophils Auto (Bld) [#/Vol] Ordered By: Jeremiah Lazo on 97-67-6689Umvhgzafmfk (Bld) [#/Vol]0.2 10*3/uL0.0-0.45 [facility] HospitalEosinophils/100 WBC Auto (Bld)Ordered By: Jeremiah Lazo on 60-74-3006Rzljoaxlvqi/100 WBC (Bld)4.5 %.[facility]zer HospitalErythrocyte distribution width Auto (RBC) [Ratio]Ordered By: Jeremiah Lazo on 87-66-8415Zwnrcbyaipw distribution width (RBC) [Ratio]13.2 %11.9-15.3FSamaritan HospitalGlobulin Calc (S) [Mass/Vol]Ordered By: Jeremiah Lazo on 05-59-2327Mirvqlmi (S) [Mass/Vol]2.3 g/dLHolzer Hospital Glucose [Mass/volume] in Serum or PlasmaOrdered By: Jeremiah Lazo on 09-20-2022 Glucose [Mass/Vol]79 mg/yI39-304DgwyacejdHolzer HospitalComment on above:ADA recommended reference rangeRandom Glucose Reference Range is dependent on time and content of last meal. Glucose of more than 200 mg/dL in a nonstressed, ambulatory subject supports the diagnosisof Diabetes Mellitus. Hematocrit Auto (Bld) [Volume fraction]Ordered By: Jeremiah Lazo on 09-20-2022 Hematocrit (Bld) [Volume fraction]39.4 %34.0-46.4FSamaritan HospitalHemoglobin [Mass/volume] in BloodOrdered By: Jeremiah Lazo on 09-20-2022 Hemoglobin (Bld) [Mass/Vol]13.1 g/dL11.8-15.4FSamaritan Hospital Leukocytes [#/volume] corrected for nucleated erythrocytes in Blood by Automated counOrdered By: Jeremiah Lazo on 81-95-2582TDE corrected for nucl RBC Auto (Bld) [#/Vol]5.5 10*3/uL3.8-11.6FSamaritan HospitalLymphocytes Auto (Bld) [#/Vol]Ordered By: Jeremiah Lazo on 18-13-2142Lxapaygmsxd (Bld) [#/Vol]1.4 10*3/uL1.00-4.8Holzer HospitalLymphocytes/100 WBC Auto (Bld) Ordered By: Jeremiah Lazo on 54-02-7049Cmgmxznwhkb/100 WBC (Bld)25.5 %.[facility] OhioH Auto (RBC) [Entitic mass]Ordered By: Jeremiah Lazo on 11-12-7630WSL (RBC) [Entitic mass]29.5 pg24.7-34.3FSamaritan HospitalMCHC Auto (RBC) [Mass/Vol]Ordered By: Jeremiah Lazo on 81-88-6784SCGS (RBC) [Mass/Vol]33.4 g/dL32.0-35.0Holzer HospitalMCV Auto (RBC) [Entitic vol]Ordered By: Jeremiah Lazo on 76-57-7084JQI (RBC) [Entitic vol]88.4 fL 80-100Hol[facility] HospitalMonocytes Auto (Bld) [#/Vol]Ordered By: Jeremiah Lazo on 55-72-0972Upiipavhv (Bld) [#/Vol]0.4 10*3/uL0.0-0.8Holzer HospitalMonocytes/100 WBC Auto (Bld)Ordered By: Jeremiah Lazo on 49-70-5196Yikgtzylj/100 WBC (Bld)7.1 %.[facility] Neutrophils Auto (Bld) [#/Vol]Ordered By: Jeremiah Lazo on 60-13-6657Lwvlhntdjha (Bld) [#/Vol]3.4 10*3/uL1.8-7.7FSamaritan HospitalNeutrophils/100 WBC Auto (Bld)Ordered By: Jeremiah Lazo on 53-93-6267Gsqmzhvuxam/100 WBC (Bld)62.1 %.[facility]zer HospitalNo Panel InformationOrdered By: Jeremiah Lazo on 18-17-8319Cinrblbad GFR (CKD-EPI)> 60.0 mL/MinHolzer Hospital Pharmacy Creatinine Clearance (ChemN/[facility]UM[facility]ville HospitalNucleated erythrocytes [Presence] in Blood by Automated countOrdered By: Jeremiah Lazo on 42-43-0905Oexvgqnvl RBC Auto Ql (Bld)0.2 /100{WBC}0-0.5FSamaritan HospitalPlatelet mean volume Auto (Bld) [Entitic vol]Ordered By: Jeremiah Lazo on 83-43-6208Jdzgizoc mean volume (Bld) [Entitic vol]8.6 fL6.3-10.7 [facility] HospitalPlatelets Auto (Bld) [#/Vol]Ordered By: Jeremiah Lazo on 68-32-0467Zaacpfjli (Bld) [#/Vol]207 10*3/fM050-951TuilyatkfHolzer HospitalPotassium [Moles/volume] in Serum or PlasmaOrdered By: Jreemiah Lazo on 24-61-9300Ruqxxdrsp [Moles/Vol]4.1 mmol/L3.5-5.1FSamaritan HospitalProtein [Mass/volume] in Serum or PlasmaOrdered By: Jeremiah Lazo on 81-46-8904Qtrsvti [Mass/Vol]6.3 g/dL6.4-8.9Holzer HospitalRBC Auto (Bld) [#/Vol]Ordered By: Jeremiah Lazo on 95-94-2383HKW (Bld) [#/Vol]4.45 10*6/uL3.60-5.00[facility] Hospitalerum or plasma albumin/globulin mass ratioOrdered By: Jeremiah Lazo on 59-88-0327Aamytzz/Globulin [Mass ratio]1.7 {ratio}[facility] Hospitalerum or plasma anion gap determinationOrdered By: Jeremiah Lazo on 59-52-7937Ypyni gap [Moles/Vol]9.1 mmol/L6.0-15.0[facility] Hospitalerum or plasma high density lipoprotein (HDL) cholesterol measurementOrdered By: Jeremiah Lazo on 09-20-2022 Cholesterol in HDL [Mass/Vol]52 mg/qW07-73RnvvhqgvgHolzer Hospital Comment on above:HDL CHOL ATP-III CLASSIFICATION Cardiovascular RiskHDL > or equal to 60 mg/dL LOWHDL < 40 mg/dL HIGHSerum or plasma total cholesterol/high density lipoprotein (HDL) cholesterol mass ratOrdered By: Jeremiah Lazo on 75-65-4504Zqzumklmbcw.total/Cholesterol in HDL [Mass ratio]3.2 {ratio}<5.0 [facility] Hospitalodium [Moles/volume] in Serum or PlasmaOrdered By: Jeremiah Lazo on 18-04-5812Wpciev [Moles/Vol]141 mmol/S585-950AyieodecaHolzer HospitalThyrotropin [Units/volume] in Serum or PlasmaOrdered By: Jeremiah Lazo on 74-24-4037DRV Qn3.29 m[IU]/L0.45-5.33[facility] HospitalThyroxine (T4) free [Mass/volume] in Serum or PlasmaOrdered By: Jeremiah Lazo on 70-25-6458Gqdw T4 [Mass/Vol]0.90 ng/dL0.61-1.12[facility] HospitalTriglyceride [Mass/volume] in Serum or PlasmaOrdered By: Jeremiah Lazo on 40-27-3456Wuhhzhqccyjf [Mass/Vol]118 mg/dL0-149[facility] Comment on above:TRIG ATP III CLASSIFICATIONTRIG less than 150 mg/dL NormalTRIG 150-199 mg/dL Borderline highTRIG 200-500 mg/dL High TRIG greater than 500 mg/dL Very highStandard traceable to the Center for Disease Conrtrol and Prevention (CDC) test method.Urea nitrogen [Mass/volume] in Serum or PlasmaOrdered By: Jeremiah Lazo on 30-80-2864Yuqs nitrogen [Mass/Vol]16 mg/dL7-25Holzer HospitalWBC Auto (Bld) [#/Vol]Ordered By: Jeremiah Lazo on 25-34-4272UOY (Bld) [#/Vol]5.5 10*3/uL3.8-11.6FSamaritan HospitalUrine 10 SGon 23-44-7380Qyqydwo DL <= 20 mg/L (U) [Mass/Vol]NegativeNouniversity health tr[facility] Other pH (U)6.5 [pH][employer] Other urine 10 SGNegativeNouniversity health truman medical center [facility] Other urine 10 SGtraceNort [facility] Other Urine 10 SG1.020[facility] Other urine 10 SG0.2North [facility] Other A1C HEMOGLOBINon 55-36-3684WaK5y (Bld) [Mass fraction] 5.3 %[employer] Other HbA1c (Bld) [Mass fraction]on 50-08-4495Y5J HEMOGLOBIN [employer] Other Bilirubin Test strip Ql (U)Ordered By: Jeremiah Lazo on 70-69-1344Iwfhqftro Ql (U)NegativeNegThe [facility] of [facility] CARDIAC ELENITA 3-6on 64-16-5271UI [Catalytic activity/Vol]94 U/OZuikmi29-126Kge [facility] HospitalComment on above:Performed By: #### CMREP #### [facility] [address] [address] [address] Librado Quintero.MB [Mass/Vol]1.43 ng/mLNormal<=3.60The [facility] Comment on above:Performed By: #### CMREP #### [facility] [address] [address] [address] Librado MeléndezHSTROP8.3 pg/mLNormal4.0-51.3The [facility] HospitalComment on above:Result Comment: CUT-OFF POINTS HAVE BEEN ESTABLISHED BASED ON THE FOURTH UNIVERSAL DEFINITIONS OF MYOCARDIAL INFARCTION. THE UPPER REFERENCE LIMIT (URL) OF TROPONIN, DEFINED THE 99TH PERCENTILE OF cTnI DISTRIBUTION IN A REFERENCE POPULATION, HAS BEEN CONFIRMED THE DECISION THRESHOLD FOR SC DIAGNOSIS.Performed By: #### CMREP #### [facility] [address] [address] [address] Librado MeléndezComartha Auto (U)Ordered By: Jeremiah Lazo on 62-87-4008Tbhcl (U)Dark yellowYellowHolzer HospitalKetones Auto test strip (U) [Mass/Vol]Ordered By: Jeremiah Lazo on 73-26-5579Bdwgevx (U) [Mass/Vol]Negative NegativeHolzer HospitalNitrite Test strip Ql (U)Ordered By: Jeremiah Lazo on 86-55-9132Jmorgzg Ql (U)NegativeNegativeHolzer HospitalProtein Auto test strip (U) [Mass/Vol]Ordered By: Jeremiah Lazo on 57-79-7401Zfincms (U) [Mass/Vol]NegativeNegCleveland Clinic Medina Hospitalpecific gravity Auto test strip (U) [Rel density]Ordered By: Jeremiah Lazo on 81-56-0698Ndkohilq gravity (U) [Rel density]1.0071.001-1.030Holzer HospitalTSH DL <= 0.005 mIU/L QnOrdered By: Jeremiah Lazo on 81-85-4836JNX Qn5.02 m[IU]/L0.45-5.33[facility] HospitalThyroxine (T4) free [Mass/volume] in Serum or PlasmaOrdered By: Jeremiah Lazo on 04-30-2022 Free T4 [Mass/Vol]0.77 ng/dL0.61-1.12Holzer HospitalUrine clarity by refractometry automatedOrdered By: Jeremiah Lazo on 02-52-4440Hhndubo Refractometry automated (U)ClearCleUniversity Hospitals St. John Medical CenterUrine glucose measurement by automated test strip (mass/volume)Ordered By: Jeremiah Lazo on 23-12-9850Cfjbvsc Auto test strip (U) [Mass/Vol]Normal mg/dLNoProtestant Deaconess HospitalUrine hemoglobin detection by automated test stripOrdered By: Jeremiah Lazo on 31-77-9984Kojelbppgu Auto test strip Ql (U)NegativeNegative Holzer HospitalUrine leukocyte esterase detection by automated test stripOrdered By: Jeremiah Lazo on 55-92-6617Tlsceeujb esterase Auto test strip Ql (U)NegativeNegativeHolzer HospitalUrobilinogen Auto test strip (U) [Mass/Vol]Ordered By: Jeremiah Lazo on 68-06-4668Uuswcmgbofam (U) [Mass/Vol]Normal mg/dLNoProtestant Deaconess HospitalpH Auto test strip (U)Ordered By: Jeremiah Lazo on 28-23-2442eH (U)6.0 [pH]5.0-9.0Hol[facility] HospitalCARDIAC ELENITA 3-6on 08-50-1192SR [Catalytic activity/Vol]105 U/L Zdqqyo48-109Qyp [facility] HospitalComment on above:Performed By: #### CMREP #### [facility] [address] [place] [address] Dr. Librado Quintero.MB [Mass/Vol]1.66 ng/mLNormal<=3.60The [facility] Comment on above:Performed By: #### CMREP #### [facility] [address] [address] [address] Yilan ChangHSTROP7.3 pg/mLNormal4.0-51.3The [facility] HospitalComment on above:Result Comment: CUT-OFF POINTS HAVE BEEN ESTABLISHED BASED ON THE FOURTH UNIVERSAL DEFINITIONS OF MYOCARDIAL INFARCTION. THE UPPER REFERENCE LIMIT (URL) OF TROPONIN, DEFINED THE 99TH PERCENTILE OF cTnI DISTRIBUTION IN A REFERENCE POPULATION, HAS BEEN CONFIRMED THE DECISION THRESHOLD FOR SC DIAGNOSIS.Performed By: #### CMREP #### [facility] [address] [place] [address] Dr. Librado DickinsonC AUTO DIFFon 83-47-8036RKFJ #0.0 103/ulNormal0.0-0.1The [facility] HospitalComment on above:Performed By: #### CBC #### [facility] [address] [place] [address] Dr. Librado MeléndezBasophils/100 WBC (Bld)0.4 %Normal0.2-2.0[facility] Comment on above:Performed By: #### CBC #### [facility] [address] [place] [address] Dr. Librado Leach #0.3 103/ulNormal0.0-0.7The [facility] HospitalComment on above: Performed By: #### CBC #### [facility] [address] [place] [address] Dr. Librado Schmidtosinophils/100 WBC (Bld)3.3 %Normal0.9-7.0[facility] Comment on above:Performed By: #### CBC #### [facility] [address] [place] [address] Dr. Librado Schmidtrythrocyte distribution width (RBC) [Ratio]13.0 %Mcxivk83.0-15.0 The [facility] HospitalComment on above:Performed By: #### CBC #### [facility] [address] [place] [address] Dr. Librado MeléndezHematocrit (Bld) [Volume fraction]42.3 %Nhpxaz92.0-48.0The [facility] HospitalComment on above:Performed By: #### CBC #### [facility] [address] [address] [address] Librado MeléndezHemoglobin (Bld) [Mass/Vol]14.0 g/kXEgqefl16.0-16.0The [facility] HospitalComment on above:Performed By: #### CBC #### [facility] [address] [address] [address] Librado Waite #0.04 10e3/ulCritically high0.00-0.03The [facility] Comment on above:Performed By: #### CBC #### [facility] [address] [address] [address] Librado Waite %0.4 %Normal0.0-0.5The [facility] HospitalComment on above: Performed By: #### CBC #### [facility] [address] [place] [address] Dr. Librado Oliver #1.0 103/ulCritically low1.2-3.8The [facility] Comment on above:Performed By: #### CBC #### [facility] [address] [place] [address] Dr. Librado Amatohocytes/100 WBC (Bld)10.5 %Critically low20.5-60.0The [facility] HospitalComment on above:Performed By: #### CBC #### [facility] [address] [place] [address] Dr. Librado ReddyUAL DIFF REQNONormalThe [facility] HospitalComment on above: Performed By: #### CBC #### [facility] [address] [place] [address] Dr. Librado Sinha (RBC) [Entitic mass]28.7 duRfhibz00.7-34.0The [facility] HospitalComment on above:Performed By: #### CBC #### [facility] [address] [place] [address] Dr. Librado Sinha (RBC) [Mass/Vol]33.1 g/cLHfnmwq43.9-35.2The [facility] HospitalComment on above:Performed By: #### CBC #### [facility] [address] [place] [address] Dr. Librado SihnaV (RBC) [Entitic vol]86.7 uFAguauo62.0-99.0The [facility] HospitalComment on above:Performed By: #### CBC #### [facility] [address] [place] [address] Dr. Librado Branch #0.7 103/ulNormal0.3-0.8The [facility] HospitalComment on above:Performed By: #### CBC #### [facility] [address] [place] [address] Dr. Librado Olveraocytes/100 WBC (Bld)6.8 %Normal1.7-12.0The [facility] Comment on above:Performed By: #### CBC #### [facility] [address] [place] [address] Dr. Librado Cuellar #7.7 103/ulCritically high1.4-6.5The [facility] Comment on above:Performed By: #### CBC #### [facility] [address] [place] [address] Dr. Librado Hanleyutrophils/100 WBC (Bld)78.6 %Critically high43.0-75.0The [facility] HospitalComment on above:Performed By: #### CBC #### [facility] [address] [place] [address] Dr. Librado Guthrielet mean volume (Bld) [Entitic vol]9.6 fLNormal9.5-13.5The [facility] HospitalComment on above:Performed By: #### CBC #### [facility] [address] [place] [address] Dr. Librado MeléndezPLT264 103/bnSlzsqt402-733Lsq [facility] HospitalComment on above: Performed By: #### CBC #### [facility] [address] [place] [address] Dr. Librado MeléndezRBC4.88 106/ulNormal4.20-5.40The [facility] HospitalComment on above:Performed By: #### CBC #### [facility] [address] [address] [address] Librado MeléndezWBC9.8 103/ulNormal4.0-11.0The [facility] HospitalComment on above: Performed By: #### CBC #### [facility] [address] [address] [address] Librado MeléndezPROF CHEM 8 (BAS METB)on 05-22-2633Tdqsq gap [Moles/Vol]15.3 mmol/LNormalThe [facility] HospitalComment on above:Performed By: #### BMP #### [facility] [address] [address] [address] Librado MeléndezCalcium [Mass/Vol]9.3 mg/dLNormal8.5-10.1The [facility] Comment on above:Performed By: #### BMP #### [facility] [address] [address] [address] Librado MeléndezChloride [Moles/Vol]99 mmol/LLsroqp64-599Mrl [facility] Comment on above:Performed By: #### BMP #### [facility] [address] [address] [address] Librado MeléndezCO2 [Moles/Vol]24.8 mmol/NIzcmcf42.0-32.0[facility] Comment on above:Performed By: #### BMP #### [facility] [address] [address] [address] Librado MeléndezCreatinine [Mass/Vol]1.05 mg/dLCritically high0.55-1.02The [facility] HospitalComment on above:Performed By: #### BMP #### [facility] [address] [address] [address] Pavon ChangEGFR-AF SAO TOMEAN>60Normal>=60The [facility] HospitalComment on above:Performed By: #### BMP #### [facility] [address] [address] [address] Librado SchmidtGFR-NON AF WQNYUPCZ88 mL/min/1.29c0Mntpzfzjkb low>=60The [facility] HospitalComment on above:Performed By: #### BMP #### [facility] [address] [address] [address] Librado MeléndezGlucose [Mass/Vol]123 mg/dLCritically xibb06-096Hcd [facility] HospitalComment on above:Performed By: #### BMP #### [facility] [address] [place], [place] [address] Dr. Librado MeléndezPotassium [Moles/Vol]4.1 mmol/LNormal3.5-5.1The [facility] Comment on above:Performed By: #### BMP #### [facility] [address] [address] [address] Librado MeléndezSodium [Moles/Vol]135 mmol/LCritically ono191-076Ckv [facility] HospitalComment on above:Performed By: #### BMP #### [facility] [address] [address] [address] Librado MeléndezUrea nitrogen [Mass/Vol]15.0 mg/dLNormal7.0-18.0The [facility] HospitalComment on above:Performed By: #### BMP #### [facility] [address] [address] [address] Librado MeléndezUrea nitrogen/Creatinine [Mass ratio]14.3 mg/mgNoVan Wert County HospitalComment on above:Performed By: #### BMP #### [facility] [address] [address] [address] Librado MeléndezXR CHEST 2 Von 41-37-1204MY CHEST 2 VEXAMINATION: XR CHEST 2 V HISTORY: Chest pain COMPARISON: Chest x-ray 01/22/2020 TECHNIQUE: PA and lateral chest x-rays FINDINGS: Poor inspiratory effort. The lung parenchyma is free of consolidation or infiltrate. Scarring within the right lower lobe. No pneumothorax or pleural effusion. The cardiac, mediastinal and hilar contours are normal. The visualized osseous structures exhibit no gross abnormality. IMPRESSION: No acute cardiopulmonary abnormality. Electronically authenticated by: YOON MUSTAFA Date: 2022-04-29 21:12[facility] InstituteFree T4 (Free Thyroxine)on 98-58-8495Cehd T4 [Mass/Vol] 0.58849364 ng/dLLow0.61-1.12 ng/dLNorth [employer] Other TSQ DL <= 0.005 mIU/L QnOrdered By: Jeremiah Lazo on 83-56-1402RQS Qn5.00 m[IU]/L0.45-5.33[facility] HospitalThyroid Stimulating Hormoneon 60-06-3994NOE Qn5.28156774625 m[IU]/LNormal0.45-5.33 u[iU]/mLNorth [facility] Other Thyroxine (T4) free [Mass/volume] in Serum or Plasma Ordered By: Jeremiah Lazo on 84-75-4291Gqjn T4 [Mass/Vol]0.58 ng/dL0.61-1.12 [facility] HospitalAlbumin [Mass/volume] in Serum or PlasmaOrdered By: Jeremiah Lazo on 61-22-5117Ppdltyd [Mass/Vol]3.8 g/dL3.2-5.5FSamaritan HospitalBasophils Auto (Bld) [#/Vol]Ordered By: Jeremiah Lazo on 02-13-2022 Basophils (Bld) [#/Vol]0.0 10*3/uL0.0-0.2FSamaritan Hospital Basophils/100 WBC Auto (Bld)Ordered By: Jeremiah Lazo on 46-71-9317Ztntfmzym/100 WBC (Bld)0.8 %.[facility]zer HospitalCT biopsyOrdered By: Jeremiah Lazo on 50-35-3834Cjwtnerafss [Mass/Vol]230 mg/rY799-681WwspomtiiHolzer HospitalCholesterol [Mass/volume] in Serum or PlasmaOrdered By: Jeremiah Lazo on 34-53-5963Erbncbevbkd [Mass/Vol]196 mg/aL141-733PyjfxsndeHolzer HospitalComment on above:Chol less than 200 mg/dl low riskChol 201-239 mg/dl borderline riskChol 240 mg/dl and greater high riskCholesterol in LDL Calc [Mass/Vol]Ordered By: Jeremiah Lazo on 22-88-0737Bmluwlagcjx in LDL [Mass/Vol]114 mg/dL0-100Hol[facility] HospitalComment on above:LDL ATP III CLASSIFICATIONLDL less than 100 mg/dL OptimalLDL 100-129 mg/dL Near or above nxabqooAKD514-689 mg/dL Borderline highLDL 160-189 mg/dL HighLDL greater than 189 mg/dL Very highCholesterol in VLDL Calc [Mass/Vol]Ordered By: Jeremiah Lazo on 64-94-8075Huqhmhnuewy in VLDL [Mass/Vol]16 mg/dLHolzer HospitalCreatinine and Glomerular filtration rate.predicted panel (S/P/Bld)Ordered By: Jeremiah Lazo on 13-26-0100Diyytiwojl [Mass/Vol]0.77 mg/dL0.44-1.03Hol[facility] HospitalEosinophils Auto (Bld) [#/Vol]Ordered By: Jeremiah Lazo on 61-28-0472Knllfexjhvp (Bld) [#/Vol]0.2 10*3/uL0.0-0.45Holzer HospitalEosinophils/100 WBC Auto (Bld)Ordered By: Jeremiah Lazo on 02-13-2022 Eosinophils/100 WBC (Bld)4.1 %.[facility]zer HospitalErythrocyte distribution width Auto (RBC) [Ratio]Ordered By: Jeremiah Lazo on 02-13-2022 Erythrocyte distribution width (RBC) [Ratio]13.2 %11.9-15.3FSamaritan HospitalEstimated glomerular filtration rate (GFR) non- Ordered By: Jeremiah Lazo on 16-11-9402KQX/1.73 sq M.predicted among non-blacks MDRD (S/P/Bld) [Vol rate/Area]> 60 mL/MinHolzer Hospital Ferritin [Mass/volume] in Serum or PlasmaOrdered By: Jeremiah Lazo on 02-13-2022 Ferritin [Mass/Vol]41.0 ng/eF27-993.8Holzer HospitalGlobulin Calc (S) [Mass/Vol]Ordered By: Jeremiah Lazo on 13-00-4676Dhrhksbt (S) [Mass/Vol] 2.5 g/dLHolzer HospitalHematocrit Auto (Bld) [Volume fraction] Ordered By: Jeremiah Lazo on 67-25-9987Egfuisrcdy (Bld) [Volume fraction]40.2 % 34.0-46.4FSamaritan HospitalHemoglobin [Mass/volume] in Blood Ordered By: Jeremiah Lazo on 97-52-7108Esbpujivmw (Bld) [Mass/Vol]13.2 g/dL 11.8-15.4FSamaritan HospitalIron [Mass/volume] in Serum or Plasma Ordered By: Jeremiah Lazo on 47-19-3654Ngdz [Mass/Vol]66 ug/bK17-542FwjdwxfkqHolzer HospitalIron binding capacity [Mass/volume] in Serum or Plasma Ordered By: Jeremiah Lazo on 12-12-6575Jehc binding capacity [Mass/Vol]322 ug/dL 255-450Holzer HospitalIron saturation [Mass Fraction] in Serum or PlasmaOrdered By: Jeremiah Lazo on 15-32-6508Awek saturation [Mass fraction]20.0 %20-50[facility] HospitalLeukocytes [#/volume] corrected for nucleated erythrocytes in Blood by Automated counOrdered By: Jeremiah Lazo on 66-92-4598BNG corrected for nucl RBC Auto (Bld) [#/Vol]4.4 10*3/uL3.8-11.6 [facility] HospitalLymphocytes Auto (Bld) [#/Vol]Ordered By: Jeremiah Lazo on 07-28-2161Lrzfssossch (Bld) [#/Vol]1.5 10*3/uL1.00-4.8[facility] HospitalLymphocytes/100 WBC Auto (Bld)Ordered By: Jeremiah Lazo on 19-23-0881Swhoqnjfwev/100 WBC (Bld)35.0 %.[facility] Auto (RBC) [Entitic mass]Ordered By: Jeremiah Lazo on 75-70-1727DSJ (RBC) [Entitic mass]28.9 pg24.7-34.3FPremier HealthHC Auto (RBC) [Mass/Vol] Ordered By: Jeremiah Lazo on 75-13-2927EBEU (RBC) [Mass/Vol]32.7 g/dL32.0-35.0 [facility] HospitalMCV Auto (RBC) [Entitic vol]Ordered By: Jeremiah Lazo on 28-02-9358VCW (RBC) [Entitic vol]88.4 oD14-667BniubmsjvHolzer HospitalMonocytes Auto (Bld) [#/Vol]Ordered By: Jeremiah Lazo on 83-67-8727Hrwxmirsk (Bld) [#/Vol]0.3 10*3/uL0.0-0.8[facility] HospitalMonocytes/100 WBC Auto (Bld)Ordered By: Jeremiah Lazo on 71-98-9999Tskdgfdge/100 WBC (Bld)7.4 %. [facility] HospitalNeutrophils Auto (Bld) [#/Vol]Ordered By: Jeremiah Lazo on 34-27-7272Jbpbpceeniz (Bld) [#/Vol]2.3 10*3/uL1.8-7.7FSamaritan HospitalNeutrophils/100 WBC Auto (Bld)Ordered By: Jeremiah Lazo on 30-59-5899Qwgegyrikpr/100 WBC (Bld)52.7 %.[facility] HospitalNo Panel InformationOrdered By: Jeremiah Lazo on 180896-Pzcykot Vitamin D Total 48.0 ng/iO25-359PcxirevyjHolzer HospitalComment on above:VITAMIN D STATUS 25(OH)VITAMIN D RANGE (ng/mL) Deficient <20 Insufficient 20 to <00Nqrsxjxzft37 to 100Reference: Erasmo MF,Carlton NASH, Lana WORTHINGTON, et al. Evaluation,treatment, and prevention of vitamin D deficiency; an Endocrine Society clinical practice guideline. JCEM. 2010; 96(7):1911-30.Estimated GFR ()> 60 mL/MinHolzer HospitalComment on above: GFR estimated reference range: According to KDOQI guidelines, <60 ml/min/1.73m2 is sufficient todiagnose a patient with chronic kidney disease.Pharmacy Creatinine Clearance (ChemN/[facility] HospitalNucleated erythrocytes [Presence] in Blood by Automated countOrdered By: Jeremiah Lazo on 08-36-2227Blprjotfx RBC Auto Ql (Bld)0.2 /100{WBC}0-0.5FSamaritan HospitalPlatelet mean volume Auto (Bld) [Entitic vol]Ordered By: Jeremiah Lazo on 15-51-6630Mqmsddma mean volume (Bld) [Entitic vol]8.4 fL6.3-10.7 [facility] HospitalPlatelets Auto (Bld) [#/Vol]Ordered By: Jeremiah Lazo on 57-73-2161Fkoppuudo (Bld) [#/Vol]227 10*3/jG212-771WtdnmlqckHolzer HospitalProtein [Mass/volume] in Serum or PlasmaOrdered By: Jeremiah Lazo on 91-17-6903Uhnibxp [Mass/Vol]6.3 g/dL6.1-7.9[facility] HospitalRBC Auto (Bld) [#/Vol]Ordered By: Jeremiah Lazo on 50-78-7509JAR (Bld) [#/Vol]4.55 10*6/uL3.60-5.00[facility] Hospitalerum or plasma alanine aminotransferase measurement without P-5'-P (enzymatic activiOrdered By: Jeremiah Lazo on 90-77-4679ZEF No additional P-5'-P [Catalytic activity/Vol]21 U/L10-60 [facility] Hospitalerum or plasma albumin/globulin mass ratio Ordered By: Jeremiah Lazo on 24-52-3173Gfntxdt/Globulin [Mass ratio]1.5 {ratio} [facility] Hospitalerum or plasma alkaline phosphatase measurement (enzymatic activity/volume)Ordered By: Jeremiah Lazo on 25-83-0333UZU [Catalytic activity/Vol]61 U/O97-94GjdolgvdsOhioHealth Mansfield Hospitalerum or plasma anion gap determinationOrdered By: Jeremiah Lazo on 13-88-2484Nkfcy gap [Moles/Vol]9.6 mmol/L6.0-15.0[facility] Hospitalerum or plasma aspartate aminotransferase measurement (enzymatic activity/volume)Ordered By: Jeremiah Lazo on 57-43-9038LJY [Catalytic activity/Vol]19 U/S17-32DzwrncjsqOhioHealth Mansfield Hospitalerum or plasma calcium measurement (mass/volume)Ordered By: Jeremiah Lazo on 69-63-3727Vnhljwt [Mass/Vol]9.2 mg/dL8.2-10.2FGalion Community Hospitalerum or plasma chloride measurement (moles/volume) Ordered By: Jeremiah Lazo on 28-22-4004Kdashgkc [Moles/Vol]103 mmol/L95-114 [facility] Hospitalerum or plasma glucose measurement (mass/volume)Ordered By: Jeremiah Lazo on 93-38-8736Xojifly [Mass/Vol]88 mg/dL 70-100Holzer HospitalComment on above:ADA recommended reference rangeRandom Glucose Reference Range is dependent on time and content of last meal. Glucose of more than 200 mg/dL in a nonstressed, ambulatory subject supports the diagnosisof Diabetes Mellitus.Serum or plasma high density lipoprotein (HDL) cholesterol measurementOrdered By: Jeremiah Lazo on 02-13-2022 Cholesterol in HDL [Mass/Vol]65 mg/aZ69-90TalemymkzHolzer Hospital Comment on above:HDL CHOL ATP-III CLASSIFICATION Cardiovascular RiskHDL > or equal to 60 mg/dL LOWHDL < 40 mg/dL HIGHSerum or plasma potassium measurement (moles/volume)Ordered By: Jeremiah Lazo on 97-68-0680Yomhrqghv [Moles/Vol]4.4 mmol/L3.5-5.1FGalion Community Hospitalerum or plasma sodium measurement (moles/volume)Ordered By: Jeremiah Lazo on 17-07-4131Fjuqjj [Moles/Vol]137 mmol/L 136-146[facility] Hospitalerum or plasma total bilirubin measurement (mass/volume)Ordered By: Jeremiah Lazo on 23-43-7565Omuonmmhx [Mass/Vol]0.6 mg/dL0.3-1.2FGalion Community Hospitalerum or plasma total carbon dioxide measurement (moles/volume)Ordered By: Jeremiah Lazo on 02-13-2022 CO2 [Moles/Vol]28.8 mmol/L22.0-30.0[facility] Hospitalerum or plasma total cholesterol/high density lipoprotein (HDL) cholesterol mass rat Ordered By: Jeremiah Lazo on 16-70-5272Xfgwxaawawc.total/Cholesterol in HDL [Mass ratio]3.0 {ratio}<5.0[facility] Hospitalerum or plasma urea nitrogen measurement (mass/volume)Ordered By: Jeremiah Lazo on 40-19-7067Qnrn nitrogen [Mass/Vol]12 mg/dL9-23Holzer HospitalTS DL <= 0.005 mIU/L QnOrdered By: Jeremiah Lazo on 51-23-7027LUE Qn5.36 m[IU]/L0.45-5.33[facility] HospitalTriglyceride [Mass/volume] in Serum or PlasmaOrdered By: Jeremiah Lazo on 22-90-1562Gcerycsqwqxb [Mass/Vol]84 mg/kW95-499BgglbhkwlHolzer HospitalComment on above:TRIG ATP III CLASSIFICATIONTRIG less than 150 mg/dL NormalTRIG 150-199 mg/dL Borderline highTRIG 200-500 mg/dL High TRIG greater than 500 mg/dL Very highStandard traceable to the Center for Disease Co nrtrol and Prevention (CDC) test method.WBC Auto (Bld) [#/Vol]Ordered By: Jeremiah Lazo on 25-48-0430DZW (Bld) [#/Vol]4.4 10*3/uL3.8-11.6FSamaritan HospitalUS HONEY DOP LEG RTon 04-78-4429ZK HONEY DOP LEG RTEXAMINATION: US HONEY DOP LEG RT HISTORY: Pain COMPARISON: No relevant comparison available. TECHNIQUE: Grayscale, color and Doppler ultrasound FINDINGS: Region: Right leg Thrombus: None Flow: Normal Compressibility: Normal Augmentation: Normal IMPRESSION: No deep or superficial thrombus in the right leg *Exam performed in accordance with AIUM practice guidelines- Peripheral venous ultrasound, May 28, 2009. Electronically authenticated by: YOON HOYT Date: 2021-10-26 15:[address] [place], [place] [address]A1C with Estimated Average Gluon 60-99-0723LdT3a (Bld) [Mass fraction]5.7 %4.3-5.6[facility] [employer] Other HbA1c (Bld) [Mass fraction]117 %[facility] [employer] Other Complete Blood Count Auto Diffon 63-82-8661Wroadfixq (Bld) [#/Vol]0.0 10*3/uL0.0-0.2[facility] [employer] Other Basophils/100 WBC (Bld)0.6 %.[place] [employer] Other Eosinophils (Bld) [#/Vol]0.2 10*3/uL0.0-0.45[facility] [employer] Other Eosinophils/100 WBC (Bld)3.6 %.[facility] Other Erythrocyte distribution width (RBC) [Ratio]13.7 % 11.9-15.3[facility] [employer] Other Hematocrit (Bld) [Volume fraction]41.5 %34.0-46.4[facility] [employer] Other Hemoglobin (Bld) [Mass/Vol]13.8 g/dL11.8-15.4[facility] [employer] Other Lymphocytes (Bld) [#/Vol]1.3 10*3/uL1.00-4.8[facility] [employer] Other Lymphocytes/100 WBC (Bld)24.0 %.[place] [employer] Other MCH (RBC) [Entitic mass]29.6 pg24.7-34.3[facility] [employer] Other MCH (RBC) [Entitic mass]33.3 pg32.0-35.0[facility] [employer] Other MCV (RBC) [Entitic vol]88.8 dX18-512Szrqu [employer] Other Monocytes (Bld) [#/Vol]0.5 10*3/uL0.0-0.8[place] [employer] Other Monocytes/100 WBC (Bld)8.6 %.[employer] Other Neutrophils (Bld) [#/Vol]3.4 10*3/uL1.8-7.7[facility] [employer] Other Neutrophils/100 WBC (Bld)63.2 %.[employer] Other Platelet mean volume (Bld) [Entitic vol]8.6 fL6.3-10.7 [place] [employer] Other Platelets (Bld) [#/Vol]243 10*3/pU740-256Gdyin [employer] Other RBC (Bld) [#/Vol]4.67 10*6/uL3.60-5.00[facility] [employer] Other WBC (Bld) [#/Vol]5.3 10*3/uL3.8-11.6[facility] [employer] Other Complete Blood Count Auto Diff5.34.5-11.0[facility] [employer] Other Complete Blood Count Auto Diff0.20-0.5[facility] [employer] Other Comprehensive Metabolic Panelon 28-24-6368Jzunqxt [Mass/Vol]4.5 g/dL3.2-5.5[facility] [employer] Other Albumin/Globulin [Mass ratio]1.8 {ratio}[employer] Other ALP [Catalytic activity/Vol]66 U/P56-71Qatdd [employer] Other ALT [Catalytic activity/Vol]23 U/W28-94Xqxte [employer] Other AST [Catalytic activity/Vol]20 U/J55-15Skmne [employer] Other Bilirubin [Mass/Vol]0.8 mg/dL0.3-1.2[facility] Other Calcium [Mass/Vol]9.7 mg/dL8.2-10.2[facility] Other Chloride [Moles/Vol]100 mmol/X15-123Uwjry [employer] Other CO2 [Moles/Vol]27.9 mmol/L22.0-30.0[facility] [employer] Other Creatinine [Mass/Vol]0.86 mg/dL0.44-1.03[place] [employer] Other Glucose [Mass/Vol]96 mg/cU30-362Ezwxn [employer] Other Potassium [Moles/Vol]4.2 mmol/L3.5-5.1[facility] Other Protein [Mass/Vol]7.0 g/dL6.1-7.9[facility] [employer] Other Sodium [Moles/Vol]139 mmol/J300-642Gotpg [employer] Other Urea nitrogen [Mass/Vol]14 mg/dL9-23[facility] [employer] Other Comprehensive Metabolic Panel> 60[place] [employer] Other Comprehensive Metabolic Panel2.5[facility] [employer] Other Ferritinon 53-80-4660Gdlxrxyu [Mass/Vol]62.2 ng/mL 11-306.8[place] [employer] Other Free T4 (Free Thyroxine)on 36-18-2980Fnom T4 [Mass/Vol]0.73 ng/dL0.61-1.12[facility] [employer] Other Iron and TIBC Profileon 68-54-4619Rwrc [Mass/Vol]84 ug/hW34-943Nrorm [employer] Other Iron and TIBC Rmpxavv57.020-50[facility] [employer] Other Lipid Panelon 76-77-7342Nfwigldxkxo [Mass/Vol]206 mg/iK697-395Mgtoj [employer] Other Cholesterol in HDL [Mass/Vol]67 mg/iO14-08Xraif [employer] Other Cholesterol in LDL Elph Lr6563-118Vgpbr [employer] Other Cholesterol.total/Cholesterol in HDL [Mass ratio]3.1 {ratio}<5.0[facility] [employer] Other Lipid Imgaf8507-388Wyern [employer] Other Lipid Liebq97Fzfmq [employer] Other Thyroid Stimulating Hormoneon 02-11-5277ICM Qn6.10 m[IU]/L0.45-5.33[facility] [employer] Other Vital Signs Date TimeVital SignValuePerforming GyacifhmpDhjbebph50-33-0630 12:30-0400Body jyqwkx692.56 cmJeremiah Lazo DO Work Phone: [facility]09-30-2025 12:30-0400 Body mass index (BMI) [Ratio]30.2 kg/u7ZecmkJeremiah Lazo DO Work Phone: [facility]09-30-2025 12:30-0400 Body .83 kgJeremiah Lazo DO Work Phone: [facility]09-30-2025 12:30-0400 Diastolic blood juqpdiap28 mm[Hg]Jeremiah Lazo DO Work Phone: [facility]09-30-2025 12:30-0400 Heart rate83 /minJeremiah Lazo DO Work Phone: [facility]09-30-2025 12:30-0400 Respiratory rate18 /minJeremiah Lazo DO Work Phone: [facility]09-30-2025 12:30-0400 SaO2% (BldA) [Mass fraction]98 %Jeremiah Lazo DO Work Phone: [facility]09-30-2025 12:30-0400 Systolic blood rqinklws440 mm[Hg]Jeremiah Lazo DO Work Phone: [facility]09-11-2025 08:58-0400 Body archhg483.6 cmPhiloco Joyce MD Work Phone: [facility]09-11-2025 08:58-0400Body mass index (BMI) [Ratio]31.41 kg/n5JgvqnxcmRox Joyce MD Work Phone: [facility]09-11-2025 08:58-0400Body iyngil11.01 kgRox Joyce MD Work Phone: [phone]09-11-2025 08:58-0400Heart rate74 /min Rox Joyce MD Work Phone: [facility]09-11-2025 08:58-0056AtA4% (BldA) [Mass fraction]100 %Rox Joyce MD Work Phone: [facility]08-21-2025 14:41-0400Body gewpeh313.56 cmJeremiah Lazo DO Work Phone: [facility]08-21-2025 14:41-0400 Body mass index (BMI) [Ratio]29.5 kg/q6QdowlJeremiah Lazo DO Work Phone: [facility]08-21-2025 14:41-0400 Body botycofwrmx27.3 [degF]Jeremiah Lazo DO Work Phone: [phone]08-21-2025 14:41-0400 Body gacjmm59.01 kgJeremiah Farrells DO Work Phone: [facility]08-21-2025 14:41-0400 Diastolic blood mm[Hg]Jeremiah Farrells DO Work Phone: [facility]08-21-2025 14:41-0400 Heart rate64 /minJavian Huongs DO Work Phone: [address] [place], [place] 5010308-21-2025 14:41-0400 SaO2% (BldA) [Mass fraction]98 %Jeremiah Farrells DO Work Phone: [phone] [place], [place] 1123508-21-2025 14:41-0400 Systolic blood qpwsnpae112 mm[Hg]Jeremiah Farrells DO Work Phone: [phone]05-29-2025 13:02-0400 Body wxfatx235.56 cmJeremiah Farrells DO Work Phone: [phone]05-29-2025 13:02-0400 Body mass index (BMI) [Ratio]30.4 kg/g8CpwsiJeremiah Farrells DO Work Phone: [phone] [place], [place] 1123505-29-2025 13:02-0400 Body uklzgr90.28 kgJeremiah Farrells DO Work Phone: [facility]05-29-2025 13:02-0400 Diastolic blood onnoxsmx87 mm[Hg]Jeremiah Farrells DO Work Phone: [facility]05-29-2025 13:02-0400 Heart rate70 /minJavian Huongs DO Work Phone: [phone]05-29-2025 13:02-0400 Respiratory rate16 /minJavian Kuns DO Work Phone: [phone]05-29-2025 13:02-0400 SaO2% (BldA) [Mass fraction]99 %Jeremiah Huongs DO Work Phone: [facility]05-29-2025 13:02-0400 Systolic blood avbwaojf950 mm[Hg]Jeremiah Lazo DO Work Phone: [facility]04-30-2025 11:05-0400 Body ewkstv773.6 cmMarcell Scott MD Work Phone: [facility] HospitalTjxyak64-42-4370 11:05-0400Body mass index (BMI) [Ratio]31.58 kg/k3JbrzukwMarcell Scott MD Work Phone: c[facility] HospitalXiwiha57-47-2744 11:05-0400Body gsheko65.46 kgMarcell Scott MD Work Phone: c[facility] HospitalXkusgi73-57-7793 10:46-0500Body .6 cmPacc 2 Work Phone: [facility]02-26-2025 10:46-0500Body mass index (BMI) [Ratio]31.79 kg/m2Pacc 2 Work Phone: [facility]02-26-2025 10:46-0500Body temperature 98.6 [degF]Pacc 2 Work Phone: [facility]02-26-2025 10:46-0500Body kg Pacc 2 Work Phone: [facility]02-26-2025 10:46-0500Diastolic blood qeytdghp66 mm[Hg]Pacc 2 Work Phone: [facility]02-26-2025 10:46-0500Heart rate86 /min Pacc 2 Work Phone: [facility]02-26-2025 10:46-0500Respiratory rate 16 /minPacc 2 Work Phone: [facility]02-26-2025 10:46-3294PxL2% (BldA) [Mass fraction]98 %Pacc 2 Work Phone: [facility]02-26-2025 10:46-0500Systolic blood xkuoisjz797 mm[Hg]Pacc 2 Work Phone: [facility]01-27-2025 08:45-0500Body ugtjyd130.56 cmJeremiah Farrells DO Work Phone: [phone]01-27-2025 08:45-0500 Body mass index (BMI) [Ratio]32.9 kg/f3Iugsy Huongs DO Work Phone: [phone]01-27-2025 08:45-0500 Body .08 kgJavian Huongs DO Work Phone: [phone] [place], [place] 7923301-27-2025 08:45-0500 Diastolic blood fqnhenqk48 mm[Hg]Jeremiah Huongs DO Work Phone: [phone]01-27-2025 08:45-0500 Heart rate82 /minJavijunito Farrells DO Work Phone: [phone] [place], [place] 7923301-27-2025 08:45-0500 Respiratory rate16 /minJeremiah Farrells DO Work Phone: [phone])[address] [place], [place] 7923301-27-2025 08:45-0500 SaO2% (BldA) [Mass fraction]97 %Jeremiah Farrells DO Work Phone: [phone] [place], [place] 1123501-27-2025 08:45-0500 Systolic blood yzgtwsvn004 mm[Hg]Jeremiahjunito Farrells DO Work Phone: [phone] [place], [place] 1123511-13-2024 10:37-0500 Body .56 cmJeremiah Farrells DO Work Phone: [phone] [place], [place] 1123511-13-2024 10:37-0500 Body mass index (BMI) [Ratio]31 kg/v1Dswga Huongs DO Work Phone: [phone] [place], [place] 1123511-13-2024 10:37-0500 Body xfqygw42.1 kgJavian Huongs DO Work Phone: [facility]11-13-2024 10:37-0500 Diastolic blood ulaupwql35 mm[Hg]Jeremiah Lazo DO Work Phone: [facility]11-13-2024 10:37-0500 Heart rate88 /minJeremiah Farrells DO Work Phone: [facility]11-13-2024 10:37-0500 Respiratory rate16 /minJeremiah Farrells DO Work Phone: [facility]11-13-2024 10:37-0500 SaO2% (BldA) [Mass fraction]94 %Jeremiah Farrells DO Work Phone: [facility]11-13-2024 10:37-0500 Systolic blood daizwbkv324 mm[Hg]Jeremiah Farrells DO Work Phone: [facility]10-07-2024 10:43-0400 Body yibzoq123.56 cmDO Jeremiah Farrells Work Phone: [facility]10-07-2024 10:43-0400 Body mass index (BMI) [Ratio]31.7 kg/m2DO Jeremiah Farrells Work Phone: [facility]10-07-2024 10:43-0400 Body ugblys33.91 kgDO Jeremiah Farrells Work Phone: [facility]10-07-2024 10:43-0400 Diastolic blood lklyjuvy50 mm[Hg]DO Jeremiah Laoz Work Phone: [facility]10-07-2024 10:43-0400 Heart rate67 /minDO Jeremiah Farrells Work Phone: [facility]10-07-2024 10:43-0400 Respiratory rate16 /minDO Jeremiah Farrells Work Phone: [facility]10-07-2024 10:43-0400 SaO2% (BldA) [Mass fraction]98 %DO Jeremiah Kuns Work Phone: [facility]10-07-2024 10:43-0400 Systolic blood vtqroaib105 mm[Hg]DO Jeremiah Lazo Work Phone: [facility]08-27-2024 13:55-0400 Body ffltoe877.56 cmDO Jeremiah Lazo Work Phone: [facility]08-27-2024 13:55-0400 Body mass index (BMI) [Ratio]29.9 kg/m2DO Jeremiah Lazo Work Phone: [address] [place], [place] 5010308-27-2024 13:55-0400 Body mtpabygkpbs25.2 [degF]DO Jeremiah Lazo Work Phone: [facility]08-27-2024 13:55-0400 Body kgDO Jeremiah Lazo Work Phone: [facility]08-27-2024 13:55-0400 Diastolic blood bkwesppk01 mm[Hg]DO Jeremiah Lazo Work Phone: [facility]08-27-2024 13:55-0400 Heart rate82 /YaimaO Jeremiah Lazo Work Phone: [facility]08-27-2024 13:55-0400 Respiratory rate16 /minDO Jeremiah Lazo Work Phone: [facility]08-27-2024 13:55-0400 SaO2% (BldA) [Mass fraction]99 %DO Jeremiah Lazo Work Phone: [facility]08-27-2024 13:55-0400 Systolic blood ymxuasih193 mm[Hg]DO Jeremiah Lazo Work Phone: [facility]08-12-2024 13:02-0400 Body cazfcd129.56 cmDO Jeremiah Lazo Work Phone: [address] [place], [place] 5010308-12-2024 13:02-0400 Body mass index (BMI) [Ratio]30.2 kg/m2DO Jeremiah Lazo Work Phone: [facility]08-12-2024 13:02-0400 Body rvahpi28.83 kgDO Jeremiah Lazo Work Phone: [facility]08-12-2024 13:02-0400 Diastolic blood lfixtssf28 mm[Hg]DO Jeremiah Lazo Work Phone: [facility]08-12-2024 13:02-0400 Heart rate95 /Patricia Lazo Work Phone: [facility]08-12-2024 13:02-0400 Respiratory rate16 /Patricia Lazo Work Phone: [facility]08-12-2024 13:02-0400 SaO2% (BldA) [Mass fraction]96 %DO Jeremiah Lazo Work Phone: [facility]08-12-2024 13:02-0400 Systolic blood vrighvru638 mm[Hg]DO Jeremiah Lazo Work Phone: [facility]05-07-2024 12:37-0400 Body .56 cmMD [facility]05-07-2024 12:37-0400Body mass index (BMI) [Ratio]31.2 kg/m2MD [facility]05-07-2024 12:37-0400Body .55 kgMD [facility]05-07-2024 12:37-0400Diastolic blood volaujnn73 mm[Hg]MD Adamson [facility]05-07-2024 12:37-0400Heart rate92 /minMD [facility]05-07-2024 12:37-0400Respiratory rate16 /minMD [facility]05-07-2024 12:37-2695SuV9% (BldA) [Mass fraction]97 %MD Adamson [facility]05-07-2024 12:37-0400Systolic blood dvpzxewp473 mm[Hg]MD Adamson [facility]03-20-2024 09:24-0400Body vhdyve765.6 cmVviviana Linn MD Work Phone: [facility]03-20-2024 09:24-0400Body temperature 97 [degF]Charlie Linn MD Work Phone: [facility]03-20-2024 09:24-0400Body hjhyms07.9 kgCharlie Linn MD Work Phone: [facility]03-20-2024 09:24-0400Diastolic blood gpbedqkp55 mm[Hg]Charlie Linn MD Work Phone: [facility]03-20-2024 09:24-0400Heart rate73 /min Charlie Linn MD Work Phone: [facility]03-20-2024 09:24-0400Respiratory rate 16 /minCharlie Linn MD Work Phone: [facility]03-20-2024 09:24-4090CjN1% (BldA) [Mass fraction]98 %Charlie Linn MD Work Phone: [facility]03-20-2024 09:24-0400Systolic blood mm[Hg]Charlie Linn MD Work Phone: [facility]03-05-2024 12:47-0500Body ejuzpo806.56 cmMD [facility]03-05-2024 12:47-0500Body mass index (BMI) [Ratio]31.2 kg/m2MD [facility] 05-07-2023 12:47-0500Body auifmc46.55 kgMD [facility]03-05-2024 12:47-0500Diastolic blood hennvzai26 mm[Hg]MD Adamson [facility]03-05-2024 12:47-0500Heart rate87 /minMD Juan Diego [facility]03-05-2024 12:47-0500Respiratory rate18 /minMD Juan Diego [facility]03-05-2024 12:47-6615ToF9% (BldA) [Mass fraction]98 %MD Adamson [facility]03-05-2024 12:47-0500 Systolic blood tqbikvsn642 mm[Hg]MD Adamson [facility] 04-09-2023 08:43-0500Body awxycn667.6 cmPacc 2 Work Phone: [facility]02-06-2024 08:43-0500Body temperature 98.4 [degF]Pacc 2 Work Phone: [facility]02-06-2024 08:43-0500Body meylxj57 kg Pacc 2 Work Phone: [facility]02-06-2024 08:43-0500Diastolic blood ltvgwfim65 mm[Hg]Pacc 2 Work Phone: [facility]02-06-2024 08:43-0500Heart rate74 /min Pacc 2 Work Phone: [facility]02-06-2024 08:43-0500Respiratory rate 16 /minPacc 2 Work Phone: [facility]02-06-2024 08:43-6801UgO2% (BldA) [Mass fraction]99 %Pacc 2 Work Phone: [facility]02-06-2024 08:43-0500Systolic blood xuqrinzm088 mm[Hg]Pacc 2 Work Phone: [facility]11-27-2023 15:33-0500Body .6 Torie Linn MD Work Phone: [facility]11-27-2023 15:33-0500Body temperature 98.49 [degF]Charlie Linn MD Work Phone: [facility]11-27-2023 15:33-0500Body fylvvw85.46 kgCharlie Linn MD Work Phone: [facility]11-27-2023 15:33-0500Diastolic blood awbubelg65 mm[Hg]Charlie Linn MD Work Phone: [facility]11-27-2023 15:33-0500Heart rate90 /min Charlie Linn MD Work Phone: [facility]11-27-2023 15:33-0500Respiratory rate 16 /minCharlie Linn MD Work Phone: [facility]11-27-2023 15:33-1719LkP0% (BldA) [Mass fraction]97 %Charlie Linn MD Work Phone: [facility]11-27-2023 15:33-0500Systolic blood ocqtfoyy620 mm[Hg]Charlie Linn MD Work Phone: [facility]10-31-2023 12:30-0400Body cquejk702.56 cmJeremiah Lazo Other [employer] Other 10-31-2023 12:30-0400Body mass index (BMI) [Ratio] 31.24 kg/p2RhdarJeremiah Lazo Other [employer] Other 10-31-2023 12:30-0400Body nlcypf35.56 kgJeremiah Lazo Other [employer] Other 10-31-2023 12:30-0400Respiratory rate16 /minJeremiah Lazo Other [employer] Other 10-31-2023 12:30-8084KiZ8% (BldA) [Mass fraction]98 % Jeremiah Lazo Other [employer] Other [id number] 08:28-0400Body ubginy643.6 Tres Borrero PA-C Work Phone: [facility] [facility] 08:28-0400Body vjfhac86.92 kgConi Borrero PA-C Work Phone: [facility]10-23-2023 08:28-0400Diastolic blood vxigweax58 mm[Hg]Coni Borrero PA-C Work Phone: [facility]10-23-2023 08:28-0400Heart rate70 /min Coni Borrero PA-C Work Phone: [facility]10-23-2023 08:28-0400Systolic blood fijukewb793 mm[Hg]Coni Bishopes PA-C Work Phone: [facility]09-05-2023 14:40-0400Body .56 cmAbdul Arnaldo Other [place] [employer] Other 09-05-2023 14:40-0400Body mass index (BMI) [Ratio] 32.47 kg/f6Qhwxr Arnaldo Other [place] [employer] Other 09-05-2023 14:40-0400Body .7 [degF]Mandeep Arnaldo Other [employer] Other 09-05-2023 14:40-0400Body vvdblo12.82 kgAbdul Arnaldo Other [employer] Other 09-05-2023 14:40-0400Diastolic blood lbwhcuio06 mm[Hg] Mandeep Arnaldo Other [place] [employer] Other 09-05-2023 14:40-0400Respiratory rate16 /minAbdul Arnaldo Other [employer] Other 09-05-2023 14:40-5924YoS3% (BldA) [Mass fraction]97 % Mandeep Arnaldo Other [employer] Other 09-05-2023 14:40-0400Systolic blood ojtdfxop425 mm[Hg] Mandeep Arnaldo Other [employer] Other 07-27-2023 12:30-0400Body .56 cmJeremiah Lazo Other [employer] Other 07-27-2023 12:30-0400Body mass index (BMI) [Ratio] 32.61 kg/n9FluqzJeremiah Lazo Other [employer] Other 07-27-2023 12:30-0400Body .18 kgJeremiah Lazo Other [employer] Other 07-27-2023 12:30-0400Diastolic blood jxafltfx46 mm[Hg] Jeremiah Lazo Other [employer] Other 07-27-2023 12:30-0400Respiratory rate16 /minJeremiah Lazo Other [employer] Other 07-27-2023 12:30-9921SzT5% (BldA) [Mass fraction]99 % Jeremiah Lazo Other [employer] Other 07-27-2023 12:30-0400Systolic blood bwfllbqo437 mm[Hg] Jeremiah Lazo Other [employer] Other 03-16-2023 14:45-0400Body wvxikw299.56 cmJeremiah Lazo Other [employer] Other 03-16-2023 14:45-0400Body mass index (BMI) [Ratio] 37.42 kg/h7KwfkoJeremiah Lazo Other [employer] Other 03-16-2023 14:45-0400Body mupuma03.88 kgJeremiah Lazo Other [employer] Other 03-16-2023 14:45-0400Diastolic blood szwagzop54 mm[Hg] Jeremiah Farrellkisha Other [employer] Other 03-16-2023 14:45-0400Respiratory rate16 /minJeremiah Lazo Other [employer] Other 03-16-2023 14:45-4396OcW4% (BldA) [Mass fraction]95 % Jeremiah Lazo Other [employer] Other 03-16-2023 14:45-0400Systolic blood ibaabldf174 mm[Hg] Jeremiahujnito Farrellkisha Other [employer] Other 02-28-2023 07:59-0500Body yypjjz248.6 cmSsofi Borrero PA-C Work Phone: [facility]02-28-2023 07:59-0500Body qerzwx97.79 kgConi Borrero PA-C Work Phone: [facility]02-28-2023 07:59-0500Diastolic blood ubhmfsyh07 mm[Hg]Coni Borrero PA-C Work Phone: [facility]02-28-2023 07:59-0500Heart rate79 /min Coni Borrero PA-C Work Phone: [facility]02-28-2023 07:59-0500Systolic blood wtlirdxi446 mm[Hg]Coni Borrero PA-C Work Phone: [facility]01-31-2023 13:30-0500Body fyjcco854.56 cmJeremiah Lazo Other [employer] Other 01-31-2023 13:30-0500Body mass index (BMI) [Ratio]38 kg/j8ShnunJeremiah Lazo Other [employer] Other 01-31-2023 13:30-0500Body ldgbhi472.43 kgJeremiah Lazo Other [employer] Other 01-31-2023 13:30-0500Diastolic blood kkfxymdq00 mm[Hg] Jeremiah Lazo Other [employer] Other 01-31-2023 13:30-0500Respiratory rate18 /minJeremiah Lazo Other [employer] Other 01-31-2023 13:30-8976ZxN7% (BldA) [Mass fraction]98 % Jeremiah Lazo Other [employer] Other 01-31-2023 13:30-0500Systolic blood mquoqoyb311 mm[Hg] Jeremiah Lazo Other [employer] Other 01-10-2023 14:45-0500Body btlvwo230.56 cmJeremiah Lazo Other [employer] Other 01-10-2023 14:45-0500Body mass index (BMI) [Ratio] 37.76 kg/r3RunezJeremiah Lazo Other [employer] Other 01-10-2023 14:45-0500Body vrqvap03.79 kgJavijunito Lazo Other [employer] Other 01-10-2023 14:45-0500Diastolic blood kdosyoij95 mm[Hg] Jeremiah Farrellkisha Other [employer] Other 01-10-2023 14:45-0500Respiratory rate18 /minBryjunito Lazo Other [employer] Other 01-10-2023 14:45-5087EnI2% (BldA) [Mass fraction]96 % Jeremiah Lazo Other [employer] Other 01-10-2023 14:45-0500Systolic blood kygkzvoe366 mm[Hg] Jeremiah Lazo Other [employer] Other 11-15-2022 15:15-0500Body .56 cmJeremiah Lazo Other [employer] Other 11-15-2022 15:15-0500Body mass index (BMI) [Ratio] 37.76 kg/q5Lverg Kuns Other [employer] Other 11-15-2022 15:15-0500Body ssesng89.79 kgJavijunito Lazo Other [employer] Other 11-15-2022 15:15-0500Diastolic blood zwhgoebr13 mm[Hg] Jeremiah Lazo Other [employer] Other 11-15-2022 15:15-0500Respiratory rate16 /minJeremiah Lazo Other [employer] Other 11-15-2022 15:15-3880LuF6% (BldA) [Mass fraction]94 % Jeremiah Lazo Other [employer] Other 11-15-2022 15:15-0500Systolic blood pabbcjfc346 mm[Hg] Jeremiah Lazo Other [employer] Other 07-12-2022 10:20-0400Body mzijkk163.56 cmAbdul Arnaldo Other [employer] Other 07-12-2022 10:20-0400Body mass index (BMI) [Ratio] 37.35 kg/x3Fnsts Arnaldo Other [employer] Other 07-12-2022 10:20-0400Body ygvsosaxljq78.8 [degF]Mandeep Arnaldo Other [employer] Other 07-12-2022 10:20-0400Body jvedeb79.7 kgAbdul Arnaldo Other [employer] Other 07-12-2022 10:20-0400Diastolic blood mm[Hg] Mandeep Arnaldo Other [employer] Other 07-12-2022 10:20-0400Respiratory rate18 /minAbdul Arnaldo Other [employer] Other 07-12-2022 10:20-9760RoQ4% (BldA) [Mass fraction]97 % Mandeep Arnaldo Other [employer] Other 07-12-2022 10:20-0400Systolic blood bpoapsdx669 mm[Hg] Mandeep Arnaldo Other [employer] Other 11-16-2021 14:00-0500Body xyjwtb742.56 cmJeremiah Lazo Other [employer] Other 11-16-2021 14:00-0500Body mass index (BMI) [Ratio] 37.24 kg/k7WbgzkJeremiah Lazo Other [employer] Other 11-16-2021 14:00-0500Body ujfycw94.43 kgJeremiah Lazo Other [employer] Other 11-16-2021 14:00-0500Diastolic blood vvotacur51 mm[Hg] Jeremiah Lazo Other [employer] Other 11-16-2021 14:00-0500Respiratory rate16 /minJeremiah Lazo Other [employer] Other 11-16-2021 14:00-5693RcN1% (BldA) [Mass fraction]99 % Jeremiah Lazo Other [employer] Other 11-16-2021 14:00-0500Systolic blood mm[Hg] Jeremiah Lazo Other [employer] Other 10-28-2021 11:30-0400Body .56 cmThomas Olexa Other [employer] Other 10-28-2021 11:30-0400Body mass index (BMI) [Ratio] 38.55 kg/c5Nynyui Olexa Other [employer] Other 10-28-2021 11:30-0400Body bgimcg703.88 kgThomas Olexa Other [employer] Other 10-18-2021 08:45-0400Body fcvnby803.56 cmJeremiah Yassine Other [employer] Other 10-18-2021 08:45-0400Body mass index (BMI) [Ratio]38.1 kg/x4KkzxeJeremiah Lazo Other [employer] Other 10-18-2021 08:45-0400Body qiopqy427.7 kgJeremiah Huongkisha Other [employer] Other 10-18-2021 08:45-0400Diastolic blood bmyockpu87 mm[Hg] Jeremiah Lazo Other [employer] Other 10-18-2021 08:45-0400Respiratory rate16 /minJeremiah Lazo Other [employer] Other 10-18-2021 08:45-0344VkB6% (BldA) [Mass fraction]97 % Jeremiah Lazo Other [employer] Other [id number] 08:45-3010Systolic blood ikzzbrvk783 mm[Hg] Jeremiah Lazo Other [employer] Other Encounters Encounter DateEncounter TypeCare ProviderFacilityStart: 12-25-2024 End: 96-57-1576jptuebmeqcLILYNFDU G BERENGERFacility:[facility] Start: 55-10-0153fzfagwzyxyZWFFT P KUNSFacility:[facility]: 12-01-2024 End: 55-71-4138xvifeyidwrYvalv Kuns DO Work Phone: [facility] Work Phone: Start: 12-01-2024 End: 40-91-0690Ldjbtsc encounter procedureJeremiah Jett DO-[facility] Work Phone: Start: 11-12-2024 End: 48-83-2053Usjhmnx encounter procedureRox Joyce MD Work Phone: Pain ManagementComment on above:Spinal stenosis of lumbar region with neurogenic claudication (Primary Dx); Radicular pain of right lower extremity; History of lumbar fusion; Adjacent segment disease of lumbar spine with history of fusion procedure; Arthrodesis status; Multiple sclerosis (HCC); Postlaminectomy syndrome, not elsewhere classifiedStart: 11-12-2024 End: 73-38-3461Kmzkjfywfw hospital visit by physicianXr [facility] Comment on above:Spondylosis of lumbar region without myelopathy or radiculopathy [M47.816]Start: 11-12-2024 End: 87-32-8163pcfzyzlmbdZMAFL P KUNSFacility:[facility]: 14-36-0199unrobqxnwtWovhhff [facility]: 10-22-2024 End: 23-66-8039vfjirajipxUnkil Kuns DO Work Phone: [facility] Work Phone: Start: 10-22-2024 End: 42-61-6772Ktomgwe encounter procedureGio Renee DO-[facility] Work Phone: Start: 10-22-2024 End: 41-68-2389Jddcvfa encounter procedureJeremiah Jett DO-[facility]: 10-22-2024 End: 70-34-4384ngvzmtrxziWvepa Kuns DO Work Phone: [facility] Work Phone: Start: 10-01-2024 End: 93-31-4610bzbosdnjkpSxtegsqyShilo Joyce MD Work Phone: Pain ManagementComment on above:Pain Questionnaire Start: 10-01-2024 End: 74-45-9823W-mail encounter from caregiverRox Joyce MD Work Phone: Pain ManagementStart: 09-22-2024 End: 15-21-7618yyqdqjlmpbVLJBA P KUNSFacility:[facility]: 09-22-2024 End: 23-77-0536Kkyobub encounter procedureMarcell Scott MD Work Phone: OrthopaedicsComment on above:Status post total right knee replacement (Primary Dx); Chronic bilateral low back pain with right-sided sciaticaStart: 09-10-2024 ambulatoryMARCELL SCOTT IIFacility:[facility]: 09-10-2024 End: 29-09-9406Rnkxhalccm hospital visit by physicianXr [facility] Work Phone: [facility] Radiology GeneralComment on above:Pain [R52]Dysphagia, unspecified type [R13.10]Start: 09-08-2024 End: 70-90-9691Byxbkld encounter procedureMarcell Scott MD Work Phone: OrthopaedicsComment on above:Status post total right knee replacement (Primary Dx)Start: 09-08-2024 End: 73-38-1217vhygemyhsiRKJHB P KUNSFacility:[facility]: 07-30-2024 End: 12-38-6770fryjtzwnswFsyru Kuns DO Work Phone: [facility] Work Phone: Start: 07-30-2024 End: 76-66-0466Dcvlhui encounter procedureJeremiah Farrellkisha DO Work Phone: [facility] Work Phone: Start: 07-28-2024 End: 52-40-8564Hqkjjys encounter procedureJeremiah Lazo DO Work Phone: [facility] [place] Work Phone: Start: 07-28-2024 End: 83-78-7326mnnyvcfdpkGvlrs Kuns DO Work Phone: [facility] Work Phone: Start: 07-01-2024 End: 31-15-9558nkxhjdgrqcAYYF A HERSHNERFacility:[facility] Hospital[facility]art: 07-01-2024 End: 28-73-3919Aoqkqag encounter procedureTonapoleon Saini OD Work Phone: OphthalmologyComment on above:Primary open angle glaucoma (POAG) of left eye, mild stage (Primary Dx); OAG (open angle glaucoma) suspect, high risk, right; Cataract, nuclear sclerotic senile, bilateralStatus post total right knee replacement (Primary Dx)Start: 07-01-2024 End: 70-01-4875qtacskipugEHRBE P KUNSFacility:[facility]: 06-10-2024 End: 46-11-0952Oubmjlv encounter procedureIzzy Vickers RT(R)RadiologyComment on above:Status post total right knee replacement (Primary Dx)Start: 06-10-2024 End: 18-33-7842Azsgohvegw hospital visit by physicianHossein Scott 1 Work Phone: RadiologyComment on above:Status post total right knee replacement [Z96.651]Start: 08-12-4344Hct-patient / Non-visitJeremiah Lazo DO Work Phone: [facility] Work Phone: Start: 06-10-2024 End: 09-36-5850gbfhvsxdjnLwrswr A Radman RT(R)RadiologyComment on above: Radiology XRStart: 06-09-2024 End: 61-45-6557tevrjqyiglZfdqji X OrzechFacility:[place]Start: 06-09-2024 End: 68-94-9143rfvszrrxikSSZAA P HUONGSFacility:[facility]tart: 06-09-2024 End: 75-02-8970Olzbxyv encounter procedureAlfred Guerrero MD Work Phone: OtolaryngologyComment on above:Laryngocele (Primary Dx); Supraglottic mass; Clotting disorder (HCC); Dysphagia, unspecified typeStart: 36-72-6318zaauvnbtryNlbimr X OrzechFacility:[place]kyStart: 06-01-2024 End: 03-22-5397ujqkriskhtSdzoh Kuns DO Work Phone: [facility] Work Phone: Start: 06-01-2024 End: 25-12-9266Kwyhxgy encounter procedureJeremiah Lazo DO Work Phone: [facility] Work Phone: Start: 05-28-2024 End: 01-56-6728wlafavapliKmdiae X OrzechFacility:[place]kyStart: 05-22-2024 End: 14-39-2450vzazovccocArhsuyw C Kolczun MD Work Phone: OrthopaedicsComment on above:Status post total right knee replacement (Primary Dx)Start: 05-22-2024 End: 78-32-6226Tgftotsofzdl consultation with Marie Scott MD Work Phone: OrthopaedicsStart: 97-17-3449lfexacfwygRgpbrwb C KolczunFacility:[facility]tart: 05-20-2024 End: 64-82-3391wyengnntrjBnlfdotLaurent Scott MD Work Phone: OrthopaedicsComment on above:S/P right unicompartmental knee replacement (Primary Dx)Start: 05-20-2024 End: 95-22-2586Spsicymxjdsa consultation with patientMarcell Scott MD Work Phone: OrthopaedicsStart: 59-03-5127Sff-patient / Non-visit Jeremiah Lazo DO Work Phone: [facility] Work Phone: Start: 05-19-2024 End: 10-34-2912uzgangypexJRIPOSR C KOLCZUN IIFacility:[facility]Start: 05-13-2024 End: 49-30-9297Piuhwiejd encounterMarcell Sctot MD Work Phone: Internal MedicineStart: 05-05-2024 End: 42-80-4894Jkgskewnj encounterMarcell Scott MD Work Phone: OrthopaedicsComment on above:Patient UpdateStart: 36-30-6465Sdnrlitoz department patient visitRemy GarciaerFacility:[facility] Hospitaltart: 14-31-1847unjytfuxmhTjjxjf Yesica EncisoFacility:[facility] Start: 04-29-2024 End: 01-23-1897Kyhecethz encounterCait Chen APRN.CNP Work Phone: pre AnesthesiaComment on above:Anesthesia Consult Start: 04-29-2024 End: 56-31-8147vgckunludfYCXRW P KUNSFacility:[facility]tart: 95-12-9756Xfnlvdxne for other preprocedural examinationMARCELL MEZAGlenbeigh HospitalStart: 04-29-2024 End: 68-72-0450Pfninjcas to [place] [address] Work Phone: Pre AnesthesiaStart: 04-29-2024 End: 00-55-4322Uqxzipfkxh consultationTimothy [place] [address] Work Phone: Pre AnesthesiaComment on above:Pre-op evaluation (Primary Dx); Mixed hyperlipidemia; Gastroesophageal reflux disease without esophagitis; History of pulmonary embolus (PE); Hypothyroidism, unspecified type; Multiple sclerosis (HCC); Primary hypertension; Laryngocele; Drug-induced systemic lupus erythematosus, unspecified organ involvement status (HCC); Depression, unspecified depression type; History of DVT (deep vein thrombosis)Start: 04-29-2024 End: 90-01-0676Ubtrdgwakyxon examination [place] [address] Work Phone: [facility] Work Phone: Start: 12-12-9098Jvb-patient / Non-visitJeremiah Lazo DO Work Phone: [facility] Work Phone: Start: 21-34-8136Msgudqhrs for other preprocedural examinationMERCY HOSPITALVIVIAN CASSIDYSelect Medical Specialty Hospital - [facility] SouthStart: 04-29-2024 End: 68-43-3800xiosjomculMPDTXJJ C KOLCZUNFacility:[facility] Start: 04-29-2024 End: 22-97-5887Suosybq encounter procedureDenise Scotch PA-C Work Phone: OrthopaedicsComment on above:Primary osteoarthritis of right knee (Primary Dx); Pre-op testingStart: 04-29-2024 End: 87-57-3505Kldjztt encounter statusDenise Scotch PA-C Work Phone: [facility] 04-27-2024 End: 99-34-8611Emrqskoun encounterLinda [facility] Case Management & Social WorkComment on above:CM ortho pre-opStart: 04-27-2024 End: 03-24-5431uhthijkmmcTphn Garrison RNOrthopaedicsStart: 03-31-2024 End: 01-81-8953Vmfwtjcrq encounterMarcell Scott MD Work Phone: OrthopaedicsComment on above:AppointmentStart: 03-30-2024 End: 50-86-9046excvcftkhhNavyt Kuns DO Work Phone: [facility] Work Phone: Start: 03-30-2024 End: 01-96-1809Dwryaxe encounter procedureJeremiah Lazo DO Work Phone: [facility] Work Phone: Start: 03-18-2024 End: 10-78-9295Xfyjksylg encounterMarcell Scott MD Work Phone: OrthopaedicsComment on above:Schedule SurgeryStart: 03-18-2024 End: 48-37-6758Conzelj encounter procedureMarcell Scott MD Work Phone: OrthopaedicsComment on above:Primary osteoarthritis of both knees (Primary Dx); Primary osteoarthritis of right knee; Pre-op testing; MRSA (methicillin resistant Staphylococcus aureus); Frequent urinationStart: 03-18-2024 End: 91-27-3105Kxkmqer encounter statusMarcell Scott MD Work Phone: [facility] ClinicStart: 03-18-2024 End: 07-71-9900ikvmzihswiHENCVMQ C KOLCZUNFacility:[facility] Start: 03-18-2024 End: 63-84-6393Wsjylyayho hospital visit by physicianHossein Marshall Work Phone: RadiologyComment on above:Pain [R52]Start: 03-12-2024 End: 45-60-2385rfjqoxyczsCHNO QIUFacility: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); Chorioretinal scar of left eyeStart: 02-21-2024 End: 05-09-6801Gpltnid encounter procedureBryjunito Lazo DO Work Phone: [facility] Work Phone: Start: 02-21-2024 End: 38-82-7006vlbninelxdUunmp KunsFacility:[facility] Start: 01-28-2024 End: 45-78-7315Yropqus encounter procedureBryjunito Lazo DO Work Phone: [facility] Work Phone: Start: 01-28-2024 End: 84-69-6157ngivhokjqxWycfdi OlexaFacility:[facility] Start: 01-24-2024 End: 56-89-1671jqodesikfhUfcnk KunsFacility:[facility] Start: 01-24-2024 End: 18-58-3085Elvxfnl encounter procedureJeremiah Lazo DO Work Phone: [facility] [place] Work Phone: Start: 01-15-2024 End: 63-96-6466rvcpmjxbczZpxig Kuns DO Work Phone: [facility] Work Phone: Start: 01-15-2024 End: 19-86-6418Aeamcni encounter procedureBryjunito Lazo DO Work Phone: [facility] Work Phone: Start: 01-14-2024 End: 71-35-6697kjdnyskcfaKiwdp Kuns DO Work Phone: [facility] Work Phone: Start: 01-14-2024 End: 34-84-9859Fjpziow encounter procedureBryjunito Farrells DO Work Phone: [facility] Work Phone: Start: 01-12-2024 End: 42-40-5695rgyatupnfdFfwoyyyZenon Naylor PAFacility:[facility] Hospitaltart: 01-04-2024 End: 64-02-6071Kqtogoz encounter procedureDO Jeremiah Lazo Work Phone: [facility] [place] Work Phone: Start: 01-04-2024 End: 90-62-2331zjyftjduggKU Bryan Kuns Work Phone: [facility] Work Phone: Start: 12-26-2023 End: 54-22-7559Llpsoqs encounter procedureDO Jeremiah Lazo Work Phone: [facility] Work Phone: Start: 12-09-2023 End: 08-93-2321idvjwbplsmOO Bryan Kuns Work Phone: [facility] Work Phone: Start: 12-09-2023 End: 12-55-0810Uopjgkj encounter procedureDO Jeremiah Lazo Work Phone: [facility] [place] Work Phone: Start: 12-06-2023 End: 46-17-2967Qkjpbzm encounter procedureDO Jeremiah Lazo Work Phone: [facility] [place] Work Phone: Start: 12-06-2023 End: 33-08-0322iusdpleehsIT Bryan Kuns Work Phone: [facility] Work Phone: Start: 12-06-2023 End: 85-25-1840juzjfinpciNB Bryan Kuns Work Phone: [facility] Work Phone: Start: 12-06-2023 End: 16-75-3556Kcpmsuh encounter procedureDO Jeremiah Lazo Work Phone: [facility] Work Phone: Start: 12-04-2023 End: 98-65-7437oapedxjchnUS Jeremiah Lazo Work Phone: [facility] Work Phone: Start: 12-04-2023 End: 24-79-1107Ibejody encounter procedureDO Jeremiah Lazo Work Phone: [facility] Work Phone: Start: 11-19-2023 End: 76-06-8146rgxglzonrzYH Jeremiah Lazo Work Phone: [facility] Work Phone: Start: 11-19-2023 End: 27-01-8213Bvtflyh encounter procedureDO Jeremiah Lazo Work Phone: [facility] Work Phone: Start: 11-19-2023 End: 84-90-8473Hvghgcv encounter procedureDO Jeremiah Lazo Work Phone: [facility] Start: 11-19-2023 End: 02-65-0929lplihjdjomIR Jeremiah Lazo Work Phone: [facility] Work Phone: Start: 11-14-2023 End: 38-51-4731Ytvxnyz encounter procedureDO Jeremiah Lazo Work Phone: [facility] Work Phone: Start: 11-14-2023 End: 13-19-8849zosfshoinbIK Jeremiah Lazo Work Phone: [facility] Work Phone: Start: 10-29-2023 End: 59-56-2726crzpgvubzoTR Jeremiah Lazo Work Phone: [facility] Work Phone: Start: 10-29-2023 End: 35-11-2141Ygsaokv encounter procedureDO Jeremiah Lazo Work Phone: [facility] Nephrology [facility] Work Phone: Start: 39-66-4802Uax-patient / Non-visitDO Jeremiah Lazo Work Phone: [facility] Work Phone: Start: 10-14-2023 End: 72-97-3797zewhgvloyeIS Jeremiah Lazo Work Phone: [facility] Work Phone: Start: 10-14-2023 End: 16-83-7513Pmbgbnc encounter procedureDO Jeremiah Lazo Work Phone: [facility] [place] Work Phone: Start: 10-10-2023 End: 92-53-9549qyzlglfoskGK Jeremiah Lazo Work Phone: [facility] Work Phone: Start: 10-10-2023 End: 75-03-6117Lbxzhbx encounter procedureDO Jeremiah Lazo Work Phone: [facility] [place] Work Phone: Start: 83-08-3828Xws-patient / Non-visitDO Jeremiah Lazo Work Phone: [facility] Work Phone: Start: 07-09-2023 End: 57-31-0372kxqtvdketiQO [facility] Work Phone: Start: 07-09-2023 End: 52-84-0466Jbpsyun encounter procedureMD [facility] Work Phone: Start: 06-11-2023 End: 53-54-4968Wpyimzy encounter Vanessa Guerrero MD Work Phone: OtolaryngologyComment on above:Laryngocele (Primary Dx); Lupus anticoagulant positive; Supraglottic massStart: 05-22-2023 End: 59-62-2188Ygwpit outpatient visit 15 minutesCharlie Linn MD Work Phone: Hematology/OncologyComment on above:History of DVT (deep vein thrombosis) (Primary Dx); History of pulmonary embolus (PE)Start: 05-07-2023 End: 19-92-1192Fvgicam encounter procedureMD [facility] Work Phone: Start: 82-25-9194Zzx-patient / Non-visitMD [facility] Work Phone: Start: 32-18-7983ywnhjxydylSzwddnf S Tierney MD Work Phone: OtolaryngologyComment on above:CBCStart: 88-00-0831I- mail encounter from caregiverAlfred Guerrero MD Work Phone: [facility] MAINStart: 05-06-2023 End: 64-71-1112Yyxowze encounter procedureAlfred Guerrero MD Work Phone: OtolaryngologyComment on above:Laryngocele (Primary Dx); Lupus anticoagulant positive; Supraglottic mass; Disorder of airway; Acquired hypothyroidismStart: 88-44-1311Jqx-patient / Non-visitMD Juan Diego [facility] Work Phone: Start: 43-73-2486Osf-patient / Non-visitMD Juan Diego [facility] [employer] Work Phone: Start: 04-09-2023 End: 49-44-5847ETZWylv Alden 2 Work Phone: Pre AnesthesiaComment on above:Pre-op evaluation (Primary Dx); History of pulmonary embolism; Clotting disorder (HCC); Multiple sclerosis (HCC); Primary hypertension; Hiatal hernia; Class 1 obesity with serious comorbidity and body mass index (BMI) of 31.0 to 31.9 in adult, unspecified obesity type; Mixed hyperlipidemia; OAB (overactive bladder)Start: 04-09-2023 End: 27-99-3327Xnfbyurrcazcd examination donePa Alden 2 Work Phone: [facility] Work Phone: Start: 03-26-2023 End: 78-33-6753gezxgyorkyPovwa Kuns Other [employer] Other Start: 16-66-2018Clzshbwff encounterJeremiah Finley [facility] Medicine [place]Start: 03-14-2023 End: 10-40-4049zfhszonkagQofrz Kuns Other [employer] Other Start: 16-47-8296Szjvxocwg encounterJeremiah Finley Family Medicine CastaliaStart: 03-13-2023 End: 74-37-1370eccvzfzucyZmyxy Kuns Other [employer] Other Start: 44-12-7889Jlibevyus encounterJeremiah Finley Family Medicine CastaliaStart: 02-19-2023 End: 22-74-3581zlbpmssbxoBD Bryan Kuns Work Phone: [facility] Work Phone: Start: 02-19-2023 End: 04-63-2117Wmaroso encounter Dileep Lazo Work Phone: [facility] Work Phone: Start: 02-05-2023 End: 99-75-4654rievxtksezQmyob Kuns Other [employer] Other Start: 52-07-6131Wdonpvs evaluation of patient and reportJeremiah FarrellkishaDAGO Family [facility] CastaliaStart: 98-55-1528Kiyuzlock encounter Charlie Linn MD Work Phone: Cancer Appts MCComment on above:Appointment ConfirmationStart: 01-28-2023 End: 40-36-9663Gavkow outpatient new 45 minutesCharlie Linn MD Work Phone: Hematology/OncologyComment on above:History of pulmonary embolus (PE) (Primary Dx); History of DVT (deep vein thrombosis); Lupus anticoagulant positive; Clotting disorder (HCC)Start: 01-21-2023 End: 11-97-3082azryynvuplBzhnq Kuns Other [employer] Other Start: 90-77-5404Sofkytpbp encounterJavijunito Finley [facility] CastaliaStart: 01-17-2023 End: 36-16-7623Zoondum encounter Vanessa Guerrero MD Work Phone: OtolaryngologyComment on above:Lupus anticoagulant positive (Primary Dx); Disorder of airway; Supraglottic mass; Clotting disorder (HCC); LaryngoceleSupraglottic mass (Primary Dx); Dysphagia, unspecified type; Throat painStart: 01-09-2023 End: 98-24-2674uqpwwhpbihRvymk Kuns Other [employer] Other Start: 44-68-1913Cjykmkdih encounterJeremiah FarrellkishaDAGO Family [facility] [place]Start: 01-08-2023 End: 10-16-0081Robnjggpdz hospital visit by physicianArrival Time Radiology Work Phone: Radiology Pet CTComment on above:Disorder of airway [J98.9]Start: 01-01-2023 End: 74-10-1977dbpsicqsbqRxibg Kuns Other [employer] Other Start: 89-20-6522Xwyalh outpatient visit 25 minutes Jeremiah Finley [facility] [place]Start: 12-24-2022 End: 18-11-0424Iwqesjm encounter Rashad Borrero PA-C Work Phone: [facility] CenterComment on above:Multiple sclerosis (HCC) (Primary Dx); Disorder of airway; Supraglottic mass; Medication monitoring encounter; Morbid obesity (HCC)Start: 12-03-2022 End: 84-00-7660terpycamsdUtppy Kuns Other [employer] Other Start: 37-96-4769Frpbmwbct encounterJeremiah FarrellkishaG Family Medicine [place]Start: 11-20-2022 End: 13-65-3806rkqrryarozCkqzp Kuns Other [employer] Other Start: 38-45-1304Zjbxtfhfu encounterJeremiah FarrellkishaG Family Medicine [place]Start: 11-06-2022 End: 94-24-5554jrxjgankbnMgaej Arnaldo Other [employer] Other Start: 19-86-5660Wvrofb outpatient visit 15 minutes Mandeep QadirFPG NephrologyStart: 11-01-2022 End: 31-52-9284eklfjnmspyPM Jeremiah Lazo Work Phone: [facility] Work Phone: Start: 11-01-2022 End: 72-16-0768Njqjbji encounter procedureDO Jeremiah Lazo Work Phone: [facility] [place] Work Phone: Start: 10-25-2022 End: 78-49-3091xmrbmjrfzwMscdj Kuns Other [employer] Other Start: 39-83-1585Xrghlbbys encounterBryjunito Finley Family Medicine [place]Start: 10-17-2022 End: 78-12-2885hiotynbiuqRhiip Kuns Other [employer] Other Start: 48-67-0220Dtvwehvnq encounterJeremiah Tushar Family Medicine [place]Start: 09-27-2022 End: 72-54-3981duvomptsltYdfkb Kuns Other [employer] Other Start: 49-42-4374Covokv outpatient visit 15 minutes Jeremiah Finley [facility] [place]Start: 09-20-2022 End: 78-00-0740Zjmewqe encounter procedureDO Jeremiah Lazo Work Phone: [facility] Work Phone: Start: 09-19-2022 End: 68-69-1964zrgueyevsiVnsla Kuns Other [employer] Other Start: 15-20-5215Myyugszcv encounterJavijunito CurryG Family Medicine [place]Start: 09-06-2022 End: 59-62-9145Ydnkzfmftf hospital visit by Kameron Godfrey (I-Stat/3t) Work Phone: RadiologyComment on above:Canceled (Pt cx: Rescheduled)Start: 08-31-2022 End: 39-83-1917canjwzzdupBrqqs Kuns Other [employer] Other Start: 45-95-4117Nwstlzmns encounterBryjunito Finley Family Medicine [place]Start: 08-28-2022 End: 95-83-1503ernfbqakcoXilbu Kuns Other [employer] Other Start: 08-46-7611Nmnoulxho encounterBryjunito LazoFPG Family Medicine [place]Start: 08-03-2022 End: 31-07-1246ncmpaayhchFipvc Kuns Other [employer] Other Start: 53-02-7606Btimzxiop encounterBryjunito LazoFPG Family Medicine [place]Start: 07-16-2022 End: 75-16-6651exysauqoisYydnv Kuns Other [employer] Other Start: 55-23-7635Djkitqeht encounterBryjunito LazoFPG Family Medicine [place]Start: 06-19-2022(Proc F/U) Procedure F/UMerline Tristan [facility] OrthopedicsStart: 06-19-2022 End: 06-47-3115zxxmntdkieLmjrfxan [place]ear[place] Other [employer] Other Start: 06-07-2022 End: 98-50-4017ikbmzooytbRsonqabo [place] Other [employer] Other Start: 93-40-0420Fogzmo outpatient visit 15 minutes Merline Kun [facility] OrthopedicsStart: 05-24-2022 End: 13-25-1156smpktzxvdbTijhc Kuns Other [employer] Other Start: 82-85-7459Bhxxsscvh encounterBryan KunsFPG Family Medicine [place]Start: 05-18-2022 End: 82-80-9308ewwhkyiqsfAmhpp Huongs Other [employer] Other Start: 77-40-6251Cfzahigqh encounterJeremiah Finley [facility] Cast[place]Start: 05-17-2022 End: 45-09-2183yvtcxhzzepPdfgl Huongs Other [employer] Other Start: 13-65-0574Bzatgw outpatient visit 15 minutes Jeremiahjunito LazoKiara [facility] CastaliaStart: 05-14-2022 End: 25-96-7854qkulnrwoynFfifs Huongs Other [employer] Other Start: 62-94-8072Tieihxzfz encounterJavijunito LazoKiara Family [facility] [place]Start: 05-01-2022 End: 45-41-8822Zsotvmh encounter Rashad Borrero PA-C Work Phone: mellen CenterComment on above:Paresthesias (Primary Dx); Demyelinating disease of central nervous system (HCC); Imbalance; Malaise and fatigueStart: 60-71-6562Ttjlgdbzr encounterBryjunito Finley Family [facility] CastaliaStart: 04-30-2022 End: 83-34-7665rhwcjrgaloMQ Jeremiah Lazo Work Phone: [facility] Work Phone: Start: 04-30-2022 End: 86-85-3369Lgszcjp encounter procedureDO Jeremiah Lazo Work Phone: [facility] [place] Work Phone: Start: 04-29-2022 End: 68-17-0535pngkmnookaUSGPG PARKERFacility:O3Ganan: 04-26-2022 End: 86-63-3345qbpdgrmtfnJjyhc Huongs Other [place] [employer] Other Start: 30-56-1755Wwjyayhrs encounterJeremiah Finley Family Medicine Cast[place]Start: 04-03-2022 End: 09-81-8361dxelygugwqZyvea Kuns Other [employer] Other Start: 13-26-9519Rxqbtd outpatient visit 15 minutes Jeremiah Finley [facility] [place]Start: 03-14-2022 End: 01-44-6585bmafydprjaXdxtu Kuns Other [employer] Other Start: 44-50-2786Fqvxxqtkq encounterBryjunito Finley Family [facility] [place]Start: 03-13-2022 End: 36-40-5573Lcpbggv encounter procedureDO Jeremiah Lazo Work Phone: [facility] [place] Work Phone: Start: 03-13-2022 End: 42-82-5425nobmelnakgQC Jeremiah Lazo Work Phone: [facility] Work Phone: Start: 79-30-4303Hpqzfj outpatient visit 25 minutes Jeremiah Finley [facility] [place]Start: 02-27-2022 End: 98-54-6117ghccbijsqrAxgct Kuns Other [facility] [employer] Other Start: 47-28-9470Eoneyzicw encounterJeremiah Finley [facility] [place]Start: 02-13-2022 End: 91-11-9652bxrkjbqgljQH Jeremiah Lazo Work Phone: [facility] Work Phone: Start: 02-13-2022 End: 05-49-1422Dvbowqp encounter procedureDO Jeremiah Lazo Work Phone: [facility] [place]Start: 01-16-2022 End: 48-53-1409ubjbkxvboqVtcqw Kuns Other [employer] Other Start: 00-90-5745Znfnrh outpatient visit 25 minutes Jeremiah Finley [facility] [place]Start: 01-11-2022 End: 41-27-9803Gycwqsi encounter procedureDO Jeremiah Lazo Work Phone: [facility] Start: 11-29-2021 End: 30-69-8157Jbx Drop [facility] Start: 11-28-2021 End: 72-83-0489hfbvvbmovfMvhfr Kuns Other [employer] Other Start: 04-59-8102Eckmepxzb encounterJeremiah Finley [facility] [place]Start: 10-26-2021 End: 80-04-5015gjxodqxbrlDV JEREMIAH LAZOFacility:X9Lnauy: 10-04-2021 End: 84-78-3832bqwgaslhkoNdkxy Kuns Other [employer] Other Start: 06-29-0235Xgktbilep encounterBryjunito Finley [facility] [place]Start: 09-12-2021 End: 16-55-9769estzsirxsrEizja Arnaldo Other [employer] Other Start: 13-74-9602Hsqmqr outpatient visit 15 minutes Mandeep QadirFPG NephrologyStart: 08-03-2021 End: 41-25-1118qcpjkpkmqjWpsnq Kuns Other [employer] Other Start: 16-67-6889Ktkzfwyob encounterBryan YassineFPG Family Medicine [place]Start: 07-27-2021 End: 92-92-2279dovozrajmvXqqhw Kuns Other [employer] Other Start: 41-45-4356Dxkeqpbsx encounterBryjunito FarrellsFPG Family Medicine [place]Start: 06-26-2021 End: 97-79-2917himabrnmxmCwsex Kuns Other [employer] Other Start: 73-39-1082Dwlvliuey encounterBryan HuongsFPG Family Medicine [place]Start: 06-21-2021 End: 50-45-9661nipyecdvtqDtvia Kuns Other [employer] Other Start: 03-06-8082Gsixqmqsn encounterBryan HuongsFPG Family Medicine [place]Start: 05-23-2021 End: 01-29-7709wepvmfigycXyeea Kuns Other [employer] Other Start: 56-06-7051Gttimetvi encounterBryjunito CurryG [facility] CareStart: 05-22-2021 End: 29-58-7729aabbfuqodiEjayu Kuns Other [employer] Other Start: 34-28-9743Xfrpopggv encounterBryan YassineFPG Family Medicine [place]Start: 05-08-2021 End: 93-98-2269upmrezvplwDnlpb Kuns Other [employer] Other Start: 66-75-5169Hayjosmes encounterBryan HuongsFPG Family Medicine [place]Start: 01-17-2021 End: 50-32-1298hyimciqyqdAvshh Kuns Other [employer] Other start: 73-67-7459Xfgcbq outpatient visit 15 minutes Jeremiah CurryG Family Medicine CastaliaStart: 22-33-0326Wmpxkpmws by computer linkJeremiah [facility] OrthopedicsStart: 89-74-5940Fjqjyv outpatient visit 15 minutesThomas OlexaFPG [facility] OrthopedicsStart: 62-83-3353Jhcciblzb encounterBryjunito Tushar [facility] Medicine [place]Start: 44-11-0437Ptcrin outpatient visit 25 minutesJeremiah CurryG [facility] Medicine CastaliaStart: 68-13-1614Ipxxaopffa and management of inpatientDO Jeremiah Lazo Work Phone: [facility] [place] Surgical Procedures DateProcedureProcedure DetailPerforming ClinicianStart: 92-50-7064Qrgyl spine lumbosacral 2/3 viewsPhilipevin Joyce MD Work Phone: Start: 10-29-2024 End: 40-68-0656Wcrjplghyhbvz w/patient 60 minutesFelicia Valladares PhD Work Phone: Start: 14-78-9415IWO (POC)Jeremiah Lazo DO Work Phone: Start: 25-48-4945Sicys chest X-rayJeremiah Lazo DO Work Phone: Start: 51-91-9188Qyugffdqyqkpe w/patient 60 minutes Felicia Valladares PhDStart: 49-74-7083Kxyxd hip unilateral with pelvis 2-3 views Marcell Scott MD Work Phone: Start: 08-27-2024 End: 12-45-1976Hdyjqmxrygdwe w/patient 60 minutesMelchristopher Valladares PhD Work Phone: Start: 26-06-5399Ofahdktsmu examination knee 3 views Marcell Scott MD Work Phone: Start: 97-25-7045Rypqp cultureJeremiah Lazo DO Work Phone: Start: 81-70-0227Ugwognzg screenMARCELL Solment on above:Order Comment: Specimen Type: BLOOD SPECIMENOrdering Facility: [facility] Address:[address] [place] [address] Performed By: #### TSCR ####CC MAIN BLOOD BANKCLIA [id number] JERMAN ORTIZK [id number] [address] [place] AMERICAStart: 03-18-2024 Radiologic exam knee complete 4/more viewsMarcell Scott MD Work Phone: Start: 03-12-2024 End: 41-23-3768Gyenlq field xm uni/bi w/interp extended examMary Yamilet VERAS Work Phone: Start: 94-47-0588Jztnnwjcyt us dx corneal pachymetry uni/biMary Yamilet VERAS Work Phone: Start: 92-46-9991Aeuqcbbeo mammography of bilateral breastsBryan Huongs DO Work Phone: Start: 19-81-9918Fnyxt X-ray of right wristBryan Huongs DO Work Phone: Start: 92-82-5523Bbwxl cultureBryan Kuns DO Work Phone: Start: 27-90-1639RXM of lumbar spine with contrastDO Jeremiah Farrells Work Phone: Start: 97-54-5956Zbzdt X-ray of right hipDO Jeremiah Kuns Work Phone: Start: 28-29-8959C-ray of lumbar spine, four or more viewsDO Jeremiah Kuns Work Phone: Start: 40-95-4535J-ray of sacrum and coccyx, two or more viewsDO Jeremiah Kuns Work Phone: Start: 04-22-8650E-ray of right kneeDO Jeremiha Huongs Work Phone: Start: 95-59-2733Lbzt energy X-ray absorptiometryDO Jeremiah Huongs Work Phone: Start: 94-77-6640Utscbpzgs microbial cultureMD Juan Diego Paulinoo Start: 17-83-3355Zxzxuiqd identified in Wound by CultureMD Juan Diego PaulinooStart: 75-95-4164Tggxaozry mammography of bilateral breastsDO Jeremiah Lazo Work Phone: Start: 30-45-9363Co soft tissue neck w/contrast Devan Borrero PA-C Work Phone: Start: 24-28-3984EYIMFXHTKW BLZayda Borrero PA-C Work Phone: Start: 63-92-5649Nlwiikeba mammography of bilateral breastsDO Jeremiah Lazo Work Phone: ElectrocardiogramJeremiah Lazo Other Plan of Treatment DateCare ActivityDetailAuthorStart: 69-32-9915Blqjp microalbumin profile DTaP,Tdap,Td Vaccine (2 - Td or Tdap)[facility]: 85-65-1836Ayzigfbx ScreeningDiabetes ScreeningMagruder Hospitaltart: 62-09-1954Khnxkboc Screening Diabetes ScreeningMagruder Hospitaltart: 80-68-8528Kkcmttut ScreeningDiabetes ScreeningMagruder Hospitaltart: 97-94-0511Gwpuuyus ScreeningDiabetes Screening [facility]: 07-02-2025 End: 83-25-6863Snwxxen encounter procedureOphthalmologyComment on above:1 year Full HVF 24-2Start: 06-09-2025 End: 89-79-7437Cmhqeoc encounter hnbapuegc58/08/2026 1:00 PM EDT Office Visit Otolaryngology [address] [place] [address] Alfred Guerrero MD [address] [place] [address] annual checkOtolaryngologyComment on above:annual checkStart: 05-19-2025 End: 85-48-8988Cbnhkf-up lezfpvjjh10/18/2026 10:00 AM EDT Visit (SP) Office Hematology/Oncology [address] [place] [address] Charlie Linn MD [address] [place] [address] 3 month follow up, no labsHematology/OncologyComment on above:3 month follow up, no labsStart: 64-20-1721GO Controlled (<130/80)BP Controlled (<130/80)[facility]: 12-31-2024 End: 07-12-1254Bwahubu encounter xyfwqvyqs82/30/2025 11:30 AM EDT Office Visit Pain Management [address] [place] [address] Rox Joyce MD [address] [facility] [place] [address] FOLLOW UP AFTER MRIPain ManagementComment on above:FOLLOW UP AFTER MRIStart: 12-10-2024 End: 51-75-3003Aldsygp encounter bmgrwieww96/09/2025 3:20 PM EDT Appointment Radiology [address] [place], [place] [id number] *pt has plates and screwsRadiologyComment on above:*pt has plates and screwsStart: 12-10-2024 [facility] Work Phone: Start: 90-76-6079EqerdjgMadison State Hospital Work Phone: Start: 11-12-2024 End: 75-42-6048Udbawvj encounter kixcukagd98/11/2025 9:00 AM EDT Office Visit Pain Management [address] [place] [address] Rox Joyce MD [address] [facility] [place] [address] back painPain ManagementComment on above:back painStart: 40-33-3046Npzhcqugt vaccinationInfluenza Vaccine (#1)[facility]: 10-29-2024 End: 27-59-9156CindKit [facility] Work Phone: Start: 67-90-8456Mniqcgr, [facility] Work Phone: Start: 09-22-2024 End: 85-81-7241Zhovtdg encounter hoqlwjrfz23/22/2025 10:30 AM EDT Office Visit Orthopaedics [address] [place] [address] Marcell Scott MD [address] [place] [address] Right hip painOrthopaedicsComment on above:Right hip pain Start: 09-10-2024 End: 53-73-4087Punvnik encounter gzahmejeu15/10/2025 9:00 AM EDT Appointment [facility] Radiology Gastrointestinal [address] [place] [address] Dysphagia, unspecified type [R13.10][facility] Radiology GastrointestinalComment on above:Dysphagia, unspecified type [R13.10]Start: 09-02-2024 End: 17-50-4877Nnukwpp encounter opeblpyul40/02/2025 11:15 AM EDT Office Visit Orthopaedics [address] [place] [address] Marcell Scott MD [address] [place] [address] POST OP RIGHT TOTAL KNEE 05/19/24OrthopaedicsComment on above: POST OP RIGHT TOTAL KNEE 05/19/24Start: 08-27-2024 End: 99-17-0877ZtugKit [facility] Work Phone: Start: 07-01-2024 End: 12-18-7977Poydybz encounter procedureOphthalmologyComment on above:Dr. Lewis next available [place]POST OP RIGHT TOTAL KNEE 05/19/24Start: 06-29-2024 Covid-19 Vaccine ( season)Covid-19 Vaccine ( season) [facility]Start: 06-16[facility]2024 End: 11-09-2948qtmfsdnrmt79/15/2025 4:30 PM EDT Results Only Dipak [facility] [address] [facility] [place] [address] Mgdyvz [facility] LaboratoryStart: 06-16-2024 End: 69-64-8088ZTD W Auto Differential panel - BloodCOMPLETE BLOOD COUNT AND DIFFERENTIAL Lab Routine Pre-op testing Expected: 06/16/2024, Expires: 09/01leveland ClinicComment on above:Expected: 06/16/2024, Expires: 09/15/2024 Start: 06-10-2024 End: 05-13-2196Gqmktkb encounter procedureOrthopaedicsComment on above:POST OP RIGHT TOTAL KNEE 05/19/24xrayStart: 06-10-2024 End: 47-26-2781pwwgrrsryf10/09/2025 10:45 AM EDT Results Only Alden [facility] [address] [place], [place] [phone] LabSan[facility] LaboratoryComment on above:LabStart: 06-09-2024 End: 35-18-9644Nxslrzr encounter pohnaismv42/08/2025 10:15 AM EDT Office Visit Otolaryngology [address] [facility] [address] [place] [address] Alfred Guerrero MD [address] [place] [address] annual checkOtolaryngologyComment on above:annual checkStart: 06-08-2024 End: 86-62-8307Ayccnsf encounter vuwcfmyrn22/07/2025 12:15 PM EDT Office Visit Orthopaedics [address] [place] [address] Marcell Scott MD [address] [place] [address] POST OP RIGHT TOTAL KNEE 04/21/24OrthopaedicsComment on above: POST OP RIGHT TOTAL KNEE 04/21/24Start: 06-05-2024 End: 69-41-8662Ezkaxcb encounter yroqyxnoz76/04/2025 9:00 AM EDT Office Visit Otolaryngology [address] [place] [address] Alfred Guerrero MD [address] [place] [address] annual checkOtolaryngologyComment on above:annual checkStart: 04-82-2363Tnmkpthy identified in Urine by CultureUrine [facility] Hospitaltart: 43-06-4955Pmpmc [facility] Columbustart: 05-19-2024 End: 59-89-9960Coityxlhp to same day surgery jhwqsd8305/19/2024 12:30 PM EDT - 05/19/2024 4:30 PM EDT Surgery [facility] Surgery [address] [place] [address] Marcell Scott MD [address] [place] [address] ARTHROPLASTY REPLACE JOINT TOTAL KNEEBrigham City Community Hospital SurgeryComment on above:ARTHROPLASTY REPLACE JOINT TOTAL KNEEStart: 05-19-2024 End: 96-14-0438Pmhtmx kne condyle&platu medial&lat compartmentsARTHROPLASTY REPLACE JOINT TOTAL KNEE Primary osteoarthritis of right knee 05/19/2024 12:30 PM EDTAV ORStart: 11-20-1136Dvudbbiljm hospital visit by qcqwetujc10/18/2025 12:30 PM EDT Hospital Encounter [facility] Surgery [address] [place] [address] Marcell Scott MD [address] [place] [address] Primary osteoarthritis of right knee [M17.11][facility] SurgeryComment on above:Primary osteoarthritis of right knee [M17.11]Start: 05-13-2024 End: 37-74-3937Ljovibt encounter cknseklqs28/12/2025 10:00 AM EDT Office Visit Orthopaedics [address] [place] [address] Patience Angeles PA-C [address] [place] [place] [address] POST OP RIGHT TOTAL KNEE 04/21/24OrthopaedicsComment on above: POST OP RIGHT TOTAL KNEE 04/21/24Start: 04-29-2024 End: 67-05-1636ETEC + SCREENCleveland Clinic [facility] Work Phone: Comment on above:Expected: 04/29/2024, Expires: 07/29/2024Start: 04-29-2024 End: 30-85-0342Fngrhrjxna rmyknpfzikmx69/26/2025 11:00 AM EST PAT Pre Anesthesia [address] [place] [address] 2,Pacc Alden [address] [place] [address] PACC RIGHT TKR 05/19/24Pre AnesthesiaComment on above:PACC RIGHT TKR 05/19/24Start: 04-29-2024 End: 47-14-7625apsrwaxeui01/26/2025 10:45 AM EST Results Only Alden [facility] [address] [place], [place] [phone] labLorain [facility] LaboratoryComment on above:labStart: 04-29-2024 End: 21-43-7156Xtwuqxk encounter btjkuewfp29/26/2025 9:00 AM EST Office Visit Orthopaedics [address] [place] [address] Patience Angeles PA-C [address] [place] [address] CAREPATHOrthopaedicsComment on above:CAREPATHStart: 04-21-2024 End: 36-86-1707Rnjmadmqp to same day surgery fihfqs1004/21/2024 11:45 AM EST - 04/21/2024 3:45 PM EST Surgery [facility] Surgery [address] [place] [address] Marcell Scott MD [address] [place] [place] [address] ARTHROPLASTY REPLACE JOINT TOTAL KNEEBrigham City Community Hospital SurgeryComment on above:ARTHROPLASTY REPLACE JOINT TOTAL KNEEStart: 04-21-2024 End: 23-43-3768Zivxrz kne condyle&platu medial&lat compartmentsARTHROPLASTY REPLACE JOINT TOTAL KNEE Primary osteoarthritis of right knee 04/21/2024 11:45 AM ESTAV ORStart: 00-69-1144Jedtfxpvtx hospital visit by vqcgiwugb80/18/2025 11:45 AM EST Hospital Encounter [facility] Surgery [address] [place] [address] Marcell Scott MD [address] [place] [address] Primary osteoarthritis of right knee [M17.11][facility] SurgeryComment on above:Primary osteoarthritis of right knee [M17.11]Start: 27-61-3853MI Controlled (<130/80)BP Controlled (<130/80)[facility]: 04-01-2024 End: 93-60-0539Xpisv metabolic 2000 panel - Serum or PlasmaBASIC METABOLIC PANEL Lab Routine Pre-op testing Expected: 04/01/2024 (Approximate), Expires: leveland ClinicComment on above:Expected: 04/01/2024 (Approximate), Expires: 07/01/2024Start: 04-01-2024 End: 62-80-4875Tdlckayljg A1c in BloodHEMOGLOBIN A1C Lab Routine Pre-op testing Expected: 04/01/2024 (Approximate), Expires: 07/01/2024leveland ClinicComment on above:Expected: 04/01/2024 (Approximate), Expires: 07/01/2024Start: 04-01-2024 End: 68-65-6912WXHEBSGENGMZIS AUREUS & MRSA SCREEN, PCR, NASALSTAPHYLOCOCCUS AUREUS & MRSA SCREEN, PCR, NASAL Lab Routine MRSA (methicillin resistant Staphylococcus aureus) Expected: 04/01/2024 (Approximate), Expires: 07/01/2024 [facility]Comment on above:Expected: 04/01/2024 (Approximate), Expires: 07/01/2024Start: 04-01-2024 End: 65-74-9932Gggdgnwrlh complete panel - UrineURINALYSIS, WITH MICROSCOPIC Lab Routine Frequent urination Expected: 04/01/2024 (Approximate), Expires: 07/01/2024leveland ClinicComment on above:Expected: 04/01/2024 (Approximate), Expires: 07/01/2024Start: 03-18-2024 End: 48-26-5586Ladrbvma identified in Urine by CultureBACTERIAL CULTURE, URINE Microbiology Routine Frequent urination Expected: 03/18/2024, Expires: 06/02[facility] ClinicComment on above:Expected: 03/18/2024, Expires: 06/17/2024 Start: [id number] Directive DiscussionAdvance Directive Discussion [facility]Medicare Advantage Annual Wellness Visit Medicare Advantage Annual Well[facility] VisitMag[facility] Hospitalt[facility]: [id number]-ray of right kneeXR knee RT 2[facility] [id number] Knee - right 2 [place] [facility]: 20-42-3636Cxwll-19 Vaccine ( season)Covid-19 Vaccine ( season)[facility]: 34-63-6613Sosfmahhk vaccinationInfluenza Vaccine (#1)[facility]: 53-68-5759Idcyigc Directive DiscussionAdvance Directive Discussion [facility] 91-32-1075Siclegncx for osteoporosisBone Density ScreeningMagruder Hospitaltart: 01-29-2023 End: 60-21-7532KNI W Auto Differential panel - BloodCBC + DIFF Lab Routine History of pulmonary embolus (PE) Expected: 01/29/2023, Expires: 01/30/2024 [facility] Work Phone: Comment on above:Expected: 01/29/2023, Expires: 01/30/2024Start: 01-29-2023 End: 73-98-1830Tjncxagjwurdi metabolic 2000 panel - Serum or PlasmaCOMP METABOLIC PANEL Lab Routine History of pulmonary embolus (PE) Expected: 01/29/2023, Expires: 01/30/2024[facility] Work Phone: Comment on above:Expected: 01/29/2023, Expires: 01/30/2024Start: 01-28-2023 End: 93-53-9258MAMTCQXFY DIAG PNLCSumma Health [facility] Work Phone: Comment on above:Expected: 01/28/2023, Expires: 04/29/2023Start: 12-24-2022 End: 75-76-9509ZRNCXPSQTL BLDCREATININE BLD Lab Routine Medication monitoring encounter Expected: 12/24/2022, Expires: 03/25/2023[facility] Work Phone: Comment on above:Expected: 12/24/2022, Expires: 03/25/2023Start: 53-08-8884Qmkor-19 Vaccine ( - 2022- season)Covid-19 Vaccine ( - 2022- season)[facility]: 45-91-6612Qdlwptoaq vaccination [facility]: 99-95-0721Gtyfwufj identified in Urine by Culture [facility]: 49-89-1633HKCRO-19 VACCINE (3 - Booster for Moderna series)COVID-19 VACCINE (3 - Booster for Moderna series)[facility]: 99-09-6117NFASW-19 VACCINE (3 - Moderna series)COVID-19 VACCINE (3 - Moderna series)[facility]: 58-37-5603Muylvphwf for malignant neoplasm of breastMammogram ScreeningMagruder Hospital[facility]: 37-82-0733IAWMRPYZ SCREENDIABETES SCREENMagruder Hospital[facility]: 79-30-0990Htgrpczb ScreeningDiabetes ScreeningMagruder [facility]: 91-42-8958KDB Vaccine (1 - 1-dose 60+ series) RSV Vaccine (1 - 1-dose 60+ series)[facility]: 22-07-3596HZB Vaccine (1 - Risk 60-74 years 1-dose series)RSV Vaccine (1 - Risk 60-74 years 1-dose series)[facility]: 28-59-0511FRJJHTBP VACCINE (1 of 2)SHINGRIX VACCINE (1 of 2)[facility]: 74-16-4781ZNKZPQWRL (FIT-DNA)COLOGUARD (FIT-DNA)[facility]: 34-44-8050AhpswthrnzxMGLEBFJKXYNAhswfathu Clinic Start: 23-63-3326IBCMRNOEOF CANCER SCREENINGCOLORECTAL CANCER SCREENINGMagruder [facility]: 36-55-4299EL COLONOGRAPHYCT COLONOGRAPHYMag[facility]: 63-92-9784ESAGK OCCULT BLOODFECAL OCCULT BLOODMagr[facility]: 2003 Lipid 1996 panel - Serum or PlasmaLipid ScreeningMagruder [facility]: 38-01-6120Xvxtg panelLipid ScreeningMagruder [facility]: 38-36-0019CQQCL SCREENLIPID SCREENMagruder [facility]: 75-84-5296Acujldnao for malignant neoplasm of colonMagruder [facility]: 15-25-3252ZYLAQYGHZDNFRLSRGTUKZAURDY [facility]: 48-32-4846AQY TESTINGPAP TESTINGMag[facility]: 14-28-3761VahrduitketQiqskryhs ClinicStart: 30-18-2302Ghlygldvy for malignant neoplasm of breastMammogram ScreeningMagruder [facility]: 45-94-8331ECP TESTINGHPV TESTINGMag[facility]: 82-51-8834LUY TESTINGPAP TESTING [facility]: 73-92-6094Cblox microalbumin profileDTAP,TDAP,TD (1 - Tdap)[facility]: 29-32-8122Shcstu PCP Team Chronic Disease Visit Annual PCP Team Chronic Disease VisitMagruder [facility]: 90-34-3233Eakbjbe ScreeningAnxiety ScreeningMagruder [facility]: 60-68-1438AE Controlled (<130/80)BP Controlled (<130/80)[facility]: 85-99-1128XQIQVWEUY C SCREENINGHEPATITIS C SCREENINGMag[facility]: 76-58-0771Ogrlhawpz C screeningHepatitis C ScreeningMagruder [facility]: 56-67-2716GYM SCREENINGHIV SCREENINGMag[facility]: 83-69-0155LCB screeningHIV ScreeningUniversity Hospitals Beachwood Medical Centerrt: 23-80-2989Rxhkekqmb for malignant neoplasm of cervixCervical Cancer ScreeningLake County Memorial Hospital - WestComplement C3 [Mass/volume] in Serum or Plasma [facility] HospitalComplement C4 [Mass/volume] in Serum or Plasma [facility] HospitalComprehenve metabolic 1999 panel - Serum or PlasmaHolzer HospitalComprehenve metabolic 1999 panel - Serum or PlasmaHolzer Hospital End: 92-60-9450Gs soft tissue neck w/contrast materialCT NECK SOFT TISSUE W IVCON Radiology Routine Disorder of airway Supraglottic mass 1 Occurrences sta rting 12/24/2022 until 01/23/2024[facility] Work Phone: Comment on above:1 Occurrences starting 12/24/2022 until 4DXA Skeletal system.axial Views for bone densityHolzer HospitalGlucose measurement estimated from glycated hemoglobin [facility] HospitalHemolytic complement CH50 levelHolzer HospitalMG Breast - bilateral ScreeningHolzer HospitalMR Lumbar spine WO and W contrast [facility] End: 21-31-3814OC Lumbar spine WO contrastMRI LUMBAR SPINE WO IVCON Radiology Routine Spinal stenosis of lumbar region with neurogenic claudication Radicular pain of right lower extremity 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 Arthrodesis status 1 Occurrences starting 11/12/2024 until 6[facility] Work Phone: Comment on above:1 Occurrences starting 11/12/2024 until 12/12/2025 End: 27-85-3352Dwc brain brain stem w/o w/contrast materialMRI BRAIN WO/W IVCON Radiology Routine Demyelinating disease of central nervous system (HCC) Paresth esias Imbalance 1 Occurrences starting 05/01/2022 until 05/31/2023[facility] Work Phone: Comment on above:1 Occurrences starting 05/01/2022 until 05/31/2023 End: 96-67-6811Wju spinal canal cervical w/o & w/contr matrlMRI CERVICAL SPINE WO/W IVCON Radiology Routine Demyelinating disease of central nervous system (HCC) Paresthesias Imbalance 1 Occurrences starting 05/01/2022 until 05/31/2023 [facility] Work Phone: Comment on above:1 Occurrences starting 05/01/2022 until 4Patient EducationLow back pain in adultsPremier Health [facility] Work Phone: End: 38-98-1691PA Esophagus Views W contrast POXR ESOPHAGRAM Radiology Routine Dysphagia, unspecified type 1 Occurrences starting 06/09/2024 until07/09/2025 [facility] Work Phone: Comment on above:1 Occurrences starting 06/09/2024 until 07/09/2025XR Esophagus Views W contrast POXR ESOPHAGRAM Radiology Routine Dysphagia, unspecified type 09/10/2024 9:57 AM EDTCSumma Health [facility] Work Phone: XR Hip - right 2 [facility] End: 40-94-1738WN Knee - bilateral 4 ViewsXR KNEE GENERAL 4V AP BOTH/PA BOTH/LAT/MERC BILATERAL Radiology Routine Primary osteoarthritis of both knees 1 Occurrences starting 03/16/2024 until 04/15/2025[facility] Work Phone: comment on above:1 Occurrences starting 03/16/2024 until 04/15/2025 End: 37-10-2973EY Knee - left Single viewXR KNEE SPECIFY 1V LEFT Radiology Routine Primary osteoarthritis of both knees 1 Occurrences starting 03/16/2024 until 6[facility] ClinicComment on above:1 Occurrences starting 03/16/2024 until 04/15/2025 End: 65-28-6256NJ Knee - right Single viewXR KNEE SPECIFY 1V RIGHT Radiology Routine Primary osteoarthritis of both knees 1 Occurrences starting 03/16/2024 until 6[facility] ClinicComment on above:1 Occurrences starting 03/16/2024 until 04/15/2025XR Lumbar spine GE 4 [facility] End: 56-74-2483LB MODIFIED BARIUM SWALLOW W SPEECH THERAPYXR MODIFIED BARIUM SWALLOW W SPEECH THERAPY Radiology Routine Disorder of airway Supraglottic mass Lupus anticoagulant positive Clotting disorder (HCC) 1 Occurrences starting 01/17/2023 until 4[facility] Work Phone: Comment on above:1 Occurrences starting 01/17/2023 until 02/16/2024XR Sacrum and Coccyx GE 2 [facility] [place] Immunizations Immunization DateImmunizationNotesCare VlzoxkugGbvaewco93-72-5037UQTBM-37 (PFIZER) [phone] 12Y and olderJeremiah Lazo DO Work Phone: [facility]10-28-2024COVID-19 Comirnaty (Pfizer) Tri-Sucrose 12+DO Jeremiah Lazo Work Phone: [facility]10-28-2024influenza virus vaccine, unspecified formulationDO Jeremiah Lazo Work Phone: [facility]10-28-2024Seasonal trivalent influenza vaccine, adjuvanted, preservative freeJeremiah Lazo DO Work Phone: [facility]12-05-2023influenza, high dose seasonal, preservative-freeJeremiah Lazo Other [facility]12-05-2023influenza virus vaccine, unspecified formulationMD Juan Diego [facility] [place] 42-76-8019Hslyoot 20Jeremiah Lazo Other [facility]12-09-2022Influenza, injectable, Madin [place] Canine Kidney, preservative free, quadrivalentDO Jeremiah Lazo Work Phone: [facility]12-09-2022influenza virus vaccine, unspecified formulationSsofi Borrero PA-C Work Phone: [facility] - WestRhdmky41-31-4646qwtipmiwj, injectable, quadrivalent, preservative freeDO Jeremiah Kuns Work Phone: [facility]12-13-2021COVID-19 Vaccine Moderna - Documentation Purposes OnlyBryan Kuns Other [facility]11-15-2021COVID-19 Vaccine Moderna - Documentation Purposes OnlyBryan Kuns Other [facility]10-28-2021Kenalog -40 mgBryan Kuns Other [employer] Other [id number] -40 mgBryan Kuns Other [employer] Other [id number], seasonal, injectableBryan Kuns Other [facility]10-29-2020Influenza, injectable, Madin [place] Canine Kidney, preservative free, quadrivalentDO Jeremiah Kuns Work Phone: [facility]05-12-2020Kenalog -40 mgBryan Kuns Other [employer] Other [id number] -40 mgBryan Kuns Other [employer] Other [id number] -40 mgBryan Kuns Other [employer] Other [id number], seasonal, injectableBryan Kuns Other [facility]09-13-2019Kenalog -40 mgBryan Kuns Other [employer] Other [id number] -40 mgBryan Kuns Other nort [employer] Other [id number] -40 mgBryjunito Farrells Other [employer] Other [id number], injectable, quadrivalent, preservative freeDO Jeremiah Lazo Work Phone: [facility]10-24-2018influenza, seasonal, injectableBryan Kuns Other [facility]09-10-2018tetanus toxoid, reduced diphtheria toxoid, and acellular pertussis vaccine, adsorbed Jeremiah Yassine Other [facility]06-25-2018zoster vaccine recombinantJeremiah Farrells Other [facility]04-17-2018zoster vaccine recombinantBryan Huongs Other [facility]04-26-2016KENALOG - 10 mgJeremiah Farrells Other [employer] Other [id number], injectable, quadrivalent, preservative freeMD Juan Diego [facility] [place]10-15-2014zoster vaccine, liveBryjunito Farrells Other [facility]10-15-2014influenza, injectable, quadrivalent, contains preservativeBryan Kuns Other nouniversity [facility] [employer] Other [id number], seasonal, injectable, preservative freeBryan Kuns Other [facility] Payers DatePayer CategoryPayerPolicy [id number] 2023Medicare (Managed Care)[place] [id number] [id number] [id number] 2..[id number] [id number] 2.0.1.110813.3.57[id number] 2..1.789145.3.57[id number] 2..1.102192.3.57[id number] 2.0.1.107658.3.57[id number] 2.0.1.325821.3.579.[id number] 2.0.1.736337.3.579.2.85507-05-9314Bpnunek69811513 2.0.1.426499.3.579.2.37191-59-7203Hdlhtva71607931 2..1.533155.3.579.2.52664-42-4396Zsoaaat54534395 2..1.451191.3.579.2.76743-63-1202Vplfwyh38335933 2.0.1.683072.3.579.2.58284-01-2285Xopzegt34114873 2..1.025672.3.5[id number] MCR [facility] [id number] Auto/Bvdsahxui33-O802-5W4 9p310g1k-w440-62h6-[id number] 2.0.1.479864.3.579.2.625Pbpwrso09773709 2..1.074613.3.579.2.531 [id number] 2.0.1.844198.3.579.2.039Txmqaji21469885 2.0.1.779118.3.579.2.286Kvvcnwe85287579 2..1.787403.3.579.2.531 Mpojbkd82306708 2.0.1.428582.3.579.2.371Ptfwgem53183637 2.0.1.669169.3.579.2.664Tksjcfl52218357 2.840.1.044611.3.579.2.531 Ngobadk34294764 2.840.1.355334.3.579.2.446Ouliuwr08295648 2.0.1.385933.3.579.2.531 Social History DateTypeDetailFacilityUnknown if ever smokedNouniversity health truman medical center [employer] Other Start: 05-01-2022 End: 69-32-8322Rws [facility]igned At [facility] [employer] Other Start: 05-75-6125Ncvxvom smoking statusNo Smoking Status [facility]Start: 12-29-2019 End: 67-09-1075Roaidsb smoking status NHISNever smoked tobacco (finding) [facility]: 24-47-3346Zsx [facility] 05-01-2022 End: 39-55-3562Qyvbgfw smoking status NHISEx-smokerMagruder Hospitalt[facility]: 08-05-1986 End: 51-49-6080Jxhbjsm of tobacco useCurrent smokerMagruder Hospitalt[facility]: 08-05-1986 End: 48-42-4574Ovidlla of tobacco useCigarette SmokerMagruder Hospitalt[facility]: 05-01-2022 End: 17-39-3447Vdssdrsnzs smoked current (pack per day) - Sjvcnwal1Addihfpsr ClinicStart: 05-01-2022 End: 11-89-4584Pgotini use and exposureSmokeless tobacco non-userMagruder Hospitaltart: 05-01-2022 End: 03-00-6791Seytjxt intakeCurrent non-drinker of alcohol (finding)[facility]: 62-69-7443Wgk Assigned At BirthNot on fileMagruder Hospitalt[facility]: 86-07-5140Hopnq Depression Screening Dmgbqrthbi2Yxrsawuip ClinicHistory of tobacco usePassive smokerMagruder Hospitalt[facility]: 01-14-2024 End: 67-17-3320UfkGcrfsk (finding)[facility]: 20-35-8546Swolgu identityIdentifies as female gender (finding)[facility] Start: 56-19-8748Rrmrjv orientationHeterosexual (finding)[facility]: 75-89-1545Crqdxib smoking status NHISUnknown if ever smokedKit [facility] Medical Equipment Procedure CodeEquipment CodeEquipment Original TextEquipment IdentifierDates Graft Dbx Bone Void Allograft Freeze Dried Putty .5ml - [id number] Start: 71-30-1356Danjm Variax 3d Bone Lock Variax Locking System Left Foot - [id number]: 31-60-1790Shvdu Variax 3.5mm 16mm Bone T10 Locking Plate System Nonsterile Foot - [id number]: 47-17-9691Lumhc Autofix 3mm 26mm Bone - [id number]: 79-17-8308Vloee Variax Torx 3.5mm Full Thread T10 Hexalobe Blue Titanium 10mm Bone - [id number] Start: 82-16-6082Dkvqy Variax Torx 3.5mm Full Thread T10 Hexalobe Blue Titanium 14mm Bone - [id number]: 29-37-1124Tfzmsn Triathlon 4 9mm Tibial Bearing Cruciate Retain Sterile Knee - [id number]: 05-19-2024 Component Triathlon 4 Pa Femoral Cruciate Retain Bead Knee Right - [id number]: 82-82-7630Qvjzzyxoe Triathalon 4 Tritanium Tibial Coated Sterile Knee - [id number]: 56-44-0261Ldbjfagez Tritanium 36mm Metal 10mm Patellar Symmetric Knee - [id number]: 05-19-2024 Goals DatePatient GoalDesired Activity/StatePersonal health goal Functional Status XmegNlvdvlebflCgkpknWxizkspm00-55-3853Kbx you deaf, or do you have serious difficulty hearingNo 05/20/2024 2:12 PM Jacinta [facility]tega RN [facility] HospitalTjnksn16-46-3976Pnx you blind, or do you have serious difficulty seeing, even when wearing glassesNo 05/20/2024 2:12 PM Jacinta Ortega RN [facility]03-19-2025Do you have serious difficulty walking or climbing stairsNo 05/20/2024 2:12 PM EDT Jacinta Elliott RN [facility]03-19-2025Do you have difficulty dressing or bathingNo 05/20/2024 2:12 PM EDT Jacinta Elliott RN [facility] HospitalFgafor18-90-0720Rkotnpv of a physical, mental, or emotional condition, do you have difficulty doing errands alone such as visiting a physician's office or shoppingYes 05/20/2024 2:12 PM EDT Jacinta Elliott RN Yes [facility] WestHuihio95-42-6947Ybw you deaf, or do you have serious difficulty hearingNo 05/01/2023 12:08 PM Maida Ramos RN [facility]02-28-2024 Are you blind, or do you have serious difficulty seeing, even when wearing glassesNo 05/01/2023 12:08 PM Maida Ramos RN [facility]02-28-2024Do you have serious difficulty walking or climbing stairsNo 05/01/2023 12:08 PM Maida Ramos RN [facility]02-28-2024Do you have difficulty dressing or bathingNo 05/01/2023 12:08 PM Maida Ramos RN [facility] 96-52-9688Ytxoqmw of a physical, mental, or emotional condition, do you have difficulty doing errands alone such as visiting a physician's office or shopping No 05/01/2023 12:08 PM Maida Ramos RN [facility] Mental Status GexaUiyhqpvdbyOpzsenNhdxlxso85-45-6443Fcpimcj of a physical, mental, or emotional condition, do you have serious difficulty concentrating, remembering, or making decisionsNo 05/20/2024 2:12 PM Jacinta Ortega RN [facility] HospitalAabjgq29-31-8282Wmtpmag of a physical, mental, or emotional condition, do you have serious difficulty concentrating, remembering, or making decisionsNo 05/01/2023 12:08 PM Maida Ramos RN [facility] Clinical Notes 12-19-2020 to 12-22-2024 Note Date & EotoVwbkNwrljtmn54-24-6472 NoteHNO ID: [id number] Author: ROX JOYCE MD Service: ? Author Type: Physician Type: Progress Notes Filed: 12/22/2024 13:17 Note Text: RIGHT LE pain. MRI 12/10/24 L2 -- 3: Satisfactory decompression. Patent canal. Foramina encroachment without narrowing. L3 -- 4: Right eccentric disc bulge and central annular tear and small protrusion. Facet and ligamentum flavum hypertrophy. Moderate canal narrowing. Severe right and moderate left foramina narrowing. L4 -- 5: Disc/joint degeneration. Patent canal. Mild to moderate right and moderate to severe left foramina narrowing. L5 -- S1: Satisfactory decompression with patent canal. Moderate left greater than right foramina narrowing. Right lumbar radiculopathy (primary encounter diagnosis) Neural foraminal stenosis of lumbar spine Suggest RIGHT L 3-4 TFESI. We can reschedule her appointment on 12/31 AFTER the above unless she has a question. Rox Joyce [facility]09-11-2025 NoteHNO ID: [id number] Author: MARGI GAVIN RT(R) Service: ? Author Type: Technologist Type: Progress Notes Filed: 11/12/2024 09:30 Note Text: Radiology Service Progress Note PATIENT NAME: Negro Garcia DATE OF SERVICE: November 12, 2024 TIME: 9:30 AM PATIENT IDENTITY VERIFICATION COMPLETED USING TWO (2) IDENTIFIERS: Name and Date of confirmed by patient verbally. FALL SCREENING: Has the patient had 2 falls in the last year or 1 fall with injury or currently using an Ambulatory Assistive Device (Walker, Cane, Wheelchair, Crutches, etc.)? No PATIENT GENDER DATA: Assigned female at . status: : No status: NO. PATIENT RELEVANT IMPLANT DATA REVIEWED: Not Applicable PATIENT PRESENTS WITH AN IMPLANTABLE OR ATTACHED LIEUTENANT FIRE FIGHTER: No RADIOLOGY DEPARTMENT: General X-ray: Exam(s) Completed: Spine X-Ray(s): Lumbar AP / LAT / L5-S1 PERIPHERAL IV DATA: Not applicable SIGNED BY: RT Annalee(R) November 12, 2024 9:30 [facility]09-11-2025 History of Present illness Narrative* Rox Joyce MD - 11/12/2024 9:00 AM EDT SUBJECTIVE: Mrs. Garcia a 64 year old female referred by Dr. Scott, Marcell Li MD presents with the complaint of lower lumbar pain. The patient is a 64-year-old female with MS and prior lumbar spinal fusions, presenting for evaluation of progressive low back pain radiating to the left buttock and leg, exacerbated by standing and walking. Patient reports the date of onset of symptoms as several years and describes the location of the pain as lower lumbar . The pain is chronic, aching, shooting, throbbing, and radaiting, and rated as 4 on a scale of 1-10,with radiation. PAIN RATIO: (back:leg): Back > Leg Patient reports that LBP is increased by ADL's and relieved by Unknown. Ambulation distance (before needing to sit): 1 block Standing time (before needing to sit): 1/2 hour OTHER BACK PAIN SYMPTOMS: NIGHT PAIN: No PARESTHESIA: No POOR SLEEP: No BOWEL/BLADDER INCONTINENCE OR RETENTION: No ACTIVITY LIMITATIONS: ADLs HPI: Chronic Low Back Pain: - Onset approximately 5 years ago. - Pain localized to the lower back, with intermittent radiation to the buttocks and leg. - Aggravated by standing and walking; worsens with prolonged ambulation. - Pain can begin immediately upon standing and persists even when sitting. - Ileana reports relief when leaning forward or holding onto something, such as a shopping cart. - Describes having poor posture and a hunch when walking. - Denies known trauma or injury. - Ileana has not pursued physical therapy for back pain. - Recent hip x-rays by Dr. Palmer reportedly normal. Spinal Surgeries: - Two spinal fusions performed at [facility]. - First fusion in 2000, second fusion performed after 2000. - Post-surgical improvement noted, but Ileana believes she may have exacerbated the condition by overexertion. - Wore a brace after each surgery. MS: - Diagnosed approximately 36 years ago. - Managed at [facility]; reports stability over the past few years. - Chronic issues with left leg, including foot drop, since diagnosis. - No brace worn for foot drop. - Recent MRI of the neck in 2022. - Multiple MRIs of the brain for MS management. Surgical History: - Bladder stimulator placed in 2002. - Throat surgery in [address] Alfred Arias for removal of an enlarging mass. Social History: - Former smoker, quit years ago. - Denies history of diabetes or cancer. - Weight reported as stable. PREVIOUS TREATMENTS LASTING SIX WEEKS IN THE LAST SIX MONTHS Active conservative therapy lasting 6 weeks in the last six months (see below) 1. Physical therapy: No 2. Home exercise program after PT: No 3. Occupational therapy: No 4. A physician supervised home exercise program (HEP): No 5. Neonatal Critical Care Nurse: No Passive conservative therapy lasting 6 weeks in the last six months (see below) 1. Medical devises: No 2. Acupuncture: No 3. Tens unit: No 4. Prescription pain medication: NO 5. 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, [employer] HISTORY OF TRAUMA/OVERUSE OF AREA: No REVIEW OF SYSTEMS: GENERAL: Negative for malaise, significant weight loss and fever HEENT: Negative for frequent or significant headaches NECK: Negative for lumps, goiter, pain and significant neck swelling RESPIRATORY: Negative for cough, hemoptysis, wheezing, COPD, dyspnea or shortness of breath CARDIOVASCULAR: Negative for chest pain, leg swelling, hypertension, CHF or palpitations GI: No nausea, vomiting, or diarrhea : No history of dysuria, frequency or incontinence NISSAN SALES CONSULTANT: Negative for abnormal vaginal bleeding, abnormal vaginal discharge. . MUSCULOSKELETAL: See HPI SKIN: Negative for lesions, rash, and itching PSYCH: Negative for sleep disturbance, mood disorder and recent psychosocial stressors. HEMATOLOGY/LYMPHOLOGY Negative for prolonged bleeding, bruising easily or swollen nodes ENDOCRINE: Negative for cold or heat intolerance, polyuria, polydipsia and goiter PAST MEDICAL HISTORY Diagnosis Date Carpal tunnel syndrome Depression DVT (deep venous thrombosis) (HCC) After surgeries Hiatal hernia Hypertension Multiple sclerosis (HCC) Primary open-angle glaucoma, bilateral, mild stage Pulmonary embolism (HCC) 1989 PAST MEDICAL HISTORY Diagnosis Date Carpal tunnel syndrome Depression DVT (deep venous thrombosis) (HCC) After surgeries Hiatal hernia Hypertension Multiple sclerosis (HCC) Primary open-angle glaucoma, bilateral, mild stage Pulmonary embolism (HCC) 1989 PAST SURGICAL HISTORY Procedure Laterality Date ARTHROSCOPY KNEE DIAGNOSTIC W/WO SYNOVIAL BX SPX Right Arthroscopy, knee BACK SURGERY HX x2 BUNIONECTOMY, LAPIDUS-TYPE CARPAL TUNNEL Left PAST SURGICAL HISTORY OF Vein stripping PAST SURGICAL HISTORY OF Heel Spurs TONSILLECTOMY PRIMARY/SECONDARY <AGE 10 Tonsillectomy EXAMINATION: [id number]: Scoliosis: No Pelvic Tilt: No Leg Length discrepancy: LATERAL: Cervical Lordosis: No Thoracic Kyphosis: No Lumbar Lordosis: No RANGE OF MOTION CERVICAL: Flexion: Not Limited Extension: Limited LUMBAR: Flexion: Not Limited Extension: Limited Gait: antalgic REFLEXES R L Biceps (C6): 1-2+ 1-2+ Triceps (C7): 1-2+ 1-2+ Brachioradiolis (C6): 1-2+ 1-2+ Ankle (S1): 2+ 2+ Knee (L4): 2+ 2+ STRENGTH (0-5): R L Deltoid (AB:C5,6): 5 5 Biceps (Flex:C5,6): 5 5 Wrist Ext.(C6,7): 5 5 Interrosei (C8,T1): 5 5 PSOAS (L2,3): 5 5 Gluteus (L5,S1,2): 5 5 Quadriceps (L3,4): 5 5 EHL (L5): 5 5 Soleus (S1): 5 5 SLR: Seated - Right Negative, Left Negative HO TEST 1) Tenderness: Appropriate 2) Simulation/Axial Loading/ROT: Appropriate 3) Distraction: Seated SLR: Appropriate 4) Reqional Disturbances: Appropriate 5) Overreaction: Appropriate PHYSICAL EXAMINATION: GENERAL APPEARANCE: Well appearing, in no acute distress SKIN: Skin color, texture, turgor normal. No rashes or lesions. HEAD: Normocephalic. No masses, lesions, tenderness or abnormalities EYES: Conjunctivae/corneas clear. Pupils are equally round and reactive to light. Extraocular movements are intact. NECK: Neck supple, no adenopathy; thyroid symmetric, normal size, no bruits. LUNGS: Lungs clear to auscultation, No wheezing or rhonchi HEART: negative. RRR without murmur, gallop, or rubs. No ectopy. ABDOMEN: Abdomen soft, non-tender. Bowel sounds normal. No masses, organomegaly EXTREMITIES: Extremities normal. No deformities, edema, or skin discoloration. Good capillary refill. PULSES: Normal lower extremity pulses. NEURO: Gait normal. Reflexes normal and symmetric. Sensation grossly intact. MRI 2022 CERV: Cervical Canal and foramina: Degenerative changes in the cervical spine most severe at C3-C4 and C4-C5 with progression at C3-C4. IMPRESSION: 1. Spinal stenosis of lumbar region with neurogenic claudication (M48.062) 2. Radicular pain of right lower extremity (M54.10) 3. History of lumbar fusion (Z98.1) 4. 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 Arthrodesis status (Z98.1) 6. Postlaminectomy syndrome, not elsewhere classified (M96.1) - Chronic low back pain with neurogenic claudication and right lower extremity radicular pain, likely due to adjacent segment disease and spinal stenosis following two prior lumbar fusions. - MRI lumbar spine ordered to evaluate for spinal stenosis and adjacent segment disease. - Discussed spinal biomechanics, rationale for imaging, and potential need for CT if MRI is inconclusive due to hardware artifact. - Advised that physical therapy is unlikely to provide significant benefit at this time. 7. Multiple sclerosis (HCC) (G35) - Stable, under active management at [facility]. Spinal stenosis of lumbar region with neurogenic claudication (primary encounter diagnosis) Radicular pain of right lower extremity History of lumbar fusion Adjacent segment disease of lumbar spine with history of fusion procedure Arthrodesis status Multiple sclerosis (hcc) Postlaminectomy syndrome, not elsewhere classified 64 yo with hx of lumbar surgeries x 2 (both were done at [facility]). Axial (midline and Right buttock) > Right LE pain. Pain into ant lateral thigh and groin. LEFT > Right Leg length discrepancy. Normal bone density in 2020. Kypho scoliosis - degenerative. Retrolisthesis L 3 on L 4 (6 mm) First was likely PLIF at L 5-S1. Second was PLIF L 2-3. SHe follows up at [facility] for MS. Reports left foot drop with her MS. Has + pain with extension at 15 seconds - radiating to Right side. No pain with hip flex/IR. 2+ PT pulses. PLAN: Discussed the above findings and potential options with the patient. Suggest: - lumbar MRI to further evaluate spine surgery versus interventional options. We can see her I OPV after the above. Rox Joyce MD documented in this encounterLake [facility] NoteHNO ID: [id number] Author: ROX JOYCE MD Service: ? Author Type: Physician Type: Progress Notes Filed: 11/17/2024 15:34 Note Text: SUBJECTIVE: Mrs. Garcia a 64 year old female referred by Dr. Scott, Marcell Li MD presents with the complaint of lower lumbar pain. The patient is a 64-year-old female with MS and prior lumbar spinal fusions, presenting for evaluation of progressive low back pain radiating to the left buttock and leg, exacerbated by standing and walking. Patient reports the date of onset of symptoms as several years and describes the location of the pain as lower lumbar . The pain is chronic, aching, shooting, throbbing, and radaiting, and rated as 4 on a scale of 1-10, with radiation. PAIN RATIO: (back:leg): Back > Leg Patient reports that LBP is increased by ADL's and relieved by Unknown. Ambulation distance (before needing to sit): 1 block Standing time (before needing to sit): 1/2 hour OTHER BACK PAIN SYMPTOMS: NIGHT PAIN: No PARESTHESIA: No POOR SLEEP: No BOWEL/BLADDER INCONTINENCE OR RETENTION: No ACTIVITY LIMITATIONS: ADLs HPI: Chronic Low Back Pain: - Onset approximately 5 years ago. - Pain localized to the lower back, with intermittent radiation to the buttocks and leg. - Aggravated by standing and walking; worsens with prolonged ambulation. - Pain can begin immediately upon standing and persists even when sitting. - Ileana reports relief when leaning forward or holding onto something, such as a shopping cart. - Describes having poor posture and a hunch when walking. - Denies known trauma or injury. - Ileana has not pursued physical therapy for back pain. - Recent hip x-rays by Dr. Palmer reportedly normal. Spinal Surgeries: - Two spinal fusions performed at [facility]. - First fusion in 2000, second fusion performed after 2000. - Post-surgical improvement noted, but Ileana believes she may have exacerbated the condition by overexertion. - Wore a brace after each surgery. MS: - Diagnosed approximately 36 years ago. - Managed at [facility]; reports stability over the past few years. - Chronic issues with left leg, including foot drop, since diagnosis. - No brace worn for foot drop. - Recent MRI of the neck in 2023. - Multiple MRIs of the brain for MS management. Surgical History: - Bladder stimulator placed in 2002. - Throat surgery in [address] Alfred Arias for removal of an enlarging mass. Social History: - Former smoker, quit years ago. - Denies history of diabetes or cancer. - Weight reported as stable. PREVIOUS TREATMENTS LASTING SIX WEEKS IN THE LAST SIX MONTHS Active conservative therapy lasting 6 weeks in the last six months (see below) 1. Physical therapy: No 2. Home exercise program after PT: No 3. Occupational therapy: No 4. A physician supervised home exercise program (HEP): No 5. Neonatal Critical Care Nurse: No Passive conservative therapy lasting 6 weeks in the last six months (see below) 1. Medical devises: No 2. Acupuncture: No 3. Tens unit: No 4. Prescription pain medication: NO 5. 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, [employer] HISTORY OF TRAUMA/OVERUSE OF AREA: No REVIEW OF SYSTEMS: GENERAL: Negative for malaise, significant weight loss and fever HEENT: Negative for frequent or significant headaches NECK: Negative for lumps, goiter, pain and significant neck swelling RESPIRATORY: Negative for cough, hemoptysis, wheezing, COPD, dyspnea or shortness of breath CARDIOVASCULAR: Negative for chest pain, leg swelling, hypertension, CHF or palpitations GI: No nausea, vomiting, or diarrhea : No history of dysuria, frequency or incontinence NISSAN SALES CONSULTANT: Negative for abnormal vaginal bleeding, abnormal vaginal discharge. . MUSCULOSKELETAL: See HPI SKIN: Negative for lesions, rash, and itching PSYCH: Negative for sleep disturbance, mood disorder and recent psychosocial stressors. HEMATOLOGY/LYMPHOLOGY Negative for prolonged bleeding, bruising easily or swollen nodes ENDOCRINE: Negative for cold or heat intolerance, polyuria, polydipsia and goiter PAST MEDICAL HISTORY Diagnosis Date Carpal tunnel syndrome Depression DVT (deep venous thrombosis) (HCC) After surgeries Hiatal hernia Hypertension Multiple sclerosis (HCC) Primary open-angle glaucoma, bilateral, mild stage Pulmonary embolism (HCC) 1989 PAST MEDICAL HISTORY Diagnosis Date Carpal tunnel syndrome Depression DVT (deep venous thrombosis) (HCC) After surgeries Hiatal hernia Hypertension Multiple sclerosis (HCC) Primary open-angle glaucoma, bilateral, mild stage Pulmonary embolism (HCC) 1989 PAST SURGICAL HISTORY Procedure Laterality Date ARTHROSCOPY KNEE DIAGNOSTIC W/WO SYNOVIAL BX SPX Right Arthroscopy, knee BACK SURGERY HX x2 BUNIONECTOMY, LAPIDUS-TYPE CARPAL TUNNEL Left PAST SURGICAL HISTORY OF Vein stripping PAST SURGICAL HISTORY OF Heel Spurs TONSILLEC (more content not included)...[facility]08-28-2025 Evaluation note* Type Assessment Date assessment Adjustment disorder with mixed a nxiety and depressed mood impression Rumination, low mood , interpersonal conflict, low communication of needs, and poor sleep hygiene after losing and father [facility] Work Phone: 1(389) 627-535908-21-2025 Evaluation note* Diagnosis Onset Date Resolution Status Admit Date Acute bacterial sinusitis resolvedAugust 2024 2:28pmHyperglycemiaacuteSeptember 2024 12:16pm HyperlipidemiaacuteSeptember 2024 12:16pmObesityacuteSeptember 2024 12:16pm [facility] Work Phone: 1(492) 163-916007-22-2025 NoteHNO ID: [id number] Author: MARCELL SCOTT MD Service: ? Author Type: Physician Type: Progress Notes Filed: 09/22/2024 11:35 Note Text: see dictated note Marcell Scott II, [facility]07-22-2025 History of Present illness Narrative* Marcell Scott MD - 09/22/2024 11:19 AM EDT see dictated note Marcell Scott II, MD documented in this encounterLake [facility]07-22-2025 NoteHNO ID: [id number] Author: MARCELL SCOTT MD Service: Orthopaedic Surgery Author Type: Physician Type: Progress Notes Filed: 09/28/2024 10:36 Note Text: [facility] NAME: NEGRO GARCIA [facility] NO.: [id number] DATE OF SERVICE: 09/22/2024 ATTENDING PHYSICIAN: Marcell Scott II, M.D. CHIEF COMPLAINT: 1. Recheck of right knee. Right total knee replacement cementless on May 19, 2024. The patient is doing extremely well and she has motion from 0 to 130 degrees and incision is healing well. Calf is soft and nontender. The patient is very pleased with the knee. She no longer has pain in her groin, but she has pain in her right buttock area and in her mid back. The patient has had back surgery years ago and has had multiple level of fusions. We will have her see Dr. Jocye and see if he can figure out her back symptoms. The patient states she is bending over more to alleviate the pain. DICTATED BY: Fred Dominique II/BREANN JOB# [id number] [facility]07-10-2025 History of Present illness Narrative* Negro Real RT(R) - 09/10/2024 11:20 AM EDT Radiology Service Progress Note PATIENT NAME: Negro Garcia DATE OF SERVICE: September 10, 2024 TIME: 9:50 AM PATIENT IDENTITY VERIFICATION COMPLETED USING TWO (2) IDENTIFIERS: Name and Date of confirmedby patient verbally. FALL SCREENING: Has the patient had 2 falls in the last year or 1 fall with injury or currently using an Ambulatory Assistive Device (Walker, Cane, Wheelchair, Crutches, etc.)? No PATIENT GENDER DATA: Assigned female at . status: : No status:NO. PATIENT RELEVANT IMPLANT DATA REVIEWED: Not Applicable PATIENT PRESENTS WITH AN IMPLANTABLE OR ATTACHED LIEUTENANT FIRE FIGHTER: No RADIOLOGY DEPARTMENT: General X-ray: Exam(s) Completed: Pelvis X-Ray: Pelvis with Hip Right PERIPHERAL IV DATA: Not applicable SIGNED BY: RT Gerard(R) September 10, 2024 9:50 AM documented in this encounterLake County [facility]07-10-2025 NoteHNO ID: [id number] Author: NEGRO REAL RT(R) Service: Radiology Author Type: Technologist Type: Progress Notes Filed: 09/10/2024 09:51 Note Text: Radiology Service Progress Note PATIENT NAME: Negro Garcia DATE OF SERVICE: September 10, 2024 TIME: 9:50 AM PATIENT IDENTITY VERIFICATION COMPLETED USING TWO (2) IDENTIFIERS: Name and Date of confirmed by patient verbally. FALL SCREENING: Has the patient had 2 falls in the last year or 1 fall with injury or currently using an Ambulatory Assistive Device (Walker, Cane, Wheelchair, Crutches, etc.)? No PATIENT GENDER DATA: Assigned female at . status: : No status: NO. PATIENT RELEVANT IMPLANT DATA REVIEWED: Not Applicable PATIENT PRESENTS WITH AN IMPLANTABLE OR ATTACHED LIEUTENANT FIRE FIGHTER: No RADIOLOGY DEPARTMENT: General X-ray: Exam(s) Completed: Pelvis X-Ray: Pelvis with Hip Right PERIPHERAL IV DATA: Not applicable SIGNED BY: RT Gerard(R) September 10, 2024 9:50 AMBrigham City Community [id number] History of Present illness Narrative* Negro Real RT(R) - 09/10/2024 9:00 AM EDT Radiology Service Progress Note PATIENT NAME: Negro Garcia DATE OF SERVICE: September 10, 2024 TIME: 9:51 AM PATIENT IDENTITY VERIFICATION COMPLETED USING TWO (2) IDENTIFIERS: Name and Date of confirmedby patient verbally. FALL SCREENING: Has the patient had 2 falls in the last year or 1 fall with injury or currently using an Ambulatory Assistive Device (Walker, Cane, Wheelchair, Crutches, etc.)? No PATIENT GENDER DATA: Assigned female at . status: : No status:NO. PATIENT RELEVANT IMPLANT DATA REVIEWED: Not Applicable PATIENT PRESENTS WITH AN IMPLANTABLE OR ATTACHED LIEUTENANT FIRE FIGHTER: No RADIOLOGY DEPARTMENT: General X-ray: Exam(s) Completed: GI/ Procedure(s): Esophogram with barium contrast PERIPHERAL IV DATA: Not applicable SIGNED BY: RT Gerard(Dixon) September 10, 2024 9:51 AM documented in this encounterLake County [facility]07-10-2025 NoteHNO ID: [id number] Author: NEGRO REAL RT(Dixon) Service: Radiology Author Type: Technologist Type: Progress Notes Filed: 09/10/2024 09:52 Note Text: Radiology Service Progress Note PATIENT NAME: Negro Garcia DATE OF SERVICE: September 10, 2024 TIME: 9:51 AM PATIENT IDENTITY VERIFICATION COMPLETED USING TWO (2) IDENTIFIERS: Name and Date of confirmed by patient verbally. FALL SCREENING: Has the patient had 2 falls in the last year or 1 fall with injury or currently using an Ambulatory Assistive Device (Walker, Cane, Wheelchair, Crutches, etc.)? No PATIENT GENDER DATA: Assigned female at . status: : No status: NO. PATIENT RELEVANT IMPLANT DATA REVIEWED: Not Applicable PATIENT PRESENTS WITH AN IMPLANTABLE OR ATTACHED LIEUTENANT FIRE FIGHTER: No RADIOLOGY DEPARTMENT: General X-ray: Exam(s) Completed: GI/ Procedure(s): Esophogram with barium contrast PERIPHERAL IV DATA: Not applicable SIGNED BY: RT Gerard(R) September 10, 2024 9:51 [id number] NoteHNO ID: [id number] Author: MARCELL SCOTT MD Service: ? Author Type: Physician Type: Progress Notes Filed: 09/08/2024 12:23 Note Text: see dictated note Marcell Scott II [facility]07-08-2025 History of Present illness Narrative* Marcell Scott MD - 09/08/2024 12:21 PM EDT see dictated note Marcell Scott II, MD documented in this encounterLake County [facility]07-08-2025 NoteHNO ID: [id number] Author: MARCELL SCOTT MD Service: Orthopaedic Surgery Author Type: Physician Type: Progress Notes Filed: 09/10/2024 15:51 Note Text: [facility] NOTE SHERLY A[facility] NAME: NEGRO GARCIA CLINIC NO.: [id number] DATE OF SERVICE: 09/08/2024 ATTENDING PHYSICIAN: Marcell Scott II, M.D. CHIEF COMPLAINT: 1. Recheck of right knee. 2. Right total knee replacement - cementless, May 19, 2024 - 3 months. The patient is doing extremely well, has motion from 0 to 130 degrees. Neurovascularly intact. Incision has healed nicely. Calf is soft and nontender. X-rays show cementless total knee on the right in excellent position and alignment. See back at 6 months. 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, experiencing rumination, increased anxiety, sadness, shame, low self-efficacy, helplessness, hopelessness, poor sleep maintenance, and apathy assessment Body mass index [BMI]30.0-30.9, adult [facility] Work Phone: 1(637) 484-983905-29-2025 Evaluation note* Diagnosis Onset Date Resolution Status Admit Date BMI greater than 30 acuteMay 2024 12:33pmHypertensionacuteMay 2024 12:33pmHypothyroid acuteMay 2024 12:33pmObesityacuteMay 2024 12:33pmStatus post right knee replacementacuteMay 2024 12:33pmURI (upper respiratory infection) acuteAugust 2024 2:28pm [facility] Work Phone: 1(470) 899-216505-29-2025 Evaluation note* Diagnosis Onset Date Resolution Status Admit Date BMI greater than 30 acuteMay 2024 12:33pmHypertensionacuteMay 2024 12:33pmHypothyroid acuteMay 2024 12:33pmObesityacuteMay 2024 12:33pmStatus post right knee replacementacuteMay 2024 12:33pmAcute bacterial sinusitisacuteAugust 2024 2:28pm [facility] Work Phone: 1(711) 106-376604-30-2025 NoteHNO ID: [id number] Author: MARCELL SCOTT MD Service: ? Author Type: Physician Type: Progress Notes Filed: 07/01/2024 15:53 Note Text: see dictated note Marcell Scott II [facility]04-30-2025 History of Present illness Narrative* Marcell Scott MD - 07/01/2024 3:51 PM EDT see dictated note Marcell Scott II, MD documented in this encounterLake County [facility]04-30-2025 NoteHNO ID: [id number] Author: ABRAHAM SAINI, SUELLEN Service: ? Author Type: ASSEMBLER BRAZER Type: Progress Notes Filed: 07/01/2024 14:58 Note Text: Tmax: OD 19 at the other eye center OS 24 at the other eye center Pachy: OD 535, OS 541 Lasers and Surgeries: OD OS Current Glaucoma Med Regimen: None Eyedrop Adherence: Background Glaucoma Information: Referred by: [facility] Medical History: Hx of MS, no ocular symptoms, last flare >10 years ago. HTN, HLD Family History: None Trauma: None Steroid Use: Prednisone for MS, was on it a few months ago Hemodialysis: None ASA/Anti-coagulation: None Prior Glaucoma Meds, Intolerances, Allergies: None Most Recent Glaucoma Testing: HVF 24-2 03/28 OD normal, reliable with fixation losses; OS very early nasal step?, reliable OCT 03/2024 OD diffuse thinning, sup thinning relative, initial; OS diffuse thinning, initial GCA 03/2024 OD general thinning; OS general thinning ASSESSMENT AND PLAN Open angle with borderline findings and high glaucoma risk in both eyes Had IOP OS 24 recently while on Prednisone for MS IOP OD 17 on 0 meds, acceptable for now IOP OS 18 on 0 meds, acceptable for now Pertinent exam: Small nerves, myopic fundus Escalate therapy?: None Recommended options: Discussed that she probably had a steroid induced IOP rise OS while on Prednisone recently. Can check IOPs if she ever gets back on Prednisone. Patient elects: Observation for now Use these drops: N/A She lives near [place]. FU with Dr Saini at [place] [facility] Refracts to 20/25 OD and 20/20 OS BAT 20/40 OD and 20/25 OS Rx given for glasses Patient requested a refraction and a glasses prescription was given. Patient was given anytime access through [employer] [facility] 1 year Full HVF 24-2 The nature of the patient's eye disease, its relationship to systemic health, its genetic components, and its prognosis have been explained to the patient/family. The treatment options/risks/benefits have been discussed. Questions answered. I have interviewed and examined Negro Garcia. I have confirmed and edited as necessary the chief complaint, history of present illness, past medical history, medications, family history, social history, review of systems, and exam findings as obtained by others. I agree with the assessment and plan as stated above,and have discussed them in detail with the patient. Abraham Saini, OD July 01, 2024 2:54 PMCGlenbeigh Hospital04-30-2025 History of Present illness Narrative* Abraham Saini, OD - 07/01/2024 2:38 PM EDT Tmax: OD 19 at the other eye center OS 24 at the other eye center Pachy: OD 535, OS 541 Lasers and Surgeries: OD OS Current Glaucoma Med Regimen: None Eyedrop Adherence: Background Glaucoma Information: Referred by: [facility] Medical History: Hx of MS, no ocular symptoms, last flare >10 years ago. HTN, HLD Family History: None Trauma: None Steroid Use: Prednisone for MS, was on it a few months ago Hemodialysis: None ASA/Anti-coagulation: None Prior Glaucoma Meds, Intolerances, Allergies: None Most Recent Glaucoma Testing: HVF 24-2 03/28 OD normal, reliable with fixation losses; OS very early nasal step?, reliable OCT 03/2024 OD diffuse thinning, sup thinning relative, initial; OS diffuse thinning, initial GCA 03/2024 OD general thinning; OS general thinning ASSESSMENT AND PLAN Open angle with borderline findings and high glaucoma risk in both eyes Had IOP OS 24 recently while on Prednisone for MS IOP OD 17 on 0 meds, acceptable for now IOP OS 18 on 0 meds, acceptable for now Pertinent exam: Small nerves, myopic fundus Escalate therapy?: None Recommended options: Discussed that she probably had a steroid induced IOP rise OS while on Prednisone recently. Can check IOPs if she ever gets back on Prednisone. Patient elects: Observation for now Use these drops: N/A She lives near [place]. FU with Dr Saini at [place] [facility] Refracts to 20/25 OD and 20/20 OS BAT 20/40 OD and 20/25 OS Rx given for glasses Patient requested a refraction and a glasses prescription was given. Patient was given anytime [facility] [address] [facility] 24-2 The nature of the patient's eye disease, its relationship to systemic health, its genetic components, and its prognosis have been explained to the patient/family. The treatment options/risks/benefitshave been discussed. Questions answered. I have interviewed and examined Negro Garcia. I have confirmed and edited as necessary the chiefcomplaint, history of present illness, past medical history, medications, family history, social history, review of systems, and exam findings as obtained by others. I agree with the assessment and plan as stated above,and have discussed them in detail with the patient. Abraham Saini OD July 01, 2024 2:54 PM documented in this encounterLake County [facility]04-30-2025 NoteHNO ID: [id number] Author: MARCELL SCOTT MD Service: Orthopaedic Surgery Author Type: Physician Type: Progress Notes Filed: 07/03/2024 12:36 Note Text: [facility] [place] [facility] NAME: INA GARCIAJUNITO Longoria CLINIC NO.: [id number] DATE OF SERVICE: 07/01/2024 ATTENDING PHYSICIAN: Marcell Scott II, M.D. CHIEF COMPLAINT: 1. Recheck of right knee. 2. Right total knee replacement - cementless May 19, 2024 - 6 weeks. The patient is a 64-year-old 5 feet 4 inches, 180 pounds female. Her incision has healed very nicely with no evidence of infection. Her calf is soft and nontender. ROM is 4 degrees to 124 degrees. I showed her how to work on her extension and exercises and then we talked about using a staircase with a rim on both sides at her daughter's house for strengthening of the legs. Until now she has just been 1 step and up steps. She understands that. See back in 6 weeks. DICTATED BY: Marcell Scott II, M.D. MCK/AQT JOB# [id number] Hospital04-09-2025 NoteHNO ID: [id number] Author: MARCELL SCOTT MD Service: ? Author Type: Physician Type: Progress Notes Filed: 06/10/2024 13:15 Note Text: see dictated note Marcell Scott II, [facility]04-09-2025 History of Present illness Narrative* Marcell Scott MD - 06/10/2024 1:14 PM EDT see dictated note Marcell Scott II, MD [facility] NoteHNO ID: [id number] Author: IZZY VICKERS RT(R) Service: ? Author Type: Technologist Type: Progress Notes Filed: 06/10/2024 10:36 Note Text: Radiology Service Progress Note PATIENT NAME: Negro Garcia DATE OF SERVICE: June 10, 2024 TIME: 10:36 AM PATIENT IDENTITY VERIFICATION COMPLETED USING TWO (2) IDENTIFIERS: Name and Date of confirmed by patient verbally. FALL SCREENING: Has the patient had 2 falls in the last year or 1 fall with injury or currently using an Ambulatory Assistive Device (Walker, Cane, Wheelchair, Crutches, etc.)? No PATIENT GENDER DATA: Assigned female at . status: : No status: N/A PATIENT RELEVANT IMPLANT DATA REVIEWED: Not Applicable PATIENT PRESENTS WITH AN IMPLANTABLE OR ATTACHED LIEUTENANT FIRE FIGHTER: No RADIOLOGY DEPARTMENT: General X-ray: Exam(s) Completed: Lower Extremity X-Ray(s): Knee, AP / Lat / Merchant Right and Wt. Bearing PERIPHERAL IV DATA: Not applicable SIGNED BY: RT Shanelle(R) June 10, 2024 10:36 [facility]04-09-2025 History of Present illness Narrative* Izzy Vickers RT(R) - 06/10/2024 10:36 AM EDT Radiology Service Progress Note PATIENT NAME: Negro Garcia DATE OF SERVICE: June 10, 2024 TIME: 10:36 AM PATIENT IDENTITY VERIFICATION COMPLETED USING TWO (2) IDENTIFIERS: Name and Date of confirmedby patient verbally. FALL SCREENING: Has the patient had 2 falls in the last year or 1 fall with injury or currently using an Ambulatory Assistive Device (Walker, Cane, Wheelchair, Crutches, etc.)? No PATIENT GENDER DATA: Assigned female at . status: : No status:N/A PATIENT RELEVANT IMPLANT DATA REVIEWED: Not Applicable PATIENT PRESENTS WITH AN IMPLANTABLE OR ATTACHED LIEUTENANT FIRE FIGHTER: No RADIOLOGY DEPARTMENT: General X-ray: Exam(s) Completed: Lower Extremity X- Ray(s): Knee, AP / Lat / Merchant Right and Wt. Bearing PERIPHERAL IV DATA: Not applicable SIGNED BY: RT Shanelle(Dixon) June 10, 2024 10:36 AM documented in [facility] encounterL[facility]-09-[facility] NoteHNO ID: [id number] Author: MARCELL SCOTT MD Service: Orthopaedic Surgery Author Type: Physician Type: Progress Notes Filed: 06/11/2024 12:30 Note Text: [facility] NOTE [facility] NAME: NEGRO GARCIA CLINIC NO.: [id number] DATE OF SERVICE: 06/10/2024 ATTENDING PHYSICIAN: Marcell Scott II, M.D. CHIEF COMPLAINT: 1. Recheck of right knee. 2. Right total knee replacement - cementless May 19, 2024 - 3 weeks. Incision is healing nicely. Calf is soft, nontender. ROM is from 0 to 90 degrees. The patient is able to walk with a cane and states that the arthritis pain has completely gone and she has no pain when she bears weight. Recommend utilizing a staircase with 2 railings for leg strengthening and knee bending. X-rays reviewed today postoperatively and showed excellent position of the cementless total knee replacement. See back in 3 weeks for the 6-week visit. DICTATED BY: Marcell Scott II, M.D. MCK/AQT JOB# [id number] NoteHNO ID: [id number] Author: ALFRED GUERRERO MD Service: ? 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 is a 64 year old female with the above diagnoses. Reviewed survey testing from today Videostroboscopy performed today shows full healing of all sites. Stroboscopy reveals normal laryngeal biomechanics with minimal muscle tension. Notable absence of large laryngocele Patient has continued to have some swallowing difficulty which he thinks may be worse. 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 I suspect that the hiatal hernia may be causing her symptoms and recommended a repeat x-ray esophagram to reevaluate. The patient has thick mucus for which I recommend Mucinex and increasing hydration from very little to 64 to 96 ounces per day Continue Xarelto per hematology Follow-up annually for observation HPI: Negro Garcia is a 64 year old female who presents with right laryngocele Few years of food getting stuck in her throat, liquid wash not helpful, hard to catch her breath Thick phlegm, throat clearing to clear it up. This sometimes results in whitish thick secretions. Throat clearing during the day unproductive Sore throat points to cricoid area, consistently throughout the day Rare hoarseness, talks a lot socially Never had MBSS Swallowing difficulty doesn't change sore throat She is a previous smoker but quit about 20 years ago. INTERVAL HPI 04/01/23: Doing well since we last met. Scheduled a virtual follow-up to go over the results of testing and additional questions. The patient and her family have multiple questions regarding the possibility of tracheostomy, dysphagia, dysphonia following surgery. INTERVAL HPI 05/06/23: Doing well postop but has had malaise since surgery. She was okay for the first day but then has been feeling very low energy. No specific symptoms just generally fatigued. No tcadjr-txjdvp-guxly sweats. Has been able to eat anything she wishes. Has followed our recommended diet of pureed and softer. Continues to take Xarelto per hematology and Augmentin from our team. No changes in voice or difficulty breathing. INTERVAL HPI 06/11/23: Doing well since last seen. Has had complete resolution of generalized malaise and flulike symptoms. She feels back to her usual self. Her diet has gone back to normal. She has no residual neck pain. Lab testing was normal. She is grateful for care. She feels her voice is back to normal. INTERVAL HPI 06/09/24: 1 year follow-up. Patient has been doing well but continues to have some difficulty swallowing. She also complains of thick mucus in the back of her throat at all times she usually drinks almost no water daily but has been drinking more recently because she had a urinary tract infection possibly related to dehydration. She had a knee replacement and had some dizziness afterward and is noted that her blood pressure has been low rather than high and has ceased blood pressure treatment. No voice changes or throat pain ALLERGIES Allergen Reactions Cephalosporins GI Upset c-diff when taking Ciprofloxacin Hives Sulfa (Sulfonamide * Itching Current Outpatient Medications Medication Sig guaiFENesin (MUCINEX) 600 mg 12 hr tablet Take 2 tablets by mouth two times a day as needed for cold/allergy symptoms. rivaroxaban (XARELTO) 10 mg tablet Take 1 tablet by mouth once daily for 21 days. ferrous sulfate 325 mg (65 mg iron) tablet Take 1 tablet by mouth daily at bedtime. acetaminophen (TYLENOL EXTRA STRENGTH) 500 mg tablet Take 2 tablets by mouth every 8 hours as needed for pain. semaglutide (OZEMPIC) 0.25 mg or 0.5 mg (2 mg/3 mL) pen Inject 0.5 mg subcutaneously one time a week. On mondays tiZANidine (ZANAFLEX) 4 mg tablet Take 1 tablet by mouth every 8 hours as needed. esomeprazole (NEXIUM) 40 mg capsule Take 40 mg by mouth once daily. buPROPion SR (WELLBUTRIN SR) 150 mg 12 hr tablet Take by mouth. Take 300mg every morning, and 150mg every evening bumetanide (BUMEX) 1 mg tablet Take 1 mg by mouth once daily as needed. docusate sodium (COLACE) 100 mg capsule Take 200 mg by mouth daily at bedtime. LORazepam (ATIVAN) 0.5 mg Take 0.5 mg by mouth every 6 hours as needed (anxiety). losartan (COZAAR) 50 mg tablet Take 1 tablet by mouth once daily. levothyroxine (SYNTHROID) 50 mcg tablet Take 50 mcg by mouth once daily. Take On an Empty Stomach oxybutynin (DITROPAN) 5 mg tablet Take 5 mg by mouth once daily. escitalopram oxalate (LEXAPRO) 10 mg tablet Take 10 mg by mouth once daily. cholecalciferol (VITAMIN D3) 50 mcg (2,000 unit) (more content not included)... 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 is a 64 year old female with the above diagnoses. Reviewed survey testing from today Videostroboscopy performed today shows full healing of all sites. Stroboscopy reveals normal laryngeal biomechanics with minimal muscle tension. Notable absence of large laryngocele Patient has continued to have some swallowing difficulty which he thinks may be worse. 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 I suspect that the hiatal hernia may be causing her symptoms andrecommended a repeat x-ray esophagram to reevaluate. The patient has thick mucus for which I recommend Mucinex and increasing hydration from very littleto 64 to 96 ounces per day Continue Xarelto per hematology Follow-up annually for observation HPI: Negro Garcia is a 64 year old female who presents with right laryngocele Few years of food getting stuck in her throat, liquid wash not helpful, hard to catch her breath Thick phlegm, throat clearing to clear it up. This sometimes results in whitish thick secretions. Throat clearing during the day unproductive Sore throat points to cricoid area, consistently throughout the day Rare hoarseness, talks a lot socially Never had MBSS Swallowing difficulty doesn't change sore throat She is a previous smoker but quit about 20 years ago. INTERVAL HPI 04/01/23: Doing well since we last met. Scheduled a virtual follow- up to go over the results of testing and additional questions. The patient and her family have multiple questions regarding the possibility of tracheostomy, dysphagia, dysphonia following surgery. INTERVAL HPI 05/06/23: Doing well postop but has had malaise since surgery. She was okay for the first day but then has been feeling very low energy. No specific symptoms just generally fatigued. No ofbxog-udqjvz-vlewn sweats. Has been able to eat anything she wishes. Has followed our recommended diet of pur ed and softer. Continues to take Xarelto per hematology and Augmentin from our team. No changes in voice or difficulty breathing. INTERVAL HPI 06/11/23: Doing well since last seen. Has had complete resolution of generalized malaise and flulike symptoms. She feels back to her usual self. Her diet has gone back to normal. She hasno residual neck pain. Lab testing was normal. She is grateful for care. She feels her voice is back to normal. INTERVAL HPI 06/09/24: 1 year follow-up. Patient has been doing well but continues to have some difficulty swallowing. She also complains of thick mucus in the back of her throat at all times she usually drinks almost no water daily but has been drinking more recently because she had a urinary tract infection possibly related to dehydration. She had a knee replacement and had some dizziness afterward and is noted that her blood pressure has been low rather than high and has ceased blood pressure treatment. No voice changes or throat pain ALLERGIES Allergen Reactions Cephalosporins GI Upset c-diff when taking Ciprofloxacin Hives Sulfa (Sulfonamide * Itching Current Outpatient Medications Medication Sig guaiFENesin (MUCINEX) 600 mg 12 hr tablet Take 2 tablets by mouth two times a day as needed for cold/allergy symptoms. rivaroxaban (XARELTO) 10 mg tablet Take 1 tablet by mouth once daily for 21 days. ferrous sulfate 325 mg (65 mg iron) tablet Take 1 tablet by mouth daily at bedtime. acetaminophen (TYLENOL EXTRA STRENGTH) 500 mg tablet Take 2 tablets by mouth every 8 hours as needed for pain. semaglutide (OZEMPIC) 0.25 mg or 0.5 mg (2 mg/3 mL) pen Inject 0.5 mg subcutaneously one time a week. On mondays tiZANidine (ZANAFLEX) 4 mg tablet Take 1 tablet by mouth every 8 hours as needed. esomeprazole (NEXIUM) 40 mg capsule Take 40 mg by mouth once daily. buPROPion SR (WELLBUTRIN SR) 150 mg 12 hr tablet Take by mouth. Take 300mg every morning, and 150mgevery evening bumetanide (BUMEX) 1 mg tablet Take 1 mg by mouth once daily as needed. docusate sodium (COLACE) 100 mg capsule Take 200 mg by mouth daily at bedtime. LORazepam (ATIVAN) 0.5 mg Take 0.5 mg by mouth every 6 hours as needed (anxiety). losartan (COZAAR) 50 mg tablet Take 1 tablet by mouth once daily. levothyroxine (SYNTHROID) 50 mcg tablet Take 50 mcg by mouth once daily. Take On an Empty Stomach oxybutynin (DITROPAN) 5 mg tablet Take 5 mg by mouth once daily. escitalopram oxalate (LEXAPRO) 10 mg tablet Take 10 mg by mouth once daily. cholecalciferol (VITAMIN D3) 50 mcg (2,000 unit) tablet Take 2,000 Units by mouth once daily. atorvastatin calcium(LIPITOR 40 MG TAB) Take one(1) tablet daily. No current facility-administered medications for this visit. PAST MEDICAL HISTORY Diagnosis Date Carpal tunnel syndrome Depression DVT (deep venous thrombosis) (HCC) After surgeries Hiatal hernia Hypertension Multiple sclerosis (HCC) Primary open-angle glaucoma, bilateral, mild stage Pulmonary embolism (HCC) 1989 PAST SURGICAL HISTORY Procedure Laterality Date ARTHROSCOPY KNEE DIAGNOSTIC W/WO SYNOVIAL BX SPX Right Arthroscopy, knee BACK SURGERY HX x2 BUNIONECTOMY, LAPIDUS-TYPE CARPAL TUNNEL Left PAST SURGICAL HISTORY OF Vein stripping PAST SURGICAL HISTORY OF Heel Spurs TONSILLECTOMY PRIMARY/SECONDARY <AGE 10 Tonsillectomy Social History: Social History Tobacco Use Smoking status: Former Current packs/day: 0.00 Average packs/day: 1 pack/day for 20.0 years (20.0 ttl pk-yrs) Types: Cigarettes Start date: 08/05/1986 Quit date: 08/05/2006 Years since quittin.8 Passive exposure: Past Smokeless tobacco: Never Vaping Use Vaping status: Never Used Substance Use Topics Alcohol use: No Drug use: No FAMILY HISTORY Problem Relation Age of Onset Heart Father Diabetes Father Cataract Mother Cataract Brother Difficulty with anesthesia No Family History Glaucoma No Family History Detached Retina No Family History Macular Degen No Family History Blindness No Family History Amblyopia No Family History Strabismus No Family History Cancer No Family History Hypertension No Family History EAT 10: Score: 3 (06/09/24) LCQ: VHI: ROS: A relevant 12 system review of systems was completed and was negative except as noted in the HPI PHYSICAL EXAM: On physical examination Negro Garcia is a well-developed, well nourished female. Her speech is normal and her voice is mildly strained. Mental status revealed patient to be alert and oriented. Mood is appropriate. Details of the physical examination: CRANIAL NERVE EXAM: II: Pupillary reflexes normal III, IV, : EOM normal V: 1,2,3: normal sensation VII: Normal strength in all divisions. VIII: Hearing grossly normal. IX, X: Hoarse voice, palatal elevation and sensation XI: Shoulder strength normal XII: Tongue mobility normal HEAD AND FACE: Physical examination of the head, neck, external nose, external ears, mouth and facefails to demonstrate any significant abnormality or asymmetry to critical face to face observation.Skin and scalp are normal. EARS: RT Canal: patent RT Drum: intact RT Pneumotoscopy: mobile LT Canal: patent LT Drum: intact LT Pneumotoscopy: mobile NOSE: Examination of the nasal cavity revealed a septum which is near midline. The mucosa is pink, and the visible turbinates are normal on anterior rhinoscopy. There is no purulence or polyps. MASTICATION: The teeth appear age-appropriate. The lips and gums are without lesions. ORAL CAVITY AND OROPHARYNX: The oral mucosa, hard and soft palates, tongue, tonsil area, and posterior pharyngeal wall are without lesions. LARYNX: Subjective evaluation of the voice was completed with details listed above. Mirror evaluation of the larynx was deferred given the need for more accurate laryngeal imaging (see below). NECK: The neck appears symmetric without scars. On palpation, there are no masses or lymphadenopathy. The thyroid is not palpable and was free of masses. No salivary gland masses or hypertrophy is noted. Muscle tension is appreciated in the bilateral strap musculature. No palpable laryngocele of the laryngeal cartilages with or without Valsalva. REVIEW OF RADIOLOGICAL FILMS AND RECORDS: Extensively reviewed records as far back as the electronic medical record allows. She did have a vascular medicine consultation at 1 point which sided abnormal coagulation with elevated serum markers. Reviewed notes from recent orthopedic surgery Reviewed anesthesia report graft send notes from 05/19/2024 [facility] [place] Procedure: Flexible laryngoscopy / Video Stroboscopy PROCEDURE NOTE: Laryngoscopy with videostroboscopy was performed because of the following indication: high resolution assessment of vocal fold oscillation and laryngeal biomechanics: After spraying the nose with xylocaine/neosynephrine, the flexible scope was placed in a transnasal fashion. The nasopharynx, oropharynx, hypopharynx including the pyriform sinuses were normal. There is fibrinous exudate in the right vallecula. The base of tongue showed no gross lesions. The larynx itself showed essentially normallarynx with complete resolution of laryngocele Right VC motion: Full Left VC motion: Full At the level of the true vocal folds with stroboscopy, the patient was able to entrain vocal fold oscillation and the Mucosal waves were noted to be present with minimal supraglottic compression Glottic closure: Complete The immediate subglottic airway was patent Pt tolerated the procedure well, and there were no complications. The procedure was performed by Alfred Guerrero MD Alfred Guerrero MD, MS, MS Laryngology and Upper Airway Surgery This documentation has been completed using [employer] voice dictation software. Please excuse any dictation errors. documented in this encounterL[facility] Evaluation note* Diagnosis Onset Date Resolution Status Admit Date UTI (urinary tract infection) acuteMar 2024 9:03am [facility] Work Phone: [phone]) 667-675703-31-2025 Evaluation note* Diagnosis Onset Date Resolution Status Admit Date UTI (urinary tract infection) acuteMarch 2024 9:03amBMI greater than 30acuteMay 2024 12:33pm HypertensionacuteMay 2024 12:33pmHypothyroidacuteMay 2024 12:33pm ObesityacuteMay 2024 12:33pmStatus post right knee replacementacuteMay 2024 12:33pm [facility] Work Phone: [phone]) 908-922303-27-2025 NotePatient Education Obstetrics and Gynecology Acute Urinary Retention, Female Acute urinary retention is a condition in which a person is unable to pass urine or can only pass alittle urine. This condition can happen suddenly and last for a short time. If left untreated, it can become long-term (chronic) and result in kidney damage or other serious complications. What are the causes? This condition may be caused by: ??? Obstruction or narrowing of the tube that drains the bladder (urethra). This may be caused by surgery, problems with nearby organs, or injury to the bladder or urethra. ??? Problems with the nerves in the bladder. ??? Pelvic organ prolapse. ??? Tumors in the area of the pelvis, bladder, or urethra. ??? Vaginal childbirth. ??? Bladder or urinary tract infection. ??? Constipation. ??? Certain medicines. What increases the risk? This condition is more likely to develop in women over age 50. Other chronic health conditions can increase the risk of acute urinary retention. These include: ??? Diseases such as multiple sclerosis. ??? Spinal cord injuries. ??? Diabetes. ??? Degenerative cognitive conditions, such as delirium or dementia. ??? Psychological conditions. A woman may hold her urine due to trauma or because she does not wantto use the bathroom. ??? History of preexisting urinary retention. ??? History of prior pelvic surgery, incontinence surgery, or radical pelvic surgery. What are the signs or symptoms? Symptoms of this condition include: ??? Trouble urinating. ??? Pain in the lower abdomen. How is this diagnosed? This condition is diagnosed based on a physical exam and your medical history. You may also have other tests, including: ??? An ultrasound of the bladder or kidneys or both. ??? Blood tests. ??? A urine analysis. ??? Additional tests may be needed, such as a CT scan, MRI, and kidney or bladder function tests. How is this treated? Treatment for this condition may include: ??? Medicines. ??? Placing a thin, sterile tube (catheter) into the bladder to drain urine out of the body. This is called an indwelling urinary catheter. After it is inserted, the catheter is held in place with a small balloon that is filled with sterile water. Urine drains from the catheter into a collection bag outside of the body. ??? Behavioral therapy. ??? Treatment for other conditions. If needed, you may be treated in the hospital for kidney function problems or to manage other complications. Follow these instructions at home: Medicines ??? Take zphq-nzp-uttwqhj and prescription medicines only as told by your health care provider. Avoid certain medicines, such as decongestants, antihistamines, and some prescription medicines. Do nottake any medicine unless your health care provider approves. ??? If you were prescribed an antibiotic medicine, take it as told by your health care provider. Donot stop using the antibiotic even if you start to feel better. General instructions ??? Do not use any products that contain nicotine or tobacco. These products include cigarettes, chewing tobacco, and vaping devices, such as e-cigarettes. If you need help quitting, ask your health care provider. ??? Drink enough fluid to keep your urine pale yellow. ??? If you have an indwelling urinary catheter, follow the instructions from your health care provider. ??? Monitor any changes in your symptoms. Tell your health care provider about any changes. ??? If instructed, monitor your blood pressure at home. Report changes as told by your health care provider. ??? Keep all follow-up visits. This is important. Contact a health care provider if: ??? You have uncomfortable bladder contractions that you cannot control (spasms). ??? You leak urine with the spasms. Get help right away if: ??? You have chills or a fever. ??? You have blood in your urine. ??? You have a catheter and the following happens: ? Your catheter stops draining urine. ? Your catheter falls out. Summary ??? Acute urinary retention is a condition in which a person is unable to pass urine or can only pass a little urine. If left untreated, this can result in kidney damage or other serious complications. ??? One cause of this condition may be obstruction or narrowing of the tube that drains the bladder(urethra). This may be caused by surgery, problems with nearby organs, or injury to the bladder or urethra. ??? Treatment may include medicines and placement of an indwelling urinary catheter. ??? Monitor any changes in your symptoms. Tell your health care provider about any changes. This information is not intended to replace advice given to you by your health care provider. Make sure you discuss any questions you have with your health care provider. Document Revised: 11/09/2020 Document Reviewed: 11/09/2020 [employer] Patient Education ? 2023 [employer] 05-25-2024 [id number]03-21-2025 NoteHNO ID: [id number] Author: MARCELL SCOTT MD Service: ? Author Type: Physician Type: Progress Notes Filed: 05/22/2024 16:13 Note Text: see dictated note Marcell Scott II [facility]03-21-2025 History of Present illness Narrative* Marcell Scott MD - 05/22/2024 4:11 PM EDT see dictated note Marcell Scott II, MD documented in this encounterL[facility]03-21-2025 NoteHNO ID: [id number] Author: MARCELL SCOTT MD Service: Orthopaedic Surgery Author Type: Physician Type: Progress Notes Filed: 05/25/2024 14:47 Note Text: [facility] NOTE SHERLY Arita NAME: NEGRO GARCIA [facility] NO.: [id number] DATE OF SERVICE: 05/22/2024 ATTENDING PHYSICIAN: Marcell Scott II, M.D. CHIEF COMPLAINT: Recheck of right knee. Right TKR done May 19. The patient is doing quite well. She is pleased with her leg being straight and she has been walking and bending her knee without difficulty. Further instructions were delineated. We will call back and check on her in a few days. DICTATED BY: Fred Dominique II/BREANN JOB# [id number]03-[facility]25 NoteHNO ID: [id number] Author: COLLIN FRAUSTO MD Service: Hospital Medicine Author Type: Physician Type: Progress Notes Filed: 05/20/2024 16:04 Note Text: DEPARTMENT OF HOSPITAL MEDICINE CONSULT PROGRESS NOTE SERVICE DATE: 05/20/2024 SERVICE TIME: 11:44 AM Primary Care Physician: Jeremiah Lazo, DO NIGHT AND WEEKEND COVERAGE: BILLIE COVERAGE: Days: [phone], please contact via Uncovetsage Nights: - 3rd floor: please page Hospitalist night cover [phone] - 4W: please page Hospitalist night cover #[phone] - 5th floor: please page Hospitalist night cover #[phone] - SDU (17:00 - 19:00): Please page #[phone] - SDU (19:00 - 07:00): Please call [facility] at [phone] Subjective INTERVAL HPI: Patient had an uneventful night. Reports feeling well this morning, her pain is well-controlled. Travel Screening Question Response Have you been in contact with someone who was sick? -- Do you have any of the following new or worsening symptoms? -- Have you traveled internationally or domestically in the last month? No Travel History Travel since 04/22/24 No documented travel since 04/22/24 Current Facility-Administered Medications Medication Dose Route Frequency rivaroxaban 10 mg tab(s) (XARELTO) 10 mg ORAL DAILY atorvastatin 40 mg tab(s) (LIPITOR) 40 mg ORAL DAILY bumetanide 1 mg tab(s) (BUMEX) 1 mg ORAL DAILY PRN losartan 50 mg tab(s) (COZAAR) 50 mg ORAL DAILY pantoprazole DR 40 mg tab(s) (PROTONIX) 40 mg ORAL DAILY escitalopram oxalate 10 mg tab(s) (LEXAPRO) 10 mg ORAL DAILY levothyroxine 50 mcg tab(s) (SYNTHROID) 50 mcg ORAL DAILY ferrous sulfate 325 mg tab(s) 325 mg ORAL AT BEDTIME lactated ringers iv infusion 100 mL/hr INTRAVENOUS CONTINUOUS acetaminophen 1,000 mg tab(s) (TYLENOL) 1,000 mg ORAL q 8 H oxyCODONE IR 5 mg tab(s) (ROXICODONE) 5 mg ORAL q 3 H PRN morphine 2 mg injection 2 mg INTRAVENOUS q 2 H PRN ondansetron 4 mg tab(s) (ZOFRAN) 4 mg ORAL q 6 H PRN Or ondansetron (PF) 4 mg injection (ZOFRAN) 4 mg INTRAVENOUS q 6 H PRN magnesium hydroxide 400 mg/5 mL 30 mL (MOM) 30 mL ORAL DAILY PRN [START ON 05/21/2024] bisacodyl EC 10 mg tab(s) (DULCOLAX) 10 mg ORAL DAILY aluminum-magnesium hydroxide-simethicone 200-200-20 mg/5 mL 30 mL 30 mL ORAL q 2 H PRN ascorbic acid (vitamin C) 500 mg tab(s) (VITAMIN C) 500 mg ORAL BID w MEALS docusate sodium 100 mg cap(s) (COLACE) 100 mg ORAL BID senna 17.2 mg tab(s) (SENOKOT) 17.2 mg ORAL AT BEDTIME trospium 20 mg tab(s) (SANCTURA) 20 mg ORAL BID AC buPROPion SR 300 mg tab(s) (WELLBUTRIN SR) 300 mg ORAL DAILY buPROPion SR 150 mg tab(s) (WELLBUTRIN SR) 150 mg ORAL AT BEDTIME Objective PHYSICAL EXAM: BP 115/57 Pulse 69 Temp (Src) 97.9 (Oral) Resp 18 Ht 5' 4 (1.63m) Wt 184 lb (83.5kg) SpO2 99% BMI 31.57 kg/(m2). O2 Therapy: Room Air Physical Exam Performed: GENERAL: Alert, no distress, cooperative. SKIN: Skin color, texture, turgor normal. NECK: Carotid pulse normal contour. Supple. LUNGS: Lungs clear to auscultation. CARDIAC: Normal S1 and S2; no rubs, murmurs, or gallops. ABDOMEN: Abdomen soft, non-tender. BS normal. EXTREMITIES: Right knee with braces in place, dressing is clean and intact Lines, Drains, and Airways Line Duration Peripheral 05/19/24 1052 Left Forearm 20 Gauge 1 day Reviewed lines and needs to be continued: REASONS: Electrolyte replacement DATA: Diagnostic tests reviewed for today's visit: Most recent labs Most recent imaging Assessment/Plan Problem List Primary osteoarthritis of right knee (POA: Yes) Multiple sclerosis (HCC) (POA: Yes) Systemic lupus erythematosus (HCC) (POA: Yes) Mixed hyperlipidemia (POA: Yes) Gastroesophageal reflux disease without esophagitis (POA: Yes) Depression (POA: Yes) History of pulmonary embolus (PE) (POA: Yes) Hypertension (POA: Yes) Hiatal hernia (POA: Yes) OAB (overactive bladder) (POA: Yes) History of DVT (deep vein thrombosis) (POA: Yes) Hypothyroidism (POA: Yes) Anxiety (POA: Status not on file) HOSPITAL COURSE: Negro Garcia is a 64 year old female with PMHx of DVT/PE, depression, haital hernia, multiple sclerosis, and HTN. Orthopedic team has completed a Right TKA, DOS 05/19/24. Hospital medicine was consulted for medical management. Principal Problem: # Primary osteoarthritis of right knee # S/p right TKA, DOS 05/19 Completed by Orthopedic team. Assessment AND Plan: Management as per orthopedic team Bowel regimen, antibiotics and pain control per primary Active Problems: # Hx of DVT / PE S/p venous repair in her leg in the early 1989. Plan: Continue on telemetry and continuous pulse ox. Continue on aggressive pulmonary toileting measures (Acapella, IS, OOB, and duonebs as needed) Continue Xarelto for 21 days, DVT prophylaxis postoperatively # Multiple sclerosis (HCC) Assessment: Stable In remission Not currently on medications No new neurological symptoms Follows with Chaya Campa (more content not included)...[id number] NoteHNO ID: [id number] Author: ?, ?, ? Service: ? Author Type: ? Type: Plan of Care Filed: 05/20/2024 11:21 Note Text: PHARMACY BEDSIDE DELIVERY SERVICE Patient Name: Negro Garcia The marked outpatient medications were Filled at: [place] and delivered to the patient's bedside to 506- delivered to patient Medication List START taking these medications oxyCODONE IR 5 mg immediate release tablet Commonly known as: ROXICODONE Take 1-2 tablets by mouth every 4-6 hours as needed for post-operative pain. CONTINUE taking these medications acetaminophen 500 mg tablet Commonly known as: TYLENOL EXTRA STRENGTH Take 2 tablets by mouth every 8 hours as needed for pain. bumetanide 1 mg tablet Commonly known as: BUMEX buPROPion SR 150 mg 12 hr tablet Commonly known as: WELLBUTRIN SR cholecalciferol 50 mcg (2,000 unit) tablet Commonly known as: VITAMIN D3 docusate sodium 100 mg capsule Commonly known as: COLACE escitalopram oxalate 10 mg tablet Commonly known as: LEXAPRO esomeprazole 40 mg capsule Commonly known as: NexIUM ferrous sulfate 325 mg (65 mg iron) tablet Take 1 tablet by mouth daily at bedtime. levothyroxine 50 mcg tablet Commonly known as: SYNTHROID LIPITOR 40 mg tablet Generic drug: atorvastatin LORazepam 0.5 mg Commonly known as: ATIVAN losartan 50 mg tablet Commonly known as: COZAAR Take 1 tablet by mouth once daily. oxybutynin 5 mg tablet Commonly known as: DITROPAN rivaroxaban 10 mg tablet Commonly known as: XARELTO Take 1 tablet by mouth once daily for 21 days. semaglutide 0.25 mg or 0.5 mg (2 mg/3 mL) pen Commonly known as: OZEMPIC Inject 0.5 mg subcutaneously one time a week. On mondays tiZANidine 4 mg tablet Commonly known as: ZANAFLEX Take 1 tablet by mouth every 8 hours as needed. You might also be taking other medications not listed above. If you have questions about any of your other medications, talk to the person who prescribed them or your Primary Care Provider. STOP taking these medications ibuprofen 800 mg tablet Commonly known as: CHETAN Hanks PAGER: [facility] bedside May 20, 2024 11:20 [id number] NoteHNO ID: [id number] Author: JENNIFER DORANTES PA-C Service: Orthopaedic Surgery Author Type: Physician Pipe Crew Foreman Type: Progress Notes Filed: 05/20/2024 09:30 Note Text: ORTHOPAEDIC POSTOP PROGRESS NOTE SERVICE DATE: 05/20/2024 SERVICE TIME: 0800 Interval HPI: POD1 s/p R TKA. Patient seen sitting up in chair with daughter present in room. Reports issues with urinating overnight. Straight cath for 1L at 2200. Reports she still has not been able to urinate well this AM. Pain controlled on PO medications. Tolerating diet. Denies fever, chills, chest pain, shortness of breath, nausea, vomiting. VITAL SIGNS: BP 106/51 Pulse 78 Temp 36.4 ?C (97.5 ?F) (Axillary) Resp 17 Ht 162.6 cm (5' 4 ) Wt 83.5 kg (184 lb) LMP (LMP Unknown) SpO2 97% BMI 31.58 kg/m? INTAKE AND OUTPUT: Intake/Output Summary (Last 24 hours) at 05/20/2024 0921 Last data filed at 05/20/2024 0142 Gross per 24 hour Intake 2160 ml Output 1750 ml Net 410 ml PHYSICAL EXAMINATION: General: Alert, cooperative, no acute distress Cardiac: Regular rate and rhythm, no murmurs Lungs: Clear to auscultation bilaterally, no wheezes Right Lower Extremity: Dorsalis pedis pulses palpable. Posterior tibial pulses palpable. Dorsi flexion 5/5. Plantar flexion 5/5. Extensor hallucis extension: 5/5. Sensory intact to light touch L1-S1. Dressing clean, dry, and intact. Surgical site no drainage, skin edges well approximated, and Silverlon intact. LABS: Recent Labs 05/20/24 0447 HB 10.4* HCT 29.7* DATA: Diagnostic tests reviewed for today's visit: Most recent labs and imaging results. Assessment/Plan S/P Procedure(s) (LRB): ARTHROPLASTY REPLACE JOINT TOTAL KNEE (Right) on 05/19/2024 POSTOP PLAN: PT/OT evaluation - appreciate rec's DVT prophylaxis: SCDs and Xarelto 10mg every day for 3 weeks Pain control - continue current Case Management for discharge planning Repeat PVR this AM, if patient still retaining will order figueroa catheter and schedule TOV outpatient with urology in 7-10 days Patient is surgically stable for discharge pending PT/OT clearance ACTIVE PROBLEM LIST Multiple Sclerosis (Hcc) Systemic Lupus Erythematosus (Hcc) Abnormality of Gait Other Acquired Deformity of Ankle and Foot(736.79) Pain in Left Foot Gastrocnemius Equinus Acquired Hallux Valgus of Left Foot Soft Tissue Mass Plantar Fasciitis of Left Foot Heel Spur Mixed Hyperlipidemia Gastroesophageal Reflux Disease Without Esophagitis Depression Class 1 Obesity With Serious Comorbidity and Body Mass Index (Bmi) of 31.0 to 31.9 in Adult History of Pulmonary Embolus (Pe) Clotting Disorder (Hcc) Hypertension Hiatal Hernia Oab (Overactive Bladder) Laryngocele History of Dvt (Deep Vein Thrombosis) Hypothyroidism Primary Osteoarthritis of Right Knee Anxiety Medication and Non-Pharmacologic VTE Prophylaxis/Anticoagulants Anticoagulant AND Antiplatelet Medications (From admission, onward) Start Dose Route Frequency Last Action Ordered Stop 05/20/24 0900 rivaroxaban 10 mg tab(s) (XARELTO) 10 mg ORAL DAILY Ordered 05/19/24 1727 06/10/24 0859 05/19/24 1730 vte current anticoag therapy ([place]) 05/19/24 173 pneumatic compression sleeve(s) ([place]) 05/19/24 173 graduated compression stockings [place]) 05/19/24 173 graduated compression stockings [place]) 05/19/24 173 activity - mobilize patient ([place]) VTE Prophylaxis: VTE prophylaxis appropriate I spent a total of 35 minutes on the date of the service which included preparing to see the patient, [id number] patient care, completing clinical documentation, obtaining and/or reviewing separately obtained history, and performing a medically appropriate examination. SIGNATURE: Jennifer Dorantes PA-C PATIENT NAME: Negro Garcia DATE: May 20, 2024 TIME: 9:29 AM ETX#[id number] History of Present illness Narrative* Marcell Scott MD - 05/20/2024 12:00 AM EDT [facility] NOTE [facility] NAME: NEGRO GARCIA CLINIC NO.: [id number] DATE OF SERVICE: 05/20/2024 ATTENDING PHYSICIAN: Marcell Scott II, M.D. Postop day 1 right TKR for severe OA of the right knee with valgus deformity. The patient is doing very well this morning, having minimal symptoms. Her leg is nice and straight.She can straight leg raise and she can bend the knee actively from 0 to 90 degrees. She is weightbearing to tolerance. Okay for discharge today. Follow up in the office. DICTATED BY: Marcell Scott II, M.D. K/AQT JOB# [id number] documented in this encounterL[facility]03-19-2025 NoteHNO ID: [id number] Author: MARCELL SCOTT MD Service: Orthopaedic Surgery Author Type: Physician Type: Progress Notes Filed: 05/22/2024 11:41 Note Text: [facility] NOTE [facility] NAME: NEGRO GARCIA CLINIC NO.: [id number] DATE OF SERVICE: 05/20/2024 ATTENDING PHYSICIAN: Marcell Scott II, M.D. Postop day 1 right TKR for severe OA of the right knee with valgus deformity. The patient is doing very well this morning, having minimal symptoms. Her leg is nice and straight. She can straight leg raise and she can bend the knee actively from 0 to 90 degrees. She is weightbearing to tolerance. Okay for discharge today. Follow up in the office. DICTATED BY: Marcell Scott II, M.D. MCK/AQT JOB# [id number]03-18-2025 NoteHNO ID: [id number] Author: SHAYY LIRA RT(R) Service: ? Author Type: Technologist Type: Progress Notes Filed: 05/19/2024 16:01 Note Text: Radiology Service Progress Note PATIENT NAME: Negro Garcia DATE OF SERVICE: May 19, 2024 TIME: 4:00 PM PATIENT IDENTITY VERIFICATION COMPLETED USING TWO (2) IDENTIFIERS: Name and Date of confirmed by patient verbally and Name and Date of confirmed by identification band. FALL SCREENING: Has the patient had 2 falls in the last year or 1 fall with injury or currently using an Ambulatory Assistive Device (Walker, Cane, Wheelchair, Crutches, etc.)? Inpatient: Screened on floor PATIENT GENDER DATA: Assigned female at . status: : No status: NO. PATIENT RELEVANT IMPLANT DATA REVIEWED: Not Applicable PATIENT PRESENTS WITH AN IMPLANTABLE OR ATTACHED LIEUTENANT FIRE FIGHTER: No RADIOLOGY DEPARTMENT: General X-ray: Exam(s) Completed: Lower Extremity X-Ray(s): Knee, AP / LAT Right PERIPHERAL IV DATA: Not applicable SIGNED BY: RT Bon(R) May 19, 2024 4:00 [id number] NoteHNO ID: [id number] Author: LUIS THOMAS MD Service: Anesthesiology Author Type: Physician Type: Anesthesia Procedure Notes Filed: 05/19/2024 12:58 Note Text: ANESTHESIOLOGY PROCEDURE NOTE Peripheral Nerve Block General Information Procedure Start Time/Medication Administration: 05/19/2024 12:53 PM Procedure End time: 05/19/2024 12:53 PM Patient location during procedure: OR Timeout Performed Pre-procedure: timeout performed Consent Obtained: Yes Patient identity confirmed: arm band Reason for block: post-op pain management/at surgeon's request Staffing Anesthesiologist: Luis Thomas MD Performed by: anesthesiologist Preparation Sterility Preparation: hand hygiene performed prior to procedure, surgical cap used, mask used, skin prep agent completely dried prior to procedure Site Prep: Chloraprep Pre-Procedure Neuro Exam Location: RLE Sensory: intact Motor: intact Procedure Details Patient Position: supine Monitoring: Pulse OX, EKG and NIBP Block Type Lower Extremity: distal femoral (adductor canal) Laterality: right Injection Technique: single-shot Ultrasound Guided: Yes Image in Chart: yes Local Infiltration: Yes Needle Needle Type: echogenic Needle Gauge: 21 G Needle Length: 100 mm Assessment Injection assessment: negative aspiration, no paresthesia on injection, incremental injection and local visualized surrounding nerve on ultrasound Post-Procedure Neuro Exam Expected Regional Anesthesia: Yes Medications Administered dexamethasone sodium phosphate injection (DECADRON) - peripheral nerve block 8 mg - 05/19/2024 12:53:00 PM ropivacaine (PF) 5 mg/mL (0.5 %) injection (NAROPIN) - peripheral nerve block 17 mL - 05/19/2024 12:53:00 PM SIGNATURE: Luis Thomas MD PATIENT NAME: Negro Garcia DATE: May 19, 2024 TIME: 12:58 PM CSN: [id number] NoteHNO ID: [id number] Author: ROVERTO TOVAR APRN.CHIEF AIRPORT GUIDE Service: ? Author Type: Nurse Cane Splicer Type: Anesthesia Procedure Notes Filed: 05/19/2024 12:57 Note Text: ANESTHESIOLOGY PROCEDURE NOTE Airway General Information Procedure Start Time/Medication Administration: 05/19/2024 12:52 PM Procedure End Time: 05/19/2024 12:57 PM Patient location during procedure: OR Staffing CHIEF AIRPORT GUIDE: Roverto Tovar APRN.CHIEF AIRPORT GUIDE Performed by: CHIEF AIRPORT GUIDE Indications and Patient Condition Indications for airway management: anesthesia Preoxygenated: yes anesthesia circuit Patient position: sniffing Method: asleep Difficult Mask: No Final Airway Details Final airway type: supraglottic airway Number of attempts at approach: 1 Final Supraglottic Airway: IGEL Size 4 Seal Adequate: yes Airway not difficult SIGNATURE: Roverto Tovar APRN.CHIEF AIRPORT GUIDE PATIENT NAME: Negro Garcia DATE: May 19, 2024 TIME: 12:57 PM CSN: [id number] NoteHNO ID: [id number] Author: MONIKA KAN RN Service: Care Management Author Type: Registered Nurse Type: Care Mgt Initial Assessment Filed: 05/19/2024 07:59 Note Text: CARE MANAGEMENT: ASSESSMENT AND DISCHARGE PLAN SERVICE DATE: May 19, 2024 SERVICE TIME: 7:57 am PCP: Jeremiah Lazo DO Primary Contact: Extended Emergency Contact Information Primary Emergency Contact: Leticia Noriega Address: [address] [place] [id number] [place] [address] Mobile Relation: Daughter Secondary Emergency Contact: Tan Garcia Address: [address] [place] [address] Mobile Relation: Son Admission Status: Ambulatory Surgery Insurance Provider: [employer] Discharge Planning requested by: Per Department Practice Potential Transition Plans Outpatient Therapy Advance Directives Current Living Arrangements and Support Lives with: Type of Residence: Support: Current Services/Equipment Current Post-Acute Service(s): DME Current DME Type: Cane, Rolling walker Discharge Planning Patient Goal(s): Better mobility, Less pain, General wellness, Be able to go home [place] of Choice Explained: [place] of Choice Given: No Reason Not Given: Unable to complete with this assessment - revisit Are you interested in bedside delivery of your medications? Discharge Planning Participant(s): Patient (via phone) Patient/Family Comments: Caregiver Assessment: Caregiver is ready, willing and able to meet the patient's needs as recommended by the inter-professional team: Other: See Comment (tbd) Transport at Discharge: Transportation Arrangements: Car (with daughter) Needs Prior to Discharge: Needs Prior to Discharge: To Be Determined, OT/PT Evaluation Post-Acute Discharge Plan: Right - ARTHROPLASTY REPLACE JOINT TOTAL KNEE Patient has a cane AND walker Says she has an outpatient PT appt [facility] Her daughter can drive her home at [place] CM Department will continue to follow if there are any changes in DC plans SIGNATURE: Monika Kan RN PATIENT NAME: Negro Garcia DATE: May 19, 2024 TIME: 7:57 [facility] [id number] Telephone encounter Note* Telephone Encounter - Po Caballero - 05/13/2024 11:38 AM EDT Ileana is calling Marcell Scott II, MD today with concern regarding Joint Class. Patient stated she was advised to take this class to review her stay for her upcoming surgery. Please call patient toadvise. Patient has been identified by name and birthdate. Duration of symptoms: N/A Person calling: self Call patient at: at home [phone] (home) [phone] (cell) Was an appointment scheduled: No Closing statement: Results or non-symptom based questions: Thank you for calling [facility], your call will be returned within the next business day. Thank you, Po Caballero [facility]03-12-2025 Miscellaneous Notes* Telephone Encounter - Po Caballero - 05/13/2024 11:38 AM EDT Ileana is calling Marcell Scott II, MD today with concern regarding Joint Class. Patient stated she was advised to take this class to review her stay for her upcoming surgery. Please call patient toadvise. Patient has been identified by name and birthdate. Duration of symptoms: N/A Person calling: self Call patient at: at home [phone] (home) [phone] (cell) Was an appointment scheduled: No Closing statement: Results or non-symptom based questions: Thank you for calling [facility], your call will be returned within the next business day. Thank you, Po Caballero documented in this encounterLake [facility]03-05-2025 Telephone encounter Note * Telephone Encounter - Monika Hansen MA - 05/06/2024 4:14 PM EST Called patient to check on her per Patience Scotch PA-C and she is feeling better and Patience stated she should be fine as long as o symptoms. She is going to check in with usnext week and hopefully will be fine for surgery Monika Hansen MA [facility]03-05-2025 Miscellaneous Notes* Telephone Encounter - Moinka Hansen MA - 05/06/2024 4:14 PM EST Called patient to check on her per Patience Scotch PA-C and she is feeling better and Patience stated she should be fine as long as o symptoms. She is going to check in with usnext week and hopefully will be fine for surgery Monika Hansen MA * Telephone Encounter - Venkata Saeed - 05/05/2024 10:48 AM EST Ileana is calling Marcell Scott II, MD today to report that she started on an antibiotic on Saturdaywhile in the ER for UTI. Ileana states she was started on antibiotic via IV while in the ER, then given pills to take at home starting Saturday and is to take amox-clav 875-125 mg twice a day for 7 days. Ileana states she was reading her pre-op instructions and it was noted that if she started any new medsto report them to the surgeon. Please contact patient with questions Patient has been identified by name and birthdate. Duration of symptoms: N/A Person calling: self Call patient at: on cell [phone] (home) [phone] (cell) Was an appointment scheduled: No Closing statement: Results or non-symptom based questions: Thank you for calling [facility], your call will be returned within the next business day. Venkata Saeed documented in this encounterLake [facility]03-04-2025 Telephone encounter Note * Telephone Encounter - Jacquelyn Pisano RN - 05/05/2024 4:17 PM EST Pt aware RX sent. Verified to be taken FOLLOWING surgery for 21 days. Pt denies any questions, needs or concerns at this time. Jacquelyn Pisano RN [facility]03-04-2025 Miscellaneous Notes* Telephone Encounter - Jacquelyn Pisano RN - 05/05/2024 4:17 PM EST Pt aware RX sent. Verified to be taken FOLLOWING surgery for 21 days. Pt denies any questions, needs or concerns at this time. Jacquelyn Pisano RN * Telephone Encounter - Venkata Islas APRN.CNP - 05/05/2024 4:14 PM EST The following approved medication requests have been transmitted electronically. Requested Prescriptions Signed Prescriptions Disp Refills rivaroxaban (XARELTO) 10 mg tablet 21 tablet 0 Sig: Take 1 tablet by mouth once daily for 21 days. Authorizing Provider: VENKATA ISLAS APRN.CNP * Telephone Encounter - Jacquelyn Pisano RN - 05/05/2024 12:14 PM EST César: Pended RX to preferred pharmacy: please review and sign, if agreeable Jacquelyn Pisano RN * Telephone Encounter - Charlie Linn MD - 05/05/2024 11:02 AM EST Jacquelyn - can you please see where she's like me to send medicine? I'd prefer to send xarelto 10 mgdaily. For 3 weeks following her surgery. * Telephone Encounter - Cait Chen APRN.CNP - 05/03/2024 6:15 PM EST That would be great! Thank you so much for your help. * Telephone Encounter - Charlie Linn MD - 05/01/2024 11:35 AM EST Luis Felipe Dsouza - looks like all of her clots were provoked. So I would prophylax with either Lovenox 40 mg sq daily for 2-3 weeks after or with Xarelto 10 mg daily for same period of time. I can see her after her surgery just before she is supposed to stop anticoagulation. Would you like us to send an Rx? * Telephone Encounter - Cait Chen APRN.CNP - 04/29/2024 12:16 PM EST I saw patient for Pre-anesthesia appointment today. She is having a knee replacement on 05/19/[address] Kolczun. 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 Per your note Hypercoagulation testing was negative, but in light of her clinical history I would still recommend 2 weeks of post-op prophylaxis with Xarelto or could consider Lovenox. Would you be able to provide recommendation for her upcoming procedure? Thank you, Cait Chen APRN.YUDI [facility] Telephone encounter Note * Telephone Encounter - Venkata Islas APRN.CNP - 05/05/2024 4:14 PM EST The following approved medication requests have been transmitted electronically. Requested Prescriptions Signed Prescriptions Disp Refills rivaroxaban (XARELTO) 10 mg tablet 21 tablet 0 Sig: Take 1 tablet by mouth once daily for 21 days. Authorizing Provider: VENKATA ISLAS APRN.CNP [facility]03-04-2025 Telephone encounter Note* Telephone Encounter - Jacquelyn Pisano RN - 05/05/2024 12:14 PM EST César: Pended RX to preferred pharmacy: please review and sign, if agreeable Jacquelyn Pisano RN [facility]03-04-2025 Telephone encounter Note* Telephone Encounter - Charlie Linn MD - 05/05/2024 11:02 AM EST Jacquelyn - can you please see where she's like me to send medicine? I'd prefer to send xarelto 10 mgdaily. For 3 weeks following her surgery. [facility]03-04[facility] Telephone encounter Note* Telephone Encounter - Venkata Saeed - 05/05/2024 10:48 AM EST Ileana is calling Marcell Scott II, MD today to report that she started on an antibiotic on Saturdaywhile in the ER for UTI. Ileana states she was started on antibiotic via IV while in the ER, then given pills to take at home starting Saturday and is to take amox-clav 875-125 mg twice a day for 7 days. Ileana states she was reading her pre-op instructions and it was noted that if she started any new medsto report them to the surgeon. Please contact patient with questions Patient has been identified by name and birthdate. Duration of symptoms: N/A Person calling: self Call patient at: on cell [phone] (home) [phone] (cell) Was an appointment scheduled: No Closing statement: Results or non-symptom based questions: Thank you for calling [facility], your call will be returned within the next business day. Venkata Saeed [facility]03-02-2025 NoteEducation Materials Caregiving Antibiotic Medicine, Adult Eat yogurt or use probiotics while taking antibiotics to aid with positive gut bacteria. Antibiotic medicines treat infections caused by a type of germ called bacteria. These medicines do not work for germs called viruses. Antibiotics work by killing the bacteria that make you sick. Takeantibiotic medicines safely and only when needed. When do I need to take antibiotics? You may need antibiotics for: ? A urinary tract infection (UTI). ? Strep throat. ? A sinus infection caused by bacteria. ? Meningitis. ? A bad lung infection. You may start your medicines while your doctor waits for your results on some tests. When your results come back, your doctor may change or stop your medicine based on your test results. When are antibiotics not needed? You do not need these medicines for most common illnesses, such as: ? A cold. ? The flu (influenza). ? A sore throat. ? Mucus being an odd color. ? Bronchitis. Sometimes, antibiotics are not needed for an infection caused by bacteria. They may clear up on their own. Do not take these medicines when they are not needed. How long should I take my antibiotic? You need to take all your medicine. Take your antibiotics as told by your doctor. Do not stop taking them even if you start to feel better. If you stop taking them too soon: ? You may feel sick again. ? Your infection may get harder to treat. Antibiotics need different amounts of time to work. The length of time may vary from a few days to a few weeks. What if I miss a dose? Try not to miss a dose. If you miss a dose, call your doctor or pharmacist. Sometimes, it is okay to take the missed dose as soon as you can. Do not take double or extra doses. What are the risks of taking antibiotics? Antibiotics can cause: ? Allergic attacks. ? A feeling like you may vomit (nausea). ? Yeast infections. ? Liver problems. These medicines can cause an infection called C. diff. This causes watery poop (diarrhea). This happens when antibiotics kill good germs in your gut. This lets C. diff grow. Tell your doctor right away if: ? You get watery poop while taking your antibiotic. ? You get watery poop after you stop your antibiotic. C. diff can happen weeks after you stop your medicine. You also have a risk of getting an infection in the future that antibiotics cannot treat (antibiotic-resistant infection). These infections can get very bad. This is because they can be hard, or sometimes impossible, to treat. Do antibiotics affect control? control pills may not work. If you take control pills: ? Keep taking them as normal. ? Use a second form of control, such as a condom. Do this for as long as told by your doctor. What else should I know about taking antibiotics? ? Take these medicines exactly as told. ? Take the right amount of medicine at the same time each day. ? Ask your doctor: ? How long to wait between doses. ? If you should take your medicine with food or water. ? If you should stay away from some foods, drinks, or medicines. Some antibiotics may make other medicines not work as good, such as control pills. ? What side effects you should watch for. ? Use only the medicines that your doctor said to use. Do not use medicines that were given to someone else. ? Drink a large glass of water when you take your medicine unless you are told not to. Drink enoughfluid to keep your pee (urine) pale yellow. ? Ask your pharmacist for a tool to measure your medicine. This may be a syringe, cup, or spoon. ? Ask your doctor how to safely get rid of extra medicine. Follow these instructions at home: ? Take your antibiotics as told by your doctor. Do not stop taking them even if you start to feel better. ? Return to your normal activities when your doctor says that it is safe. Contact a doctor if: ? You feel worse. ? You have one of these after you start your medicine: ? New joint pain. ? New muscle aches. ? You have side effects from your medicine, such as: ? Stomach pain. ? Watery poop. ? Feeling like you may vomit. ? White patches in your mouth or throat. Get help right away if: ? You have a very bad allergic attack. If this happens, stop taking your medicine right away. Signsmay include: ? Hives. These are raised, itchy, red bumps on your skin. ? Skin rash. ? Trouble breathing. ? Making high-pitched whistling sounds when you breathe, most often when you breathe out (wheeze). ? Swelling on your body. ? Feeling dizzy. ? Vomiting. ? You have symptoms of liver problems. You may have: ? Dark pee, or pee that is the color of blood. ? Yellow skin. ? Easy bruising or bleeding. ? You have very bad watery poop. ? You have cramps in your belly. ? You have a very bad headache. These symptoms may be an emergency. Get help rig (more content not included)... [facility] [id number] Telephone encounter Note* Telephone Encounter - Cait Chen APRN.CNP - 05/03/2024 6:15 PM EST That would be great! Thank you so much for your help. [facility]02-28[facility] Telephone encounter Note* Telephone Encounter - Charlie Linn MD - 05/01/2024 11:35 AM EST Luis Felipe Dsouza - looks like all of her clots were provoked. So I would prophylax with either Lovenox 40 mg sq daily for 2-3 weeks after or with Xarelto 10 mg daily for same period of time. I can see her after her surgery just before she is supposed to stop anticoagulation. Would you like us to send an Rx? [facility]02-[facility] Telephone encounter Note* Telephone Encounter - Cait Chen APRN.CNP - 04/29/2024 12:16 PM EST I saw patient for Pre-anesthesia appointment today. She is having a knee replacement on 05/19/[address] Scott. 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 Per your note Hypercoagulation testing was negative, but in light of her clinical history I would still recommend 2 weeks of post-op prophylaxis with Xarelto or could consider Lovenox. Would you be able to provide recommendation for her upcoming procedure? Thank you, Cait Chen APRN.YUDI [facility]02-26-2025 Instructions* Patient Instructions* Cait Chen APRN.CNP - 04/29/2024 11:17 AM EST PATIENT PREOPERATIVE INSTRUCTIONS You Surgeon has scheduled you for your procedure at this surgery center: [facility]: [phone] --[id number] [place] [address]. Please enter through the entrance closest to [facility]. Please read below carefully for your personalized instructions. Dietary Restrictions: - No solid food after midnight. - You may have 12 ounces of clear liquids (water, clear juices such as apple juice or gatorade, carbonated beverages, clear tea, black coffee, jello) until 2 hours before scheduled arrival at facility. Medications: Unless instructed differently below, stay on all of your medications until your surgery. Approved medications to take the morning of surgery with a sip of water: Nexium, Wellbutrin, losartan, levothyroxine, oxybutynin, & lexapro Preoperative Instructions for Patient's with Diabetes Mellitus Oral/ Injectable Medication Instructions - Semaglutide (Ozempic) (Wegovy)(Rybelsus) - please HOLD 7DAYS PRIOR TO SURGERY. Patient injects on : Saturday Last dose of your Ozempic prior to your 05/19/2024 procedure will be: 05/11/2024 - Use mupirocin nasal ointment twice daily starting 5 days prior to surgery. If you start any new medications after today's visit, please contact the surgeon's office. Blood Thinning Medications: - Stop NSAIDS (Ibuprofen, Advil, Aleve, Motrin, Celebrex, Mobic, etc.) 7 days before surgery, as directed by your surgeon. - Stop Aspirin 7 days before surgery, as directed by your surgeon. - Stop Vitamin E, ALL multi-vitamins, herbals and dietary supplements 7 days before surgery. - You may take Tylenol (Acetaminophen) or any of your pain medications that do not contain aspirin or NSAIDS as needed. Important Reminders: - If you are prescribed inhalers for breathing, continue using them. - Candy, mints, and tobacco products are NOT permitted the morning of surgery. - Hearing aids, dentures and glasses may be worn the morning of surgery. - NO jewelry, body piercings, makeup, hairpins or contacts are to be worn the day of surgery. If you develop symptoms such as a fever, cold, or flu, or have other changes to your health within TWO DAYS of scheduled surgery or the morning of surgery, please contact the surgery center above. Personal Belongings: -Please have photo ID and insurance cards. -If you do not have a copy of advance directives on file with us, please bring a copy with you on the day of surgery. - Leave ALL valuables and money at home or with family members. For Outpatient Procedures: - YOU MUST HAVE A RESPONSIBLE PRESSROOM SUPERVISOR TAKE YOU HOME. A FASHION DIRECTOR PARTY PLAN SALES OR ALLERGY PHYSICIAN CANNOT BE MADE A RESPONSIBLE PRESSROOM SUPERVISOR. - We recommend that a responsible person stays with you overnight to take care of you. - You cannot stay in a hotel alone after outpatient surgery. You will not be permitted to have yoursurgery, if you do not have someone to take care of you. Arrival Time for Surgery: - The Surgery Center or hospital where you are having surgery will call the afternoon before surgery (or Saturday for Saturday surgery) with a scheduled arrival time. - If you have not heard by 4 pm, please contact the surgery center above. Please be aware that emergency situations arise, which may delay or change your surgical time. If this happens, we will notify you as soon as possible and regret any inconvenience. If you already have an Advance Directive, please fax a copy to [phone] or email to for it to be added to your chart. If you do not have an Advance Directive, you can find the appropriate form and more information at [email or web address]. We recommend that youcomplete the Advance Directive form found on the website and bring it with you the day of your surgery. It can be witnessed and scanned into your chart that day. Cait Chen APRN.CNP documented in this encounterL[facility] History and physical note * Cait Chen APRN.CNP - 04/29/2024 10:53 AM EST HISTORY AND PHYSICAL EXAMINATION SERVICE DATE: 04/29/2024 SERVICE TIME: 10:54 AM PRIMARY CARE PHYSICIAN: Jeremiah Lazo DO REASON FOR VISIT: Negro Garcia is a 64 year old female who is scheduled for Right - ARTHROPLASTY REPLACE JOINT TOTAL KNEE at the request of Dr. Marcell Scott for consultation. My final recommendation will be communicated back to the requesting physician by way of shared medical record or letter. Assessment Patient has the following medical conditions which may affect alondra-operative course: Mixed hyperlipidemia Assessment: On Statin Follows with PCP Gastroesophageal reflux disease without esophagitis Assessment: Controlled with PPI History of pulmonary embolus (PE) Assessment: Hx of PE and DVT S/p venous repair in her leg in the early 1989 S/p knee surgery around 2005 Not on any anticoagulants Multiple sclerosis (HCC) Assessment: Stable In remission Not currently on medications No new neurological symptoms Follows with [facility] Hypertension Assessment: Stable on medication 112/70 in office today Follows with PCP Laryngocele Assessment: S/p surgical intervention 2023 Follows with ENT Hypothyroidism Assessment: Stable on levothyroxine TSH Date Value Ref Range Status 05/06/2023 1.130 0.270 - 4.200 mIU/L Final SYSTEMIC LUPUS ERYTHEMATOSUS Assessment: In remission Not on medication Follows with [facility] Depression Assessment: Controlled Medication Management History of DVT (deep vein thrombosis) Assessment: Multiple all post-op Follows with hematology Last Sx he recommended: Hypercoagulation testing was negative, but in light of her clinical history I would still recommend 2 weeks of post-op prophylaxis with Xarelto or could consider Lovenox. Will reach out regarding this surgery ANESTHESIA FINDINGS: Intubation History: No history of difficult intubation Significant Anesthesia Considerations: none Airway History: No history of difficult airway Del Real Activity Status Index: METS: Walk indoors, such as around the house (1.75 METs) Do light work around the house, such as dusting or washing dishes (2.70 METs) Take care of self; that is eating, dressing, bathing, using the toilet (2.75 METs) Walk a block or two on level ground (2.75 METs) Do moderate work around the house, such as vacuuming, sweeping floors, or carrying in groceries (3.50 METs) Climb a flight of stairs or walk up a hill (5.50 METs) DASI Score: 18.95 Patient denies any chest pain or undue shortness of breath with the above physical activity. STOP-Bang Score: Has or is being treated for high blood pressure Patient over 50 years old Denies snoring loudly Denies feeling tired, fatigued, or sleepy during the daytime Has not been observed to stop breathing or choking/gasping during sleep BMI less than or equal to 35 kg/m^2 Does not have a large neck Non-male patient STOP-Bang Score: 2 [id number] Score: Age: 65-74 Sex: female CHF history: No Hypertension history: Yes Stroke/TIA/thromboembolism history: Yes Vascular disease history: No Diabetes history: No [id number] Score: 5 ARISCAT Score: Age: 51-80 Preoperative SpO2: >=96% Respiratory infection in the last month: No Preoperative anemia: No Surgical incision: peripheral Duration of surgery: >3 hrs Emergency procedure: No ARISCAT Score: 26 I - PHYSICAL EVALUATION AIRWAY Patient intubated: No. Tracheostomy tube not present Mallampati: I. TM distance: >3 FB. Neck ROM: full ROM without neurological symptoms. Mouth opening: adequate. Short neck: no. Thick neck: no Martinez present: no Lip Bite Test: I Microretrognathia/Micronagthia/Recessed Chin: No DENTAL Dental findings: teeth intact. II - ANESTHESIA PLAN Beta Michelle Monitoring Plan Post Procedure Analgesic Plan Prepared for surgery: This patient is optimally prepared for surgery pending LABS and EKG/Swab. Need recommendations regarding post-op anti-coag- Tele enc sent to Hematology CONSULTS: Patient does not require consults for optimization at this time. The Following Tests/Procedures Have Been Initiated: Orders Placed This Encounter Complete Blood Count Standing Status: Future Number of Occurrences: 1 Expected Date: 04/29/2024 Expiration Date: 07/29/2024 mupirocin (BACTROBAN) 2 % ointment Sig: two times a day for 5 days. Apply 0.5 inch with cotton swab (Q-tip) to each nostril in the morning and evening for 5 days prior to and including day of surgery. Dispense: 22 g Refill: 0 , +Labs ordered by surgical team Planned Anesthetic: Per anesthesia choice Subjective CHIEF COMPLAINT: OA right knee HPI: 64 year old year old year old female presents to [facility] for evaluation. Patient Has had right knee pain > 5 years. Has tried conservative measures without lasting relief. Has elected for surgical intervention. PAST MEDICAL HISTORY Diagnosis Date Carpal tunnel syndrome Depression DVT (deep venous thrombosis) (HCC) After surgeries Hiatal hernia Hypertension Multiple sclerosis (HCC) Primary open-angle glaucoma, bilateral, mild stage Pulmonary embolism (HCC) 1989 PAST SURGICAL HISTORY Procedure Laterality Date ARTHROSCOPY KNEE DIAGNOSTIC W/WO SYNOVIAL BX SPX Right Arthroscopy, knee BACK SURGERY HX x2 BUNIONECTOMY, LAPIDUS-TYPE CARPAL TUNNEL Left PAST SURGICAL HISTORY OF Vein stripping PAST SURGICAL HISTORY OF Heel Spurs TONSILLECTOMY PRIMARY/SECONDARY Tonsillectomy FAMILY HISTORY Problem Relation Age of Onset Heart Father Diabetes Father Cataract Mother Cataract Brother Difficulty with anesthesia No Family History Glaucoma No Family History Detached Retina No Family History Macular Degen No Family History Blindness No Family History Amblyopia No Family History Strabismus No Family History Cancer No Family History Hypertension No Family History SOCIAL HISTORY: Social History Tobacco Use Smoking status: Former Current packs/day: 0.00 Average packs/day: 1 pack/day for 20.0 years (20.0 ttl pk-yrs) Types: Cigarettes Start date: 08/05/1986 Quit date: 08/05/2006 Years since quittin.7 Passive exposure: Past Smokeless tobacco: Never Vaping Use Vaping status: Never Used Substance Use Topics Alcohol use: No Drug use: No Prior to Admission medications as of 04/29/24 1107 Medication Sig Last Dose Taking ferrous sulfate 325 mg (65 mg iron) tablet Take 1 tablet by mouth daily at bedtime. Yes acetaminophen (TYLENOL EXTRA STRENGTH) 500 mg tablet Take 2 tablets by mouth every 8 hours as needed for pain. Yes semaglutide (OZEMPIC) 0.25 mg or 0.5 mg (2 mg/3 mL) pen Inject 0.5 mg subcutaneously one time a week. On mondays Yes tiZANidine (ZANAFLEX) 4 mg tablet Take 1 tablet by mouth every 8 hours as needed. Yes ibuprofen (MOTRIN) 800 mg tablet TAKE 1 TABLET BY MOUTH THREE TIMES DAILY NEEDED FOR PAIN FOR FEVER Yes esomeprazole (NEXIUM) 40 mg capsule Take 40 mg by mouth once daily. Yes buPROPion SR (WELLBUTRIN SR) 150 mg 12 hr tablet Take by mouth. Take 300mg every morning, and 150mgevery evening Yes bumetanide (BUMEX) 1 mg tablet Take 1 mg by mouth once daily as needed. Yes docusate sodium (COLACE) 100 mg capsule Take 200 mg by mouth daily at bedtime. Yes LORazepam (ATIVAN) 0.5 mg Take 0.5 mg by mouth every 6 hours as needed (anxiety). Yes losartan (COZAAR) 50 mg tablet Take 1 tablet by mouth once daily. Yes levothyroxine (SYNTHROID) 50 mcg tablet Take 50 mcg by mouth once daily. Take On an Empty Stomach Yes oxybutynin (DITROPAN) 5 mg tablet Take 5 mg by mouth once daily. Yes escitalopram oxalate (LEXAPRO) 10 mg tablet Take 10 mg by mouth once daily. Yes cholecalciferol (VITAMIN D3) 50 mcg (2,000 unit) tablet Take 2,000 Units by mouth once daily. Yes atorvastatin calcium(LIPITOR 40 MG TAB) Take one(1) tablet daily. Yes mupirocin (BACTROBAN) 2 % ointment two times a day for 5 days. Apply 0.5 inch with cotton swab (Q-tip) to each nostril in the morning and evening for 5 days prior to and including day of surgery. No medication comments found. ALLERGIES Allergen Reactions Cephalosporins GI Upset c-diff when taking Ciprofloxacin Hives Sulfa (Sulfonamide * Itching Covid Immunization Dates Upcoming Covid-19 Vaccine ( season) Next due on 06/29/2024 12/30/2023 Imm Admin: COVID-19 vaccine, age 12+ yr ([employer] COMIRNATPost-i) 02/13/2021 Imm Admin: COVID-19 original vaccine, full dose, monovalent (MODERNA) 01/16/2021 Imm Admin: COVID-19 original vaccine, full dose, monovalent (MODERNA) REVIEW OF SYSTEMS: PAIN ASSESSMENT: Pain Pain Level: 2 Pain Location: Knee-Right Description: Other: See comment (popping) Duration Units: Years Frequency: Continuous General: No weight loss, malaise or fevers. Neuro: Negative for Seizures Stroke-residual deficit Stroke-No residual deficit +MS +Lupus Respiratory: No history of current cough or dyspnea, or pneumonia in the past 6 weeks. No history of respiratory/pulmonary symptoms or problems. Cardiovascular: Negative for Recent SC, Angina, Chest Pain, PVD, DVT/PE +HTN +HLD +H/O DVT/PE GI: Negative for Nausea, Vomiting, Abdominal pain +GERD : Negative for dysuria, incontinence, hematuria, and hesitancy NISSAN SALES CONSULTANT: Negative for abnormal vaginal bleeding, abnormal vaginal discharge. : Denies, No LMP recorded (lmp unknown). Patient is postmenopausal. Endocrine: Hypothyroidism Hematology: +H/o DVT/PE Oncology: No history of CA metastasis, chemo within 30 days, or radiotherapy within 90 days. Has not lost 10% of body wt in 6 months. No history of oncological symptoms or problems. Psych: Depression Musculoskeletal: See HPI Skin: Negative for lesions, rash and itching. Objective PHYSICAL EXAM: VITALS: BP 112/70 Pulse 86 Temp (Src) 98.6 (Oral) Resp 16 Ht 5' 4 (1.63m) Wt 185 lb 3 oz (84.0kg) SpO2 98% BMI 31.77 kg/(m^2). General: Alert and oriented Skin: Normal color, no rash, no lesions. HEENT: EOM, pupils equal, round and reactive. Cardiovascular: Normal S1 & S2, no rubs, murmurs or gallops. No JVD. Pulse regular. Lungs: Normal breath sounds, no wheezes or crackles. Abdomen: Soft, non-tender, no rigidity. Extremities: No deformity, no edema or tenderness, no joint swelling or clubbing. Neurological: Normal cognition and motor skills. Pulses: Carotid and radial pulses normal +2. Diagnostic tests reviewed for today's visit: Lab Value Units Date High Low HB No results within date range. HCT No results within date range. WBC No results within date range. PLT No results within date range. NA No results within date range. K No results within date range. GLUC No results within date range. BUN No results within date range. CREAT No results within date range. PTSEC No results within date range. INR No results within date range. APTT No results within date range. ALT No results within date range. AST No results within date range. TBILI No results within date range. TSH No results within date range. No results found for: HBA1C No results found for this or any previous visit (from the past 8760 hours). No new labs or tests Hypercoagulation testing was negative, but in light of her clinical history I would still recommend2 weeks of post-op prophylaxis with Xarelto or could consider Lovenox. Instructions Given to Patient: Instructions located in the after visit summary. Patient given verbal and written preop instructions and voices comprehension and compliance. SIGNATURE: Cait Chen APRN.CNP PATIENT NAME: Negro Garcia DATE: 04/29/2024 TIME: 10:54 AM [facility]02-26-[facility]25 History and physical note* Cait Chen APRN.CNP - 04/29/2024 10:53 AM EST HISTORY AND PHYSICAL EXAMINATION SERVICE DATE: 04/29/2024 SERVICE TIME: 10:54 AM PRIMARY CARE PHYSICIAN: Jeremiah Lazo DO REASON FOR VISIT: Negro Garcia is a 64 year old female who is scheduled for Right - ARTHROPLASTY REPLACE JOINT TOTAL KNEE at the request of Dr. Marcell Scott for consultation. My final recommendation will be communicated back to the requesting physician by way of shared medical record or letter. Assessment Patient has the following medical conditions which may affect alondra-operative course: Mixed hyperlipidemia Assessment: On Statin Follows with PCP Gastroesophageal reflux disease without esophagitis Assessment: Controlled with PPI History of pulmonary embolus (PE) Assessment: Hx of PE and DVT S/p venous repair in her leg in the early 1989 S/p knee surgery around 2005 Not on any anticoagulants Multiple sclerosis (HCC) Assessment: Stable In remission Not currently on medications No new neurological symptoms Follows with [facility] Hypertension Assessment: Stable on medication /70 in office today Follows with PCP Laryngocele Assessment: S/p surgical intervention 2023 Follows with ENT Hypothyroidism Assessment: Stable on levothyroxine TSH Date Value Ref Range Status 05/06/2023 1.130 0.270 - 4.200 mIU/L Final SYSTEMIC LUPUS ERYTHEMATOSUS Assessment: In remission Not on medication Follows with [facility] Depression Assessment: Controlled Medication Management History of DVT (deep vein thrombosis) Assessment: Multiple all post-op Follows with hematology Last Sx he recommended: Hypercoagulation testing was negative, but in light of her clinical history I would still recommend 2 weeks of post-op prophylaxis with Xarelto or could consider Lovenox. Will reach out regarding this surgery ANESTHESIA FINDINGS: Intubation History: No history of difficult intubation Significant Anesthesia Considerations: none Airway History: No history of difficult airway Del Real Activity Status Index: METS: Walk indoors, such as around the house (1.75 METs) Do light work around the house, such as dusting or washing dishes (2.70 METs) Take care of self; that is eating, dressing, bathing, using the toilet (2.75 METs) Walk a block or two on level ground (2.75 METs) Do moderate work around the house, such as vacuuming, sweeping floors, or carrying in groceries (3.50 METs) Climb a flight of stairs or walk up a hill (5.50 METs) DASI Score: 18.95 Patient denies any chest pain or undue shortness of breath with the above physical activity. STOP-Bang Score: Has or is being treated for high blood pressure Patient over 50 years old Denies snoring loudly Denies feeling tired, fatigued, or sleepy during the daytime Has not been observed to stop breathing or choking/gasping during sleep BMI less than or equal to 35 kg/m^2 Does not have a large neck Non-male patient STOP-Bang Score: 2 [id number] Score: Age: 65-74 Sex: female CHF history: No Hypertension history: Yes Stroke/TIA/thromboembolism history: Yes Vascular disease history: No Diabetes history: No [id number] Score: 5 ARISCAT Score: Age: 51-80 Preoperative SpO2: >=96% Respiratory infection in the last month: No Preoperative anemia: No Surgical incision: peripheral Duration of surgery: >3 hrs Emergency procedure: No ARISCAT Score: 26 I - PHYSICAL EVALUATION AIRWAY Patient intubated: No. Tracheostomy tube not present Mallampati: I. TM distance: >3 FB. Neck ROM: full ROM without neurological symptoms. Mouth opening: adequate. Short neck: no. Thick neck: no Martinez present: no Lip Bite Test: I Microretrognathia/Micronagthia/Recessed Chin: No DENTAL Dental findings: teeth intact. II - ANESTHESIA PLAN Beta Michelle Monitoring Plan Post Procedure Analgesic Plan Prepared for surgery: This patient is optimally prepared for surgery pending LABS and EKG/Swab. Need recommendations regarding post-op anti-coag- Tele enc sent to Hematology CONSULTS: Patient does not require consults for optimization at this time. The Following Tests/Procedures Have Been Initiated: Orders Placed This Encounter Complete Blood Count Standing Status: Future Number of Occurrences: 1 Expected Date: 04/29/2024 Expiration Date: 07/29/2024 mupirocin (BACTROBAN) 2 % ointment Sig: two times a day for 5 days. Apply 0.5 inch with cotton swab (Q-tip) to each nostril in the morning and evening for 5 days prior to and including day of surgery. Dispense: 22 g Refill: 0 , +Labs ordered by surgical team Planned Anesthetic: Per anesthesia choice Subjective CHIEF COMPLAINT: OA right knee HPI: 64 year old year old year old female presents to [facility] for evaluation. Patient Has had right knee pain > 5 years. Has tried conservative measures without lasting relief. Has elected for surgical intervention. PAST MEDICAL HISTORY Diagnosis Date Carpal tunnel syndrome Depression DVT (deep venous thrombosis) (HCC) After surgeries Hiatal hernia Hypertension Multiple sclerosis (HCC) Primary open-angle glaucoma, bilateral, mild stage Pulmonary embolism (HCC) 1989 PAST SURGICAL HISTORY Procedure Laterality Date ARTHROSCOPY KNEE DIAGNOSTIC W/WO SYNOVIAL BX SPX Right Arthroscopy, knee BACK SURGERY HX x2 BUNIONECTOMY, LAPIDUS-TYPE CARPAL TUNNEL Left PAST SURGICAL HISTORY OF Vein stripping PAST SURGICAL HISTORY OF Heel Spurs TONSILLECTOMY PRIMARY/SECONDARY <AGE 12 Tonsillectomy FAMILY HISTORY Problem Relation Age of Onset Heart Father Diabetes Father Cataract Mother Cataract Brother Difficulty with anesthesia No Family History Glaucoma No Family History Detached Retina No Family History Macular Degen No Family History Blindness No Family History Amblyopia No Family History Strabismus No Family History Cancer No Family History Hypertension No Family History SOCIAL HISTORY: Social History Tobacco Use Smoking status: Former Current packs/day: 0.00 Average packs/day: 1 pack/day for 20.0 years (20.0 ttl pk-yrs) Types: Cigarettes Start date: 08/05/1986 Quit date: 08/05/2006 Years since quittin.7 Passive exposure: Past Smokeless tobacco: Never Vaping Use Vaping status: Never Used Substance Use Topics Alcohol use: No Drug use: No Prior to Admission medications as of 04/29/24 1107 Medication Sig Last Dose Taking ferrous sulfate 325 mg (65 mg iron) tablet Take 1 tablet by mouth daily at bedtime. Yes acetaminophen (TYLENOL EXTRA STRENGTH) 500 mg tablet Take 2 tablets by mouth every 8 hours as needed for pain. Yes semaglutide (OZEMPIC) 0.25 mg or 0.5 mg (2 mg/3 mL) pen Inject 0.5 mg subcutaneously one time a week. On mondays Yes tiZANidine (ZANAFLEX) 4 mg tablet Take 1 tablet by mouth every 8 hours as needed. Yes ibuprofen (MOTRIN) 800 mg tablet TAKE 1 TABLET BY MOUTH THREE TIMES DAILY NEEDED FOR PAIN FOR FEVER Yes esomeprazole (NEXIUM) 40 mg capsule Take 40 mg by mouth once daily. Yes buPROPion SR (WELLBUTRIN SR) 150 mg 12 hr tablet Take by mouth. Take 300mg every morning, and 150mgevery evening Yes bumetanide (BUMEX) 1 mg tablet Take 1 mg by mouth once daily as needed. Yes docusate sodium (COLACE) 100 mg capsule Take 200 mg by mouth daily at bedtime. Yes LORazepam (ATIVAN) 0.5 mg Take 0.5 mg by mouth every 6 hours as needed (anxiety). Yes losartan (COZAAR) 50 mg tablet Take 1 tablet by mouth once daily. Yes levothyroxine (SYNTHROID) 50 mcg tablet Take 50 mcg by mouth once daily. Take On an Empty Stomach Yes oxybutynin (DITROPAN) 5 mg tablet Take 5 mg by mouth once daily. Yes escitalopram oxalate (LEXAPRO) 10 mg tablet Take 10 mg by mouth once daily. Yes cholecalciferol (VITAMIN D3) 50 mcg (2,000 unit) tablet Take 2,000 Units by mouth once daily. Yes atorvastatin calcium(LIPITOR 40 MG TAB) Take one(1) tablet daily. Yes mupirocin (BACTROBAN) 2 % ointment two times a day for 5 days. Apply 0.5 inch with cotton swab (Q-tip) to each nostril in the morning and evening for 5 days prior to and including day of surgery. No medication comments found. ALLERGIES Allergen Reactions Cephalosporins GI Upset c-diff when taking Ciprofloxacin Hives Sulfa (Sulfonamide * Itching Covid Immunization Dates Upcoming Covid-19 Vaccine ( season) Next due on 06/29/2024 12/30/2023 Imm Admin: COVID-19 vaccine, age 12+ yr ([employer] [facility]) 02/13/2021 Imm Admin: COVID-19 original vaccine, full dose, monovalent (MODERNA) 01/16/2021 Imm Admin: COVID-19 original vaccine, full dose, monovalent (MODERNA) REVIEW OF SYSTEMS: PAIN ASSESSMENT: Pain Pain Level: 2 Pain Location: Knee-Right Description: Other: See comment (popping) Duration Units: Years Frequency: Continuous General: No weight loss, malaise or fevers. Neuro: Negative for Seizures Stroke-residual deficit Stroke-No residual deficit +MS +Lupus Respiratory: No history of current cough or dyspnea, or pneumonia in the past 6 weeks. No history of respiratory/pulmonary symptoms or problems. Cardiovascular: Negative for Recent SC, Angina, Chest Pain, PVD, DVT/PE +HTN +HLD +H/O DVT/PE GI: Negative for Nausea, Vomiting, Abdominal pain +GERD : Negative for dysuria, incontinence, hematuria, and hesitancy [employer]: Negative for abnormal vaginal bleeding, abnormal vaginal discharge. : Denies, No LMP recorded (lmp unknown). Patient is postmenopausal. Endocrine: Hypothyroidism Hematology: +H/o DVT/PE Oncology: No history of CA metastasis, chemo within 30 days, or radiotherapy within 90 days. Has not lost 10% of body wt in 6 months. No history of oncological symptoms or problems. Psych: Depression Musculoskeletal: See HPI Skin: Negative for lesions, rash and itching. Objective PHYSICAL EXAM: VITALS: BP 112/70 Pulse 86 Temp (Src) 98.6 (Oral) Resp 16 Ht 5' 4 (1.63m) Wt 185 lb 3 oz (84.0kg) SpO2 98% BMI 31.77 kg/(m^2). General: Alert and oriented Skin: Normal color, no rash, no lesions. HEENT: EOM, pupils equal, round and reactive. Cardiovascular: Normal S1 & S2, no rubs, murmurs or gallops. No JVD. Pulse regular. Lungs: Normal breath sounds, no wheezes or crackles. Abdomen: Soft, non-tender, no rigidity. Extremities: No deformity, no edema or tenderness, no joint swelling or clubbing. Neurological: Normal cognition and motor skills. Pulses: Carotid and radial pulses normal +2. Diagnostic tests reviewed for today's visit: Lab Value Units Date High Low HB No results within date range. HCT No results within date range. WBC No results within date range. PLT No results within date range. NA No results within date range. K No results within date range. GLUC No results within date range. BUN No results within date range. CREAT No results within date range. PTSEC No results within date range. INR No results within date range. APTT No results within date range. ALT No results within date range. AST No results within date range. TBILI No results within date range. TSH No results within date range. No results found for: HBA1C No results found for this or any previous visit (from the past 8760 hours). No new labs or tests Hypercoagulation testing was negative, but in light of her clinical history I would still recommend2 weeks of post-op prophylaxis with Xarelto or could consider Lovenox. Instructions Given to Patient: Instructions located in the after visit summary. Patient given verbal and written preop instructions and voices comprehension and compliance. SIGNATURE: Cait Chen APRN.CNP PATIENT NAME: Negro Garcia DATE: 04/29/2024 TIME: 10:54 AM [facility] Instructions* Patient Instructions* Patience Angeles PA-C - 04/29/2024 10:16 AM EST To avoid postop constipation, which is the biggest problem after surgery: Increase the amount of water that you are drinking by 3 to 4 glasses a day beginning 2 to 3 days before surgery. Eat light, avoiding constipating foods for 2 to 3 days before surgery. Avoid cheese which is constipating (pizza, grilled cheese) as well as a heavy protein like steak or hamburger. Eat lots of fruits and vegetables, soup, salads, eggs, yogurt, fish, rice and small amount of chicken. Plan on doing the same thing after surgery until you get your bowels going. Could be 2 or 3 days postop. Eating 2 or 3 prunes with every meal also helps get your bowels for more naturally. This will sometimes avoid having to use medications to blast you out after surgery. documented in [facility] NoteHNO ID: [id number] Author: PATIENCE ANGELES PA-C Service: ? Author Type: Physician Pipe Crew Foreman Type: Progress Notes Filed: 04/29/2024 11:29 Note Text: CONSULT ORTHOPAEDIC: KNEE PRIMARY CARE PHYSICIAN: Jeremiah Lazo DO REFERRING PROVIDER: SELF ASSESSMENT AND PLAN Impression: Right Knee Severe Degenerative Osteoarthritis, Primary Diagnoses: severe degenerative arthritis of the right knee Based upon the evaluation today and after discussions with Negro Garcia, Negro Garcia has significant, worsening pain at the knee. This pain is increased with activity and weight bearing, and interferes with activities of daily living. These symptoms have continued despite a number of non-surgical measures, including a trial of oral pain medication and attempted physical therapy/ structured exercise program and/or use of an assistive device/ bracing (for at least 12 weeks unless the patient was unable to tolerate these measures as discussed above). At this point, the patient will not benefit from further PT due to the severity of their condition. The patient's physical examination is consistent with limitations in range of motion, pain with passive range of motion, crepitus, and effusion/ synovitis. These examination findings are corroborated by imaging findings of joint space narrowing, periarticular osteophyte formation, and subchondral sclerosis. The patient has been treated by the practice and all reasonable treatments have failed to control the disease, which causes significant pain and limits activities of daily living. The patient has failed conservative treatment and joint replacement surgery was discussed and agreed upon by both provider and patient. We will proceed with surgical management to improve function and relieve pain refractory to non-surgical measures. Right Primary Total Knee Arthroplasty as evidenced by progressive symptoms. Progressive Symptoms Include: Pain worsened by weight bearing Pain limiting ability to stay fit and healthy Unable to ambulate 2 blocks without significant pain and dysfunction . Surgery Details Date and Location: At [place] on May 19, 2024 . Implants: Thea Robotic: No Predicted LOS: 1 day (Outpatient candidate) Informed consent obtained in the office today. The risks and benefits of surgery were discussed at length including but not limited to the risks of infection, bleeding, nerve or blood vessel injury, deep venous thrombosis, pulmonary embolism, arthrofibrosis, reflex sympathetic dystrophy, , paralysis, knee or patellar dislocation, extensor mechanism injury, bone fracture, component loosening or failure requiring re-operation or amputation. Informed consent was obtained and the patient was scheduled for surgery. We also discussed fixation strategies including cement and cementless fixation and advantages and disadvantages of each. We discussed the details of the surgery as well as rehabilitation. All questions were answered, and the patient wishes to proceed with surgery.. The patient has been ordered: Office Visit on 04/29/24 TYPE + SCREEN ferrous sulfate 325 mg (65 mg iron) tablet acetaminophen (TYLENOL EXTRA STRENGTH) 500 mg tablet semaglutide (OZEMPIC) 0.25 mg or 0.5 mg (2 mg/3 mL) pen tiZANidine (ZANAFLEX) 4 mg tablet No orders placed today. CONSULTS: Patient does not require consults for optimization at this time. Total Joint Arthroplasty: Risk Calculator Negro Garcia has a 3.94% chance of NOT returning home at discharge for a Primary total Knee replacement. Negro's estimated Length of Stay is 1 day (Outpatient candidate). Negro's 30 day chance of readmission is 1.17%. Readmission Probability 1.17 % (within 30 days following surgery) Estimated LOS 1 day Discharge Disposition Probability D/C to Home 96.06 % D/C to SNF 3.94 % These calculations are based on the following factors: - 64 years of age - sex is not male - BMI of 32.87 kg/m2 - NarxCare score of 0 - 1 hospitalizations in the last 12 months - no history of heart disease - no history of diabetes - no history of COPD - no history of anemia - preoperative ambulation: independent community distances - 2 step(s) to enter home - bed location is on the first floor - bath location is on the first floor - caregiver is consistent - home is not more than 150 miles away - PROMIS-10 Mental Health T score 41-49 - Marital status: Risk Factors for Total Knee Arthroplasty (TKA) Major Risk Factors Obesity Moderate Risk High: BMI > 40 Moderate: BMI 30-40 Normal: BMI < 30 Diabetes normal High: A1C > 8 Moderate: A1C 7-8 Normal: A1C < 7 Hx of DVT / PE High Risk High: dx of DVT / PE Normal: no dx of DVT / PE Smoking normal High: Current smoker Normal: Non smoker Narcotics Use Moderate Risk High:NarxCare >=300 Moderate: 100-299 Normal: 0-99 Depression normal High: PHQ-9 >14 Moderate: PHQ-9 5-14 Normal: PHQ-9 < (more content not included)...[facility]02-[facility] History of Present illness Narrative* Patience Angeles PA-C - 04/29/2024 9:07 AM EST Images from the original note were not included. CONSULT ORTHOPAEDIC: KNEE PRIMARY CARE PHYSICIAN: Jeremiah Lazo DO REFERRING PROVIDER: SELF ASSESSMENT & PLAN Impression: Right Knee Severe Degenerative Osteoarthritis, Primary Diagnoses: severe degenerative arthritis of the right knee Based upon the evaluation today and after discussions with Negro Garcia, Negro Garcia has significant, worsening pain at the knee. This pain is increased with activity and weight bearing, and interferes with activities of daily living. These symptoms have continued despite a number of non-surgical measures, including a trial of oral pain medication and attempted physical therapy/ structuredexercise program and/or use of an assistive device/ bracing (for at least 12 weeks unless the patient was unable to tolerate these measures as discussed above). At this point, the patient will not benefit from further PT due to the severity of their condition. The patient's physical examination is c onsistent with limitations in range of motion, pain with passive range of motion, crepitus, and effusion/ synovitis. These examination findings are corroborated by imaging findings of joint space narrowing, periarticular osteophyte formation, and subchondral sclerosis. The patient has been treated by the practice and all reasonable treatments have failed to control the disease, which causes significant pain and limits activities of daily living. The patient has failed conservative treatment andjoint replacement surgery was discussed and agreed upon by both provider and patient. We will proceed with surgical management to improve function and relieve pain refractory to non-surgical measures. Right Primary Total Knee Arthroplasty as evidenced by progressive symptoms. Progressive Symptoms Include: Pain worsened by weight bearing Pain limiting ability to stay fit and healthy Unable to ambulate 2 blocks without significant pain and dysfunction . Surgery Details Date and Location: At [place] on May 19, 2024 . Implants: Thea Robotic: No Predicted LOS: 1 day (Outpatient candidate) Informed consent obtained in the office today. The risks and benefits of surgery were discussed at length including but not limited to the risks of infection, bleeding, nerve or blood vessel injury, deep venous thrombosis, pulmonary embolism, arthrofibrosis, reflex sympathetic dystrophy, , paralysis, knee or patellar dislocation, extensor mechanism injury, bone fracture, component loosening or failure requiring re-operation or amputation. Informed consent was obtained and the patient was scheduled for surgery. We also discussed fixation strategies including cement and cementless fixation and advantages and disadvantages of each. We discussed the details of the surgery as well as rehabilitation. All questions were answered, and the patient wishes to proceed with surgery.. The patient has been ordered: Office Visit on 04/29/24 TYPE + SCREEN ferrous sulfate 325 mg (65 mg iron) tablet acetaminophen (TYLENOL EXTRA STRENGTH) 500 mg tablet semaglutide (OZEMPIC) 0.25 mg or 0.5 mg (2 mg/3 mL) pen tiZANidine (ZANAFLEX) 4 mg tablet No orders placed today. CONSULTS: Patient does not require consults for optimization at this time. Total Joint Arthroplasty: Risk Calculator Negro Garcia has a 3.94% chance of NOT returning home at discharge for a Primary total Knee replacement. Negro's estimated Length of Stay is 1 day (Outpatient candidate). Negro's 30 day chance of readmission is 1.17%. Readmission Probability 1.17 % (within 30 days following surgery) Estimated LOS 1 day Discharge Disposition Probability D/C to Home 96.06 % D/C to SNF 3.94 % These calculations are based on the following factors: - 64 years of age - sex is not male - BMI of 32.87 kg/m2 - NarxCare score of 0 - 1 hospitalizations in the last 12 months - no history of heart disease - no history of diabetes - no history of COPD - no history of anemia - preoperative ambulation: independent community distances - 2 step(s) to enter home - bed location is on the first floor - bath location is on the first floor - caregiver is consistent - home is not more than 150 miles away - PROMIS-10 Mental Health T score 41-49 - Marital status: Risk Factors for Total Knee Arthroplasty (TKA) Major Risk Factors Obesity Moderate Risk High: BMI > 40 Moderate: BMI 30-40 Normal: BMI < 30 Diabetes normal High: A1C > 8 Moderate: A1C 7-8 Normal: A1C < 7 Hx of DVT / PE High Risk High: dx of DVT / PE Normal: no dx of DVT / PE Smoking normal High: Current smoker Normal: Non smoker Narcotics Use Moderate Risk High:NarxCare >=300 Moderate: 100-299 Normal: 0-99 Depression normal High: PHQ-9 >14 Moderate: PHQ-9 5-14 Normal: PHQ-9 < 5 Area Deprivation Index (CHUCK) Unknown Risk High: CHUCK Score > 75 Moderate: CHUCK 50-75 Normal: CHUCK < 50 Obesity: weight management recommended BMI Readings from Last 3 Encounters: 04/29/24 : 31.79 kg/m 05/22/23 : 32.87 kg/m 04/30/23 : 31.18 kg/m Area Deprivation Index (CHUCK) 05/01/2022 12/24/2022 CHUCK Score National Score 49 42 Patient Health Questionnaire (PHQ-9) 05/22/2023 03/17/2024 04/24/2024 PHQ-9 PHQ-2 Score 0 0 0 0 Multiple values from one day are sorted in reverse-chronological order (0-4) minimal depression, (5-9) mild depression, (10-14) moderate depression, (15-19) moderately severe depression, (20-27) severe depression Bone Density Risk Screen Negro Garcia is at risk for bone loss and has not had a bone densitometry scan in the last 2 years (date of last scan: 09/03/2019). Recommend a bone densitometry scan and if indicated on the bone density results, a consult to a bone health specialist (Rheumatology, Endocrinology, or Women's Health) for bone assessment. Risk Factors: Use of Proton Pump Inhibitors History of falls Prednisone or use of systemic steroids Additional Risk Factors MRSA NarxCare score NARX Narcotics: 170 (04/29/2024 10:14 AM) Past Orthopaedic Surgery: Negro had foot surgery on 08/27/2016 with David Ribeiro. Malnutrition: 04/30/2023 Malnutrition Screening Tool (MST) Lost Weight Recently Without Trying? If Yes, Amount of Weight Loss(lbs) 4:Yes (34+lbs) Eating Poorly Because of a Decreased Appetite 0:No Weight Loss Score (Calculated) 4 Appetite Score (Calculated) 0 Total MST Score (Calculated) 4 Consult to Nutrition Therapy recommended prior to surgery. ACTIVE PROBLEM LIST Multiple Sclerosis (Hcc) Systemic Lupus Erythematosus (Hcc) Abnormality of Gait Other Acquired Deformity of Ankle and Foot(736.79) Pain in Left Foot Gastrocnemius Equinus Acquired Hallux Valgus of Left Foot Soft Tissue Mass Plantar Fasciitis of Left Foot Heel Spur Mixed Hyperlipidemia Gastroesophageal Reflux Disease Without Esophagitis Depression Class 1 Obesity With Serious Comorbidity and Body Mass Index (Bmi) of 31.0 to 31.9 in Adult History of Pulmonary Embolus (Pe) Clotting Disorder (Hcc) Hypertension Hiatal Hernia Oab (Overactive Bladder) Laryngocele History of Dvt (Deep Vein Thrombosis) Hypothyroidism Primary Osteoarthritis of Right Knee SUBJECTIVE CHIEF COMPLAINT: Knee Pain HPI: Negro Garcia is a 64 year old patient with the presenting complaint of Follow Up and Pre-Op Visit of the Right Knee. Negro Garcia has had progressive problems with the knee(s) constantly over the past 5 year(s) interfering with activities which include exercise, gardening, doing technician preventative medicine, participating in family activities, enjoying hobbies, walking, rising from a sitting position, standing for prolonged periods of time, getting in and out of a car, dressing, climbing stairs, and safety-increased risk for fall. The problem began limiting activities 3+ years ago. Negro reports a current pain level of 3 (Knee-Right). She describes the pain as Aching, Sore, Dull,Sharp. The pain is Intermittent, and has lasted for 3 Years. Interventions tried include Reposition, Relaxation, Medication. FALL RISK: Negro is not currently at risk for falls. PROMIS Physical Function Score Descriptive Summary for PROMIS Physical Function T-score = 38 (Percentile 12) Much difficulty - Do 2 hours of physical labor. Some difficulty - Walk more than a mile (1.6 km). 03/17/2024 04/24/2024 PROMIS CAT Physical Function T-Score 35 (moderate dysfunction) 38 (moderate dysfunction) Percentile 7 12 FUNCTIONAL STATUS: Walk indoors, such as around the house (1.75 METs) Do light work around the house, such as dusting or washing dishes (2.70 METs) Take care of self, that is eating, dressing, bathing, using the toilet (2.75 METs) Walk a block or two on level ground (2.75 METs) Do moderate work around the house such as vacuuming, sweeping floors, or carrying in groceries (3.50 METs) Do yardwork, such as raking leaves, weeding,or pushing a power mower (4.50 METs) Have sexual relations (5.25 METs) Climb a flight of stairs or walk up a hill (5.50 METs) Participate in moderate recreational activities, such as golf, bowling, dancing, doubles tennis, orthrowing a baseball or football (6.00 METs) Participate in strenuous sport, such as swimming, singles tennis, football, basketball, or skiing (7.50 METs) Do heavy work around the house, such as scrubbing floors, lifting or moving heavy furniture (8.00 METs) Run a short distance (8.00 METs) Partially dependent Limited most or all of the time (uses scooter, mobility device) Totally dependent PREVIOUS TREATMENTS: Past anti-inflammatory medications (not necessarily for this reason for visit): amantadine HCl, dexamethasone sodium phosp/PF, dexamethasone sodium phosphate, ibuprofen, prednisone Medical Treatments: OTC NSAIDS for 3 Months or Greater (Aleve), RX NSAIDS for 3 Months or Greater (Motrin), Steroid Injections Right Knee, Viscosupplementation Right Knee Physical Therapy: Use of Ambulatory Aid REVIEW OF SYSTEMS: GENERAL: Denies fever, chills malaise and weight loss.. PAIN ASSESSMENT: See HPI. MUSCULOSKELETAL: See HPI. 04/30/2023 Malnutrition Screening Tool (MST) Lost Weight Recently Without Trying? If Yes, Amount of Weight Loss(lbs) 4:Yes (34+lbs) Eating Poorly Because of a Decreased Appetite 0:No Weight Loss Score (Calculated) 4 Appetite Score (Calculated) 0 Total MST Score (Calculated) 4 PAST MEDICAL HISTORY Diagnosis Date Carpal tunnel syndrome Depression DVT (deep venous thrombosis) (HCC) After surgeries Hiatal hernia Hypertension Multiple sclerosis (HCC) Primary open-angle glaucoma, bilateral, mild stage Pulmonary embolism (HCC) 1989 PAST SURGICAL HISTORY Procedure Laterality Date ARTHROSCOPY KNEE DIAGNOSTIC W/WO SYNOVIAL BX SPX Right Arthroscopy, knee BACK SURGERY HX x2 BUNIONECTOMY, LAPIDUS-TYPE CARPAL TUNNEL Left PAST SURGICAL HISTORY OF Vein stripping PAST SURGICAL HISTORY OF Heel Spurs TONSILLECTOMY PRIMARY/SECONDARY <AGE 10 Tonsillectomy FAMILY HISTORY Problem Relation Age of Onset Heart Father Diabetes Father Cataract Mother Cataract Brother Difficulty with anesthesia No Family History Glaucoma No Family History Detached Retina No Family History Macular Degen No Family History Blindness No Family History Amblyopia No Family History Strabismus No Family History Cancer No Family History Hypertension No Family History Social History Tobacco Use Smoking status: Former Current packs/day: 0.00 Average packs/day: 1 pack/day for 20.0 years (20.0 ttl pk-yrs) Types: Cigarettes Start date: 08/05/1986 Quit date: 08/05/2006 Years since quittin.7 Passive exposure: Past Smokeless tobacco: Never Vaping Use Vaping status: Never Used Substance Use Topics Alcohol use: No Drug use: No ALLERGIES: Cephalosporins, Ciprofloxacin, and Sulfa (Sulfonamide Antibiotics) MEDICATIONS: ferrous sulfate 325 mg (65 mg iron) tablet Take 1 tablet by mouth daily at bedtime. acetaminophen (TYLENOL EXTRA STRENGTH) 500 mg tablet Take 2 tablets by mouth every 8 hours as needed for pain. semaglutide (OZEMPIC) 0.25 mg or 0.5 mg (2 mg/3 mL) pen Inject 0.5 mg subcutaneously one time a week. On mondays tiZANidine (ZANAFLEX) 4 mg tablet Take 1 tablet by mouth every 8 hours as needed. mupirocin (BACTROBAN) 2 % ointment two times a day for 5 days. Apply 0.5 inch with cotton swab (Q-tip) to each nostril in the morning and evening for 5 days prior to and including day of surgery. ibuprofen (MOTRIN) 800 mg tablet TAKE 1 TABLET BY MOUTH THREE TIMES DAILY NEEDED FOR PAIN FOR FEVER esomeprazole (NEXIUM) 40 mg capsule Take 40 mg by mouth once daily. buPROPion SR (WELLBUTRIN SR) 150 mg 12 hr tablet Take by mouth. Take 300mg every morning, and 150mgevery evening bumetanide (BUMEX) 1 mg tablet Take 1 mg by mouth once daily as needed. docusate sodium (COLACE) 100 mg capsule Take 200 mg by mouth daily at bedtime. LORazepam (ATIVAN) 0.5 mg Take 0.5 mg by mouth every 6 hours as needed (anxiety). losartan (COZAAR) 50 mg tablet Take 1 tablet by mouth once daily. levothyroxine (SYNTHROID) 50 mcg tablet Take 50 mcg by mouth once daily. Take On an Empty Stomach oxybutynin (DITROPAN) 5 mg tablet Take 5 mg by mouth once daily. escitalopram oxalate (LEXAPRO) 10 mg tablet Take 10 mg by mouth once daily. cholecalciferol (VITAMIN D3) 50 mcg (2,000 unit) tablet Take 2,000 Units by mouth once daily. atorvastatin calcium(LIPITOR 40 MG TAB) Take one(1) tablet daily. OBJECTIVE PHYSICAL EXAM: LMP (LMP Unknown) All other systems deferred. GENERAL: Appears healthy, well-nourished, no deformities. HABITUS: Normal GAIT: Antalgic to the right KNEE EXAM: Right: Alignment: Valgus deformity, Correctable Range of motion is 0 degrees in extension and 110 degrees of flexion. Extension La degrees Pain with ROM: Yes Effusion: Moderate Tender to the palpation of Lateral femoral condyle, Medial joint line, Lateral joint line, and patella Pain with patellar compression: Yes Stability: Anterior/Posterior stable and Varus/Valgus not stable Hip Exam: flexion to 100+ degrees, full extension, internal/external rotation adequate, and no painwith log roll Neurovascular Status: Sensation Intact, Moves foot and ankle up & down, 2+ posterial tibial , and negative homans sign DATA: Most recent knee imaging was completed on 03/18/2024 (XR KNEE GENERAL 4V AP BOTH/PA BOTH/LAT/MERC RIGHT) . Attached is imaging for the order. Diagnostic tests reviewed for today's visit: Right knee X-Ray: Severe tri-compartmental degeneration The following conditions were addressed during the office visit today: none Patient has a history of PE 25 years ago unprovoked and DVT after right knee scope and after left vein surgery about 10 years ago. Will use Eliquis or Xarelto postop. Patient also has a history of MS and lupus which are both in remission. She has a history of C. difficile 5 years ago after treatment with a cephalosporin orally. [facility]ind[facility]op SIGNATURE: Patience Angeles PA-C PATIENT NAME: Negro Garcia DATE: April 29, 2024 TIME: 9:07 AM documented in [facility] NoteHNO ID: [id number] Author: ALAINA SMITH RN Service: ? Author Type: Registered Nurse Type: Progress Notes Filed: 04/27/2024 11:00 Note Text: ORTHOPAEDIC SURGERY PRE-OP PATIENT Negro Garcia is a 64 year old female PROCEDURE: right Total Knee PROCEDURE DATE: 05/19/24 CHECKLIST: Informed Consent: Yes- In [facility]: No Pre-op Skin Preparation Cloths AND Instructions of Use given to patient: Reveiewed with this patient and her daughter during this phone encounter. Nasal Swab completed for patient: PACC in the future. EDUCATION: READINESS TO LEARN COGNITIVE ABILITY: Alert and oriented MOTIVATION TO LEARN: Interested FAMILY SUPPORT: High - Very involved in pt care INSTRUCTION PROVIDED TO: Patient and family member FACTORS AFFECTING LEARNING: None PHYSICAL LIMITATIONS AFFECTING LEARNING: None ISSUES REVIEWED: EDUCATION TOPIC/ TEACHING POINTS: -Day of Surgery (see below) -Hospital Course -Incision Care -Home PT -Home pain Medication: Refill Protocol, Side Effects -Afterhours Number Given- page ortho resident corporate controller at [phone] METHOD OF INSTRUCTION: Individual instruction and Verbal instruction PRE-OPERATIVE INSTRUCTIONS REVIEWED: -Arrival time/location -NPO after midnight -Advanced Directives -ID + insurance card -Bring to hospital: Bipap, Cpap, Non-skid shoes, hearing aids -Do not bring: Excessive money, valuables, jewelry, medications (unless instructed) -Stop NSAIDS 7 days prior to surgery -Stop Aspirin and herbal supplements 10-14 days prior -Reviewed patient handout instructions for Preop Skin Preparation POST-OPERATIVE INSTRUCTIONS: -Call office if questions/concerns -Afterhour for resident corporate controller INFECTION MANAGEMENT: -Signs and symptoms of an infection -Importance of contacting the physician MEDICATION SIDE EFFECTS: -Side effects associated with the medication that warrant a call to the physician WOUND CARE: -Correct procedure to perform wound care DISCHARGE PLAN: -Patient referred to rapid recovery program and [place] of Choice was offered to Patient about Rehab facility/ SNF/ Home care. SUPPLEMENTAL MATERIAL GIVEN: Yes RISK FACTORS: History of DVT, History of Pulmonary Embolism, and Multiple Sclerosis and Hypertension FOLLOW-UP PLAN: Patient instructed to call with any further issues If any questions or concerns arise before the surgery, the patient was instructed to call the office for assistance. If there are no further questions or issues, the patient will be seen the day of the procedure, prior to proceeding with surgery. Alaina Smith RN Patient in for Right Total Knee Arthroplasty with Dr. Scott, medical consult [facility]. Cardiac clearance needed at this time:No Dental clearance needed at this time?No Patient is identified by name and birthdate: Yes Allergies reviewed: Yes Medication- prescribed and OTC reviewed and updated: Yes Latex allergy: no Does the patient have a metal allergy? No Is the patient having any pain?: Yes: Location of the pain is in the right knee. Pain Scale: 3-4 on a scale from 0-10 Pain Character: aching and clicking Duration: (How long have you had the pain?) 5 years Frequency: (How often does the pain occur?) occurs intermittently Pt. instructed to stop meds per PACC and will take the following meds per anesthesia guidelines per PACC Anticoagulation therapy consisting of lovenox vs xarelto pt has h/o pe and dvt, ameya hose, compression wraps, and exercise discussed with patient. Pt. has prescription drug coverage. Autologous donation discussed with patient, Pt will receive acid.. Patient lives with her daughter and plans to go home with OP-PT at [facility]. Patient has walker Yes , cane Yes , shower bench No elevated toilet seat No Patient is 191 lbs 9.3 oz and is Height (cm or in): 5'4.02 Guide to recovery, follow your pathway to recovery after joint replacement surgery materials given to patient prior to end of session. Pt. had no other questions or concerns at this time. [facility] History of Present illness Narrative* Alaina Smith RN - 04/27/2024 10:55 AM EST ORTHOPAEDIC SURGERY PRE-OP PATIENT Negro Garcia is a 64 year old female PROCEDURE: right Total Knee PROCEDURE DATE: 05/19/24 CHECKLIST: Informed Consent: Yes- In Estate [facility]: No Pre-op Skin Preparation Cloths & Instructions of Use given to patient: Reveiewed with this patient and her daughter during this phone encounter. Nasal Swab completed for patient: PACC in the future. EDUCATION: READINESS TO LEARN COGNITIVE ABILITY: Alert and oriented MOTIVATION TO LEARN: Interested FAMILY SUPPORT: High - Very involved in pt care INSTRUCTION PROVIDED TO: Patient and family member FACTORS AFFECTING LEARNING: None PHYSICAL LIMITATIONS AFFECTING LEARNING: None ISSUES REVIEWED: EDUCATION TOPIC/ TEACHING POINTS: -Day of Surgery (see below) -Hospital Course -Incision Care -Home PT -Home pain Medication: Refill Protocol, Side Effects -Afterhours Number Given- page ortho resident corporate controller at [phone] METHOD OF INSTRUCTION: Individual instruction and Verbal instruction PRE-OPERATIVE INSTRUCTIONS REVIEWED: -Arrival time/location -NPO after midnight -Advanced Directives -ID + insurance card -Bring to hospital: Bipap, Cpap, Non-skid shoes, hearing aids -Do not bring: Excessive money, valuables, jewelry, medications (unless instructed) -Stop NSAIDS 7 days prior to surgery -Stop Aspirin and herbal supplements 10-14 days prior -Reviewed patient handout instructions for Preop Skin Preparation POST-OPERATIVE INSTRUCTIONS: -Call office if questions/concerns -Afterhour for resident corporate controller INFECTION MANAGEMENT: -Signs and symptoms of an infection -Importance of contacting the physician MEDICATION SIDE EFFECTS: -Side effects associated with the medication that warrant a call to the physician WOUND CARE: -Correct procedure to perform wound care DISCHARGE PLAN: -Patient referred to rapid recovery program and [place] of Choice was offered to Patient about Rehab facility/ SNF/ Home care. SUPPLEMENTAL MATERIAL GIVEN: Yes RISK FACTORS: History of DVT, History of Pulmonary Embolism, and Multiple Sclerosis and Hypertension FOLLOW-UP PLAN: Patient instructed to call with any further issues If any questions or concerns arise before the surgery, the patient was instructed to call the office for assistance. If there are no further questions or issues, the patient will be seen the day of the procedure, prior to proceeding with surgery. Alaina Smith RN Patient in for Right Total Knee [facility]thro[facility] Dr[facility] Scott[facility] Card[facility] clearance needed at this time:No Dental clearance needed at this time?No Patient is identified by name and birthdate: Yes Allergies reviewed: Yes Medication- prescribed and OTC reviewed and updated: Yes Latex allergy: no Does the patient have a metal allergy? No Is the patient having any pain?: Yes: Location of the pain is in the right knee. Pain Scale: 3-4 evan scale from 0-10 Pain Character: aching and clicking Duration: (How long have you had the pain?) 5 years Frequency: (How often does the pain occur?) occurs intermittently Pt. instructed to stop meds per PACC and will take the following meds per anesthesia guidelines perPACC Anticoagulation therapy consisting of lovenox vs xarelto pt has h/o pe and dvt, ameya hose, compression wraps, and exercise discussed with patient. Pt. has prescription drug coverage. Autologous donation discussed with patient, Pt will receive acid.. Patient lives with her daughter and plans to go home with OP-PT at [facility]. Patient has walker Yes , cane Yes , shower bench No elevated toilet seat No Patient is 191 lbs 9.3 oz and is Height (cm or in): 5'4.02 Guide to recovery, follow your pathway to recovery after joint replacement surgery materials given to patient prior to end of session. Pt. had no other questions or concerns at this time. Alaina Smith RN documented in this encounterLake [facility]02-24-[facility]25 Telephone encounter Note * Telephone Encounter - Errington, Monika, RN - 04/27/2024 10:28 AM EST Care Management Total Joint Pre Surgery Call Spoke with patient regarding upcoming joint surgery to assess for discharge readiness. Do you have a HCPOA and Living Will?No. Please bring a copy in so we can have it on file for you. What is your current living arrangement? Home, Home alone Who is able to assist you at home once you discharge for a minimum of 24 hours? daughter Do you have a walker? yes - std walker & cane Is the plan for Outpatient PT or Home PT? outpatient If outpatient PT, where and when is scheduled appointment? May 22, 2024 at [facility] [place] of choice and financial disclosure provided for home care? Not Applicable Patient's preferred home care company: N/A Who will drive you home on day of surgery?: daughter Contact information for patient's sprinkler truck driver: Daughter Jose Kelly [phone] Patient states she has an outpatient PT appt on May 22, 2024 at [facility]. [facility]02-24-[facility] Miscellaneous Notes* Telephone Encounter - Monika Kan RN - 04/27/2024 10:28 AM EST Care Management Total Joint Pre Surgery Call Spoke with patient regarding upcoming joint surgery to assess for discharge readiness. Do you have a HCPOA and Living Will?No. Please bring a copy in so we can have it on file for you. What is your current living arrangement? Home, Home alone Who is able to assist you at home once you discharge for a minimum of 24 hours? daughter Do you have a walker? yes - std walker & cane Is the plan for Outpatient PT or Home PT? outpatient If outpatient PT, where and when is scheduled appointment? May 22, 2024 at [facility] [place] of choice and financial disclosure provided for home care? Not Applicable Patient's preferred home care company: N/A Who will drive you home on day of surgery?: daughter Contact information for patient's sprinkler truck driver: Laila Kelly [phone] Patient states she has an outpatient PT appt on May 22, 2024 at [facility]. documented in this encounterLake [facility]01-29-2025 Telephone encounter Note * Telephone Encounter - Monika Hansen MA - 04/01/2024 7:25 AM EST changed appt to 11 am will notify not in on Saturday is in on Monika Hansen MA [facility]01-29-2025 Miscellaneous Notes* Telephone Encounter - Monika Hansen MA - 04/01/2024 7:25 AM EST changed appt to 11 am will notify not in on Saturday DrSb is in on Monika Hansen MA * Telephone Encounter - Simin Armenta - 03/31/2024 2:34 PM EST Ileana is calling Marcell Scott II, MD today to request Appointment on 07/01/24 to 06/30/24 or 07/02/24? Please advise. Patient has been identified by name and birthdate. Duration of symptoms: N/A Person calling: self Call patient at: on cell [phone] (home) [phone] (cell) Was an appointment scheduled: No Closing statement: Results or non-symptom based questions: Thank you for calling [facility], your call will be returned within the next business day. Simin Ivy Pss documented in this encounterLake [facility]01-28-2025 Telephone encounter Note * Telephone Encounter - Simin Armenta - 03/31/2024 2:34 PM EST Ileana is calling Marcell Scott II, MD today to request Appointment on 07/01/24 to 06/30/24 or 07/02/24? Please advise. Patient has been identified by name and birthdate. Duration of symptoms: N/A Person calling: self Call patient at: on cell [phone] (home) [phone] (cell) Was an appointment scheduled: No Closing statement: Results or non-symptom based questions: Thank you for calling [facility], your call will be returned within the next business day. Simin Hyde [facility]01-27-2025 Evaluation note* Author Debbie Somers [facility] HospitalAuthoredJanuary 2024 10:42amSooner if needed, the ER if concerns,The above note written by Debbie Somers LPN acting as human recorder, note dictated by Dr. Jeremiah Lazo [facility] Work Phone: [phone]) 716-410501-20-2025 Telephone encounter Note* Telephone Encounter - Monika Hansen MA - 03/23/2024 1:33 PM EST called patient and rescheduled for 05/19/24 billie Hansen MA [facility]01-20-2025 Miscellaneous Notes* Telephone Encounter - Monika Hansen MA - 03/23/2024 1:33 PM EST called patient and rescheduled for 05/19/24 billie Hansen MA * Telephone Encounter - Anjelica Dan - 03/18/2024 2:49 PM EST Ileana is calling Marcell Scott II, MD today asking if she can move her surgery to 3/4 or after. Please give a call back to discuss. Patient has been identified by name and birthdate. Duration of symptoms: N/A Person calling: self Call patient at: at home [phone] (home) [phone] (cell) Was an appointment scheduled: No Closing statement: Results or non-symptom based questions: Thank you for calling [facility], your call will be returned within the next business day. Anjelica Dan documented in this encounterLake County [facility]01-15-2025 Telephone encounter Note * Telephone Encounter - Anjelica Dan - 03/18/2024 2:49 PM EST Ileana is calling Marcell Scott II, MD today asking if she can move her surgery to 05/05 or after. Please give a call back to discuss. Patient has been identified by name and birthdate. Duration of symptoms: N/A Person calling: self Call patient at: at home [phone] (home) [phone] (cell) Was an appointment scheduled: No Closing statement: Results or non-symptom based questions: Thank you for calling [facility], your call will be returned within the next business day. Anjelica Dan [facility]01-15-2025 NoteHNO ID: [id number] Author: MARCELL SCOTT MD Service: ? Author Type: Physician Type: Progress Notes Filed: 03/18/2024 12:03 Note Text: see dictated note Marcell Scott II [facility]01-15-2025 History of Present illness Narrative* Marcell Scott MD - 03/18/2024 11:57 AM EST see dictated note Marcell Scott II, MD documented in this encounterLake [facility]01-15-2025 NoteHNO ID: [id number] Author: ALAINA GARDNER RT(R) Service: ? Author Type: Technologist Type: Progress Notes Filed: 03/18/2024 08:45 Note Text: Radiology Service Progress Note PATIENT NAME: Negro Garcia DATE OF SERVICE: March 18, 2024 TIME: 8:44 AM PATIENT IDENTITY VERIFICATION COMPLETED USING TWO (2) IDENTIFIERS: Name and Date of confirmed by patient verbally. FALL SCREENING: Has the patient had 2 falls in the last year or 1 fall with injury or currently using an Ambulatory Assistive Device (Walker, Cane, Wheelchair, Crutches, etc.)? No PATIENT GENDER DATA: Assigned female at . status: : No status: NO. PATIENT RELEVANT IMPLANT DATA REVIEWED: Not Applicable PATIENT PRESENTS WITH AN IMPLANTABLE OR ATTACHED LIEUTENANT FIRE FIGHTER: No RADIOLOGY DEPARTMENT: General X-ray: Exam(s) Completed: Lower Extremity X-Ray(s): Knee, AP / Lat / Tunne / Merchant Right and Wt. Bearing PERIPHERAL IV DATA: Not applicable SIGNED BY: Alaina Gardner RT(R) March 18, 2024 8:44 [facility]01-15-2025 NoteHNO ID: [id number] Author: MARCELL SCOTT MD Service: Orthopaedic Surgery Author Type: Physician Type: Progress Notes Filed: 03/20/2024 09:54 Note Text: [facility] NOTE [facility] NAME: NEGRO GARCIA CLINIC NO.: [id number] DATE OF SERVICE: 03/18/2024 ATTENDING PHYSICIAN: Marcell Scott II, M.D. CHIEF COMPLAINT: Right knee pain, buckling and giving way and angulation of the right knee. Pops when I walk. WHEN: Worse at times was years. HOW: Insidious onset. WHERE: At home. No recent injuries. PAST MEDICAL TREATMENT: NSAIDs: Motrin, Tylenol, Lidoderm patches. PT: In the past. Injections: Multiple cortisone injections, had also gel injections with no help at [facility] in [place]. PAST SURGICAL TREATMENT: None on the knee itself, had a biopsy of a cyst behind her right knee. REVIEW OF SYSTEMS: Cardiovascular: No history of heart disease. Respiratory: No history of lung disease. Gastrointestinal: No history of ulcers. Endocrine: Patient is not a diabetic. Heme: Has a definite history of DVT in the past with a PE in the early . The patient states she has been worked up for this in the past and recently as last summer. We will check on those blood work findings. The patient has a history of MS of which she deals. No significant allergies. No metal allergies. PHYSICAL EXAMINATION: A 64-year-old 5 foot 4 inch, 191 pounds female. Has good range of motion of her right hip. Has motion of her right knee from 0 to 115 degrees. Has crepitus with range of motion. Has a 20-degree valgus deformity. Neurovascularly intact. X-RAYS: AP weightbearing shows narrowing of the lateral compartment of the right knee and flexion weightbearing view shows complete collapse of the lateral compartment of the right knee. The lateral shows significant amount of patellofemoral arthritis. 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 RECOMMENDATION: We have had a discussion as to the alternatives of treatment. There is no reason to repeat a conservative method that she has had done, which seemed to be adequate but yet did not give her any relief. Recommend right total knee replacement. Do careful evaluation of her blood factors and put her on prophylactic and blood thinner before surgery. The patient understands the risks and anticipated results and would like to proceed. We will schedule. DICTATED BY: Fred Dominique II/BREANN JOB# [id number] NoteDate of Procedure 03/12/2024. Hotel [employer] Motel Receptionist Information Caterer'S Aide: Rosanne Nolasco. Start time: 9:00 AM. Stop time: 9:00 AM. Imaging Comments: Limited quality images due to non-mydriatic state . Notes Document baseline disc [id number] NoteTable formatting from the original result was not included. Date of Procedure 03/12/2024. Notes Ophthalmology Exam Pachymetry (03/12/2024) Right Left Thickness [id number] Edited by: Sara Vaca COA [id number] NoteDate of Procedure 03/12/2024. Hotel Or Motel Receptionist Information Caterer'S Aide: Rosanne Nolasco. Start time: 8:59 AM. Stop time: 8:59 AM. Quality Right Eye Good. Left Eye Good. NFL Interpretation Right Eye Diffuse loss. Left Eye Diffuse loss. Interval Change Right Eye Initial. Left Eye Initial.[id number] NoteDate of Procedure 03/12/2024. Hotel Or Motel Receptionist Information Caterer'S Aide: NIDIA. Start time: 8:40 AM. Stop time: 8:52 AM. Patient is NOT allergic to adhesive bandages. . Reliability Right Eye Borderline. Left Eye Borderline. Interpretation Right Eye Normal. Left Eye Non-specific defect. Interval Change Right Eye Initial. Left Eye Initial.[id number] NoteHNO ID: [id number] Author: JEANETTE COURTNEY MD Service: ? Author Type: Physician Type: Progress Notes Filed: 03/12/2024 10:22 Note Text: Tmax: OD 19 at the other eye center OS 24 at the other eye center Pachy: OD 535, OS 541 Lasers and Surgeries: OD OS Current Glaucoma Med Regimen: None Eyedrop Adherence: Background Glaucoma Information: Referred by: [facility] Medical History: Hx of MS, no ocular symptoms, last flare >10 years ago. 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 Can check IOPs if she ever gets back on Prednisone. Patient elects: Observation for now Use these drops: N/A She lives near [place]. FU with Dr Saini at [place] Cat[facility]act OU Refracts to 20/25 OD and 20/20 OS BAT 20/40 OD and 20/25 OS She wants her MRX rechecked. 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 I have seen and examined Negro Garcia. I have discussed the case and the management of this patient's care with Dr. Bunny Cruz PGY-4. I also have reviewed and agree with the assessment and plan as stated above and agree with all of its relevant components. Jeanette Courtney MD 03/12/2024[facility]01-09-2025 History of Present illness Narrative* Jeanette Courtney MD - 03/12/2024 9:13 AM EST Tmax: OD 19 at the other eye center OS 24 at the other eye center Pachy: OD 535, OS 541 Lasers and Surgeries: OD OS Current Glaucoma Med Regimen: None Eyedrop Adherence: Background Glaucoma Information: Referred by: [facility] Medical History: Hx of MS, no ocular symptoms, last flare >10 years ago. 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 Can check IOPs if she ever gets back on Prednisone. Patient elects: Observation for now Use these drops: N/A She lives near [place]. FU with Dr Saini at [place] [facility] OU Refracts to 20/25 OD and 20/20 OS BAT 20/40 OD and 20/25 OS She wants her MRX rechecked. 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 I have seen and examined Negro Garcia. I have discussed the case and the management of this patient's care with Dr. Bunny Cruz PGY-4. I also have reviewed andagree with the assessment and plan as stated above and agree with all of its relevant components. Jeanette Courtney MD 03/12/2024 documented in this encounterL[facility] Evaluation note* Author Julianne Johnson [facility] HospitalAuthoredNovember 2023 11:24amThe above note written by GONZALES Thomas acting as human recorder, note dictated by Dr. Jeremiah Lazo. [facility] Work Phone: 1(178) 784-883411-10-2024 NotePatient Education Materials Follows: Wrist Sprain, Adult A wrist sprain is a stretch or tear in the strong tissues that connect the wrist bones to each other. These strong tissues are called ligaments. There are three types of wrist sprains: ? Grade 1. The ligament is stretched more than normal. There may be a minor amount of wrist pain. ? Grade 2. The ligament is partially torn. You may be able to move your wrist, but not very much. There may be a moderate amount of wrist pain. ? Grade 3. The ligament or ligaments are completely torn. You may find it difficult to move your wrist even a little. There may be a significant amount of wrist pain. What are the causes? This condition may be caused by using the wrist too much during sports, exercise, or work. It can also happen due to a fall or during an accident. What increases the risk? You are more likely to develop this condition if: ? You had a previous wrist or arm injury. ? You have poor wrist strength and flexibility. ? You play contact sports, such as football or soccer. ? You participate in sports that may result in a fall, such as skateboarding, biking, skiing, or snowboarding. ? You do not exercise regularly. ? You use exercise equipment that does not fit well. What are the signs or symptoms? Symptoms of this condition include: ? Pain in the wrist, arm, or hand. ? Swelling or bruised skin near the wrist, hand, or arm. The skin may look yellow or blue. ? Stiffness or trouble moving the hand. ? Hearing a noise, like a pop or a snap, at the time of injury, or feeling a tear at the time of the injury. ? A warm feeling in the skin around the wrist. How is this diagnosed? This condition is diagnosed with a physical exam. Sometimes an X-ray is taken to make sure a bone did not break. You may also have an MRI of your wrist to check for torn ligaments. How is this treated? This condition is treated by resting and applying ice to your wrist. Additional treatment may include: ? Taking medicine for pain and inflammation. ? Wearing a splint, brace, or cast for a short period of time to keep your wrist from moving (immobilized). ? Doing exercises to strengthen and stretch your wrist. ? Having surgery. This may be done if the ligament is completely torn. Follow these instructions at home: If you have a splint or brace: ? Wear the splint or brace as told by your health care provider. Remove it only as told by your health care provider. ? Loosen it if your fingers tingle, become numb, or turn cold and blue. ? Keep it clean. ? If the splint or brace is not waterproof: ? Do not let it get wet. ? Cover it with a watertight covering when you take a bath or a shower. If you have a cast: ? Do not put pressure on any part of the cast until it is fully hardened. This may take several hours. ? Do not stick anything inside the cast to scratch your skin. Doing that increases your risk of infection. ? Check the skin around the cast every day. Tell your health care provider about any concerns. ? You may put lotion on dry skin around the edges of the cast. Do not put lotion on the skin underneath the cast. ? Keep it clean. ? If the cast is not waterproof: ? Do not let it get wet. ? Cover it with a watertight covering when you take a bath or shower. Managing pain, stiffness, and swelling ? If directed, put ice on the injured area. To do this: ? If you have a removable splint or brace, remove it as told by your health care provider. ? Put ice in a plastic bag. ? Place a towel between your skin and the bag or between the splint or cast and the bag. ? Leave the ice on for 20 minutes, 2?3 times a day. ? Remove the ice if your skin turns bright red. This is very important. If you cannot feel pain, heat, or cold, you have a greater risk of damage to the area. ? Move your fingers often to reduce stiffness and swelling. ? Raise (elevate) the injured area above the level of your heart while you are sitting or lying down. Activity ? Rest your wrist as told by your health care provider. Do not do things that cause pain. ? Ask your health care provider when it is safe to drive if you have a splint, brace, or cast on your wrist. ? Do exercises as told by your health care provider. ? Return to your normal activities as told by your health care provider. Ask your health care provider what activities are safe for you. General instructions ? Take vmgn-xwm-gfzpyvm and prescription medicines only as told by your health care provider. ? Do not use any products that contain nicotine or tobacco, such as cigarettes, e-cigarettes, and chewing tobacco. These can delay healing. If you need help quitting, ask your health care provider. ? Keep all follow-up visits. This is important. Contact a health care provider if: ? Your pain, bruising, or swelling gets worse. ? Your skin becomes red, gets a rash, or has open sores. ? Your pain does n (more content not included)...[facility] [id number] Evaluation note* Author Sydnee You [facility] HospitalEyadhoredOctober 2023 9:54amThe above note written by Sydnee ROLON acting as human recorder, note dictated by Dr. Jeremiah aLzo. [facility] Work Phone: 1(412) 874-857408-12-2024 Evaluation note* Author Julianne Johnson [facility] HospitaldeyaniraredTan 2023 1:23pmThe above note written by GONZALES Thomas acting as human recorder, note dictated by Dr.Bryan Lazo [facility] Work Phone: 1(219) 652-951908-12-2024 Evaluation note* Author Julianne Johnson [facility] HospitalAuthomatildeAuguserin 2023 1:23pmThe above note written by GONZALES Thomas acting as human recorder, note dictated by Dr.Bryan Lazo Author Sydnee You [facility] HospitalAuthoredOctober 2023 10:54amThe above note written by Sydnee ROLON acting as human recorder, note dictated by Dr. Jeremiah Lazo. [facility] Work Phone: 1(318) 676-210504-09-2024 History of Present illness Narrative* Alfred Guerrero MD - 06/11/2023 10:37 AM EDT LARYNGOLOGY RETURN PATIENT NOTE Assessment and Plan: There were no encounter diagnoses. is a 63 year old female with the above diagnoses. Reviewed survey testing from today Videostroboscopy performed today shows full healing of all sites. Stroboscopy reveals normal laryngeal biomechanics with minimal muscle tension. Patient has had symptoms of general malaise after surgery but had normal lab testing and the symptoms have resolved completely expect dysgeusia to resolve but has already gone for an extended period of time. Will continue to monitor. Continue Xarelto per hematology Follow-up annually for observation HPI: Negro Garcia is a 63 year old female who presents with right laryngocele Few years of food getting stuck in her throat, liquid wash not helpful, hard to catch her breath Thick phlegm, throat clearing to clear it up. This sometimes results in whitish thick secretions. Throat clearing during the day unproductive Sore throat points to cricoid area, consistently throughout the day Rare hoarseness, talks a lot socially Never had MBSS Swallowing difficulty doesn't change sore throat She is a previous smoker but quit about 20 years ago. INTERVAL HPI 04/01/23: Doing well since we last met. Scheduled a virtual follow- up to go over the results of testing and additional questions. The patient and her family have multiple questions regarding the possibility of tracheostomy, dysphagia, dysphonia following surgery. INTERVAL HPI 05/06/23: Doing well postop but has had malaise since surgery. She was okay for the first day but then has been feeling very low energy. No specific symptoms just generally fatigued. No pyxcbi-xngfhc-axxyf sweats. Has been able to eat anything she wishes. Has followed our recommended diet of pur ed and softer. Continues to take Xarelto per hematology and Augmentin from our team. No changes in voice or difficulty breathing. INTERVAL HPI 06/11/23: Doing well since last seen. Has had complete resolution of generalized malaise and flulike symptoms. She feels back to her usual self. Her diet has gone back to normal. She hasno residual neck pain. Lab testing was normal. She is grateful for care. She feels her voice is back to normal. ALLERGIES Allergen Reactions Cephalosporins GI Upset c-diff when taking Ciprofloxacin Hives Sulfa (Sulfonamide * Itching Current Outpatient Medications Medication Sig buPROPion SR (WELLBUTRIN SR) 150 mg 12 hr tablet Take by mouth. Take 300mg every morning, and 150mgevery evening bumetanide (BUMEX) 1 mg tablet Take 1 mg by mouth once daily as needed. docusate sodium (COLACE) 100 mg capsule Take 200 mg by mouth daily at bedtime. LORazepam (ATIVAN) 0.5 mg Take 0.5 mg by mouth every 6 hours as needed (anxiety). losartan (COZAAR) 50 mg tablet Take 1 tablet by mouth once daily. esomeprazole (NEXIUM) 20 mg capsule Take 1 capsule by mouth once daily. semaglutide (OZEMPIC) 0.25 mg or 0.5 mg (2 mg/3 mL) pen Inject 0.5 mg subcutaneously one time a week. (Patient taking differently: Inject 0.5 mg subcutaneously one time a week. On mondays) levothyroxine (SYNTHROID) 50 mcg tablet Take 50 mcg by mouth once daily. Take On an Empty Stomach oxybutynin (DITROPAN) 5 mg tablet Take 5 mg by mouth once daily. ferrous sulfate 325 mg (65 mg iron) tablet Take 1 tablet by mouth daily with breakfast. (Patient taking differently: Take 325 mg by mouth daily at bedtime.) escitalopram oxalate (LEXAPRO) 10 mg tablet Take 10 mg by mouth once daily. cholecalciferol (VITAMIN D3) 50 mcg (2,000 unit) tablet Take 2,000 Units by mouth once daily. atorvastatin calcium(LIPITOR 40 MG TAB) Take one(1) tablet daily. No current facility-administered medications for this visit. PAST MEDICAL HISTORY Diagnosis Date Carpal tunnel syndrome Depression DVT (deep venous thrombosis) (HCC) After surgeries Hiatal hernia Hypertension Multiple sclerosis (HCC) Pulmonary embolism (HCC) 1989 PAST SURGICAL HISTORY Procedure Laterality Date ARTHROSCOPY KNEE DIAGNOSTIC W/WO SYNOVIAL BX SPX Right Arthroscopy, knee BACK SURGERY HX x2 BUNIONECTOMY, LAPIDUS-TYPE CARPAL TUNNEL Left PAST SURGICAL HISTORY OF Vein stripping PAST SURGICAL HISTORY OF Heel Spurs TONSILLECTOMY PRIMARY/SECONDARY <AGE 10 Tonsillectomy Social History: Social History Tobacco Use Smoking status: Former Packs/day: 1.00 Years: 20.00 Additional pack years: 0.00 Total pack years: 20.00 Types: Cigarettes Quit date: 08/05/2006 Years since quittin.8 Passive exposure: Past Smokeless tobacco: Never Vaping Use Vaping Use: Never used Substance Use Topics Alcohol use: No Drug use: No FAMILY HISTORY Problem Relation Age of Onset Heart Father Diabetes Father Difficulty with anesthesia No Family History EAT 10: LCQ: VHI: ROS: A relevant 12 system review of systems was completed and was negative except as noted in the HPI PHYSICAL EXAM: On physical examination Negro Garcia is a well-developed, well nourished female. Her speech is normal and her voice is mildly strained. Mental status revealed patient to be alert and oriented. Mood is appropriate. Details of the physical examination: CRANIAL NERVE EXAM: II: Pupillary reflexes normal III, IV, : EOM normal V: 1,2,3: normal sensation VII: Normal strength in all divisions. VIII: Hearing grossly normal. IX, X: Hoarse voice, palatal elevation and sensation XI: Shoulder strength normal XII: Tongue mobility normal HEAD AND FACE: Physical examination of the head, neck, external nose, external ears, mouth and facefails to demonstrate any significant abnormality or asymmetry to critical face to face observation.Skin and scalp are normal. EARS: RT Canal: patent RT Drum: intact RT Pneumotoscopy: mobile LT Canal: patent LT Drum: intact LT Pneumotoscopy: mobile NOSE: Examination of the nasal cavity revealed a septum which is near midline. The mucosa is pink, and the visible turbinates are normal on anterior rhinoscopy. There is no purulence or polyps. MASTICATION: The teeth appear age-appropriate. The lips and gums are without lesions. ORAL CAVITY AND OROPHARYNX: The oral mucosa, hard and soft palates, tongue, tonsil area, and posterior pharyngeal wall are without lesions. LARYNX: Subjective evaluation of the voice was completed with details listed above. Mirror evaluation of the larynx was deferred given the need for more accurate laryngeal imaging (see below). NECK: The neck appears symmetric without scars. On palpation, there are no masses or lymphadenopathy. The thyroid is not palpable and was free of masses. No salivary gland masses or hypertrophy is noted. Muscle tension is appreciated in the bilateral strap musculature. No palpable laryngocele of the laryngeal cartilages with or without Valsalva. REVIEW OF RADIOLOGICAL FILMS AND RECORDS: Extensively reviewed records as far back as the electronic medical record allows. She did have a vascular medicine consultation at 1 point which sided abnormal coagulation with elevated serum markers. Procedure: Flexible laryngoscopy / Video Stroboscopy PROCEDURE NOTE: Laryngoscopy with videostroboscopy was performed because of the following indication: high resolution assessment of vocal fold oscillation and laryngeal biomechanics: After spraying the nose with xylocaine/neosynephrine, the flexible scope was placed in a transnasal fashion. The nasopharynx, oropharynx, hypopharynx including the pyriform sinuses were normal. There is fibrinous exudate in the right vallecula. The base of tongue showed no gross lesions. The larynx itself showed mild erythema of the right supraglottis without airway obstruction. No evidence of exudate or incision in the vallecula. Right VC motion: Full Left VC motion: Full At the level of the true vocal folds with stroboscopy, the patient was able to entrain vocal fold oscillation and the Mucosal waves were noted to be present with minimal supraglottic compression Glottic closure: Complete The immediate subglottic airway was patent Pt tolerated the procedure well, and there were no complications. The procedure was performed by Alfred Guerrero MD Alfred Guerrero MD, MS, MS Laryngology and Upper Airway Surgery This documentation has been completed using [employer] voice dictation software. Please excuse any dictation errors. documented in this encounterL[facility]20-[facility] Instructions* Patient Instructions* Charlie Linn MD - 05/22/2023 9:52 AM EDT RTC in 1 year No labs needed Ok to push this appointment out an extra year if desired. documented in this encounterLake [facility]03-20-2024 History of Present illness Narrative* Charlie Linn MD - 05/22/2023 9:45 AM EDT Images from the original note were not included. 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 Lupus anticoagulant was found to be in an indeterminate level and so cannot really be interpreted. However, her clinical course with repeat blood clots after a provoking procedure or surgery would indicate a propensity to clot regardless of hypercoagulable workup. Will await results of testing but will most likely recommend extended prophylaxis with DOAC (Directthrombin inhibitors). Hypercoagulation testing was negative, but in light of her clinical history I would still recommend2 weeks of post-op prophylaxis with Xarelto or could consider Lovenox. PLAN: RTC in 1 year No labs needed Ok to push this appointment out an extra year if desired. HPI: CASE HISTORY: Reverse Chronological Order 04/30/2023 - Laryngoscopy & Excision Right supraglottic tissue, excision (A): - Respiratory mucosa and fibrovascular tissue with focal chronic inflammation. - Negative for neoplasm. Right laryngocele, excision (B): - Respiratory epithelium-lined cyst. - Negative for neoplasm. 01/28/2023 - Hypercoagulation panel negative 09/13/2008 - Cardiolipin Ab IgM 2005?? 2006?? - DVT and PE - + lupus anticoagulant and altered levels of Protein C and Protein S Updated Visit, May 22, 2023: Ileana did very well following laryngocelectomy and stayed on DOAC for approximately 2 weeks followingsurgery with no bleeding and and no thrombotic events. I think employing this strategy in the future is a good idea. Swallowing is better now. Updated Visit, February 14, 2023: Ileana returns today to review her labs. All hypercoagulation labs in initial workup were negative. Today's CBC is completely normal, chemistries still pending. I think it would be best to start her on a prophylactic dose of Xarelto for a couple weeks following her surgery. Initial Visit, January 28, 2023: Negro Hernandezenor presents today Hematology and Oncology evaluation. Accompanied today by her brotherFred and [id number] Matilda. She is a 62 year old female with MS who has a hx of unusual clotting and needs to go in for surgery to remove a supraglottic mass. She is not sure what exactly the ENT is concerned of with the mass other than worry about growth, and that it appeared to be some sort of cys t. They are planning to go in laparoscopically for the surgery, scheduled for 04/2023. She formed a blood clot following a venous repair in her leg sometime in the early , and againfollowing a knee surgery around 2005. She has never been on anticoagulants. She received lovenox injections after she had the clots. Her labs from today are still pending, but we will likely start her on Xarelto depending on the results to be taken until she is fully recovered from the surgery. Notes that at some point she saw Dr. Rivas at [facility] who initially did a workup on her with labs, whotold her to be careful about clotting. Believes this was done in 2008. She worked previously at a [employer], but had many different past jobs. REVIEW OF SYSTEMS Per HPI and otherwise negative by full review of organ systems. ECOG PERFORMANCE STATUS: 1 PHYSICAL EXAMINATION: Vitals: BP 139/85 Pulse 73 Temp (Src) 97 (Temporal) Resp 16 Ht 5' 4.016 (1.63m) Wt 191 lb 9.3 oz (86.9kg) SpO2 98% BMI 32.87 kg/(m^2). Body surface area is 1.98 meters squared. Exam limited to gross visualization where appropriate. Gen.: This is an age-appropriate patient in no acute distress. Head: Appears atraumatic with no visible lesions. Eyes: Pupils equally round and reactive to light, extraocular muscles are intact. Neck: Supple. Respiratory: Appears to be respiring comfortably. Neurologic: Nonfocal to gross visualization. Alert and oriented 3. Psychiatric: No evidence of inappropriate anxiety or depression. Skin: Visible areas of skin without rash, lesions, wounds or petechiae. ALLERGIES: ALLERGIES Allergen Reactions Cephalosporins GI Upset c-diff when taking Ciprofloxacin Hives Sulfa (Sulfonamide * Itching MEDICATIONS: buPROPion SR (WELLBUTRIN SR) 150 mg 12 hr tablet Take by mouth. Take 300mg every morning, and 150mgevery evening bumetanide (BUMEX) 1 mg tablet Take 1 mg by mouth once daily as needed. docusate sodium (COLACE) 100 mg capsule Take 200 mg by mouth daily at bedtime. LORazepam (ATIVAN) 0.5 mg Take 0.5 mg by mouth every 6 hours as needed (anxiety). rivaroxaban (XARELTO) 10 mg tablet Take 1 tablet by mouth once daily for 28 days. losartan (COZAAR) 50 mg tablet Take 1 tablet by mouth once daily. esomeprazole (NEXIUM) 20 mg capsule Take 1 capsule by mouth once daily. semaglutide (OZEMPIC) 0.25 mg or 0.5 mg (2 mg/3 mL) pen Inject 0.5 mg subcutaneously one time a week. (Patient taking differently: Inject 0.5 mg subcutaneously one time a week. On mondays) levothyroxine (SYNTHROID) 50 mcg tablet Take 50 mcg by mouth once daily. Take On an Empty Stomach oxybutynin (DITROPAN) 5 mg tablet Take 5 mg by mouth once daily. ferrous sulfate 325 mg (65 mg iron) tablet Take 1 tablet by mouth daily with breakfast. (Patient taking differently: Take 325 mg by mouth daily at bedtime.) escitalopram oxalate (LEXAPRO) 10 mg tablet Take 10 mg by mouth once daily. cholecalciferol (VITAMIN D3) 50 mcg (2,000 unit) tablet Take 2,000 Units by mouth once daily. atorvastatin calcium(LIPITOR 40 MG TAB) Take one(1) tablet daily. LABORATORY VALUES: WBC (k/uL) Date Value 05/06/2023 6.84 RBC (m/uL) Date Value 05/06/2023 4.48 Hemoglobin (g/dL) Date Value 05/06/2023 13.2 Hematocrit (%) Date Value 05/06/2023 40.7 MCV (fL) Date Value 05/06/2023 90.8 MCH (pg) Date Value 05/06/2023 29.5 MCHC (g/dL) Date Value 05/06/2023 32.4 RDW-CV (%) Date Value 05/06/2023 12.4 Platelet Count (k/uL) Date Value 05/06/2023 235 MPV (fL) Date Value 05/06/2023 10.0 Glucose (mg/dL) Date Value 05/06/2023 91 BUN (mg/dL) Date Value 05/06/2023 12 Creatinine (mg/dL) Date Value 05/06/2023 0.90 Sodium (mmol/L) Date Value 05/06/2023 141 Potassium (mmol/L) Date Value 05/06/2023 4.8 Chloride (mmol/L) Date Value 05/06/2023 105 CO2 (mmol/L) Date Value 05/06/2023 27 Protein, Total (g/dL) Date Value 02/14/2023 6.8 Albumin (g/dL) Date Value 02/14/2023 4.3 Calcium, Total (mg/dL) Date Value 05/06/2023 9.0 Alkaline Phosphatase (U/L) Date Value 02/14/2023 76 Bilirubin, Total (mg/dL) Date Value 02/14/2023 0.5 AST (U/L) Date Value 02/14/2023 19 ALT (U/L) Date Value 02/14/2023 22 DIAGNOSIS: (Z86.718) History of DVT (deep vein thrombosis) (primary encounter diagnosis) (Z86.711) History of pulmonary embolus (PE) PAST MEDICAL HISTORY Diagnosis Date Carpal tunnel syndrome Depression DVT (deep venous thrombosis) (HCC) After surgeries Hiatal hernia Hypertension Multiple sclerosis (HCC) Pulmonary embolism (HCC) 1989 PAST SURGICAL HISTORY Procedure Laterality Date ARTHROSCOPY KNEE DIAGNOSTIC W/WO SYNOVIAL BX SPX Right Arthroscopy, knee BACK SURGERY HX x2 BUNIONECTOMY, LAPIDUS-TYPE CARPAL TUNNEL Left PAST SURGICAL HISTORY OF Vein stripping PAST SURGICAL HISTORY OF Heel Spurs TONSILLECTOMY PRIMARY/SECONDARY <AGE 10 Tonsillectomy Social History Tobacco Use Smoking status: Former Packs/day: 1.00 Years: 20.00 Additional pack years: 0.00 Total pack years: 20.00 Types: Cigarettes Quit date: 08/05/2006 Years since quittin.8 Passive exposure: Past Smokeless tobacco: Never Vaping Use Vaping Use: Never used Substance Use Topics Alcohol use: No Drug use: No FAMILY HISTORY Problem Relation Age of Onset Heart Father Diabetes Father Difficulty with anesthesia No Family History I spent a total of 20 minutes on the date of the service which included preparing to see the patient, [id number] patient care, completing clinical documentation, obtaining and/or reviewing separately obtained history, performing a medically appropriate examination, counseling and educating the pat ient/family/caregiver, ordering medications, tests, or procedures, independently interpreting results (not separately reported), communicating results to the patient/family/caregiver, and care coordination (not separately reported). Charlie Linn MD, CPE Hematology and Oncology Services Provided at: [place], [place] CC: Alfred Guerrero [address] [facility] [address] Jeremiah Lazo, DO [address] [facility] [id number] documented in this encounterL[facility] Evaluation note* Author Sydnee You [facility] 20[facility] 12:26pmThe above note written by Sydnee ROLON acting as human recorder, note dictated by Dr. Jeremiah Lazo. Author Sydnee [facility] 2023 1:52pmThe above note written by Sydnee ROLON acting as human recorder, note dictated by Dr Jeremiah Lazo. 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 Diagnoses of Lupus anticoagulant positive, Supraglottic mass, and Disorder of airway were also pertinent to this visit. is a 63 year old female with the above diagnoses. Reviewed survey testing from today Videostroboscopy performed today shows well-healing incision sites with some residual acute phase swelling of the right supraglottis without obstruction. Stroboscopy reveals near normal laryngeal biomechanics with some laryngeal splinting likely consistent with guarding. Patient has had symptoms of general malaise since surgery which may be a prolonged recovery from general anesthesia; ordered CBC BMP and TSH to evaluate (history of hypothyroidism) and advised patient to discuss with primary physician at appointment tomorrow Expect dysgeusia to resolve over the next days to weeks Continue Augmentin until complete Continue Xarelto per hematology Follow-up as planned in 5 weeks HPI: Negro Garcia is a 63 year old female who presents with right laryngocele Few years of food getting stuck in her throat, liquid wash not helpful, hard to catch her breath Thick phlegm, throat clearing to clear it up. This sometimes results in whitish thick secretions. Throat clearing during the day unproductive Sore throat points to cricoid area, consistently throughout the day Rare hoarseness, talks a lot socially Never had MBSS Swallowing difficulty doesn't change sore throat She is a previous smoker but quit about 20 years ago. INTERVAL HPI 04/01/23: Doing well since we last met. Scheduled a virtual follow- up to go over the results of testing and additional questions. The patient and her family have multiple questions regarding the possibility of tracheostomy, dysphagia, dysphonia following surgery. INTERVAL HPI 05/06/23: Doing well postop but has had malaise since surgery. She was okay for the first day but then has been feeling very low energy. No specific symptoms just generally fatigued. No meymol-[id number] sweats. Has been able to eat anything she wishes. Has followed our recommended diet of pur ed and softer. Continues to take Xarelto per hematology and Augmentin from our team. No changes in voice or difficulty breathing. ALLERGIES Allergen Reactions Cephalosporins GI Upset c-diff when taking Ciprofloxacin Hives Sulfa (Sulfonamide * Itching Current Outpatient Medications Medication Sig buPROPion SR (WELLBUTRIN SR) 150 mg 12 hr tablet Take by mouth. Take 300mg every morning, and 150mgevery evening amoxicillin-clavulanate potassium (AUGMENTIN) 875-125 mg per tablet Take 1 tablet by mouth two times a day for 14 days. bumetanide (BUMEX) 1 mg tablet Take 1 mg by mouth once daily as needed. docusate sodium (COLACE) 100 mg capsule Take 200 mg by mouth daily at bedtime. LORazepam (ATIVAN) 0.5 mg Take 0.5 mg by mouth every 6 hours as needed (anxiety). rivaroxaban (XARELTO) 10 mg tablet Take 1 tablet by mouth once daily for 28 days. losartan (COZAAR) 50 mg tablet Take 1 tablet by mouth once daily. esomeprazole (NEXIUM) 20 mg capsule Take 1 capsule by mouth once daily. semaglutide (OZEMPIC) 0.25 mg or 0.5 mg (2 mg/3 mL) pen Inject 0.5 mg subcutaneously one time a week. (Patient taking differently: Inject 0.5 mg subcutaneously one time a week. On mondays) levothyroxine (SYNTHROID) 50 mcg tablet Take 50 mcg by mouth once daily. Take On an Empty Stomach oxybutynin (DITROPAN) 5 mg tablet Take 5 mg by mouth once daily. ferrous sulfate 325 mg (65 mg iron) tablet Take 1 tablet by mouth daily with breakfast. (Patient taking differently: Take 325 mg by mouth daily at bedtime.) escitalopram oxalate (LEXAPRO) 10 mg tablet Take 10 mg by mouth once daily. cholecalciferol (VITAMIN D3) 50 mcg (2,000 unit) tablet Take 2,000 Units by mouth once daily. atorvastatin calcium(LIPITOR 40 MG TAB) Take one(1) tablet daily. No current facility-administered medications for this visit. PAST MEDICAL HISTORY Diagnosis Date Carpal tunnel syndrome Depression DVT (deep venous thrombosis) (HCC) After surgeries Hiatal hernia Hypertension Multiple sclerosis (HCC) Pulmonary embolism (HCC) 1989 PAST SURGICAL HISTORY Procedure Laterality Date ARTHROSCOPY KNEE DIAGNOSTIC W/WO SYNOVIAL BX SPX Right Arthroscopy, knee BACK SURGERY HX x2 BUNIONECTOMY, LAPIDUS-TYPE CARPAL TUNNEL Left PAST SURGICAL HISTORY OF Vein stripping PAST SURGICAL HISTORY OF Heel Spurs TONSILLECTOMY PRIMARY/SECONDARY <AGE 10 Tonsillectomy Social History: Social History Tobacco Use Smoking status: Former Packs/day: 1.00 Years: 20.00 Additional pack years: 0.00 Total pack years: 20.00 Types: Cigarettes Quit date: 08/05/2006 Years since quittin.7 Passive exposure: Past Smokeless tobacco: Never Vaping Use Vaping Use: Never used Substance Use Topics Alcohol use: No Drug use: No FAMILY HISTORY Problem Relation Age of Onset Heart Father Diabetes Father Difficulty with anesthesia No Family History EAT 10: LCQ: VHI: ROS: A relevant 12 system review of systems was completed and was negative except as noted in the HPI PHYSICAL EXAM: On physical examination Negro Garcia is a well-developed, well nourished female. Her speech is normal and her voice is mildly strained. Mental status revealed patient to be alert and oriented. Mood is appropriate. Details of the physical examination: CRANIAL NERVE EXAM: II: Pupillary reflexes normal III, IV, : EOM normal V: 1,2,3: normal sensation VII: Normal strength in all divisions. VIII: Hearing grossly normal. IX, X: Hoarse voice, palatal elevation and sensation XI: Shoulder strength normal XII: Tongue mobility normal HEAD AND FACE: Physical examination of the head, neck, external nose, external ears, mouth and facefails to demonstrate any significant abnormality or asymmetry to critical face to face observation.Skin and scalp are normal. EARS: RT Canal: patent RT Drum: intact RT Pneumotoscopy: mobile LT Canal: patent LT Drum: intact LT Pneumotoscopy: mobile NOSE: Examination of the nasal cavity revealed a septum which is near midline. The mucosa is pink, and the visible turbinates are normal on anterior rhinoscopy. There is no purulence or polyps. MASTICATION: The teeth appear age-appropriate. The lips and gums are without lesions. ORAL CAVITY AND OROPHARYNX: The oral mucosa, hard and soft palates, tongue, tonsil area, and posterior pharyngeal wall are without lesions. LARYNX: Subjective evaluation of the voice was completed with details listed above. Mirror evaluation of the larynx was deferred given the need for more accurate laryngeal imaging (see below). NECK: The neck appears symmetric without scars. On palpation, there are no masses or lymphadenopathy. The thyroid is not palpable and was free of masses. No salivary gland masses or hypertrophy is noted. Muscle tension is appreciated in the bilateral strap musculature. No palpable laryngocele of the laryngeal cartilages with or without Valsalva. REVIEW OF RADIOLOGICAL FILMS AND RECORDS: Extensively reviewed records as far back as the electronic medical record allows. She did have a vascular medicine consultation at 1 point which sided abnormal coagulation with elevated serum markers. Procedure: Flexible laryngoscopy / Video Stroboscopy PROCEDURE NOTE: Laryngoscopy with videostroboscopy was performed because of the following indication: high resolution assessment of vocal fold oscillation and laryngeal biomechanics: After spraying the nose with xylocaine/neosynephrine, the flexible scope was placed in a transnasal fashion. The nasopharynx, oropharynx, hypopharynx including the pyriform sinuses were normal. There is fibrinous exudate in the right vallecula. The base of tongue showed no gross lesions. The larynx itself showed mild erythematous distention of the right supraglottis without airway obstruction Right VC motion: Full Left VC motion: Full \ At the level of the true vocal folds with stroboscopy, the patient was able to entrain vocal fold oscillation and the Mucosal waves were noted to be present with some supraglottic compression Glottic closure: Complete The immediate subglottic airway was patent Pt tolerated the procedure well, and there were no complications. The procedure was performed by Alfred Guerrero MD Alfred Guerrero MD, MS, MS Laryngology and Upper Airway Surgery This documentation has been completed using [employer] dictation software. Please excuse any dictation errors. documented in this encounterL[facility] Nurse Note* Sumaya Joseph MA - 05/06/2023 1:51 PM EST Tobacco Use: 1 packs/day, for 20 years. Quit 08/05/2006. Types: Cigarettes Was smoking cessation packet given? N/A - Patient is a non-smoker or quit >1 year ago. Was a referral initiated?N/A Patient is a non-smoker documented in this encounterL[facility] History and physical note * Elizabeth Pierce APRN.YUDI - 04/09/2023 9:00 AM EST HISTORY AND PHYSICAL EXAMINATION SERVICE DATE: 04/09/2023 SERVICE TIME: 8:43 AM PRIMARY CARE PHYSICIAN: Jeremiah Lazo DO REASON FOR VISIT: Negro Garcia is a 63 year old female who is scheduled for ENDOSCOPIC SUPRAGLOTTIC LARYNGECTOMY, MICRODIRECT LARYNGOSCOPY W/ MARSUPIALIZATION OF VOCAL CORD CYST at the request of Dr. Alfred Guerrero for consultation. My final recommendation will be communicated back to the requesting physician by way of shared medical record or letter. Assessment/Plan Clotting disorder (HCC) Assessment: Following with hematology... Hx of lupus anticoagulant and decreased protein c and protein s. Lupus anticoagulant was found to be in an indeterminate level and so cannot really be interpreted. However, her clinical course with repeat blood clots after a provoking procedure or surgery would indicate a propensity to clot regardless of hypercoagulable workup Per Dr. Linn 02/14/2023... Hypercoagulation testing was negative, but in light of her clinical history I would still recommend2 weeks of post-op prophylaxis with Xarelto or could consider Lovenox. History of pulmonary embolism Assessment: Hx of PE and DVT She formed a blood clot following a venous repair in her leg sometime in the early , and againfollowing a knee surgery around 2005. She has never been on anticoagulants. She received lovenox injections after she had the clots. Following with hematology. Per senior sales compensation analyst, Dr. Linn Hypercoagulation testing was negative, but in light of her clinical history I would still recommend2 weeks of post-op prophylaxis with Xarelto or could consider Lovenox. MULTIPLE SCLEROSIS Assessment: Following with neurology. Last OV 12/24/2022- stable -- No current medications, No new neurological symptoms. Today's brain & CS MRIs reviewed and stable from MS standpoint. Hypertension Assessment: Stable and compliant with medications Followed by PCP Denies chest pain or headaches Last 5 Encounter BP Readings: Date: BP: 04/09/2023 120/77 02/14/2023 132/80 01/28/2023 125/70 12/24/2022 129/77 05/01/2022 108/76 Hiatal hernia Assessment: on recent imaging-- Hiatal Hernia: Moderate-large, type III + GERD- takes Nexium daily Class 1 obesity with serious comorbidity and body mass index (BMI) of 31.0 to 31.9 in adult Assessment: Body mass index is 31.41 kg/m . On Ozempic-- takes on Mondays-- advised to hold dose 04/29 Mixed hyperlipidemia Assessment: on statin, monitored by PCP OAB (overactive bladder) Assessment: on Oxybutynin Denies recent UTI METS: Climb a flight of stairs or walk up a hill (5.50 METs) Patient denies any chest pain or undue shortness of breath with the above physical activity. ANESTHESIA FINDINGS: Intubation History: No history of difficult intubation Significant Anesthesia Considerations: None Airway Exam: General: Normal appearance Mallampati Score is CLASS II ULBT: Class II - Lower incisors can bite the upper lip below the savana line Neck: Normal appearance and function Mouth: Normal tongue size Dentition: Intact Airway History: No abnormal airway history 04/04/2023 Sleep Apnea Probability Snores loudly: No Tired, fatigued or sleepy in daytime: Yes Stops breathing or choking/gasping during sleep: No High blood pressure: No Sleep Apnea Probability Score: 28 (Sleep study not recommended) The patient has the following: ACTIVE PROBLEM LIST Multiple Sclerosis (Hcc) Systemic Lupus Erythematosus (Hcc) Abnormality of Gait Other Acquired Deformity of Ankle and Foot(736.79) Pain in Left Foot Gastrocnemius Equinus Acquired Hallux Valgus of Left Foot Soft Tissue Mass Plantar Fasciitis of Left Foot Heel Spur Mixed Hyperlipidemia Gastroesophageal Reflux Disease Without Esophagitis Depression Class 1 Obesity With Serious Comorbidity and Body Mass Index (Bmi) of 31.0 to 31.9 in Adult History of Pulmonary Embolism Clotting Disorder (Hcc) Hypertension Hiatal Hernia Subjective CHIEF COMPLAINT: Throat mass HPI: 63 year old year old female presents today with complaints of food getting stuck in her throat, liquid wash not helpful, hard to catch her breath and thick secretions. Had in office larynoscopy that revealed larynx showed gross distention of the right supraglottis without airway obstruction. MRI revealed laryngocele. Has elected for above surgery. PAST MEDICAL HISTORY Diagnosis Date Carpal tunnel syndrome Depression DVT (deep venous thrombosis) ([facility]) After surgeries Hiatal hernia Hypertension Multiple sclerosis (HCC) Pulmonary embolism (HCC) 1989 PAST SURGICAL HISTORY Procedure Laterality Date ARTHROSCOPY KNEE DIAGNOSTIC W/WO SYNOVIAL BX SPX Right Arthroscopy, knee BACK SURGERY HX x2 BUNIONECTOMY, LAPIDUS-TYPE CARPAL TUNNEL Left PAST SURGICAL HISTORY OF Vein stripping PAST SURGICAL HISTORY OF Heel Spurs TONSILLECTOMY PRIMARY/SECONDARY <AGE 10 Tonsillectomy FAMILY HISTORY Problem Relation Age of Onset Heart Father Diabetes Father Difficulty with anesthesia No Family History SOCIAL HISTORY: Social History Tobacco Use Smoking status: Former Packs/day: 1.00 Years: 20.00 Additional pack years: 0.00 Total pack years: 20.00 Types: Cigarettes Quit date: 08/05/2006 Years since quittin.6 Passive exposure: Past Smokeless tobacco: Never Vaping Use Vaping Use: Never used Substance Use Topics Alcohol use: No Drug use: No Prior to Admission medications as of 04/09/23 0846 Medication Sig Last Dose Taking semaglutide (OZEMPIC) 0.25 mg or 0.5 mg (2 mg/3 mL) pen Inject 0.5 mg subcutaneously one time a week. Yes levothyroxine (SYNTHROID) 50 mcg tablet Take 50 mcg by mouth once daily. Take On an Empty Stomach Yes oxybutynin (DITROPAN) 5 mg tablet Take 5 mg by mouth once daily. Yes ferrous sulfate 325 mg (65 mg iron) tablet Take 1 tablet by mouth daily with breakfast. Yes escitalopram oxalate (LEXAPRO) 10 mg tablet Take 10 mg by mouth once daily. Yes cholecalciferol (VITAMIN D3) 50 mcg (2,000 unit) tablet Take 2,000 Units by mouth once daily. Yes buPROPion SR (WELLBUTRIN SR) 150 mg ORAL 12 hr tablet Take 1 tablet by mouth twice daily. Patient taking differently: Take 150 mg by mouth two times a day. 2 in the morning and 2 in the evening Yes atorvastatin calcium(LIPITOR 40 MG TAB) Take one(1) tablet daily. Yes BUMEX 1MG TABLET one po prn Yes losartan (COZAAR) 50 mg tablet Take 1 tablet by mouth once daily. esomeprazole (NEXIUM) 20 mg capsule Take 1 capsule by mouth once daily. No medication comments found. ALLERGIES Allergen Reactions Cephalosporins GI Upset c-diff when taking Ciprofloxacin Hives Sulfa (Sulfonamide * Itching COVID-19 Immunization Status Overdue - Covid-19 Vaccine () Overdue since 11/02/2022 02/13/2021 Imm Admin: COVID-19 original vaccine, full dose, monovalent (MODERNA) 01/16/2021 Imm Admin: COVID-19 original vaccine, full dose, monovalent (MODERNA) REVIEW OF SYSTEMS: PAIN ASSESSMENT: General: No weight loss, malaise or fevers. Neuro: Negative for TIA's Headaches Seizures +MS Respiratory: No history of current cough or dyspnea, or pneumonia in the past 6 weeks. No history of respiratory/pulmonary symptoms or problems. + snoring Cardiovascular: Positive for: Hypertension, Negative for Arrhythmia, CAD, Chest Pain GI: Negative for Abdominal pain, Liver disease + GERD/ Hiatal hernia : No history of dysuria, frequency or incontinence,, stones or chronic kidney disease [employer] SAL[employer] CONSULTANT: Negative for abnormal vaginal bleeding, abnormal vaginal discharge. : Denies, No LMP recorded (lmp unknown). Patient is postmenopausal. Endocrine: Hypothyroidism Hematology: Lupus anticoagulant, decreased protein c and protein s Hx of blood clots- DVT and PE Oncology: No history of CA metastasis, chemo within 30 days, or radiotherapy within 90 days. Has not lost 10% of body wt in 6 months. No history of oncological symptoms or problems. Psych: Depression Musculoskeletal: Back pain and Joint pain Skin: Negative for lesions, rash and itching. Objective PHYSICAL EXAM: VITALS: BP 120/77 Pulse 74 Temp (Src) 98.4 (Temporal) Resp 16 Ht 5' 4 (1.63m) Wt 182 lb 15.7 oz (83.0kg) SpO2 99% BMI 31.39 kg/(m^2). General: Alert and oriented, No acute distress Skin: Normal color, no rash, no lesions. HEENT: EOM, pupils equal, round and reactive., No carotid bruits Cardiovascular: Normal S1 & S2, no rubs, murmurs or gallops. No JVD. Pulse regular. Lungs: Normal breath sounds, no wheezes or crackles. Abdomen: Soft, non-tender, no rigidity. Extremities: No deformity, no edema or tenderness, no joint swelling or clubbing. Neurological: Normal cognition and motor skills. Pulses: Carotid and radial pulses normal +2. Diagnostic tests reviewed for today's visit: Lab Value Units Date High Low HB 13.3 g/dL 02/14/2023 15.5 11.5 HCT 40.8 % 02/14/2023 46.0 36.0 WBC 5.64 k/uL 02/14/2023 11.00 3.70 PLT 220 k/uL 02/14/2023 400 150 NA 140 mmol/L 02/14/2023 144 136 K 4.4 mmol/L 02/14/2023 5.1 3.7 GLUC 88 mg/dL 02/14/2023 99 74 BUN 12 mg/dL 02/14/2023 21 7 CREAT 0.94 mg/dL 02/14/2023 0.96 0.58 PTSEC 11.3 sec 01/28/2023 13.0 9.7 INR 1.1 no uni* 01/28/2023 1.3 0.9 APTT 29.1 sec 01/28/2023 32.4 23.0 ALT 22 U/L 02/14/2023 38 7 AST 19 U/L 02/14/2023 35 13 TBILI 0.5 mg/dL 02/14/2023 1.3 0.2 TSH No results within date range. EKG 05/16/2017 ( in care everywhere) Normal sinus rhythm Normal ECG When compared with ECG of 30-AUG-2007 06:47, No significant change was found Confirmed by JUDY FRANCO MD ([id number]) on 05/17/2017 8:07:44 AM PLAN This patient is optimally prepared for surgery. CONSULTS: Patient does not require consults for optimization at this time. The Following Tests/Procedures Have Been Initiated: EKG not indicated per [facility] protocol Planned Anesthetic: Per anesthesia choice Instructions Given to Patient: Instructions located in the after visit summary. Patient given verbal and written preop instructions and voices comprehension and compliance. SIGNATURE: Elizabeth Pierce APRN.[employer]OUNT[employer]ENDING MECHANIC PATIENT NAME: Negro Garcia DATE: 04/09/2023 TIME: documented in this encounterL[facility] Instructions* Patient Instructions* Elizabeth Pierce APRN.CNP - 04/09/2023 8:53 AM EST PATIENT PREOPERATIVE INSTRUCTIONS Alfred Guerrero MD has scheduled you for your procedure at this surgery center: [facility] [place] Scheduling Office: [phone] --[address] [place] [address]. Please read below carefully for your personalized instructions. Dietary Restrictions: - No solid food after midnight. - You may have 12 ounces of clear liquids (water, clear juices such as apple juice or gatorade, carbonated beverages, clear tea, black coffee, jello) until 2 hours before scheduled arrival at facility. No milk or cream No pulp juices Medications: Unless instructed differently below, stay on all of your medications until your surgery. Approved medications to take the morning of surgery with a sip of water: Levothyroxine, Bupropion, Lexapro, Oxybutynin, Nexium DO NOT TAKE YOUR Losartan THE NIGHT BEFORE OR MORNING OF SURGERY. Oral/ Injectable Medication Instructions - Semaglutide (Ozempic) - please HOLD 7 DAYS PRIOR TO SURGERY- Do not take dose 04/29 If you start any new medications after today's visit, please contact the surgeon's office. Blood Thinning Medications: - Stop NSAIDS (Ibuprofen, Advil, Aleve, Motrin, Celebrex, Mobic, etc.) 7 days before surgery, as directed by your surgeon. - Stop Aspirin 7 days before surgery, as directed by your surgeon. - Stop Vitamin E, ALL multi-vitamins, herbals and dietary supplements 14 days before surgery. - You may take Tylenol (Acetaminophen) or any of your pain medications that do not contain aspirin or NSAIDS as needed. Important Reminders: - If you use CPAP/BIPAP, bring the machine with you to the surgery center. - If you are prescribed inhalers for breathing, continue using them. - Candy, mints, and tobacco products are NOT permitted the morning of surgery. - Hearing aids, dentures and glasses may be worn the morning of surgery. - NO jewelry, body piercings, makeup, hairpins or contacts are to be worn the day of surgery. If you develop symptoms such as a fever, cold, or flu, or have other changes to your health within TWO DAYS of scheduled surgery or the morning of surgery, please contact the surgery center above. Personal Belongings: -Please have photo ID and insurance cards. -If you do not have a copy of advance directives on file with us, please bring a copy with you on the day of surgery. - Leave ALL valuables and money at home or with family members. For Outpatient Procedures: - YOU MUST HAVE A RESPONSIBLE PRESSROOM SUPERVISOR TAKE YOU HOME. A FASHION DIRECTOR PARTY PLAN SALES OR ALLERGY PHYSICIAN CANNOT BE MADE A RESPONSIBLE PRESSROOM SUPERVISOR. - We recommend that a responsible person stays with you overnight to take care of you. - You cannot stay in a hotel alone after outpatient surgery. You will not be permitted to have yoursurgery, if you do not have someone to take care of you. Arrival Time for Surgery: - To obtain your arrival time for surgery, call your physician's office the day before your surgery. - If your surgery is scheduled for Saturday, call the Saturday before. Your surgeon s certified adaptive physical educator will tell you what time to call the office. - If you have not reached the departmental certified adaptive physical educator by 5 P.M., call [phone] after 5 P.M. the day before your surgery. Please be aware that emergency situations arise, which may delay or change your surgical time. If this happens, we will notify you as soon as possible and regret any inconvenience. If you already have an Advance Directive, please fax a copy to [phone] or email to for it to be added to your chart. If you do not have an Advance Directive, you can find the appropriate form and more information at [email or web address]. We recommend that youcomplete the Advance Directive form found on the website and bring it with you the day of your surgery. It can be witnessed and scanned into your chart that day. documented in this encounterL[facility] Evaluation note* Encounter Date Diagnosis Assessment Notes Treatment Notes Treatment Clinical Notes Mar, Anxiety and depression (ICD-10 - F41.8) Mar,Hypothyroid (ICD-10 - E03.9) Mar,yslipidemia (ICD-10 - E78.5) [facility] Other 12-05-2023 Evaluation note* Encounter Date Diagnosis Assessment Notes Treatment Notes Treatment Clinical Notes Feb, Needs flu shot (ICD-10 - Z23) [facility] Other 11-28-2023 Miscellaneous Notes* Telephone Encounter - Charlie Linn MD - 01/29/2023 11:59 AM EST Thank you * Telephone Encounter - Mamta Taylor HUC - 01/29/2023 11:48 AM EST Spoke with Ileana and we scheduled her in person Appointment with Dr. Lindsey at 10am, and labs prior to Doctor at 945am on 02/14/23. JOSE MARIA Murry * Telephone Encounter - Anastasiya Gentile - 01/29/2023 10:40 AM EST Images from the original note were not included. Called patient left message to schedule. Charlie Linn MD P [facility] Clerical Pool August Garcia I inadvertently missed ordering a cbc and cmp on her. Would she mind having an in - person visit in 2 weeks and get CBC, CMP at the same time? documented in this encounterL[facility]11-27-2023 Instructions* Patient Instructions* Corazon Echevarria - 01/28/2023 3:51 PM EST Labs drawn today. Virtual visit in 2 weeks to review. documented in this encounterLake [facility]11-27-2023 History of Present illness Narrative* Charlie Linn MD - 01/28/2023 3:30 PM EST Images from the original note were not included. NAME: Negro Garcia [facility] NO.: [id number] DATE OF SERVICE: January 28, 2023 (Kaveh) Referring Provider: Alfred Guerrero MD Consultation requested by Dr. Guerrero for an opinion regarding Ms. Negro Garcia, and my final recommendations will be communicated back to the requesting physician by way of shared medical record or letter via US mail. 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 Lupus anticoagulant was found to be in an indeterminate level and so cannot really be interpreted. However, her clinical course with repeat blood clots after a provoking procedure or surgery would indicate a propensity to clot regardless of hypercoagulable workup. Will await results of testing but will most likely recommend extended prophylaxis with DOAC (Directthrombin inhibitors). PLAN: Labs drawn today. Virtual visit in 2 weeks to review. HPI: CASE HISTORY: Reverse Chronological Order 09/13/2008 - Cardiolipin Ab IgM 2005?? 2006?? DVT and PE - + lupus anticoagulant and altered levels of Protein C and Protein S Initial Visit, January 28, 2023: Negro Garcia presents today Hematology and Oncology evaluation. Accompanied today by her brotherFred and [id number] Matilda. She is a 62 year old female with MS who has a hx of unusual clotting and needs to go in for surgery to remove a supraglottic mass. She is not sure what exactly the ENT is concerned of with the mass other than worry about growth, and that it appeared to be some sort of cys t. They are planning to go in laparoscopically for the surgery, scheduled for 04/2023. She formed a blood clot following a venous repair in her leg sometime in the early , and againfollowing a knee surgery around 2005. She has never been on anticoagulants. She received lovenox injections after she had the clots. Her labs from today are still pending, but we will likely start her on Xarelto depending on the results to be taken until she is fully recovered from the surgery. Notes that at some point she saw Dr. Rivas at [facility] who initially did a workup on her with labs, whotold her to be careful about clotting. Believes this was done in 2008. She worked previously at a [employer], but had many different past jobs. REVIEW OF SYSTEMS Per HPI and otherwise negative by full review of organ systems. ECOG PERFORMANCE STATUS: 1 PHYSICAL EXAMINATION: Vitals: BP 125/70 Pulse 90 Temp (Src) 98.5 (Temporal) Resp 16 Ht 5' 4.016 (1.63m) Wt 184lb (83.5kg) SpO2 97% BMI 31.57 kg/(m^2). Body surface area is 1.94 meters squared. Exam limited to gross visualization where appropriate. Gen.: This is an age-appropriate patient in no acute distress. Head: Appears atraumatic with no visible lesions. Eyes: Pupils equally round and reactive to light, extraocular muscles are intact. Neck: Supple. Respiratory: Appears to be respiring comfortably. Neurologic: Nonfocal to gross visualization. Alert and oriented 3. Psychiatric: No evidence of inappropriate anxiety or depression. Skin: Visible areas of skin without rash, lesions, wounds or petechiae. ALLERGIES: ALLERGIES Allergen Reactions Cephalosporins GI Upset c-diff when taking Ciprofloxacin Hives Sulfa (Sulfonamide * Itching MEDICATIONS: semaglutide (OZEMPIC) 0.25 mg or 0.5 mg (2 mg/3 mL) pen Inject 0.5 mg subcutaneously one time a week. levothyroxine (SYNTHROID) 50 mcg tablet Take 50 mcg by mouth once daily. Take On an Empty Stomach oxybutynin (DITROPAN) 5 mg tablet Take 5 mg by mouth once daily. ferrous sulfate 325 mg (65 mg iron) tablet Take 1 tablet by mouth daily with breakfast. escitalopram oxalate (LEXAPRO) 10 mg tablet Take 10 mg by mouth once daily. cholecalciferol (VITAMIN D3) 50 mcg (2,000 unit) tablet Take 2,000 Units by mouth once daily. buPROPion SR (WELLBUTRIN SR) 150 mg ORAL 12 hr tablet Take 1 tablet by mouth twice daily. (Patient taking differently: Take 150 mg by mouth two times a day. 2 in the morning and 2 in the evening) atorvastatin calcium(LIPITOR 40 MG TAB) Take one(1) tablet daily. BUMEX 1MG TABLET one po prn iv contrast (will be provided with radiology test) MRI CSP Inject, intravenously, once for 1 dose. No IV access, insert saline lock prior to the beginning of sedation, infusion, injection of imaging exam. Discontinue saline lock post exam. If Pt. has a central line or IVAD, may access for administration according to line specific nursing protocol. Once exam is complete flush line and de-access according to line specific nursing protocol in the MR contrast administration guidelines link. (Patient not taking: Reported on 01/17/2023) iv contrast (will be provided with radiology test) MRI Brain Inject, intravenously, once for 1 dose.No IV access, insert saline lock prior to beginning of sedation, infusion, injection of imaging exam.Discontinue saline lock post exam. If Pt. has a central line or IVAD, may access for administration according to line specific nursing protocol.Once exam is complete flush line and de-access according to line specific nursing protocol in the MR contrast administration guidelines link (Patient not taking: Reported on 01/17/2023) LABORATORY VALUES: WBC (k/uL) Date Value 04/02/2017 5.22 RBC (m/uL) Date Value 04/02/2017 4.34 Hemoglobin (g/dL) Date Value 04/02/2017 12.2 Hematocrit (%) Date Value 04/02/2017 38.3 MCV (fL) Date Value 04/02/2017 88.2 MCH (pG) Date Value 04/02/2017 28.1 MCHC (g/dL) Date Value 04/02/2017 31.9 RDW-CV (%) Date Value 04/02/2017 13.5 Platelet Count (k/uL) Date Value 04/02/2017 191 MPV (fL) Date Value 04/02/2017 9.7 Glucose (mg/dL) Date Value 04/02/2017 118 (H) BUN (mg/dL) Date Value 04/02/2017 18 Creatinine (mg/dL) Date Value 01/08/2023 0.93 Sodium (mmol/L) Date Value 04/02/2017 142 Potassium (mmol/L) Date Value 04/02/2017 3.9 Chloride (mmol/L) Date Value 04/02/2017 102 CO2 (mmol/L) Date Value 04/02/2017 28 Protein, Total (g/dL) Date Value 04/02/2017 7.3 Albumin (g/dL) Date Value 04/02/2017 4.2 Calcium (mg/dL) Date Value 04/02/2017 9.1 Alkaline Phosphatase (U/L) Date Value 04/02/2017 68 Bilirubin, Total (mg/dL) Date Value 04/02/2017 0.4 AST (U/L) Date Value 04/02/2017 28 ALT (U/L) Date Value 04/02/2017 26 DIAGNOSIS: (Z86.711) History of pulmonary embolus (PE) (primary encounter diagnosis) Plan: HYPERCOAG DIAG PNL, CBC + DIFF, COMP METABOLIC PANEL (Z86.718) History of DVT (deep vein thrombosis) Plan: HYPERCOAG DIAG PNL (R76.0) Lupus anticoagulant positive Plan: CONSULT TO HEMATOLOGY (D68.9) Clotting disorder (HCC) Plan: CONSULT TO HEMATOLOGY PAST MEDICAL HISTORY Diagnosis Date Carpal tunnel syndrome Depression DVT (deep venous thrombosis) (HCC) After surgeries Multiple sclerosis (HCC) Pulmonary embolism (HCC) 1989 PAST SURGICAL HISTORY Procedure Laterality Date ARTHROSCOPY KNEE DIAGNOSTIC W/WO SYNOVIAL BX SPX Right Arthroscopy, knee BACK SURGERY HX x2 BUNIONECTOMY, LAPIDUS-TYPE CARPAL TUNNEL Left PAST SURGICAL HISTORY OF Vein stripping PAST SURGICAL HISTORY OF Heel Spurs TONSILLECTOMY PRIMARY/SECONDARY <AGE 10 Tonsillectomy Social History Tobacco Use Smoking status: Former Packs/day: 1.00 Years: 20.00 Additional pack years: 0.00 Total pack years: 20.00 Types: Cigarettes Quit date: 08/05/2006 Years since quittin.4 Passive exposure: Past Smokeless tobacco: Never Vaping Use Vaping Use: Never used Substance Use Topics Alcohol use: No Drug use: No FAMILY HISTORY Problem Relation Age of Onset Heart Father Diabetes Father I spent a total of 45 minutes on the date of the service which included preparing to see the patient, [id number] patient care, completing clinical documentation, obtaining and/or reviewing separately obtained history, performing a medically appropriate examination, counseling and educating the pat ient/family/caregiver, ordering medications, tests, or procedures, independently interpreting results (not separately reported), communicating results to the patient/family/caregiver, and care coordination (not separately reported). Charlie Linn MD, CPE Hematology and Oncology Services Provided at: [place], [place] Scribe Attestation: This note was scribed by Corazon Echevarria on January 28, 2023 under the direction and supervision ofDr. Charlie Linn. I attest that all of the information documented is correct to the best of my knowledge. Provider Attestation: I, Charlie Linn MD, attest that all information documented by the above scribe is correct, and was supervised by me and under my direction. CC: Alfred Guerrero [address] [facility] [address] [address], [facility] [id number] documented in this encounterLake [facility]11-20-2023 Evaluation note* Encounter Date Diagnosis Assessment Notes Treatment Notes Treatment Clinical Notes Jan, Bret hy kid w cr kid I-IV (ICD-10 - I12.9) [facility] Other [id number] History of Present illness Narrative* Millie Jones CCC-DIRECTOR HUMAN SERVICES - 01/17/2023 1:55 PM EST [facility] Millie Jones MA, CCC-DIRECTOR HUMAN SERVICES NAME: Negro Garcia DATE OF SERVICE: January 17, 2023 Onset of Illness: March 04, 2020 Initial Day of Treatment: January 17, 2023 Treatment Plan Date: January 17, 2023 IMPRESSION AND PLAN: Consultation requested by Dr. Guerrero for evaluation and recommendations regarding management of dysphagia and laryngeal soreness in [facility]. Negro Garcia is a 62 year old patient who has experienced retention of food in the throat and a sensation of thick phlegm for a few years. A liquid wash is not helpful and she often has difficulty catching her breath due to retained boluses. She hasnever had an MBSS. She also has a constant sore throat (patient localizes to area of cricoid notch)that is consistent throughout the day. She is a heavy voice user socially but denies dysphonia. Shewas referred to Dr. Guerrero because recent CT neck imaging demonstrated a right supraglottic mass. V ideostroboscopy performed today demonstrated distention of the right supraglottis. Vocal folds had full mobility without masses or lesions. HISTORY OF PRESENT ILLNESS: [facility] SPEECH-LANGUAGE PATHOLOGY ASSESSMENT QUALITATIVE VOICE ASSESSMENT: GRBAS + 0= normal, 1 = mild, 2 = moderate 3 = severe Grade 1: Roughness 0/3, breathiness 0/3, strain 1/3, asthenia 0/3, vocal mejia 0/3. VIDEOSTROBOSCOPY PROCEDURE (Procedure performed by the undersigned clinician): The patient was sprayed with 2% lidocaine and 0.5% phenylephrine 2mL. After an appropriate amount of time for vasoconstriction and anesthesia to be achieved, a flexible distal chip laryngoscope was inserted into the nasal cavity, nasopharynx, down to the oropharynx. A videoendoscopy with stroboscopy was performed. FINDINGS: Anatomical Documentation: B TVF mobility grossly WFL 2. R supraglottic fullness without airway obstruction 3. No masses or lesions on B TVFs Hyperfunction: Mild left, could not be determined right due to mass Supraglottic: See above comment on right supraglottic mass Subglottis: WFL Stroboscopic Parameters: Vertical Phase Difference: Reduced bilaterally Symmetry: Equal and symmetric Amplitude: Reduced bilaterally Mucosal Wave: Reduced bilaterally Periodicity: Largely periodic Glottic Closure: Complete PAST MEDICAL HISTORY Diagnosis Date Carpal tunnel syndrome Depression DVT (deep venous thrombosis) (HCC) After surgeries Multiple sclerosis (HCC) Pulmonary embolism (HCC) 1989 Current Outpatient Medications on File Prior to Visit Medication Sig semaglutide (OZEMPIC) 0.25 mg or 0.5 mg (2 mg/3 mL) pen Inject 0.5 mg subcutaneously one time a week. levothyroxine (SYNTHROID) 50 mcg tablet Take 50 mcg by mouth once daily. Take On an Empty Stomach oxybutynin (DITROPAN) 5 mg tablet Take 5 mg by mouth once daily. iv contrast (will be provided with radiology test) MRI CSP Inject, intravenously, once for 1 dose. No IV access, insert saline lock prior to the beginning of sedation, infusion, injection of imaging exam. Discontinue saline lock post exam. If Pt. has a central line or IVAD, may access for administration according to line specific nursing protocol. Once exam is complete flush line and de-access according to line specific nursing protocol in the MR contrast administration guidelines link. (Patient not taking: Reported on 01/17/2023) iv contrast (will be provided with radiology test) MRI Brain Inject, intravenously, once for 1 dose.No IV access, insert saline lock prior to beginning of sedation, infusion, injection of imaging exam.Discontinue saline lock post exam. If Pt. has a central line or IVAD, may access for administration according to line specific nursing protocol.Once exam is complete flush line and de-access according to line specific nursing protocol in the MR contrast administration guidelines link (Patient not taking: Reported on 01/17/2023) ferrous sulfate 325 mg (65 mg iron) tablet Take 1 tablet by mouth daily with breakfast. escitalopram oxalate (LEXAPRO) 10 mg tablet Take 10 mg by mouth once daily. cholecalciferol (VITAMIN D3) 50 mcg (2,000 unit) tablet Take 2,000 Units by mouth once daily. buPROPion SR (WELLBUTRIN SR) 150 mg ORAL 12 hr tablet Take 1 tablet by mouth twice daily. (Patient taking differently: Take 150 mg by mouth two times a day. 2 in the morning and 2 in the evening) atorvastatin calcium(LIPITOR 40 MG TAB) Take one(1) tablet daily. BUMEX 1MG TABLET one po prn No current facility-administered medications on file prior to visit. PROVIDER: Millie Jones MA, CCC-DIRECTOR HUMAN SERVICES Certified and Licensed Speech-Language Pathologist [facility] documented in this encounterLake [facility]11-16-[facility]23 History of Present illness Narrative* Alfred Guerrero MD - 01/17/2023 9:58 AM EST LARYNGOLOGY NEW PATIENT NOTE CC: This patient is seen at the request of Coni Borrero PA-Cfor the evaluation of supraglottic mass. Report from this visit will be shared with referring provider via the electronic medical record. Assessment and Plan: Diagnoses of Disorder of airway and Supraglottic mass were pertinent to this visit. is a 62 year old female with the above diagnoses. Reviewed survey testing from today Reviewed CT neck images and report showing a right-sided mass of the right supraglottis Videostroboscopy performed today shows distention of the right supraglottis without airway obstruction Recommended the patient move towards removing this lesion via endoscopic versus open surgery. We would prioritize endoscopic surgery if possible but she was consented for either approach today and understands that the determination of exact route will be made intraoperatively following direct laryngoscopy. We discussed the risks benefits alternatives and staffing of both surgical approaches today Preoperative testing with a modified barium swallow Patient has remote history of hypercoagulability with pulmonary emboli and peripheral DVTs with laboratory testing in 2005 or 2006 showing lupus anticoagulant elevated as well as abnormal values of protein C and protein S. Recommended hematology evaluation and work-up prior to considering surgical i ntervention Discussed that infection of the laryngocele could put the patient at airway risk and discussed emergency precautions with the patient at length. We discussed the risks and benefits of microdirect laryngoscopy at length today. Specific risks discussed include dental and oral injury, dysgeusia, oral dysesthesia, permanent hoarseness, throat pain, bleeding, infection, and postoperative swelling. Should transcervical approach be undergone the risks would include fistula, scar, hematoma, recurrence, and possible tracheotomy. We discussed alternatives and staffing. The patient wishes to move forward with the proposed procedure and a consent document was signed today. HPI: Negro Garcia is a 62 year old female who presents with right laryngocele Few years of food getting stuck in her throat, liquid wash not helpful, hard to catch her breath Thick phlegm, throat clearing to clear it up. This sometimes results in whitish thick secretions. Throat clearing during the day unproductive Sore throat points to cricoid area, consistently throughout the day Rare hoarseness, talks a lot socially Never had MBSS Swallowing difficulty doesn't change sore throat She is a previous smoker but quit about 20 years ago. ALLERGIES Allergen Reactions Cephalosporins GI Upset c-diff when taking Ciprofloxacin Hives Sulfa (Sulfonamide * Itching Current Outpatient Medications Medication Sig semaglutide (OZEMPIC) 0.25 mg or 0.5 mg (2 mg/3 mL) pen Inject 0.5 mg subcutaneously one time a week. levothyroxine (SYNTHROID) 50 mcg tablet Take 50 mcg by mouth once daily. Take On an Empty Stomach oxybutynin (DITROPAN) 5 mg tablet Take 5 mg by mouth once daily. ferrous sulfate 325 mg (65 mg iron) tablet Take 1 tablet by mouth daily with breakfast. escitalopram oxalate (LEXAPRO) 10 mg tablet Take 10 mg by mouth once daily. cholecalciferol (VITAMIN D3) 50 mcg (2,000 unit) tablet Take 2,000 Units by mouth once daily. buPROPion SR (WELLBUTRIN SR) 150 mg ORAL 12 hr tablet Take 1 tablet by mouth twice daily. (Patient taking differently: Take 150 mg by mouth two times a day. 2 in the morning and 2 in the evening) atorvastatin calcium(LIPITOR 40 MG TAB) Take one(1) tablet daily. BUMEX 1MG TABLET one po prn iv contrast (will be provided with radiology test) MRI CSP Inject, intravenously, once for 1 dose. No IV access, insert saline lock prior to the beginning of sedation, infusion, injection of imaging exam. Discontinue saline lock post exam. If Pt. has a central line or IVAD, may access for administration according to line specific nursing protocol. Once exam is complete flush line and de-access according to line specific nursing protocol in the MR contrast administration guidelines link. (Patient not taking: Reported on 01/17/2023) iv contrast (will be provided with radiology test) MRI Brain Inject, intravenously, once for 1 dose.No IV access, insert saline lock prior to beginning of sedation, infusion, injection of imaging exam.Discontinue saline lock post exam. If Pt. has a central line or IVAD, may access for administration according to line specific nursing protocol.Once exam is complete flush line and de-access according to line specific nursing protocol in the MR contrast administration guidelines link (Patient not taking: Reported on 01/17/2023) No current facility-administered medications for this visit. PAST MEDICAL HISTORY Diagnosis Date Carpal tunnel syndrome Depression DVT (deep venous thrombosis) (HCC) After surgeries Multiple sclerosis (HCC) Pulmonary embolism (HCC) 1989 PAST SURGICAL HISTORY Procedure Laterality Date ARTHROSCOPY KNEE DIAGNOSTIC W/WO SYNOVIAL BX SPX Right Arthroscopy, knee BACK SURGERY HX x2 BUNIONECTOMY, LAPIDUS-TYPE CARPAL TUNNEL Left PAST SURGICAL HISTORY OF Vein stripping PAST SURGICAL HISTORY OF Heel Spurs TONSILLECTOMY PRIMARY/SECONDARY <AGE 10 Tonsillectomy Social History: Social History Tobacco Use Smoking status: Former Packs/day: 1.00 Years: 20.00 Additional pack years: 0.00 Total pack years: 20.00 Types: Cigarettes Quit date: 08/05/2006 Years since quittin.4 Smokeless tobacco: Never Vaping Use Vaping Use: Never used Substance Use Topics Alcohol use: No Drug use: No FAMILY HISTORY Problem Relation Age of Onset Heart Father Diabetes Father EAT 10: LCQ: VHI: ROS: A relevant 12 system review of systems was completed and was negative except as noted in the HPI PHYSICAL EXAM: On physical examination Negro Garcia is a well-developed, well nourished female. Her speech is normal and her voice is mildly strained. Mental status revealed patient to be alert and oriented. Mood is appropriate. Details of the physical examination: CRANIAL NERVE EXAM: II: Pupillary reflexes normal III, IV, : EOM normal V: 1,2,3: normal sensation VII: Normal strength in all divisions. VIII: Hearing grossly normal. IX, X: Hoarse voice, palatal elevation and sensation XI: Shoulder strength normal XII: Tongue mobility normal HEAD AND FACE: Physical examination of the head, neck, external nose, external ears, mouth and facefails to demonstrate any significant abnormality or asymmetry to critical face to face observation.Skin and scalp are normal. EARS: RT Canal: patent RT Drum: intact RT Pneumotoscopy: mobile LT Canal: patent LT Drum: intact LT Pneumotoscopy: mobile NOSE: Examination of the nasal cavity revealed a septum which is near midline. The mucosa is pink, and the visible turbinates are normal on anterior rhinoscopy. There is no purulence or polyps. MASTICATION: The teeth appear age-appropriate. The lips and gums are without lesions. ORAL CAVITY AND OROPHARYNX: The oral mucosa, hard and soft palates, tongue, tonsil area, and posterior pharyngeal wall are without lesions. LARYNX: Subjective evaluation of the voice was completed with details listed above. Mirror evaluation of the larynx was deferred given the need for more accurate laryngeal imaging (see below). NECK: The neck appears symmetric without scars. On palpation, there are no masses or lymphadenopathy. The thyroid is not palpable and was free of masses. No salivary gland masses or hypertrophy is noted. Muscle tension is appreciated in the bilateral strap musculature. No palpable laryngocele of the laryngeal cartilages with or without Valsalva. REVIEW OF RADIOLOGICAL FILMS AND RECORDS: Extensively reviewed records as far back as the electronic medical record allows. She did have a vascular medicine consultation at 1 point which sided abnormal coagulation with elevated serum markers. Procedure: Flexible laryngoscopy / Video Stroboscopy PROCEDURE NOTE: Laryngoscopy with videostroboscopy was performed because of the following indication: high resolution assessment of vocal fold oscillation and laryngeal biomechanics: After spraying the nose with xylocaine/neosynephrine, the flexible scope was placed in a transnasal fashion. The nasopharynx, oropharynx, hypopharynx including the pyriform sinuses were normal. The base of tongue showed no gross lesions. The larynx itself showed gross distention of the right supraglottis without airway obstruction Right VC motion: Full Left VC motion: Full At the level of the true vocal folds with stroboscopy, the patient was able to entrain vocal fold oscillation and the Mucosal waves were noted to be present with some supraglottic compression Glottic closure: Complete The immediate subglottic airway was patent Pt tolerated the procedure well, and there were no complications. The procedure was performed by Millie Jones Alfred Guerrero MD, MS, MS Laryngology and Upper Airway Surgery This documentation has been completed using [employer] dictation software. Please excuse any dictation errors. * Shasta Hollins LPN - 01/17/2023 9:43 AM EST Tobacco Use: 1 packs/day, for 20 years. Quit 08/05/2006. Types: Cigarettes Was smoking cessation packet given? N/A - Patient is a non-smoker or quit >1 year ago. Was a referral initiated?N/A Patient is a non-smoker [facility] History of Present illness Narrative* Adriana Burgos RT(R) - 01/08/2023 8:45 AM EST Radiology Service Progress Note PATIENT NAME: Negro Garcia DATE OF SERVICE: January 08, 2023 TIME: 9:04 AM PATIENT IDENTITY VERIFICATION COMPLETED USING TWO (2) IDENTIFIERS: Name and Date of confirmedby patient verbally. FALL SCREENING: Has the patient had 2 falls in the last year or 1 fall with injury or currently using an Ambulatory Assistive Device (Walker, Cane, Wheelchair, Crutches, etc.)? No PATIENT GENDER DATA: Female. status: : No status: NO. PATIENT RELEVANT IMPLANT DATA REVIEWED: Not Applicable RADIOLOGY DEPARTMENT: CT; Exam(s) Completed: Neck PERIPHERAL IV DATA: Site assessment: Clean,Dry and Intact, Site disposition Discontinued SIGNED BY: RT Mohan(R) January 08, 2023 9:04 AM * Julianne Chapin RN - 01/08/2023 8:45 AM EST Radiology Service Progress Note DATE OF SERVICE: January 08, 2023 TIME: 9:08 AM PATIENT WEIGHT: 185LBS PATIENT IDENTITY VERIFICATION COMPLETED USING TWO (2) STANDARD IDENTIFIERS: Name and Date of confirmed by patient verbally. FALL SCREENING: Has the patient had 2 falls in the last year or 1 fall with injury or currently using an Ambulatory Assistive Device (Walker, Cane, Wheelchair, Crutches, etc.)? No PATIENT GENDER DATA: Female. status: : No status: NO. ALLERGIES: Reviewed and unchanged CONTRAST ALLERGY: No EXAM: CT -CONTRAST INDUCED NEPHROPATHY RISK FACTORS: Patient age > 60 years CREATININE: Creatinine Date Value Ref Range Status 01/08/2023 0.93 0.58 - 0.96 mg/dL Final 04/02/2017 0.81 0.58 - 0.96 mg/dL Final 03/29/2009 0.67 (L) 0.70 - 1.40 mg/dL Final Estimated Glomerular Filtration Rate Date Value Ref Range Status 01/08/2023 69 >=60 mL/min/1.73m Final Comment: Estimated Glomerular Filtration Rate (eGFR) is calculated using the 2020 CKD-EPI creatinine equation. This equation utilizes serum creatinine, sex, and age as parameters. The creatinine assay has traceable calibration to isotope dilution- mass spectrometry. Refer to KDIGO guidelines for clinical interpretation. In patients with unstable renal function, e.g. those with acute kidney injury, the eGFRmay not accurately reflect actual GFR. eGFR- Date Value Ref Range Status 04/02/2017 >60 Final P.O.C.T. RESULTS: POC done: Yes, See Lab Tab January 08, 2023 TREATMENT: N/A IV SITE: Ambulatory: A peripheral IV was started in the Right antecubital site with a Angio cath: 20 gauge. IV SITE APPEARANCE: Clean,Dry and Intact SIGNATURE: Julianne Chapin RN PATIENT NAME: Negro Garcia DATE: January 08, 2023 TIME: 9:08 AM documented [facility] note* Encounter Date Diagnosis Assessment Notes Treatment Notes Treatment Clinical Notes Dec, Hyperglycemia (ICD-10 - R73.9) In house hgb a1c today is 5.1%. Dec,Obesity, unspecified (ICD-10 - E66.9) Patient does voice not being hungry a majority of the day and does not feel like eating as food does not sound good to her. She is to remain on the 0.5 mg dose. Dec,ody mass index [BMI] 31.0-31.9, adult (ICD-10 - Z68.31) Seven pound weight loss noted over the last two months and thirty-nine pound weight loss noted since starting the Ozempic regimen. She is doing very well on the Ozempic tolerating this nicely though due to her suppressed appetite, she is to remain on the 0.5mg dose for the next couple months. I will see her back in a month to follow up on her weight progress and discuss her imaging. 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 Dec,isorder of airway (ICD-10 - J98.9) Encouraged patient to follow through with further imaging to evalaute the supraglottic mass. Dec,Multiple sclerosis (ICD-10 - G35) Consult note and imaging reviewed with the patient. Dec,urning with urination (ICD-10 - R30.0) Patient does report having dysuria, pressure, and burning with urination. She was unable to providea specimen in office today but due to her symptoms, I will empirically treat for a UTI. Above antibiotic prescribed. Dec,nxiety and depression (ICD-10 - F41.8) Refill e-scribed. [facility] Other 10-23-2023 History of Present illness Narrative* Coni Borrero PA-C - 12/24/2022 9:43 AM EDT Images from the original note were not included. [facility] FOLLOWUP/ESTABLISHED PATIENT VISIT Principal Neurologic Diagnosis: Multiple Sclerosis DISEASE SUMMARY Date of onset: 1988 Date of diagnosis: 1990 Disease course from Onset: Exacerbating/Remitting Disease course last year: Exacerbating/Remitting Current MS Disease Therapy: None Previous MS Disease Therapies:Avonex (1989-04/2018); IV Steroids and PO Steroids Most recent Brain MRI: 09/11/2019 Most recent C/S MRI: [id number] CHIEF COMPLAINT: Follow-up for monitoring off MS modifying therapy INTERVAL HISTORY: Usual treating team: José/Adair The patient is accompanied by daughter. The patient was last seen 05/01/2022, currently taking Not on DMT. Since the patient's last visit the patient reports overall feeling stable. Issues with current therapy: Tolerating medication without side effects. Has noted haziness of bilateral vision for the past 3-4 months. Denies loss of vision or painful vision. She did meet with dental nurse in March. Ongoing memory issues, more short term. She continues to care for her with has dementia. This is very stressful for her. Feels she cannot leave her home as she has to care for and he doesn't understand. She has not met Ambulates without assistance. No falls. She has lost weight on ozempic and is overall feeling better and notices balance and walking is a bit improved. Has lost about 50lbs. ROS: Mood: Good/bright On lexapro and wellbutrin Spasticity:None Bladder: no change, on oxybutynin Bowel: Normal Fatigue: Moderate Sleep: adequate Neuro-QoL Functions (higher=better functioning) Flowsheet Row Office Visit from 12/24/2022 in [facility] Office Visit from 05/01/2022 in [facility] Social Work from 11/24/2019 in [facility] Upper Extremity Domain T Score 44 44.27 44 Lower Extremity Domain T Score 42 38.43 39 Cognitive Function Domain T Score 51 51.55 38 Positive Affect Well Being T Score -- -- -- Ability To Participate In Social Roles T Score 50 48.29 47 Satisfaction With Social Roles T Score 52 52.23 43 Neuro-QoL Symptoms (higher=worse symptoms) Flowsheet Row Office Visit from 12/24/2022 in [facility] Office Visit from 05/01/2022 in [facility] Social Work from 11/24/2019 in [facility] Sleep Domain T Score 46 48.19 53 Fatigue Domain T Score 45 39.32 58 Anxiety Domain T Score 32 44.72 64 Depression Domain T Score 47 46.93 57 Stigma Domain T Score 37 36.56 44 Emotional Behavior Dyscontrol T Score -- -- -- has a past medical history of Carpal tunnel syndrome, Depression, DVT (deep venous thrombosis) ([facility]), Multiple sclerosis ([facility]), and Pulmonary embolism ([facility]). She has no past medical history of Atrial fibrillation ([facility]), Cancer ([facility]), Chronic obstructive pulmonary disease (COPD) ([facility]), Chronic renal insufficiency, Congestive heart failure ([facility]), Coronary artery disease, Diabetes ([facility]), Epilepsy ([facility]), Hypertension, Obstructive sleep apnea, Steroid long-term use, Stroke ([facility]), or Substance abuse ([facility]). has a current medication list which includes the following prescription(s): levothyroxine, oxybutynin, iv contrast, iv contrast, ferrous sulfate, escitalopram oxalate, cholecalciferol, bupropion sr, lipitor, and bumex. EXAM: BP 129/77 Pulse 70 Ht 162.6 cm (5' 4 ) Wt 83.9 kg (185 lb) BMI 31.76 kg/m Multiple Sclerosis Performance Test Flowsheet Row Office Visit from 12/24/2022 in [facility] Office Visit from 05/01/2022 in [facility] Processing Speed Total Number Correct 57 52 Low-contrast letter acuity test-2.5 percent opacity 37 -- Low-contrast letter acuity test-100 percent opacity 57 -- Dominant hand -- -- MDT Left Hand Time 25.53 25.03 MDT Right Hand Time 24.04 24.58 Walking Speed Test (25 feet) 6.4 8.64 General Appearance: well appearing, in no acute distress Mental status evaluation during the interview and examination showed normal level of consciousness,orientation, language, memory, praxis, and higher intellectual function Affect: Normal Facial movements: Intact bilaterally Speech: normal Muscle strength (#/5): Grossly intact Standing balance: Normal Standard gait: normal, wide-based. Assistive device: independent RESULTS: No results found for: WBC , HB , HCT , PLT , ABSLYMPH No results found for: AST , GLUC , BUN , CREAT , NA , K , CHLOR , ALT MRI Results: Discrete MRI Results Component Value Date Brain New T2 Lesions None Site 12/24/2022 Brain New T2 Lesions None Site 12/24/2022 Brain Enhancing Lesions None 12/24/2022 Brain Enhancing Lesions None 12/24/2022 Cervical Spine New T2 Lesions None 12/24/2022 Cervical Spine New T2 Lesions None 12/24/2022 Cervical spine enhancing lesions None 12/24/2022 Cervical spine enhancing lesions None 12/24/2022 ASSESSMENT: Negro Garcia is a 62 year old female with RRMS not on DMT. No new neurological symptoms. Today'sbrain & CS MRIs reviewed and stable from MS standpoint, however there is noted to be a well-defined submucosal lesions in the supraglottic airway. Will obtain a dedicated neck CT and consult ENT.Pt does note some dysphagia. Will continue to monitor MS off DMT. PLAN: -Monitor off DMT -CT neck ordered (supraglottic airway mass noted on CS MRI) -Consult ENT (after CT obtained) -Consider health psychology -Consider social work consult in brain health (regarding with dementia) -Follow up in 6 months with Brigid via virtual visit I spent a total of 40 minutes on the date of the service which included preparing to see the patient, [id number] patient care, completing clinical documentation, counseling and educating the patient/family/caregiver, ordering medications, tests, or procedures, and communicating results to the elenita ent/family/caregiver. The patient was seen together with Dr. Kumar. Coni Borrero PA-C [facility] Multiple S[facility] Evaluation note* Encounter Date Diagnosis Assessment Notes Treatment Notes Treatment Clinical Notes Dec, Urinary incontinence (ICD-10 - R 32) [facility] Other 09-05-2023 Evaluation note* Encounter Date Diagnosis Assessment Notes Treatment Notes Treatment Clinical Notes Nov, Lupus nephritis (ICD-10 - M32.14 ) She has a history of biopsy-proven lupus nephritis. Currently she is in complete remission and has no evidence of active lupus nephritis. She has a normal complement and bland urine sediment. Nov,en hy kid w cr kid I-IV (ICD-10 - I12.9)Blood pressure is controlled. She appears to be euvolemic. Continue current dose of the losartan. Nov,yslipidemia (ICD-10 - E78.5)Continue statins. Monitor LFTs and lipid profile. Nov,Vitamin D deficiency (ICD-10 - E55.9)Her calcium is within normal limit. Continue low vitamin D. [facility] Other 08-24-2023 Evaluation note* Encounter Date Diagnosis Assessment Notes Treatment Notes Treatment Clinical Notes Oct, GERD (gastroesophageal reflux di sease) (ICD-10 - K21.9) Oct,en hy kid w cr kid I-IV (ICD-10 - I12.9) [facility] Other 08-16-2023 Evaluation note* Encounter Date Diagnosis Assessment Notes Treatment Notes Treatment Clinical Notes Oct, GERD (gastroesophageal reflux di sease) (ICD-10 - K21.9) [facility] Other 07-27-2023 Evaluation note* Encounter Date Diagnosis Assessment Notes Treatment Notes Treatment Clinical Notes Sep, Obesity, unspecified (ICD-10 - E 66.9) 31 pound weight loss noted since March. She is doing well with this and we will continue on her current dose. Refill e-scribed. Sep,MI 32.0-32.9,adult (ICD-10 - Z68.32) Patient is doing very well with the Ozempic and is to continue as directed to continue her weight loss efforts. Sep,onstipation (ICD-10 - K59.00) Patient has noticed she has been more constipated recently. I advised she take 2-4 daily of Colace and Bisacodyl to help regulate her bowels. [facility] Other 07-19-2023 Evaluation note* Encounter Date Diagnosis Assessment Notes Treatment Notes Treatment Clinical Notes Sep, Dyslipidemia (ICD-10 - E78.5) Sep,en hy kid w cr kid I-IV (ICD-10 - I12.9) Sep,ERD (gastroesophageal reflux disease) (ICD-10 - K21.9) Sep,nxiety and depression (ICD-10 - F41.8) [facility] Other 06-30-2023 Evaluation note* Encounter Date Diagnosis Assessment Notes Treatment Notes Treatment Clinical Notes Aug, Hypothyroid (ICD-10 - E03.9) Aug,yslipidemia (ICD-10 - E78.5) Aug,nxiety and depression (ICD-10 - F41.8) [facility] Other 05-15-2023 Evaluation note* Encounter Date Diagnosis Assessment Notes Treatment Notes Treatment Clinical Notes July, Obesity, unspecified (ICD-10 - E 66.9) [facility] Other 04-18-2023 Evaluation note* Encounter Date Diagnosis Assessment Notes Treatment Notes Treatment Clinical Notes Jun, Arthritis of right knee (ICD-10 - M17.11) We performed a Synvisc One injection into the knee joint under sterile technique. Patient toleratedthe injection well without adverse reaction. Jun,ain in right knee (ICD-10 - M25.561) [facility] Other 04-06-2023 Evaluation note* Encounter Date Diagnosis Assessment Notes Treatment Notes Treatment Clinical Notes Jun, Arthritis of right knee (ICD-10 - M17.11) Extensive discussion about current condition and treatment options available. The patient is suffering from degenerative arthritis involving the knee. We discussed the conservative treatment options which can be beneficial in relieving pain, including gentle non-impact motion exercise and non-steroidal anti-inflammatory medication. We discussed the use of occasional cortisone injections that can provide pain relief as well as hyaluronan lubricant injection. We performed a 2/1cc marcaine / kenalog cortisone injection into the knee joint under sterile technique. Patient tolerated the injection well without adverse reaction. Patient continues to experience joint pain and we will now apply for hyaluronic acid injections. Patient has failed other conservative treatments including oral NSAIDs or topical medications, acetaminophen, home therapy exercises and cortisone injections for a trial of3 months or longer. Jun,ain in right knee (ICD-10 - M25.561) [facility] Other 03-23-2023 Evaluation note* Encounter Date Diagnosis Assessment Notes Treatment Notes Treatment Clinical Notes May, Anxiety and depression (ICD-10 - F41.8) May,en hy kid w cr kid I-IV (ICD-10 - I12.9) [facility] Other 03-16-2023 Evaluation note* Encounter Date Diagnosis Assessment Notes Treatment Notes Treatment Clinical Notes May, Hypothyroid (ICD-10 - E03.9) Encouraged patient to continue with above medication. Patient is currently on Ozempic and denies any known personal or family history of thyroid cancer or pancreatitis. May,Hyperglycemia (ICD-10 - R73.9) In house hgb a1c performed today with a result of 5.3% which is improved from previous reading of 5.7% 12/2020. She was advised this is not likely to cause hypoglycemia but to montior and report any adverse symptoms. May,MI 37.0-37.9, adult (ICD-10 - Z68.37) Patient was sick when she initially was given the Ozempic samples therefore stated she started lastweek with 0.25mg dose and got confused and injected the 0.5mg dose 05/14. I again advised and educated her on the dosing schedule and correct ways for administration. She verbalized understanding. Patient was instructed to do two more injections weekly of 0.25mg then increase to the 0.5mg dose weekly. She again verbalized understanding. May,Lumbar pain (ICD-10 - M54.50) In house urinalysis obtained May,ERD (gastroesophageal reflux disease) (ICD-10 - K21.9) Patient did present to [place] [facility] 04/29/22 with chest pains. Cardiac etiology was ruled out and found to be due to her hiatal hernia causing worsening gerd symptoms. She is to increase the Nexium toBID for the next month and see if that helps calm her symptoms down then she may reduce it back to daily. Patient verbalized understanding. May,hest pain (ICD-10 - R07.9) Patient was examined in [place] [facility] due to chest pains, cardiac etiology was ruled out. May,ough (ICD-10 - R05.9) Patient continues with a deep chest cough after finishing a zithromax. I did prescribe the above tosee if this helps alleviate her cough. May,Hyperlipidemia (ICD-10 - E78.5) [facility] Other 02-28-2023 History of Present illness Narrative* Coni Borrero PA-C - 05/01/2022 8:57 AM EST Images from the original note were not included. [facility] FOLLOWUP/ESTABLISHED PATIENT VISIT Principal Neurologic Diagnosis: Multiple Sclerosis DISEASE SUMMARY Date of onset: 1988 Date of diagnosis: 1990 Disease course from Onset: Exacerbating/Remitting Disease course last year: Exacerbating/Remitting Current MS Disease Therapy: None Previous MS Disease Therapies:Avonex (1989-04/2018); IV Steroids and PO Steroids Most recent Brain MRI: 09/11/2019 Most recent C/S MRI: [id number] CHIEF COMPLAINT: Follow-up for monitoring off MS modifying therapy INTERVAL HISTORY: Usual treating team: José/Adair The patient is accompanied by daughter. The patient was last seen 10/27/2019, currently taking Not on DMT. Since the patient's last visit the patient reports overall feeling stable. No new neurological symptoms. Since last visit started hypothyroid medication, synthroid. Has ongoing itching sensation of BUE. Prior EMG testing per patient, was told has bilateral carpal tunnel, no surgery. Denies wrist pain. Does note achiness in fingers and weakness in hands. Recently saw rotor plate washer who told her testing was WNL, however she is noting intermittent blurred Ongoing memory issues, more short term. She continues to care for her with has dementia. This is very stressful for her. Feels she cannot leave her home as she has to care for and he doesn't understand. ROS: Mood: Good/bright On lexapro and wellbutrin; stress with husbands health Bladder: See HPI Fatigue: Moderate Sleep: poor, sleeping in recliner chair Memory/Concentration: See HPI Neuro-QoL Functions (higher=better functioning) Flowsheet Row Office Visit from 05/01/2022 in [facility] Social Work from 11/24/2019 in [facility] Office Visit from 10/27/2019 in [facility] Upper Extremity Domain T Score 44.27 44 48 Lower Extremity Domain T Score 38.43 39 36 Cognitive Function Domain T Score 51.55 38 49 Positive Affect Well Being T Score -- -- -- Ability To Participate In Social Roles T Score 48.29 47 47 Satisfaction With Social Roles T Score 52.23 43 50 Neuro-QoL Symptoms (higher=worse symptoms) Flowsheet [employer] Office Visit from 05/01/2022 in [facility] Social Work from 11/24/2019 in [facility] from 11/23/2019 in Psychology Sleep Domain T Score 48.19 53 -- Fatigue Domain T Score 39.32 58 -- Anxiety Domain T Score 44.72 64 -- Depression Domain T Score 46.93 57 58 Stigma Domain T Score 36.56 44 -- Emotional Behavior Dyscontrol T Score -- -- -- has a past medical history of Carpal tunnel syndrome, Depression, DVT (deep venous thrombosis) ([facility]), Multiple sclerosis (HCC), and Pulmonary embolism ([facility]). She has no past medical history of Atrial fibrillation ([facility]), Cancer (HCC), Chronic obstructive pulmonary disease (COPD) ([facility]), Chronic renal insufficiency, Congestive heart failure (HCC), Coronary artery disease, Diabetes ([facility]), Epilepsy ([facility]), Hypertension, Obstructive sleep apnea, Steroid long-term use, Stroke ([facility]), or Substance abuse ([facility]). has a current medication list which includes the following prescription(s): levothyroxine, oxybutynin, ferrous sulfate, escitalopram oxalate, cholecalciferol, bupropion sr, lipitor, bumex, and escitalopram oxalate. EXAM: BP 108/76 Pulse 79 Ht 162.6 cm (5' 4 ) Wt 99.8 kg (220 lb) BMI 37.76 kg/m Multiple Sclerosis Performance Test Flowsheet Row Office Visit from 05/01/2022 in [facility] Office Visit from 04/22/2018 in [facility] Processing Speed Total Number Correct 52 55 Low-contrast letter acuity test-2.5 percent opacity -- 28 Low-contrast letter acuity test-100 percent opacity -- 58 Dominant hand -- -- MDT Left Hand Time 25.03 35.53 MDT Right Hand Time 24.58 -- Walking Speed Test (25 feet) 8.64 6.23 General Appearance: well appearing, in no acute distress Mental status evaluation during the interview and examination showed Reported difficulties: memory word finding Affect: Normal Speech: normal Muscle strength (#/5): Grossly intact Standing balance: Impaired Standard gait: paretic, wide-based, unsteady. Assistive device: independent RESULTS: No results found for: WBC, HB, HCT, PLT, ABSLYMPH No results found for: AST, GLUC, BUN, CREAT, NA, K, CHLOR, ALT MRI Results: Discrete MRI Results Component Value Date Brain New T2 Lesions None 09/11/2019 Brain Enhancing Lesions None 09/11/2019 ASSESSMENT: Negro Garcia is a 62 year old female with RRMS stable off DMT. Will obtain updated brain & CS MRI due to ongoing imbalance, as well as new and ongoing paresthesias (itching sensation) of BUE. She has a lot of stress caring for her with dementia. Will consult health psychology for emotional support. Also encouraged her to discuss options with husbands long term care social worker in brain health. PLAN: -Monitor off DMT -Brain & CS MRI in 6 months -Consult health psychology (virtually) -Follow up in 6 months with Brigid Patient Health Education Discussed at Visit: Aerobic exercise, Emotional Health/Wellness, and Stress management I spent a total of 40 minutes on the date of the service which included preparing to see the patient, [id number] patient care, completing clinical documentation, counseling and educating the patient/family/caregiver, and ordering medications, tests, or procedures. Coni Borrero PA-C [facility]* Encounter Date Diagnosis Assessment Notes Treatment Notes Treatment Clinical Notes Apr, BMI 38.0-38.9,adult (ICD-10 - Z6 8.38) [facility] Other 01-31-2023 Evaluation note* Encounter Date Diagnosis Assessment Notes Treatment Notes Treatment Clinical Notes Mar, Hypothyroid (ICD-10 - E03.9) Free t4 is low upon review of blood work results, but the tsh is WNL. Therefore patient is to continue with the above medication. Mar,MI 38.0-38.9,adult (ICD-10 - Z68.38) Upon discussion with the patient, I advised the patient she is a candidate for ozempic. Patient is agreeable. I did discuss possible side effects from the ozempic along with the benefits. Mar,Obesity (ICD-10 - E66.9) Encouraged to watch diet and increase exercise regimen; we will continue to monitor. Mar,Hyperglycemia (ICD-10 - R73.9) We have started the patient on ozempic. [facility] Other 01-11-2023 Evaluation note* Encounter Date Diagnosis Assessment Notes Treatment Notes Treatment Clinical Notes Mar, GERD (gastroesophageal reflux di sease) (ICD-10 - K21.9) Mar,en hy kid w cr kid I-IV (ICD-10 - I12.9) [facility] Other 01-10-2023 Evaluation note* Encounter Date Diagnosis Assessment Notes Treatment Notes Treatment Clinical Notes Mar, Vitamin D deficiency (ICD-10 - E 55.9) Vitamin d level is WNL upon review of blood work results. Patient is to continue with the above medication. Mar,nemia, unspecified type (ICD-10 - D64.9) Upon review of the patients blood work results, ferritin and iron is WNL. Therefore, patient is to continue with the above medication. Mar,yslipidemia (ICD-10 - E78.5) Cholesterol levels have improved from last check. Therefore, patient is to continue with the above medication and is to continue to monitor diet. Printed material provided on foods to avoid. Mar,nxiety and depression (ICD-10 - F41.8) Patient is to continue with the above medication regimen. Mar,MI 37.0-37.9, adult (ICD-10 - Z68.37) Patient has been on adipex in the past with good results. We will do an EKG in the office today with normal results. Pending thyroid results we will start the patinet bacl on adipex. Mar,Obesity (ICD-10 - E66.9) Encouraged to watch diet and increase exercise regimen; we will continue to monitor. Mar,Hypothyroid (ICD-10 - E03.9) TSH is slightly elevated upon review of blood work. I do recommend we recheck tsh and t4. Mar,en hy kid w cr kid I-IV (ICD-10 - I12.9) Patient is to continue to follow with Dr. Mcintosh as scheduled. Mar,Right shoulder pain (ICD-10 - M25.511) Refill provided of the above medication. [facility] Other 11-15-2022 Evaluation note* Encounter Date Diagnosis Assessment Notes Treatment Notes Treatment Clinical Notes Jan, Dyslipidemia (ICD-10 - E78.5) Patient is to continue with the above medication. Blood work ordered. Jan,en hy kid w cr kid I-IV (ICD-10 - I12.9) Patient is to continue with the above medication. Blood work ordered. 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 Patient will continue with the above medication regimen. We will discuss increasing the lexapro atthe next office visit if she needs it. Jan,Vitamin D deficiency (ICD-10 - E55.9) Blood work ordered. Jan,Hyperglycemia (ICD-10 - R73.9) Blood work ordered for next month. [facility] Other 09-27-2022 Evaluation note* Encounter Date Diagnosis Assessment Notes Treatment Notes Treatment Clinical Notes Nov, Urinary incontinence (ICD-10 - R 32) Nov,nxiety and depression (ICD-10 - F41.8) [facility] Other 08-25-2022 NotePROCEDURE: XR KNEE RT 4V or > COMPARISON: None. HISTORY: Pain FINDINGS: BONES:No acute fracture or dislocation. Moderate tricompartmental osteoarthropathy with joint space narrowing and marginal osteophyte formation, most significant in the anterior compartment SOFT TISSUES:Negative. No visible soft tissue swelling. EFFUSION:Small suprapatellar joint effusion OTHER: Negative. IMPRESSION: Moderate osteoarthritis Electronically authenticated by: YOON HOYT Date: 2021-10-26 15:57[facility]07-12-20[facility] Evaluation note* Encounter Date Diagnosis Assessment Notes Treatment Notes Treatment Clinical Notes Sep, Lupus nephritis (ICD-10 - M32.14 ) She has a history of biopsy-proven lupus nephritis. Currently she is in complete remission and has no evidence of active lupus nephritis. She has a normal complement and bland urine sediment. Sep,en hy kid w cr kid I-IV (ICD-10 - I12.9)Blood pressure is controlled. She appears to be euvolemic. Continue current dose of the Bumex and losartan. Sep,yslipidemia (ICD-10 - E78.5)Continue statins. Monitor LFTs and lipid profile. Sep,Vitamin D deficiency (ICD-10 - E55.9)Her calcium is within normal limit. Continue low vitamin D. [facility] Other 05-26-2022 Evaluation note* Encounter Date Diagnosis Assessment Notes Treatment Notes Treatment Clinical Notes July, Hypertensive chronic kidney disease w stg 1-4/unsp chr kdny (ICD-10 - I12.9) [facility] Other 04-25-2022 Evaluation note* Encounter Date Diagnosis Assessment Notes Treatment Notes Treatment Clinical Notes Jun, Anxiety and depression (ICD-10 - F41.8) [facility] Other 03-22-2022 Evaluation note* Encounter Date Diagnosis Assessment Notes Treatment Notes Treatment Clinical Notes May, Anxiety and depression (ICD-10 - F41.8) [facility] Other 03-21-2022 Evaluation note* Encounter Date Diagnosis Assessment Notes Treatment Notes Treatment Clinical Notes May, Right shoulder pain (ICD-10 - M2 5.511) May,GERD (gastroesophageal reflux disease) (ICD-10 - K21.9) May,Hypertensive chronic kidney disease w stg 1-4/unsp chr kdny (ICD-10 - I12.9) May,Hyperlipidemia (ICD-10 - E78.5) May,nxiety and depression (ICD-10 - F41.8) May,Urinary incontinence (ICD-10 - R32) [facility] Other 11-16-2021 Evaluation note* Encounter Date Diagnosis Assessment Notes Treatment Notes Treatment Clinical Notes Jan, Anxiety and depression (ICD-10 - F41.8) Upon discussion, patient is using the lorazepam very sparingly but admits that it is helpful for her. She does admit to occasional bad days still but overall she thinks she is doing better. Encouraged patient to continue on the above medications. We will continue to monitor. Jan,ight shoulder pain (ICD-10 - M25.511) Refills provided. She reports that this helps her pain. Jan,ilateral carpal tunnel syndrome (ICD-10 - G56.03) Patient admits that the brace is doing well to help her carpal tunnel pains. [facility] Other 10-28-2021 Evaluation note* Encounter Date Diagnosis Assessment Notes Treatment Notes Treatment Clinical Notes Dec, Arthritis of right knee (ICD-10 - M17.11) Extensive discussion about current condition and treatment options available. We performed a marcaine / kenalog cortisone injection into the bilateral knee joint under sterile technique. Patient tolerated the injection well without adverse reaction. Instructed on gentle motion/strengthening. May consider [place] injections in the future. Activity as tolerated. Dec,rimary osteoarthritis of left knee (ICD-10 - M17.12) Dec,ain in right knee (ICD-10 - M25.561) Dec,ain in left knee (ICD-10 - M25.562) [facility] Other 10-18-2021 Evaluation note* Encounter Date Diagnosis Assessment Notes Treatment Notes Treatment Clinical Notes Dec, Hypertensive chronic kidney disease w stg 1-4/unsp chr kdny (ICD-10 - I12.9) Patient is to continue to follow with Dr. Faulkner as scheduled Dec,nxiety and depression (ICD-10 - F41.8) Patient states life is very stressful with her having dementia, her own medical issues along with taking care of her parents. She does admit that she gets bitchy and is on edge. She does feel when she is stressed, this flares her MS. Patient has only taken the Ativan twice since prescribed. I did discuss with patient we can increase the Lexapro as she is on the lowest dose. Patient is to increase Lexapro to 20 mg daily. Dec,Multiple sclerosis (ICD-10 - G35) Dec,Hyperlipidemia (ICD-10 - E78.5) Dec,Hyperglycemia (ICD-10 - R73.9) Dec,TSH elevation (ICD-10 - R94.6) Dec,nemia, unspecified type (ICD-10 - D64.9) Dec,Wrist pain (ICD-10 - M25.539) [facility] Other Consult note* Clinical Note Date No Information [facility] Work Phone: Discharge summary* Clinical Note Date No Information [facility] Work Phone: Evaluation + Plan note No data available for this section [facility] note[facility] InformationNort [facility] Other Evaluation noteNo assessment information available [facility] Work Phone: Evaluation note* Diagnosis Paresthesias- Primary Disturbance of skin sensation Demyelinating disease of central nervous system (HCC) Demyelinating disease of central nervous system, unspecified Imbalance Abnormality of gait Malaise and fatigue Other malaise and fatigue [facility] Diagnosis Multiple sclerosis (HCC)- Primary Multiple sclerosis Disorder of airway Unspecified disease of respiratory system Supraglottic mass Other diseases of larynx Medication monitoring encounter Encounter for therapeutic drug monitoring Morbid obesity (HCC) Morbid obesity [facility] Diagnosis Lupus anticoagulant positive- Primary Other and unspecified nonspecific immunological findings Disorder of airway Unspecified disease of respiratory system Supraglottic mass Other diseases of larynx Clotting disorder (HCC) Other and unspecified coagulation defects Laryngocele Other congenital anomaly of larynx, trachea, and bronchus documented [facility]* Diagnosis Supraglottic mass- Primary Other diseases of larynx Dysphagia, unspecified type Throat pain Supraglottic mass Other diseases of larynx Laryngocele Other congenital anomaly of larynx, trachea, and bronchus [facility]* Diagnosis History of pulmonary embolus (PE)- Primary Personal history of pulmonary embolism History of DVT (deep vein thrombosis) Personal history of venous thrombosis and embolism Lupus anticoagulant positive Other and unspecified nonspecific immunological findings Clotting disorder (HCC) Other and unspecified coagulation defects Supraglottic mass Other diseases of larynx Laryngocele Other congenital anomaly of larynx, trachea, and bronchus documented [facility]* Diagnosis Pre-op evaluation- Primary Preoperative examination, unspecified History of pulmonary embolism Personal history of pulmonary embolism Clotting disorder (HCC) Other and unspecified coagulation defects Multiple sclerosis (HCC) Multiple sclerosis Primary hypertension Unspecified essential hypertension Hiatal hernia Diaphragmatic hernia without mention of obstruction or gangrene Class 1 obesity with serious comorbidity and body mass index (BMI) of 31.0 to 31.9 in adult, unspecified obesity type Mixed hyperlipidemia OAB (overactive bladder) Hypertonicity of bladder Supraglottic mass Other diseases of larynx Laryngocele Other congenital anomaly of larynx, trachea, and bronchus documented [facility]* Diagnosis 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, trachea, and bronchus Lupus anticoagulant positive Other and unspecified nonspecific immunological findings Supraglottic mass Other diseases of larynx Disorder of airway Unspecified disease of respiratory system Acquired hypothyroidism Unspecified hypothyroidism [facility]* Diagnosis History of DVT (deep vein thrombosis)- Primary Personal history of venous thrombosis and embolism History of pulmonary embolus (PE) Personal history of pulmonary embolism documented in this encounter [facility] note* Diagnosis 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, trachea, and bronchus Lupus anticoagulant positive Other and unspecified nonspecific immunological findings Supraglottic mass Other diseases of larynx documented in this encounter [facility] note* Author Julianne Johnson [facility] 2023 1:23pmThe above note written by GONZALES Thomas acting as human recorder, note dictated by Dr.Bryan Lazo [facility] Work Phone: Evaluation note* Diagnosis Disorder of airway Unspecified disease of respiratory system Supraglottic mass Other diseases of larynx Medication monitoring encounter Encounter for therapeutic drug monitoring 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, trachea, and bronchus Supraglottic mass Other diseases of larynx Acute post-operative pain Pre-op evaluation- Primary Preoperative examination, unspecified History of pulmonary embolism Personal history of pulmonary embolism Clotting disorder (HCC) Other and unspecified coagulation defects Multiple sclerosis (HCC) Multiple sclerosis Primary hypertension Unspecified essential hypertension Hiatal hernia Diaphragmatic hernia without mention of obstruction or gangrene Class 1 obesity with serious comorbidity and body mass index (BMI) of 31.0 to 31.9 in adult, unspecified obesity type Mixed hyperlipidemia OAB (overactive bladder) Hypertonicity of bladder documented in this encounter [facility] note* Diagnosis 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, trachea, and bronchus Supraglottic mass Other diseases of larynx Acute post-operative pain OAB (overactive bladder) Hypertonicity of bladder Hiatal hernia Diaphragmatic hernia without mention of obstruction or gangrene Hypertension Unspecified essential hypertension Clotting disorder (HCC) Other and unspecified coagulation defects Class 1 obesity with serious comorbidity and body mass index (BMI) of 31.0 to 31.9 in adult Mixed hyperlipidemia Multiple sclerosis (HCC) Multiple sclerosis Pre-op evaluation- Primary Preoperative examination, unspecified History of pulmonary embolism Personal history of pulmonary embolism Clotting disorder (HCC) Other and unspecified coagulation defects Multiple sclerosis (HCC) Multiple sclerosis Primary hypertension Unspecified essential hypertension Hiatal hernia Diaphragmatic hernia without mention of obstruction or gangrene Class 1 obesity with serious comorbidity and body mass index (BMI) of 31.0 to 31.9 in adult, unspecified obesity type Mixed hyperlipidemia OAB (overactive bladder) Hypertonicity of bladder 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, 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 Chorioretinal scar, unspecified [facility]* Diagnosis 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, trachea, and bronchus Supraglottic mass Other diseases of larynx Acute post-operative pain OAB (overactive bladder) Hypertonicity of bladder Hiatal hernia Diaphragmatic hernia without mention of obstruction or gangrene Hypertension Unspecified essential hypertension Clotting disorder (HCC) Other and unspecified coagulation defects Class 1 obesity with serious comorbidity and body mass index (BMI) of 31.0 to 31.9 in adult Mixed hyperlipidemia Multiple sclerosis (HCC) Multiple sclerosis Pre-op evaluation- Primary Preoperative examination, unspecified History of pulmonary embolism Personal history of pulmonary embolism Clotting disorder (HCC) Other and unspecified coagulation defects Multiple sclerosis (HCC) Multiple sclerosis Primary hypertension Unspecified essential hypertension Hiatal hernia Diaphragmatic hernia without mention of obstruction or gangrene Class 1 obesity with serious comorbidity and body mass index (BMI) of 31.0 to 31.9 in adult, unspecified obesity type Mixed hyperlipidemia OAB (overactive bladder) Hypertonicity of bladder Primary osteoarthritis of both knees- Primary Primary localized osteoarthrosis, lower leg Primary osteoarthritis of right knee Primary localized osteoarthrosis, lower leg Pre-op testing Preoperative examination, unspecified MRSA (methicillin resistant Staphylococcus aureus) Methicillin resistant Staphylococcus aureus in conditions classified elsewhere and of unspecified site Frequent urination Urinary frequency Primary osteoarthritis of right knee Primary localized osteoarthrosis, lower leg documented in this encounter [facility] note* Diagnosis 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, trachea, and bronchus Supraglottic mass Other diseases of larynx Acute post-operative pain OAB (overactive bladder) Hypertonicity of bladder Hiatal hernia Diaphragmatic hernia without mention of obstruction or gangrene Hypertension Unspecified essential hypertension Clotting disorder (HCC) Other and unspecified coagulation defects Class 1 obesity with serious comorbidity and body mass index (BMI) of 31.0 to 31.9 in adult Mixed hyperlipidemia Multiple sclerosis (HCC) Multiple sclerosis Pre-op evaluation- Primary Preoperative examination, unspecified History of pulmonary embolism Personal history of pulmonary embolism Clotting disorder (HCC) Other and unspecified coagulation defects Multiple sclerosis (HCC) Multiple sclerosis Primary hypertension Unspecified essential hypertension Hiatal hernia Diaphragmatic hernia without mention of obstruction or gangrene Class 1 obesity with serious comorbidity and body mass index (BMI) of 31.0 to 31.9 in adult, unspecified obesity type Mixed hyperlipidemia OAB (overactive bladder) Hypertonicity of bladder Pain Generalized pain Primary osteoarthritis of right knee Primary localized osteoarthrosis, lower leg documented in this encounter [facility] note* Diagnosis 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, trachea, and bronchus Supraglottic mass Other diseases of larynx Acute post-operative pain OAB (overactive bladder) Hypertonicity of bladder Hiatal hernia Diaphragmatic hernia without mention of obstruction or gangrene Hypertension Unspecified essential hypertension Clotting disorder (HCC) Other and unspecified coagulation defects Class 1 obesity with serious comorbidity and body mass index (BMI) of 31.0 to 31.9 in adult Mixed hyperlipidemia Multiple sclerosis (HCC) Multiple sclerosis Pre-op evaluation- Primary Preoperative examination, unspecified History of pulmonary embolism Personal history of pulmonary embolism Clotting disorder (HCC) Other and unspecified coagulation defects Multiple sclerosis (HCC) Multiple sclerosis Primary hypertension Unspecified essential hypertension Hiatal hernia Diaphragmatic hernia without mention of obstruction or gangrene Class 1 obesity with serious comorbidity and body mass index (BMI) of 31.0 to 31.9 in adult, unspecified obesity type Mixed hyperlipidemia OAB (overactive bladder) Hypertonicity of bladder Primary osteoarthritis of right knee- Primary Primary localized osteoarthrosis, lower leg Pre-op testing Preoperative examination, unspecified Pre-op evaluation- Primary Preoperative examination, unspecified Mixed hyperlipidemia Gastroesophageal reflux disease without esophagitis Esophageal reflux History of pulmonary embolus (PE) Personal history of pulmonary embolism Hypothyroidism, unspecified type Multiple sclerosis (HCC) Multiple sclerosis Primary hypertension Unspecified essential hypertension Laryngocele Other congenital anomaly of larynx, trachea, and bronchus Drug-induced systemic lupus erythematosus, unspecified organ involvement status (HCC) Depression, unspecified depression type History of DVT (deep vein thrombosis) Personal history of venous thrombosis and embolism Primary osteoarthritis of right knee Primary localized osteoarthrosis, lower leg documented in this encounter [facility] note* Diagnosis 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, trachea, and bronchus Supraglottic mass Other diseases of larynx Acute post-operative pain OAB (overactive bladder) Hypertonicity of bladder Hiatal hernia Diaphragmatic hernia without mention of obstruction or gangrene Hypertension Unspecified essential hypertension Clotting disorder (HCC) Other and unspecified coagulation defects Class 1 obesity with serious comorbidity and body mass index (BMI) of 31.0 to 31.9 in adult Mixed hyperlipidemia Multiple sclerosis (HCC) Multiple sclerosis Pre-op evaluation- Primary Preoperative examination, unspecified History of pulmonary embolism Personal history of pulmonary embolism Clotting disorder (HCC) Other and unspecified coagulation defects Multiple sclerosis (HCC) Multiple sclerosis Primary hypertension Unspecified essential hypertension Hiatal hernia Diaphragmatic hernia without mention of obstruction or gangrene Class 1 obesity with serious comorbidity and body mass index (BMI) of 31.0 to 31.9 in adult, unspecified obesity type Mixed hyperlipidemia OAB (overactive bladder) Hypertonicity of bladder Pre-op evaluation- Primary Preoperative examination, unspecified Mixed hyperlipidemia Gastroesophageal reflux disease without esophagitis Esophageal reflux History of pulmonary embolus (PE) Personal history of pulmonary embolism Hypothyroidism, unspecified type Multiple sclerosis (HCC) Multiple sclerosis Primary hypertension Unspecified essential hypertension Laryngocele Other congenital anomaly of larynx, trachea, and bronchus Drug-induced systemic lupus erythematosus, unspecified organ involvement status (HCC) Depression, unspecified depression type History of DVT (deep vein thrombosis) Personal history of venous thrombosis and embolism Primary osteoarthritis of right knee Primary localized osteoarthrosis, lower leg * Assessment & Plan Note - Cait Chen APRN.CNP - 04/29/2024 12:14 PM EST Associated Problem(s): History of DVT (deep vein thrombosis) Assessment: Multiple all post-op Follows with hematology Last Sx he recommended: Hypercoagulation testing was negative, but in light of her clinical history I would still recommend 2 weeks of post-op prophylaxis with Xarelto or could consider Lovenox. Will reach out regarding this surgery * Assessment & Plan Note - Cait Chen APRN.CNP - 04/29/2024 12:12 PM EST Associated Problem(s): Depression Assessment: Controlled Medication Management * Assessment & Plan Note - Cait Chen APRN.CNP - 04/29/2024 12:07 PM EST Associated Problem(s): Systemic lupus erythematosus (HCC) Assessment: In remission Not on medication Follows with [facility] * Assessment & Plan Note - Cait Chen APRN.CNP - 04/29/2024 12:07 PM EST Associated Problem(s): Hypothyroidism Assessment: Stable on levothyroxine TSH Date Value Ref Range Status 05/06/2023 1.130 0.270 - 4.200 mIU/L Final * Assessment & Plan Note - Cait Chen APRN.CNP - 04/29/2024 11:59 AM EST 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 Follows with ENT * Assessment & Plan Note - Cait Chen APRN.CNP - 04/29/2024 11:54 AM EST Associated Problem(s): Hypertension Assessment: Stable on medication 112/70 in office today Follows with PCP * Assessment & Plan Note - Cait Chen APRN.CNP - 04/29/2024 11:53 AM EST Associated Problem(s): Multiple sclerosis (HCC) Assessment: Stable In remission Not currently on medications No new neurological symptoms Follows with [facility] * Assessment & Plan Note - Cait Chen APRN.CNP - 04/29/2024 11:06 AM EST Associated Problem(s): History of pulmonary embolus (PE) Assessment: Hx of PE and DVT S/p venous repair in her leg in the early 1989 S/p knee surgery around 2005 Not on any anticoagulants * Assessment & Plan Note - Cait Chen APRN.CNP - 04/29/2024 11:02 AM EST Associated Problem(s): Gastroesophageal reflux disease without esophagitis Assessment: Controlled with PPI * Assessment & Plan Note - Cait Chen APRN.CNP - 04/29/2024 11:02 AM EST Associated Problem(s): Mixed hyperlipidemia Assessment: On Statin [facility] Diagnosis 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, trachea, and bronchus Supraglottic mass Other diseases of larynx Acute post-operative pain Clotting disorder (HCC) Other and unspecified coagulation defects Class 1 obesity with serious comorbidity and body mass index (BMI) of 31.0 to 31.9 in adult Pre-op evaluation- Primary Preoperative examination, unspecified History of pulmonary embolism Personal history of pulmonary embolism Clotting disorder (HCC) Other and unspecified coagulation defects Multiple sclerosis (HCC) Multiple sclerosis Primary hypertension Unspecified essential hypertension Hiatal hernia Diaphragmatic hernia without mention of obstruction or gangrene Class 1 obesity with serious comorbidity and body mass index (BMI) of 31.0 to 31.9 in adult, unspecified obesity type Mixed hyperlipidemia OAB (overactive bladder) Hypertonicity of bladder Pre-op evaluation- Primary Preoperative examination, unspecified Mixed hyperlipidemia Gastroesophageal reflux disease without esophagitis Esophageal reflux History of pulmonary embolus (PE) Personal history of pulmonary embolism Hypothyroidism, unspecified type Multiple sclerosis (HCC) Multiple sclerosis Primary hypertension Unspecified essential hypertension Laryngocele Other congenital anomaly of larynx, trachea, and bronchus Drug-induced systemic lupus erythematosus, unspecified organ involvement status (HCC) Depression, unspecified depression type History of DVT (deep vein thrombosis) Personal history of venous thrombosis and embolism S/P right unicompartmental knee replacement- Primary Knee joint replacement by other means documented in this encounter [facility] note* Diagnosis 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, trachea, and bronchus Supraglottic mass Other diseases of larynx Acute post-operative pain Clotting disorder (HCC) Other and unspecified coagulation defects Class 1 obesity with serious comorbidity and body mass index (BMI) of 31.0 to 31.9 in adult Pre-op evaluation- Primary Preoperative examination, unspecified History of pulmonary embolism Personal history of pulmonary embolism Clotting disorder (HCC) Other and unspecified coagulation defects Multiple sclerosis (HCC) Multiple sclerosis Primary hypertension Unspecified essential hypertension Hiatal hernia Diaphragmatic hernia without mention of obstruction or gangrene Class 1 obesity with serious comorbidity and body mass index (BMI) of 31.0 to 31.9 in adult, unspecified obesity type Mixed hyperlipidemia OAB (overactive bladder) Hypertonicity of bladder Pre-op evaluation- Primary Preoperative examination, unspecified Mixed hyperlipidemia Gastroesophageal reflux disease without esophagitis Esophageal reflux History of pulmonary embolus (PE) Personal history of pulmonary embolism Hypothyroidism, unspecified type Multiple sclerosis (HCC) Multiple sclerosis Primary hypertension Unspecified essential hypertension Laryngocele Other congenital anomaly of larynx, trachea, and bronchus Drug-induced systemic lupus erythematosus, unspecified organ involvement status (HCC) Depression, unspecified depression type History of DVT (deep vein thrombosis) Personal history of venous thrombosis and embolism Status post total right knee replacement- Primary documented in this encounter [facility] note* Diagnosis 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, trachea, and bronchus Supraglottic mass Other diseases of larynx Acute post-operative pain Clotting disorder (HCC) Other and unspecified coagulation defects Class 1 obesity with serious comorbidity and body mass index (BMI) of 31.0 to 31.9 in adult Pre-op evaluation- Primary Preoperative examination, unspecified History of pulmonary embolism Personal history of pulmonary embolism Clotting disorder (HCC) Other and unspecified coagulation defects Multiple sclerosis (HCC) Multiple sclerosis Primary hypertension Unspecified essential hypertension Hiatal hernia Diaphragmatic hernia without mention of obstruction or gangrene Class 1 obesity with serious comorbidity and body mass index (BMI) of 31.0 to 31.9 in adult, unspecified obesity type Mixed hyperlipidemia OAB (overactive bladder) Hypertonicity of bladder Pre-op evaluation- Primary Preoperative examination, unspecified Mixed hyperlipidemia Gastroesophageal reflux disease without esophagitis Esophageal reflux History of pulmonary embolus (PE) Personal history of pulmonary embolism Hypothyroidism, unspecified type Multiple sclerosis (HCC) Multiple sclerosis Primary hypertension Unspecified essential hypertension Laryngocele Other congenital anomaly of larynx, trachea, and bronchus Drug-induced systemic lupus erythematosus, unspecified organ involvement status (HCC) Depression, unspecified depression type History of DVT (deep vein thrombosis) Personal history of venous thrombosis and embolism 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, trachea, and bronchus Supraglottic mass Other diseases of larynx Clotting disorder (HCC) Other and unspecified coagulation defects Dysphagia, unspecified type Status post total right knee replacement- Primary [facility] Diagnosis 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, trachea, and bronchus Supraglottic mass Other diseases of larynx Acute post-operative pain Clotting disorder (HCC) Other and unspecified coagulation defects Class 1 obesity with serious comorbidity and body mass index (BMI) of 31.0 to 31.9 in adult Pre-op evaluation- Primary Preoperative examination, unspecified History of pulmonary embolism Personal history of pulmonary embolism Clotting disorder (HCC) Other and unspecified coagulation defects Multiple sclerosis (HCC) Multiple sclerosis Primary hypertension Unspecified essential hypertension Hiatal hernia Diaphragmatic hernia without mention of obstruction or gangrene Class 1 obesity with serious comorbidity and body mass index (BMI) of 31.0 to 31.9 in adult, unspecified obesity type Mixed hyperlipidemia OAB (overactive bladder) Hypertonicity of bladder Pre-op evaluation- Primary Preoperative examination, unspecified Mixed hyperlipidemia Gastroesophageal reflux disease without esophagitis Esophageal reflux History of pulmonary embolus (PE) Personal history of pulmonary embolism Hypothyroidism, unspecified type Multiple sclerosis (HCC) Multiple sclerosis Primary hypertension Unspecified essential hypertension Laryngocele Other congenital anomaly of larynx, trachea, and bronchus Drug-induced systemic lupus erythematosus, unspecified organ involvement status (HCC) Depression, unspecified depression type History of DVT (deep vein thrombosis) Personal history of venous thrombosis and embolism Status post total right knee replacement- Primary Status post total right knee replacement documented in this encounter [facility] note* Diagnosis 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, trachea, and bronchus Supraglottic mass Other diseases of larynx Acute post-operative pain Clotting disorder (HCC) Other and unspecified coagulation defects Class 1 obesity with serious comorbidity and body mass index (BMI) of 31.0 to 31.9 in adult Pre-op evaluation- Primary Preoperative examination, unspecified History of pulmonary embolism Personal history of pulmonary embolism Clotting disorder (HCC) Other and unspecified coagulation defects Multiple sclerosis (HCC) Multiple sclerosis Primary hypertension Unspecified essential hypertension Hiatal hernia Diaphragmatic hernia without mention of obstruction or gangrene Class 1 obesity with serious comorbidity and body mass index (BMI) of 31.0 to 31.9 in adult, unspecified obesity type Mixed hyperlipidemia OAB (overactive bladder) Hypertonicity of bladder Pre-op evaluation- Primary Preoperative examination, unspecified Mixed hyperlipidemia Gastroesophageal reflux disease without esophagitis Esophageal reflux History of pulmonary embolus (PE) Personal history of pulmonary embolism Hypothyroidism, unspecified type Multiple sclerosis (HCC) Multiple sclerosis Primary hypertension Unspecified essential hypertension Laryngocele Other congenital anomaly of larynx, trachea, and bronchus Drug-induced systemic lupus erythematosus, unspecified organ involvement status (HCC) Depression, unspecified depression type History of DVT (deep vein thrombosis) Personal history of venous thrombosis and embolism Status post total right knee replacement documented in this encounter [facility] note* Diagnosis 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, trachea, and bronchus Supraglottic mass Other diseases of larynx Acute post-operative pain Clotting disorder (HCC) Other and unspecified coagulation defects Class 1 obesity with serious comorbidity and body mass index (BMI) of 31.0 to 31.9 in adult Pre-op evaluation- Primary Preoperative examination, unspecified History of pulmonary embolism Personal history of pulmonary embolism Clotting disorder (HCC) Other and unspecified coagulation defects Multiple sclerosis (HCC) Multiple sclerosis Primary hypertension Unspecified essential hypertension Hiatal hernia Diaphragmatic hernia without mention of obstruction or gangrene Class 1 obesity with serious comorbidity and body mass index (BMI) of 31.0 to 31.9 in adult, unspecified obesity type Mixed hyperlipidemia OAB (overactive bladder) Hypertonicity of bladder Pre-op evaluation- Primary Preoperative examination, unspecified Mixed hyperlipidemia Gastroesophageal reflux disease without esophagitis Esophageal reflux History of pulmonary embolus (PE) Personal history of pulmonary embolism Hypothyroidism, unspecified type Multiple sclerosis (HCC) Multiple sclerosis Primary hypertension Unspecified essential hypertension Laryngocele Other congenital anomaly of larynx, trachea, and bronchus Drug-induced systemic lupus erythematosus, unspecified organ involvement status (HCC) Depression, unspecified depression type History of DVT (deep vein thrombosis) Personal history of venous thrombosis and embolism Primary open angle glaucoma (POAG) of left eye, mild stage- Primary OAG (open angle glaucoma) suspect, high risk, right Cataract, nuclear sclerotic senile, bilateral documented in this encounter [facility] note* Diagnosis 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, trachea, and bronchus Supraglottic mass Other diseases of larynx Acute post-operative pain Clotting disorder (HCC) Other and unspecified coagulation defects Class 1 obesity with serious comorbidity and body mass index (BMI) of 31.0 to 31.9 in adult Pre-op evaluation- Primary Preoperative examination, unspecified History of pulmonary embolism Personal history of pulmonary embolism Clotting disorder (HCC) Other and unspecified coagulation defects Multiple sclerosis (HCC) Multiple sclerosis Primary hypertension Unspecified essential hypertension Hiatal hernia Diaphragmatic hernia without mention of obstruction or gangrene Class 1 obesity with serious comorbidity and body mass index (BMI) of 31.0 to 31.9 in adult, unspecified obesity type Mixed hyperlipidemia OAB (overactive bladder) Hypertonicity of bladder Pre-op evaluation- Primary Preoperative examination, unspecified Mixed hyperlipidemia Gastroesophageal reflux disease without esophagitis Esophageal reflux History of pulmonary embolus (PE) Personal history of pulmonary embolism Hypothyroidism, unspecified type Multiple sclerosis (HCC) Multiple sclerosis Primary hypertension Unspecified essential hypertension Laryngocele Other congenital anomaly of larynx, trachea, and bronchus Drug-induced systemic lupus erythematosus, unspecified organ involvement status (HCC) Depression, unspecified depression type History of DVT (deep vein thrombosis) Personal history of venous thrombosis and embolism Status post total right knee replacement- Primary documented in this encounter [facility] note* Diagnosis 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, trachea, and bronchus Supraglottic mass Other diseases of larynx Acute post-operative pain Clotting disorder (HCC) Other and unspecified coagulation defects Class 1 obesity with serious comorbidity and body mass index (BMI) of 31.0 to 31.9 in adult Pre-op evaluation- Primary Preoperative examination, unspecified History of pulmonary embolism Personal history of pulmonary embolism Clotting disorder (HCC) Other and unspecified coagulation defects Multiple sclerosis (HCC) Multiple sclerosis Primary hypertension Unspecified essential hypertension Hiatal hernia Diaphragmatic hernia without mention of obstruction or gangrene Class 1 obesity with serious comorbidity and body mass index (BMI) of 31.0 to 31.9 in adult, unspecified obesity type Mixed hyperlipidemia OAB (overactive bladder) Hypertonicity of bladder Pre-op evaluation- Primary Preoperative examination, unspecified Mixed hyperlipidemia Gastroesophageal reflux disease without esophagitis Esophageal reflux History of pulmonary embolus (PE) Personal history of pulmonary embolism Hypothyroidism, unspecified type Multiple sclerosis (HCC) Multiple sclerosis Primary hypertension Unspecified essential hypertension Laryngocele Other congenital anomaly of larynx, trachea, and bronchus Drug-induced systemic lupus erythematosus, unspecified organ involvement status (HCC) Depression, unspecified depression type History of DVT (deep vein thrombosis) Personal history of venous thrombosis and embolism Status post total right knee replacement- Primary documented in this encounter [facility] note* Diagnosis 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, trachea, and bronchus Supraglottic mass Other diseases of larynx Acute post-operative pain Clotting disorder (HCC) Other and unspecified coagulation defects Class 1 obesity with serious comorbidity and body mass index (BMI) of 31.0 to 31.9 in adult Pre-op evaluation- Primary Preoperative examination, unspecified History of pulmonary embolism Personal history of pulmonary embolism Clotting disorder (HCC) Other and unspecified coagulation defects Multiple sclerosis (HCC) Multiple sclerosis Primary hypertension Unspecified essential hypertension Hiatal hernia Diaphragmatic hernia without mention of obstruction or gangrene Class 1 obesity with serious comorbidity and body mass index (BMI) of 31.0 to 31.9 in adult, unspecified obesity type Mixed hyperlipidemia OAB (overactive bladder) Hypertonicity of bladder Pre-op evaluation- Primary Preoperative examination, unspecified Mixed hyperlipidemia Gastroesophageal reflux disease without esophagitis Esophageal reflux History of pulmonary embolus (PE) Personal history of pulmonary embolism Hypothyroidism, unspecified type Multiple sclerosis (HCC) Multiple sclerosis Primary hypertension Unspecified essential hypertension Laryngocele Other congenital anomaly of larynx, trachea, and bronchus Drug-induced systemic lupus erythematosus, unspecified organ involvement status (HCC) Depression, unspecified depression type History of DVT (deep vein thrombosis) Personal history of venous thrombosis and embolism Pain Generalized pain documented in this encounter [facility] note* Diagnosis 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, trachea, and bronchus Supraglottic mass Other diseases of larynx Acute post-operative pain Clotting disorder (HCC) Other and unspecified coagulation defects Class 1 obesity with serious comorbidity and body mass index (BMI) of 31.0 to 31.9 in adult Pre-op evaluation- Primary Preoperative examination, unspecified History of pulmonary embolism Personal history of pulmonary embolism Clotting disorder (HCC) Other and unspecified coagulation defects Multiple sclerosis (HCC) Multiple sclerosis Primary hypertension Unspecified essential hypertension Hiatal hernia Diaphragmatic hernia without mention of obstruction or gangrene Class 1 obesity with serious comorbidity and body mass index (BMI) of 31.0 to 31.9 in adult, unspecified obesity type Mixed hyperlipidemia OAB (overactive bladder) Hypertonicity of bladder Pre-op evaluation- Primary Preoperative examination, unspecified Mixed hyperlipidemia Gastroesophageal reflux disease without esophagitis Esophageal reflux History of pulmonary embolus (PE) Personal history of pulmonary embolism Hypothyroidism, unspecified type Multiple sclerosis (HCC) Multiple sclerosis Primary hypertension Unspecified essential hypertension Laryngocele Other congenital anomaly of larynx, trachea, and bronchus Drug-induced systemic lupus erythematosus, unspecified organ involvement status (HCC) Depression, unspecified depression type History of DVT (deep vein thrombosis) Personal history of venous thrombosis and embolism Dysphagia, unspecified type documented in this encounter [facility] note* Diagnosis 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, trachea, and bronchus Supraglottic mass Other diseases of larynx Acute post-operative pain Clotting disorder (HCC) Other and unspecified coagulation defects Class 1 obesity with serious comorbidity and body mass index (BMI) of 31.0 to 31.9 in adult Pre-op evaluation- Primary Preoperative examination, unspecified History of pulmonary embolism Personal history of pulmonary embolism Clotting disorder (HCC) Other and unspecified coagulation defects Multiple sclerosis (HCC) Multiple sclerosis Primary hypertension Unspecified essential hypertension Hiatal hernia Diaphragmatic hernia without mention of obstruction or gangrene Class 1 obesity with serious comorbidity and body mass index (BMI) of 31.0 to 31.9 in adult, unspecified obesity type Mixed hyperlipidemia OAB (overactive bladder) Hypertonicity of bladder Pre-op evaluation- Primary Preoperative examination, unspecified Mixed hyperlipidemia Gastroesophageal reflux disease without esophagitis Esophageal reflux History of pulmonary embolus (PE) Personal history of pulmonary embolism Hypothyroidism, unspecified type Multiple sclerosis (HCC) Multiple sclerosis Primary hypertension Unspecified essential hypertension Laryngocele Other congenital anomaly of larynx, trachea, and bronchus Drug-induced systemic lupus erythematosus, unspecified organ involvement status (HCC) Depression, unspecified depression type History of DVT (deep vein thrombosis) Personal history of venous thrombosis and embolism Status post total right knee replacement- Primary Chronic bilateral low back pain with right-sided sciatica documented in this encounter [facility] note* Diagnosis 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, trachea, and bronchus Supraglottic mass Other diseases of larynx Acute post-operative pain Clotting disorder (HCC) Other and unspecified coagulation defects Class 1 obesity with serious comorbidity and body mass index (BMI) of 31.0 to 31.9 in adult Pre-op evaluation- Primary Preoperative examination, unspecified History of pulmonary embolism Personal history of pulmonary embolism Clotting disorder (HCC) Other and unspecified coagulation defects Multiple sclerosis (HCC) Multiple sclerosis Primary hypertension Unspecified essential hypertension Hiatal hernia Diaphragmatic hernia without mention of obstruction or gangrene Class 1 obesity with serious comorbidity and body mass index (BMI) of 31.0 to 31.9 in adult, unspecified obesity type Mixed hyperlipidemia OAB (overactive bladder) Hypertonicity of bladder Pre-op evaluation- Primary Preoperative examination, unspecified Mixed hyperlipidemia Gastroesophageal reflux disease without esophagitis Esophageal reflux History of pulmonary embolus (PE) Personal history of pulmonary embolism Hypothyroidism, unspecified type Multiple sclerosis (HCC) Multiple sclerosis Primary hypertension Unspecified essential hypertension Laryngocele Other congenital anomaly of larynx, trachea, and bronchus Drug-induced systemic lupus erythematosus, unspecified organ involvement status (HCC) Depression, unspecified depression type History of DVT (deep vein thrombosis) Personal history of venous thrombosis and embolism Spondylosis of lumbar region without myelopathy or radiculopathy Lumbosacral spondylosis without myelopathy documented in this encounter [facility] note* Diagnosis 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, trachea, and bronchus Supraglottic mass Other diseases of larynx Acute post-operative pain Clotting disorder (HCC) Other and unspecified coagulation defects Class 1 obesity with serious comorbidity and body mass index (BMI) of 31.0 to 31.9 in adult Pre-op evaluation- Primary Preoperative examination, unspecified History of pulmonary embolism Personal history of pulmonary embolism Clotting disorder (HCC) Other and unspecified coagulation defects Multiple sclerosis (HCC) Multiple sclerosis Primary hypertension Unspecified essential hypertension Hiatal hernia Diaphragmatic hernia without mention of obstruction or gangrene Class 1 obesity with serious comorbidity and body mass index (BMI) of 31.0 to 31.9 in adult, unspecified obesity type Mixed hyperlipidemia OAB (overactive bladder) Hypertonicity of bladder Pre-op evaluation- Primary Preoperative examination, unspecified Mixed hyperlipidemia Gastroesophageal reflux disease without esophagitis Esophageal reflux History of pulmonary embolus (PE) Personal history of pulmonary embolism Hypothyroidism, unspecified type Multiple sclerosis (HCC) Multiple sclerosis Primary hypertension Unspecified essential hypertension Laryngocele Other congenital anomaly of larynx, trachea, and bronchus Drug-induced systemic lupus erythematosus, unspecified organ involvement status (HCC) Depression, unspecified depression type History of DVT (deep vein thrombosis) Personal history of venous thrombosis and embolism Spinal stenosis of lumbar region with neurogenic claudication- Primary Spinal stenosis, lumbar region, with neurogenic claudication Radicular pain of right lower extremity Thoracic or lumbosacral neuritis or radiculitis, unspecified History of lumbar fusion Adjacent segment disease of lumbar spine with history of fusion procedure Arthrodesis status Multiple sclerosis (HCC) Multiple sclerosis Postlaminectomy syndrome, not elsewhere classified [facility] Clinical Note Date No Information [facility] Work Phone: History general Narrative - Reported* Type Description Date Medical History DVT R leg Medical HistoryPEMedical HistoryBakers cystMedical Historycarpal tunnelMedical HistorySLE since 1988 (kidney biopsy)Medical HistoryDx of MS by Dr. Belcher 1988 Medical HistoryGallBanner (10-09-14)Medical History03/2015 C. DiffMedical Onffurk74/2015 MammogramMedical History04/2017 Mammogram - normalMedical History 04/2018 MammogramMedical Cgmicus9606/20/2015 Colonoscopy -Dr. Siddiqi , normal Medical HistoryMULTIPLE SCLEROSISMedical Nxxmzij3412/29/2019 [facility] Xqppcyk39/2020 Positive Covid -19 and pneumoniaSurgical Historylumbar disectomy with fusionSurgical Historyrenal [id number] HistoryLeft lfoot- Great toe straightening and tendon [id number] HistoryRight knee scope Hospitalization Historysee surgical hxHospitalization History2 child births [employer] Other History of Past illness Narrative* Condition Effective Dates (start - stop) O utcome No Information [facility] Work Phone: History of Present illness Narrative* Encounter Date Complaint History Of Prese nt Illness No Information [facility] Work Phone: Hospital Discharge instructions No data available for this section [facility] Date Instruction Additional Infor mation No Information [facility] Work Phone: Progress note No data available for this section [facility]* Clinical Note Date No Information [facility] Work Phone: Reason for referral (narrative)* Diagnostic Procedure Only (Routine) - ClosedSpecialtyDiagnoses / ProceduresReferred By Contact Referred To ContactXR IMAGING Diagnoses Pain Procedures XR KNEE GENERAL 4V AP BOTH/PA BOTH/LAT/MERC RIGHT RADIOLOGIC EXAM KNEE COMPLETE 4/MORE VIEWS Marcell Scott MD [address] [place] [address] [place] [address] Referral IDStatusasonAthens DateExpiration DateVisits RequestedVisits [id number] Auto-Generated Referral / [facility] for referral (narrative)* Reason For Referral No Information [facility] Work Phone: [facility]ba for referral (narrative)No reason for referral information [facility]Prem[facility]: Reason for visit Narrative* Diagnostic Procedure Only (Routine) - ClosedSpecialtyDiagnoses / ProceduresReferred By ContactReferred To ContactXR IMAGING Diagnoses Status post total right knee replacement Procedures XR KNEE POST OP 3V AP/LAT/MERCHANT RIGHT RADIOLOGIC EXAMINATION KNEE 3 VIEWS Marcell Scott MD [address] [place] [address] Phone: tel: fax: [place] [address] Referral IDStatusReasonAthens DateExpiration DateVisits RequestedVisits [id number] Auto-Generated Referral / [facility] for visit Narrative* Diagnostic Procedure Only (Routine) - ClosedSpecialtyDiagnoses / ProceduresReferred By ContactReferred To Contact XR IMAGING Diagnoses Spondylosis of lumbar region without myelopathy or radiculopathy Procedures XR LUMBAR GENERAL 3V AP/LAT/L5-S1 RADEX SPINE LUMBOSACRAL 2/3 VIEWS Rox Joyce MD [address] [place] [address] Phone: tel: fax: [place] [address] Referral IDStatusReasonStart DateExpiration DateVisits RequestedVisits [id number] Auto-Generated Referral [facility] of systems Narrative - Reported* System Pos/Neg Findings No Information [facility] Work Phone: Chief Complaint and Reason for Visit Chief Complaint ^ Screening e78.5, i12.9,e55.9,r73.9 Chief Complaint ^ Screening e78.5, i12.9,e55.9,r73.9 E03.9 Chief Complaint ^ e78.5, i12.9,e55.9,r73.9 E03.9 Chief Complaint ^ e03.9 e78.5 m32.14 i129 Chief Complaint ^ Screening Chief Complaint ^ 3 MONTH a1c checkReason for VisitSupraglottic mass Sensation of pressure in bladder area Fatigue BMI 31.0-31.9,adult Obesity Hyperglycemia COVID-19 Stress at home BMI 31.0-31.9,adult Obesity Chief Complaint ^ Amb Documentation E78.5 R73.9 Chief Complaint ^ Amb Documentation E78.5 R73.9 medicare wellnessReason for VisitAnxiety and depression Hyperlipidemia Hypothyroid Medicare annual wellness visit, initial Obesity (BMI 30.0-34.9) Post-menopausal Screening for breast cancer Chief Complaint ^ Amb Documentation E78.5 R73.9 medicare wellness Amb Documentation RENAL 1 year follow upReason for VisitAnxiety and depression Hyperlipidemia Hypothyroid Medicare annual wellness visit, initial Obesity (BMI 30.0-34.9) Post-menopausal Screening for breast cancer Hyperlipidemia Hypertension Lupus nephritis Vitamin D deficiency Chief Complaint ^ Amb Documentation E78.5 R73.9 medicare wellness Amb Documentation RENAL 1 year follow up Z78.0Reason for VisitAnxiety and depression Hyperlipidemia Hypothyroid Medicare annual wellness visit, initial Obesity (BMI 30.0-34.9) Post-menopausal Screening for breast cancer Hyperlipidemia Hypertension Lupus nephritis Vitamin D deficiency Chief Complaint ^ Amb Documentation E78.5 R73.9 medicare wellness Amb Documentation RENAL 1 year follow up Z78.0 M25.561 - Pain in right knee OP SP RT KNEE PAINReason for VisitAnxiety and depression Hyperlipidemia Hypothyroid Medicare annual wellness visit, initial Obesity (BMI 30.0-34.9) Post-menopausal Screening for breast cancer Hyperlipidemia Hypertension Lupus nephritis Vitamin D deficiency Chief Complaint ^ Amb Documentation E78.5 R73.9 medicare wellness Amb Documentation RENAL 1 year follow up Z78.0 M25.561 - Pain in right knee OP SP RT KNEE PAINReason for VisitAnxiety and depression Hyperlipidemia Hypothyroid Medicare annual wellness visit, initial Obesity (BMI 30.0-34.9) Post-menopausal Screening for breast cancer Hyperlipidemia Hypertension Lupus nephritis Vitamin D deficiency Primary osteoarthritis of both knees Right knee pain Chief Complaint ^ Amb Documentation E78.5 R73.9 medicare wellness Amb Documentation RENAL 1 year follow up Z78.0 M25.561 - Pain in right knee OP SP RT KNEE PAIN toradol per bpk- sciatic painReason for VisitAnxiety and depression Hyperlipidemia Hypothyroid Medicare annual wellness visit, initial Obesity (BMI 30.0-34.9) Post-menopausal Screening for breast cancer Hyperlipidemia Hypertension Lupus nephritis Vitamin D deficiency Primary osteoarthritis of both knees Right knee pain Sciatica of right side Chief Complaint ^ Amb Documentation E78.5 R73.9 medicare wellness Amb Documentation RENAL 1 year follow up Z78.0 M25.561 - Pain in right knee OP SP RT KNEE PAIN toradol per bpk- sciatic pain toradol shotReason for VisitAnxiety and depression Hyperlipidemia Hypothyroid Medicare annual wellness visit, initial Obesity (BMI 30.0-34.9) Post-menopausal Screening for breast cancer Hyperlipidemia Hypertension Lupus nephritis Vitamin D deficiency Primary osteoarthritis of both knees Right knee pain Sciatica of right side Sciatica of right side Chief Complaint ^ Amb Documentation E78.5 R73.9 medicare wellness Amb Documentation RENAL 1 year follow up Z78.0 M25.561 - Pain in right knee OP SP RT KNEE PAIN toradol per bpk- sciatic pain toradol shot M54.31Reason for VisitAnxiety and depression Hyperlipidemia Hypothyroid Medicare annual wellness visit, initial Obesity (BMI 30.0-34.9) Post-menopausal Screening for breast cancer Hyperlipidemia Hypertension Lupus nephritis Vitamin D deficiency Primary osteoarthritis of both knees Right knee pain Sciatica of right side Sciatica of right side Chief Complaint ^ Amb Documentation E78.5 R73.9 medicare wellness Amb Documentation RENAL 1 year follow up Z78.0 M25.561 - Pain in right knee OP SP RT KNEE PAIN toradol per bpk- sciatic pain toradol shot M54.31 Back PainReason for VisitAnxiety and depression Hyperlipidemia Hypothyroid Medicare annual wellness visit, initial Obesity (BMI 30.0-34.9) Post-menopausal Screening for breast cancer Hyperlipidemia Hypertension Lupus nephritis Vitamin D deficiency Primary osteoarthritis of both knees Right knee pain Sciatica of right side Sciatica of right side Sciatica of right side History of lumbar fusion Chief Complaint ^ E78.5 R73.9 medicare wellness Amb Documentation RENAL 1 year follow up Z78.0 M25.561 - Pain in right knee OP SP RT KNEE PAIN toradol per bpk- sciatic pain toradol shot M54.31 Back Pain SYNVISC ONE RT KNEE M54.16 M54.31 Z98.1Reason for VisitAnxiety and depression Hyperlipidemia Hypothyroid Medicare annual wellness visit, initial Obesity (BMI 30.0-34.9) Post-menopausal Screening for breast cancer Hyperlipidemia Hypertension Lupus nephritis Vitamin D deficiency Primary osteoarthritis of both knees Right knee pain Sciatica of right side Sciatica of right side Sciatica of right side History of lumbar fusion Arthritis of right knee Right knee pain Chief Complaint Admit Date ^ November 22, 2003 6:12am Amb Documentation October 22, 2023 5: 43pm RENAL 1 year follow up October 29, 2023 1:53pm Z78.0 November 14, 2023 9:45am M25.561 - Pain in right knee November 022023 7:36am OP SP RT KNEE PAIN November 19, 2023 9:18am toradol per bpk- sciatic pain December 10:23am toradol shot December 06, 2023 9: 01am M54.31 December 06, 2023 2: 16pm Back Pain December 09, 2023 10 :33am SYNVISC ONE RT KNEE December 26, 2023 3 :12pm M54.16 M54.31 Z98.1 January 04, 2024 8 :56am UC MAG RT WRIST FX January 14, 2024 9:29am Reason for Visit Admit Date Hyperlipidemia October 29, 2023 1: 53pm Hypertension October 29, 2023 1: 53pm Lupus nephritis October 29, 2023 1: 53pm Vitamin D deficiency October 29, 2023 1 :53pm Primary osteoarthritis of both knees Sep tember 2023 9:18am Right knee pain November 19, 2023 9:18am Sciatica of right side December 04, 2023 10:23am Sciatica of right side December 06, 2023 9:01am Sciatica of right side December 09, 2023 10:33am History of lumbar fusion December 08 10:33am Arthritis of right knee December 25 3:12pm Right knee pain December 26, 2023 3 :12pm Nondisplaced fracture of rig ht radial styloid process, initial encounter fo January 14, 2024 9:29am Chief Complaint Admit Date ^ November 22, 2003 6:12am Amb Documentation October 22, 2023 5: 43pm RENAL 1 year follow up October 29, 2023 1:53pm Z78.0 November 14, 2023 9:45am M25.561 - Pain in right knee November 022023 7:36am OP SP RT KNEE PAIN November 19, 2023 9:18am toradol per bpk- sciatic pain December 10:23am toradol shot December 06, 2023 9: 01am M54.31 December 06, 2023 2: 16pm Back Pain December 09, 2023 10 :33am SYNVISC ONE RT KNEE December 26, 2023 3 :12pm M54.16 M54.31 Z98.1 January 04, 2024 8 :56am UC MAG RT WRIST FX January 14, 2024 9:29am 3 month f/u January 15, 2024 10:25am Reason for Visit Admit Date Hyperlipidemia October 29, 2023 1: 53pm Hypertension October 29, 2023 1: 53pm Lupus nephritis October 29, 2023 1: 53pm Vitamin D deficiency October 29, 2023 1 :53pm Primary osteoarthritis of both knees Sep tember 2023 9:18am Right knee pain November 19, 2023 9:18am Sciatica of right side December 04, 2023 10:23am Sciatica of right side December 06, 2023 9:01am Sciatica of right side December 09, 2023 10:33am History of lumbar fusion December 08 10:33am Arthritis of right knee December 25 3:12pm Right knee pain December 26, 2023 3 :12pm Nondisplaced fracture of rig ht radial styloid process, initial encounter fo January 14, 2024 9:29am Cervical spine pain January 15, 2024 10:25am Fall January 15, 2024 10:25am Headache January 15, 2024 10:25am Lumbar back pain January 15, 2024 10:25am Osteoarthritis of lumbar spine January 15, 2024 10:25am Chief Complaint Admit Date ^ November 22, 2003 6:12am M54.16 M54.31 Z98.1 January 04, 2024 8 :56am UC MAG RT WRIST FX January 14, 2024 9:29am 3 month f/u January 15, 2024 10:25am UA January 24, 2024 8:42am R30.0 January 24, 2024 9:17am S52.514A - Nondisplaced fracture of righ t radial s January 28, 2024 8:00am 2 WK RECHECK January 28, 2024 8:56am Screening February 21, 2024 9:05am lightheaded & gets nauseous March 8:19am Reason for Visit Admit Date Nondisplaced fracture of rig ht radial styloid process, initial encounter fo January 14, 2024 9:29am Cervical spine pain January 15, 2024 10:25am Fall January 15, 2024 10:25am Nondisplaced fracture of rig ht radial styloid process, initial encounter fo January 15, 2024 10:25am Osteoarthritis of lumbar spine January 15, 2024 10:25am Headache January 15, 2024 10:25am Dysuria January 24, 2024 8:42am UTI (urinary tract infection) January 032023 8:42am Nondisplaced fracture of rig ht radial styloid process, initial encounter fo January 28, 2024 8:56am BMI 33.0-33.9,adult March 30, 2024 8 :19am Dizziness March 30, 2024 8 :19am Paresthesia and pain of both upper extre mities March 30, 2024 8:19am Primary osteoarthritis of both knees [facility] 2024 8:19am Chief Complaint Admit Date ^ November 22, 2003 6:12am lightheaded & gets nauseous March 8:19am urine sample June 01, 2024 9:0 3am Reason for Visit Admit Date BMI 33.0-33.9,adult March 30, 2024 8 :19am Dizziness March 30, 2024 8 :19am Hypothyroid March 30, 2024 8 :19am Paresthesia and pain of both upper extre mities March 30, 2024 8:19am Primary osteoarthritis of both knees [facility] 2024 8:19am Chief Complaint Admit Date ^ November 22, 2003 6:12am lightheaded & gets nauseous March 8:19am urine sample June 01, 2024 9:0 3am R30. June 01, 2024 9:4 0am Chief Complaint Admit Date ^ November 22, 2003 6:12am urine sample June 01, 2024 9:0 3am R30. June 01, 2024 9:4 0am E03.9 July 28, 2024 1:41p m Reason for Visit Admit Date UTI (urinary tract infection) May 9:03am Chief Complaint Admit Date ^ November 22, 2003 6:12am urine sample June 01, 2024 9:0 3am R30. June 01, 2024 9:4 0am E03.9 July 28, 2024 1:41p m 4 month f/u July 30, 2024 12:33 pm Reason for Visit Admit Date UTI (urinary tract infection) May 9:03am BMI greater than 30 July 30, 2024 12:33 pm Hypertension July 30, 2024 12:33 pm Hypothyroid July 30, 2024 12:33 pm Obesity July 30, 2024 12:33 pm Status post right knee replacement July 032024 12:33pm Chief Complaint Admit Date ^ November 22, 2003 6:12am E03.9 July 28, 2024 1:41p m 4 month f/u July 30, 2024 12:33 pm R05.9 October 22, 2024 10 :39am peristent cough October 22, 2024 2: 28pm Reason for Visit Admit Date BMI greater than 30 July 30, 2024 12:33 pm Hypertension July 30, 2024 12:33 pm Hypothyroid July 30, 2024 12:33 pm Obesity July 30, 2024 12:33 pm Status post right knee replacement July 032024 12:33pm URI (upper respiratory infection) October 22, 2024 2:28pm Reason for Visit Admit Date BMI greater than 30 July 30, 2024 12:33 pm Hypertension July 30, 2024 12:33 pm Hypothyroid July 30, 2024 12:33 pm Obesity July 30, 2024 12:33 pm Status post right knee replacement July 032024 12:33pm Acute bacterial sinusitis October 22, 2 025 2:28pm Chief Complaint Admit Date ^ November 22, 2003 6:12am R05.9 October 22, 2024 10 :39am peristent cough October 22, 2024 2: 28pm 4 month f/u a1c December 01, 2024 12:16pm Reason for Visit Admit Date Acute bacterial sinusitis October 22, 2 025 2:28pm Hyperglycemia December 01, 2024 12:16pm Hyperlipidemia December 01, 2024 12:16pm Obesity December 01, 2024 12:16pm Advance Directives No Advanced Directives Records Found Advance Directive Response Recorded Date/ Time Advance Directives No January 9:04am Advance Directive Response Recorded Date/ Time Advance Directives No January 10:04am Advance Directive Response Recorded Date/ Time Advance Directives No March 25, 2023 2:14pm Advance Directive Response Recorded Date/ Time Advance Directives No March 25, 2023 1:14pm Directive Yes / No Effective Date File Name No Information Summary Purpose Family History No Family History Records Found Relationship Condition Age at Onset Recorded Date/T qing father Malignant neoplasm Unknown HypertensionUnknownHeart diseaseUnknownDiabetes mellitusUnknownNot Specified FibromyalgiaUnknown Relationship Condition Age at Onset Recorded Date/T qing father Malignant neoplasm Unknown HypertensionUnknownHeart diseaseUnknownDiabetes mellitusUnknownmother FibromyalgiaUnknown Family Member Type Diagnosis Age At Onset No Information Reason for Referral SpecialtyDiagnoses / ProceduresReferred By ContactReferred To ContactREHAB AND SPORTS THERAPY INS Diagnoses Primary osteoarthritis of right knee Procedures CONSULT TO PHYSICAL THERAPY PHYSICAL THERAPY EVALUATION HIGH COMPLEX 45 MINS Marcell Scott MD [address] [place] [address] [facility] [place] [address] [place] [address] Referral IDStatusReasonStart DateExpiration DateVisits RequestedVisits [id number] Review Auto-Generated Referral [id number] / ProceduresReferred By ContactReferred To ContactXR IMAGING Diagnoses Primary osteoarthritis of both knees Procedures XR KNEE SPECIFY 1V RIGHT RADIOLOGIC EXAMINATION KNEE 1/2 VIEWS Marcell Scott MD [address] [place] [address] [place] [address] Referral IDStatusReasonStart DateExpiration DateVisits RequestedVisits [id number] Request Auto-Generated Referral [id number] / ProceduresReferred By ContactReferred To ContactXR IMAGING Diagnoses Primary osteoarthritis of both knees Procedures XR KNEE SPECIFY 1V LEFT RADIOLOGIC EXAMINATION KNEE 1/2 VIEWS Marcell Scott MD [address] [place] [address] [place] [address] Referral IDStatusReasonStart DateExpiration DateVisits RequestedVisits [id number] Request Auto-Generated Referral /[id number] / ProceduresReferred By ContactReferred To ContactXR IMAGING Diagnoses Primary osteoarthritis of both knees Procedures XR KNEE GENERAL 4V AP BOTH/PA BOTH/LAT/MERC BILATERAL RADIOLOGIC EXAM KNEE COMPLETE 4/MORE VIEWS Marcell Scott MD [address] [place] [address] [facility] [place] [address] Referral IDStatusReasonStart DateExpiration DateVisits RequestedVisits [id number] Request Auto-Generated Referral /[id number] / ProceduresReferred By ContactReferred To Contact Diagnoses Supraglottic mass Lupus anticoagulant positive Clotting disorder (HCC) Laryngocele Procedures REFER TO PACC - PRE ANESTHESIA CONSULTATION CLINIC OFFICE/OUTPATIENT [facility] 60-74 MINUTES Alfred Guerrero MD [address] [place] [address] Referral IDStatusReasonStart DateExpiration DateVisits RequestedVisits [id number] PCP Requested Referral /[id number] / ProceduresReferred By ContactReferred To ContactXR IMAGING Diagnoses Disorder of airway Supraglottic mass Lupus anticoagulant positive Clotting disorder (HCC) Procedures XR MODIFIED BARIUM SWALLOW W SPEECH THERAPY RADIOLOGIC EXAM SWALLOW FUNCTION CONTRAST STUDY Alfred Guerrero MD [address] [place] [address] [facility] [place] [address] Referral IDStatusReasonStart DateExpiration DateVisits RequestedVisits [id number] Auto-Generated Referral /[id number] / ProceduresReferred By ContactReferred To ContactHematology Diagnoses Lupus anticoagulant positive Clotting disorder (HCC) Procedures CONSULT TO HEMATOLOGY OFFICE/OUTPATIENT [facility] 60-74 MINUTES Alfred Guerrero MD [address] [address] Referral IDStatusReasonStart DateExpiration DateVisits RequestedVisits [id number] PCP Requested Referral /[id number] / ProceduresReferred By ContactReferred To ContactEnt - Otolaryngology Diagnoses Disorder of airway Supraglottic mass Procedures CONSULT TO ENT OFFICE/OUTPATIENT [facility] 60-74 MINUTES Coni Borrero PA-C [address] [place] [address] Referral IDStatusReasonStart DateExpiration DateVisits RequestedVisits [id number] PCP Requested Referral /[id number] / ProceduresReferred By ContactReferred To ContactCT IMAGING Diagnoses Disorder of airway Supraglottic mass Procedures CT NECK SOFT TISSUE W IVCON CT SOFT TISSUE NECK W/CONTRAST MATERIAL Coni Borrero PA-C [address] [place] [address] Ct Imaging [place] [address] Referral IDStatusReasonStart DateExpiration DateVisits RequestedVisits [id number] Review Auto-Generated Referral [id number] / ProceduresReferred By ContactReferred To ContactPsychology Diagnoses Demyelinating disease of central nervous system (HCC) Paresthesias Imbalance Malaise and fatigue Procedures CONSULT TO PSYCHOLOGY OFFICE/OUTPATIENT [facility] 60-74 MINUTES Coni Borrero PA-C [address] [place] [address] Referral IDStatusReasonStart DateExpiration DateVisits RequestedVisits [id number] Review PCP Requested Referral /[id number] / ProceduresReferred By ContactReferred To ContactMR IMAGING Diagnoses Demyelinating disease of central nervous system (HCC) Paresthesias Imbalance Procedures MRI BRAIN WO/W IVCON MRI BRAIN BRAIN STEM W/O W/CONTRAST MATERIAL Coni Borrero PA-C [address] [place] [address] Mr Imaging Referral IDStatusReasonStart DateExpiration DateVisits RequestedVisits [id number] Review Auto-Generated Referral /[id number] / ProceduresReferred By ContactReferred To ContactMR IMAGING Diagnoses Demyelinating disease of central nervous system (HCC) Paresthesias Imbalance Procedures MRI CERVICAL SPINE WO/W IVCON MRI SPINAL CANAL CERVICAL W/O & W/CONTR MATRL Coni Borrero PA-C [address] [place] [id number] Mr Imaging Referral IDStatusReasonStart DateExpiration DateVisits RequestedVisits [id number] Review Auto-Generated Referral / Additional Source Comments REASON FOR VISIT (unrecogniz ed section and content) ReasonCommentsEstablished Patient Follow-UpReasonCommentsEstablished Patient Follow-UpReasonCommentsNew Patienthere to discuss CAT scanSpecialtyDiagnoses / ProceduresReferred By ContactReferred To ContactEnt - Otolaryngology Diagnoses Disorder of airway Supraglottic mass Procedures CONSULT TO ENT OFFICE/OUTPATIENT [facility] 60-74 MINUTES Coni Borrero PA-C [address] [place] [address] Referral IDStatusReasonStwilsonville DateExpiration DateVisits RequestedVisits [id number] PCP Requested Referral /[id number] anticoagulant positiveNew patient consultSpecialtyDiagnoses / ProceduresReferred By ContactReferred To Contact Hematology Diagnoses Lupus anticoagulant positive Clotting disorder (HCC) Procedures CONSULT TO HEMATOLOGY OFFICE/OUTPATIENT [facility] 60-74 MINUTES Alfred Guerrero MD [address] [facility] [address] [place] [address] Referral IDStatusReasonStwilsonville DateExpiration DateVisits RequestedVisits [id number] PCP Requested Referral /[id number]m ConfirmationReasonCommentsPre-Op VisitReasonCommentsFollow UpReasonCommentsProphylactic use of oral factor Xa inhibitor for venous thrReasonCommentsPost OpLARYNGOSCOPY DIRECT W/ EXCISION OF TUMOR & STRIP EPIGLOTTIS W/ MICROSCOPE, MICRODIRECT LARYNGOSCOPY W/ MARSUPIALIZATION OF VOCAL CORD CYST, LARYNGOTOMY W/ REMOVAL OF LARYNGOCELE on 04/30/23 without concernsReasonCommentsRadiology CTSpecialtyDiagnoses / ProceduresReferred By ContactReferred To ContactCT IMAGING Diagnoses Disorder of airway Supraglottic mass Procedures CT NECK SOFT TISSUE W IVCON CT SOFT TISSUE NECK W/CONTRAST MATERIAL Coni Borrero, PA-C [address] [facility] [place] [phone] [facility] [place] [address] Referral IDStatusReasonStwilsonville DateExpiration DateVisits RequestedVisits [id number] Auto-Generated Referral /[id number] EvaluationReasonCommentsRadiology XRSpecialtyDiagnoses / ProceduresReferred By ContactReferred To ContactXR IMAGING Diagnoses Pain Procedures XR KNEE GENERAL 4V AP BOTH/PA BOTH/LAT/MERC RIGHT RADIOLOGIC EXAM KNEE COMPLETE 4/MORE VIEWS Marcell Scott MD [address] [place] [address] Xr Imaging [place] [address] Referral IDStatusReasonAthens DateExpiration DateVisits RequestedVisits [id number] Auto-Generated Referral /[id number] SurgeryReasonOnset DateCommentsCM ortho pre-op04/27/2024ReasonCommentsFollow UpPre-Op VisitReasonComments Anesthesia ConsultReasonCommentsPatient UpdateReasonCommentsPost OpReason CommentsPost OpKnee ReplacementReasonCommentsFollow UpFor Laryngocele JOSÉ LUIS 06/11/23. C/o dysphagia x 1-2 mth. Hx LARYNGOSCOPY DIRECT W/ EXCISION OF TUMOR &am p; STRIP EPIGLOTTIS W/ MICROSCOPEMICRODIRECT LARYNGOSCOPY W/ MARSUPIALIZATION OF VOCAL CORD CYSTLARYNGOTOMY W/ REMOVAL OF LARYNGOCELE 04/30/23ReasonComments Radiology XRReasonCommentsEstablished PatientFollow UpPost OpKnee Replacement ReasonCommentsRefractionReasonCommentsEstablished PatientFollow UpPost OpKnee ReplacementReasonCommentsAppointmentReasonCommentsEstablished PatientFollow Up ReasonCommentsRadio Gen RMPSpecialtyDiagnoses / ProceduresReferred By Contact Referred To ContactXR IMAGING Diagnoses Pain Procedures XR HIP GENERAL 3V PELV/AP/LAT RIGHT RADEX HIP UNILATERAL WITH PELVIS 2-3 VIEWS Marcell Scott MD [address] [place] [address] Phone: tel: fax: XR IMAGING [place] [address] Referral IDStatusReasonStwilsonville DateExpiration DateVisits RequestedVisits [id number] Auto-Generated Referral [id number] Gen RMPSpecialtyDiagnoses / Procedures Referred By ContactReferred To ContactXR IMAGING Diagnoses Dysphagia, unspecified type Procedures XR ESOPHAGRAM RADIOLOGIC EXAM ESOPHAGUS SINGLE CONTRAST STUDY Alfred Guerrero MD [address] [facility] [address] [place] [phone] Phone: tel: fax: XR IMAGING [facility]95 Referral IDStatusReasonStwil[place] DateExpiration DateVisits RequestedVisits [id number] Auto-Generated Referral [id number]po lumbar pain Care Teams (unrecognized sec tion and content) Team Status: Active Member Role Status Dates Mandeep Mcintosh MD Specialist Active Elijah Cardona Care ProviderActive Team Status: Active Member Role Status Dates Juan Diego Jalloh MD Attending Provider Active Start: Kisha gao 2003 Team Status: Active Member Role Status Dates Jeremiah Lazo DO Primary Care Provider Active Sta rt: October 01, 2023 John Renae ProviderActiveStart: October 01, 2023 Team Status: Inactive Member Role Status Dates Jeremiah Lazo DO Primary Care Provide r, Attending Provider Active Start: October 10, 2023 End: October 10, 2023 Team Status: Inactive Member Role Status Dates Jeremiah Lazo DO Primary Care Provide r, Attending Provider Active Start: October 14, 2023 End: October 14, 2023Team MemberRelationshipSpecialtyStart DateEnd Date Jeremiah Lazo DO [address] [place] [phone] PCP - General08/23/08 Team Status: Active Member Role Status Dates Jeremiah Lazo DO Primary Care Provider Active Team Status: Active Member Role Status Dates Juan Diego Jalloh MD Attending Provider Active Team Status: Inactive Member Role Status Dates Jeremiah Lazo DO Primary Care Provider, Attending Provi alyssa Active Team Status: Inactive Member Role Status Dates Jeremiah Lazo DO Primary Care Provider Active Mandeep Arnaldo , MDAttending ProviderActiveTeam MemberRelationshipSpecialtyStart DateEnd Date Jeremiah Lazo DO [address] [place] [phone] PCP - General08/23/08Team MemberRelationshipSpecialtyStart DateEnd Date Jeremiah Lazo DO [address] [place] [phone] PCP - General08/23/08 Team Status: Inactive Member Role Status Dates Jeremiah Lazo DO Primary Care Provider, Attending Provi alyssa Active Team Status: Inactive Member Role Status Dates Jeremiah Lazo DO Primary Care Provider, Referring Provi alyssa Active Referral SelfAttending ProviderActive Team Status: Active Member Role Status Dates Juan Diego Jalloh MD Attending Provider Active Team Status: Active Member Role Status Dates Jeremiah Lazo DO Primary Care Provider Active Goals (unrecognized section and content) Goals may be documented in a n alternate section INFORMATION SOURCE (unrecogn ized section and content) DATE CREATED AUTHOR 05/02/2022 [facility] DATE CREATED AUTHOR AUTHOR'S ORGANIZ ATION 06/11/2024 [facility] DATE CREATED AUTHOR AUTHOR'S ORGANIZ ATION 07/09/2024 [facility] DATE CREATED AUTHOR AUTHOR'S ORGANIZ ATION 09/17/2024 [facility] DATE CREATED AUTHOR AUTHOR'S ORGANIZ ATION 10/24/2024 [facility] DATE CREATED AUTHOR AUTHOR'S ORGANIZ ATION 10/31/2024 [facility] DATE CREATED AUTHOR AUTHOR'S ORGANIZ ATION 12/30/2024 [facility] Source Comments (unrecognize d section and content) In the event this informatio n is protected by the Federal Confidentiality of Alcohol and Drug Abuse Patient Records regulations: The Federal rules restrict any use of the information to criminally investigate or prosecute any alcohol or drug abuse patient.[facility]In the event this information is protected by the Federal Confidentiality of Alcohol and Drug Abuse Patient Records regulations: The Federal rules restrict any use of the information to criminally investigate or prosecute any alcohol or drug abuse patient.[facility] WestIn the event this information is protected by the Federal Confidentiality of Alcohol and Drug Abuse Patient Records regulations: The Federal rules restrict any use of the information to criminally investigate or prosecute any alcohol or drug abuse patient.[facility] WestIn the event this information is protected by the Federal Confidentiality of Alcohol and Drug Abuse Patient Records regulations: The Federal rules restrict any use of the information to criminally investigate or prosecute any alcohol or drug abuse patient.[facility] WestIn the event this information is protected by the Federal Confidentiality of Alcohol and Drug Abuse Patient Records regulations: The Federal rules restrict any use of the information to criminally investigate or prosecute any alcohol or drug abuse patient.[facility] WestIn the event this information is protected by the Federal Confidentiality of Alcohol and Drug Abuse Patient Records regulations: The Federal rules restrict any use of the information to criminally investigate or prosecute any alcohol or drug abuse patient.[facility] WestIn the event this information is protected by the Federal Confidentiality of Alcohol and Drug Abuse Patient Records regulations: The Federal rules restrict any use of the information to criminally investigate or prosecute any alcohol or drug abuse patient.[facility] WestIn the event this information is protected by the Federal Confidentiality of Alcohol and Drug Abuse Patient Records regulations: The Federal rules restrict any use of the information to criminally investigate or prosecute any alcohol or drug abuse patient.[facility] WestIn the event this information is protected by the Federal Confidentiality of Alcohol and Drug Abuse Patient Records regulations: The Federal rules restrict any use of the information to criminally investigate or prosecute any alcohol or drug abuse patient.[facility] WestIn the event this information is protected by the Federal Confidentiality of Alcohol and Drug Abuse Patient Records regulations: The Federal rules restrict any use of the information to criminally investigate or prosecute any alcohol or drug abuse patient.[facility] WestIn the event this information is protected by the Federal Confidentiality of Alcohol and Drug Abuse Patient Records regulations: The Federal rules restrict any use of the information to criminally investigate or prosecute any alcohol or drug abuse patient.[facility] WestIn the event this information is protected by the Federal Confidentiality of Alcohol and Drug Abuse Patient Records regulations: The Federal rules restrict any use of the information to criminally investigate or prosecute any alcohol or drug abuse patient.[facility] WestIn the event this information is protected by the Federal Confidentiality of Alcohol and Drug Abuse Patient Records regulations: The Federal rules restrict any use of the information to criminally investigate or prosecute any alcohol or drug abuse patient.[facility] WestIn the event this information is protected by the Federal Confidentiality of Alcohol and Drug Abuse Patient Records regulations: The Federal rules restrict any use of the information to criminally investigate or prosecute any alcohol or drug abuse patient.[facility] WestIn the event this information is protected by the Federal Confidentiality of Alcohol and Drug Abuse Patient Records regulations: The Federal rules restrict any use of the information to criminally investigate or prosecute any alcohol or drug abuse patient.[facility] WestIn the event this information is protected by the Federal Confidentiality of Alcohol and Drug Abuse Patient Records regulations: The Federal rules restrict any use of the information to criminally investigate or prosecute any alcohol or drug abuse patient.[facility] WestIn the event this information is protected by the Federal Confidentiality of Alcohol and Drug Abuse Patient Records regulations: The Federal rules restrict any use of the information to criminally investigate or prosecute any alcohol or drug abuse patient.[facility] WestIn the event this information is protected by the Federal Confidentiality of Alcohol and Drug Abuse Patient Records regulations: The Federal rules restrict any use of the information to criminally investigate or prosecute any alcohol or drug abuse patient.[facility] WestIn the event this information is protected by the Federal Confidentiality of Alcohol and Drug Abuse Patient Records regulations: The Federal rules restrict any use of the information to criminally investigate or prosecute any alcohol or drug abuse patient.[facility] WestIn the event this information is protected by the Federal Confidentiality of Alcohol and Drug Abuse Patient Records regulations: The Federal rules restrict any use of the information to criminally investigate or prosecute any alcohol or drug abuse patient.[facility] WestIn the event this information is protected by the Federal Confidentiality of Alcohol and Drug Abuse Patient Records regulations: The Federal rules restrict any use of the information to criminally investigate or prosecute any alcohol or drug abuse patient.[facility] WestIn the event this information is protected by the Federal Confidentiality of Alcohol and Drug Abuse Patient Records regulations: The Federal rules restrict any use of the information to criminally investigate or prosecute any alcohol or drug abuse patient.[facility] WestIn the event this information is protected by the Federal Confidentiality of Alcohol and Drug Abuse Patient Records regulations: The Federal rules restrict any use of the information to criminally investigate or prosecute any alcohol or drug abuse patient.[facility] WestIn the event this information is protected by the Federal Confidentiality of Alcohol and Drug Abuse Patient Records regulations: The Federal rules restrict any use of the information to criminally investigate or prosecute any alcohol or drug abuse patient.[facility]In the event this information is protected by the Federal Confidentiality of Alcohol and Drug Abuse Patient Records regulations: The Federal rules restrict any use of the information to criminally investigate or prosecute any alcohol or drug abuse patient.[facility]In the event this information is protected by the Federal Confidentiality of Alcohol and Drug Abuse Patient Records regulations: The Federal rules restrict any use of the information to criminally investigate or prosecute any alcohol or drug abuse patient.[facility] WestIn the event this information is protected by the Federal Confidentiality of Alcohol and Drug Abuse Patient Records regulations: The Federal rules restrict any use of the information to criminally investigate or prosecute any alcohol or drug abuse patient.[facility]In the event this information is protected by the Federal Confidentiality of Alcohol and Drug Abuse Patient Records regulations: The Federal rules restrict any use of the information to criminally investigate or prosecute any alcohol or drug abuse patient.[facility] WestIn the event this information is protected by the Federal Confidentiality of Alcohol and Drug Abuse Patient Records regulations: The Federal rules restrict any use of the information to criminally investigate or prosecute any alcohol or drug abuse patient.[facility] WestIn the event this information is protected by the Federal Confidentiality of Alcohol and Drug Abuse Patient Records regulations: The Federal rules restrict any use of the information to criminally investigate or prosecute any alcohol or drug abuse patient.[facility] WestIn the event this information is protected by the Federal Confidentiality of Alcohol and Drug Abuse Patient Records regulations: The Federal rules restrict any use of the information to criminally investigate or prosecute any alcohol or drug abuse patient.[facility] WestIn the event this information is protected by the Federal Confidentiality of Alcohol and Drug Abuse Patient Records regulations: The Federal rules restrict any use of the information to criminally investigate or prosecute any alcohol or drug abuse patient.[facility] WestIn the event this information is protected by the Federal Confidentiality of Alcohol and Drug Abuse Patient Records regulations: The Federal rules restrict any use of the information to criminally investigate or prosecute any alcohol or drug abuse patient.[facility] WestIn the event this information is protected by the Federal Confidentiality of Alcohol and Drug Abuse Patient Records regulations: The Federal rules restrict any use of the information to criminally investigate or prosecute any alcohol or drug abuse patient.[facility] WestIn the event this information is protected by the Federal Confidentiality of Alcohol and Drug Abuse Patient Records regulations: The Federal rules restrict any use of the information to criminally investigate or prosecute any alcohol or drug abuse patient.[facility] WestIn the event this information is protected by the Federal Confidentiality of Alcohol and Drug Abuse Patient Records regulations: The Federal rules restrict any use of the information to criminally investigate or prosecute any alcohol or drug abuse patient.[facility] WestIn the event this information is protected by the Federal Confidentiality of Alcohol and Drug Abuse Patient Records regulations: The Federal rules restrict any use of the information to criminally investigate or prosecute any alcohol or drug abuse patient.[facility] WestIn the event this information is protected by the Federal Confidentiality of Alcohol and Drug Abuse Patient Records regulations: The Federal rules restrict any use of the information to criminally investigate or prosecute any alcohol or drug abuse patient.[facility] WestIn the event this information is protected by the Federal Confidentiality of Alcohol and Drug Abuse Patient Records regulations: The Federal rules restrict any use of the information to criminally investigate or prosecute any alcohol or drug abuse patient.[facility] WestIn the event this information is protected by the Federal Confidentiality of Alcohol and Drug Abuse Patient Records regulations: The Federal rules restrict any use of the information to criminally investigate or prosecute any alcohol or drug abuse patient.[facility] FOR RECORDS PERTAINING TO PATIENTS WHO ARE OR HAVE BEEN ENROLLED IN A CHEMICAL DEPENDENCY/SUBSTANCEABUSE PROGRAM, SOME INFORMATION MAY BE OMITTED. This clinical summary was aggregated from multiple sources. Caution should be exercised in using it in the provision of clinical care. This summary normalizes information from multiple sources, and as a consequence, information in this document may materially change the coding, format and clinical context of patient data. In addition, data may be omitted in some cases. CLINICAL DECISIONS SHOULD BE BASED ON THE PRIMARY CLINICAL RECORDS. [facility]. provides no warranty or guarantee of the accuracy or completeness of information in this document.
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
[2025-01-01] MEDS: KETOROLAC TROMETHAMINE 30 MG/ML VIAL IM (09:27)
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
== END 2025-01-01 11:11 | disposition home or self-care (01) ==
PROVIDERS: Emergency Provider Emergency Medicine; PCP Family Medicine
DX: S13.9XXA Sprain of joints and ligaments of unspecified parts of neck, initial encounter (principal); S33.5XXA Sprain of ligaments of lumbar spine, initial encounter; V49.49XA Driver injured in collision with other motor vehicles in traffic accident, initial encounter
CPT/HCPCS: 70450; 72100; 72125; 73502; 76376; 96372; 99284; J1885